=== PATIENT | male | born 1955 | race Caucasian/White ===

== ENCOUNTER 2019-10-15 16:41 | Outpatient (REF) | payer OTHER, SELFPAY ==
[2019-10-15 20:28] LABS: Bilirubin Negative (Negative); Blood Negative (Negative); Clarity Clear (Clear); Glucose Negative (Negative); Ketones Negative (Negative); Leukocyte Esterase Negative (Negative); Nitrite Negative (Negative); Specific Gravity 1.025 (1.005-1.025); Urobilinogen 0.2 EU/dL (Up TO 0.2)
== END 2019-10-15 17:01 ==
LOC: NCHCN 16:41
PROVIDERS: PCP Internal Medicine; Visit Provider Family Medicine
DX: R39.15 Urgency of urination (principal)
CPT/HCPCS: 81003; 87086

== ENCOUNTER 2021-01-22 19:09 | Outpatient (REF) | payer OTHER, SELFPAY ==
[2021-01-22 21:53] LABS: ALT 36 U/L (16-63); AST 22 U/L (15-37); Albumin 3.9 g/dL (3.4-5.0); Alkaline Phosphatase 107 U/L (46-116); Anion Gap 9.3 mmol/L (3-11); BUN 20 mg/dL (7-18); Bilirubin, Total 0.5 mg/dL (0.2-1.0); CO2 26.7 mmol/L (21.0-32.0); CREATININE 1.1 mg/dL (0.70-1.30); Calcium 9.1 mg/dL (8.5-10.1); Calculated LDL 68 mg/dL (<100); Chloride 106 mmol/L (98-107); Cholesterol 149 mg/dL (<200); Glucose 97 mg/dL (74-106); HDL Cholesterol 34 mg/dL (40-60); Potassium 4.8 mmol/L (3.5-5.1); Sodium 142 mmol/L (136-145); Total Protein 7.6 g/dL (6.4-8.2); Triglyceride 235 mg/dL (<150)
== END 2021-01-22 19:10 | disposition home or self-care (01) ==
LOC: NCHCN 19:09
PROVIDERS: PCP Internal Medicine; Visit Provider Family Medicine
DX: I10 Essential (primary) hypertension (principal); G47.30 Sleep apnea, unspecified; E66.9 Obesity, unspecified
CPT/HCPCS: 80053; 80061

== ENCOUNTER 2021-10-18 19:03 | Outpatient (REF) | payer OTHER, SELFPAY ==
[2021-10-18 21:20] LABS: CREATININE 1.1 mg/dL (0.70-1.30)
== END 2021-10-18 19:04 | disposition home or self-care (01) ==
LOC: NCHCN 19:03
PROVIDERS: PCP Internal Medicine; Visit Provider Family Medicine
DX: K11.8 Other diseases of salivary glands (principal)
CPT/HCPCS: 82565

== ENCOUNTER 2021-10-26 01:55 | Outpatient (CLI) | payer OTHER, SELFPAY ==
[2021-10-26] MEDS: Omnipaque 350 MG/ML 100 ML BTL IJ (14:25)
--- NOTE | 2021-10-26 14:25 | DI.CT_ITS ---
Exam(s) CT NECK W EXAM: CT NECK W CLINICAL HISTORY: MASS OF PAROTID GLAND, K11.8. TECHNIQUE: Imaging Protocol: Axial computed tomography images with coronal and sagittal reformatted images were created and reviewed. CONTRAST MATERIAL: Intravenous: Omnipaque 350 Contrast volume:100 COMPARISON: No exams were available for comparison FINDINGS: Orbits and orbital soft tissues: Not included on this examination. Visualized paranasal sinuses: Clear. No fluid levels are present. Nasopharynx: Within normal limits. Oropharynx: Within normal limits. Hypopharynx: Within normal limits. Larynx: Within normal limits. Retropharyngeal space: Within normal limits. Parotids/submandibular: There is a complex mass in the left parotid gland. It measures 3.1 cm trans verse by 3.0 cm AP x 4.2 cm craniocaudad. It is predominantly solid with some areas of fat seen inte rnally. Solid components are isointense to the muscle. No other parotid masses are identified. Thyroid gland: Within normal limits. Lymphadenopathy: The largest lymph node is seen in the left neck at the level of the parotid gland a nd has a short axis diameter of 1.1 cm. Trachea: Within normal limits. Lung apices: Within normal limits. Bones: The bones have a mottled appearance with small lucencies present. No sclerotic lesions are se en. Carotids/Jugular: Mild atherosclerosis. Soft tissues: Within normal limits. IMPRESSION: Normal CT scan of the neck. RADIATION DOSE DELIVERED: 513.36mGy.cm Total DLP 513.36mGy.cm Total DLP DATA REPOSITORY: All CT scans at this facility are submitted to the National Radiology Data Registry (NRDR) Dose Index Registry (DIR) with the [employer] (ACR). RADIATION OPTIMIZATION: All CT scans at this facility use at least one of these dose optimization te chniques: automated exposure control; mA and/or kV adjustment per patient size (includes targeted exa ms where dose is matched to clinical indication); or iterative reconstruction.
== END 2021-10-26 02:15 ==
LOC: DI 01:55
PROVIDERS: PCP Internal Medicine; Visit Provider Family Medicine
DX: K11.8 Other diseases of salivary glands (principal)
CPT/HCPCS: 70491; J3490

== ENCOUNTER 2021-11-19 15:46 | Outpatient (REF) | payer OTHER, SELFPAY ==
--- NOTE | 2021-11-19 14:30 | PAPNONF_PTH ---
PATIENT: Samm Macdonald IV LOC: [facility] U#:[id number] AGE/SX: 65/M ROOM: RE11/19/[address]: Kristopher Kulkarni MD : 1955 BED: DIS: 11/19/2021 SPEC #: [id number] RECD: 11/19/21 18:03 STATUS: IRINA REKraig #: [id number] ADRIAN: 11/19/21 14:[address]: Kristopher Kulkarni DEPT: [facility] Cytology RECD BY: Linda Corbin ENTERED: 11/19/21 18:04 SP TYPE: KAILEY BATES DR: Robyn Glynn Tissues: 1 - BODY FLUID CYTO-FINE NEEDLE [facility] Procedures: BODY FLUID CYTO-FINE NEEDLE [facility]IRATE[facility] Comments: [id number]
--- OUTSIDE RECORDS SUMMARY | 2021-11-19 15:52 | XMS_ITS ---
:1955 Author Care Team Providers Name Role Phone DELLA HESS Primary Care Provider [phone] [facility] MEDICAL RECORDS OTHER [phone] Allergies Code Code System Name Reaction Severity Status Onset 1399 RxNorm Benzocaine Other Severe Active ? 1406 RxNorm Benzoin Other Severe Active ? Cetylpyridinium Other Moderate to Active ? Chloride Severe [id number] RxNorm Indocin Other Moderate Active ? Kank-a (with Other Severe Active ? Benzoin) 6750 RxNorm Menthol Other Moderate Active ? 89117 RxNorm Phenol Other Moderate Active ? Medications Name Status Start Date Stop Date ? ? acetaminophen Active ? Not available 500 mg 2 tabs BID amlodipine 5 mg tablet Active ? Not avail able Take 1 tablet every day by oral route. ibuprofen 200 mg tablet Active ? Not avai lable Take 3 tablets every 6 hours by oral route. lidocaine 5 % medicated patch and dimethicone 5 % topical cream Completed ? 05/03/2021 1 a day every 12 hrs lisinopril 10 mg tablet Completed ? 05/03/20 21 Take 1 tablet every day by oral route. Problems Name Status Onset Date Source ? Adenoma Active 02/01/2021 ? Obesity Active 02/01/2021 ? 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 Retinal Detachment Active 02/01/2021 ? Iritis Active 02/01/2021 ? Impacted Cerumen Active 02/01/2021 ? Hypertensive Disorder Active 02/01/2021 ? Psoriasis Active 02/01/2021 ? Low Back Pain Active 02/01/2021 ? Urgent Desire to Urinate Active 02/01/2021 ? Obstructive Sleep Apnea Syndrome Active ? ? Procedures None recorded. Results Lab Results None recorded. 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 Social History Tobacco Smoking Status Never Smoker Vaccine List None recorded. Plan of Care Reminders Provider Appointments None ? ? recorded. Lab None ? ? recorded. Referral None ? ? recorded. Procedures None ? ? recorded. Surgeries None ? ? recorded. Imaging None ? ? recorded. Vitals Height Weight BMI Blood Pressure 177.8 cm 141.52 kg 44.8 kg/m2 140/80 mm[Hg]
== END 2021-11-19 15:47 | disposition home or self-care (01) ==
LOC: LBN 15:46
PROVIDERS: PCP Family Medicine; Visit Provider Otolaryngology
DX: K11.8 Other diseases of salivary glands (principal)
CPT/HCPCS: 88104

== ENCOUNTER 2021-11-28 08:16 | Outpatient (REF) | payer OTHER, SELFPAY ==
--- NOTE | 2021-11-28 17:00 | PAPNONF_PTH ---
PATIENT: Samm Macdonald IV LOC: [facility] U#:[id number] AGE/SX: 65/M ROOM: RE11/28/[address]: Kristopher Kulkarni MD : 1955 BED: DIS: 11/28/2021 SPEC #: [id number] RECD: 11/29/21 12:59 STATUS: IRINA REQ #: [id number] ADRIAN: 11/28/21 17:[address]: Kristopher Kulkarni DEPT: [facility] Cytology RECD BY: Linda Corbin ENTERED: 11/29/21 13:02 SP TYPE: KAILEY BATES DR: Robyn Glynn Tissues: 1 - BODY FLUID CYTO-FINE NEEDLE [facility]ATE[facility] Procedures: BODY FLUID CYTO-FINE NEEDLE ASPIRATE[facility] Comments: [id number]
== END 2021-11-28 08:17 | disposition home or self-care (01) ==
LOC: LBN 08:16
PROVIDERS: PCP Family Medicine; Visit Provider Otolaryngology
DX: K11.8 Other diseases of salivary glands (principal); D37.030 Neoplasm of uncertain behavior of the parotid salivary glands
CPT/HCPCS: 88104

== ENCOUNTER 2022-04-01 16:09 | Outpatient (REF) | payer OTHER, SELFPAY ==
[2022-04-01 19:21] LABS: HCT 48.2 % (40.0-50.0); HGB 16.9 g/dL (13.5-17.5); MCH 30.5 pg (27.0-33.0); MCHC 35.1 % (32.0-36.0); MCV 87 fL (80-95); MPV 10.2 fL (8.0-11.0); Platelet Count 288 10^3/uL (130-400); RBC 5.54 10^6/uL (4.36-5.78); RDW 13.1 % (11.8-14.1); RDW-SD 41.5 fL; WBC 9.34 10^3/uL (4.4-10.8)
[2022-04-01 19:54] LABS: ALT 61 U/L (16-63); AST 28 U/L (15-37); Albumin 3.8 g/dL (3.4-5.0); Alkaline Phosphatase 110 U/L (46-116); Anion Gap 10.9 mmol/L (3-11); BUN 16 mg/dL (7-18); Bilirubin, Total 0.7 mg/dL (0.2-1.0); CO2 29.1 mmol/L (21.0-32.0); Chloride 104 mmol/L (98-107); Estimated GFR 83.52 (mL/min/1.73m2); Glucose 86 mg/dL (74-106); Potassium 4.2 mmol/L (3.5-5.1); Sodium 144 mmol/L (136-145)
== END 2022-04-01 16:10 | disposition home or self-care (01) ==
LOC: NCHCN 16:09
PROVIDERS: PCP Family Medicine; Visit Provider Family Medicine
DX: Z01.818 Encounter for other preprocedural examination (principal)
CPT/HCPCS: 80053; 85027; 84443

== ENCOUNTER 2024-02-02 15:15 | Outpatient (REF) | payer OTHER, SELFPAY ==
[2024-02-02 15:45] LABS: ALT 53 U/L (16-63); AST 34 U/L (15-37); Albumin 3.7 g/dL (3.4-5.0); Alkaline Phosphatase 115 U/L (46-116); Anion Gap 6.8 mmol/L (3-11); BUN 23 mg/dL (7-18); Bilirubin, Total 0.47 mg/dL (0.2-1.0); CO2 28.2 mmol/L (21.0-32.0); Calcium 8.9 mg/dL (8.5-10.1); Calculated LDL 59 mg/dL (<100); Chloride 108 mmol/L (98-107); Cholesterol 125 mg/dL (<200); Estimated GFR 82.49 (mL/min/1.73m2); Glucose 96 mg/dL (74-106); HDL Cholesterol 38 mg/dL (40-60); Sodium 143 mmol/L (136-145); Total Protein 7.4 g/dL (6.4-8.2); Triglyceride 144 mg/dL (<150); Vitamin D 25 Total 14.9 ng/mL (30-100)
== END 2024-02-02 15:16 | disposition home or self-care (01) ==
LOC: NCHCN 15:15
PROVIDERS: PCP Family Medicine; Visit Provider Family Medicine
DX: Z00.00 Encounter for general adult medical examination without abnormal findings (principal); E55.9 Vitamin D deficiency, unspecified; R79.89 Other specified abnormal findings of blood chemistry
CPT/HCPCS: 80053; 80061; 82306

== ENCOUNTER 2024-07-21 16:33 | Outpatient (CLI) | payer MEDICARE, SELFPAY ==
[2024-07-21 12:53] LABS: BUN 13 mg/dL (7-18); CREATININE 0.9 mg/dL (0.70-1.30); Estimated GFR 93.61 (mL/min/1.73m2)
--- OUTSIDE RECORDS SUMMARY | 2024-07-21 16:38 | XMS_ITS | Encounter Summary ---
Author Organization [facility] Address [address] [place] [address] Care Team Providers Care Drafter Name Role Phone Robyn Glynn MD Primary Care Provider Reason for Visit * Reason Onset Date Comments Medications Refill 12/04/2023 Encounter Details Date Type Department Care Team (Late st Contact Info) Description 12/04/2023 Refill [facility] Cardiology - [address] [place] [address] Helio Lyons MD [address] [place] [address] [address] [place] [address] Medications Refill Social History Tobacco Use Types Packs/Day Years Used Date Smoking Tobacco: Never Passive Smoke Exposure: Past Smokeless Tobacco: Never Alcohol Use Standard Drinks/Week Comments Yes 0 (1 standard drink = 0.6 oz pur e alcohol) Very rare. AUDIT-C Answer Date Recorded Frequency of Alcohol Consumption Never 01/25/2019 Average Number of Drinks Not on file 019 Frequency of Binge Drinking Not on file 01/03 Interpersonal Safety Answer Date Record ed Physically Hurt Never 03/06/2020 Verbally Threaten Not on file 03/06/2020 Sex and Gender Information Value Date Recorded Sex Assigned at Not on file Legal Sex Male 14:01 EDT Gender Identity Not on file Sexual Orientation Not on file documented as of this encounter Functional Status * Are you deaf or do you have serious difficulty hearing? Answer Date of Assessment Author No 07/10/2023 19:12 Jannet Crum RN * Are you blind or do you have serious difficulty seeing, even when wearing glasses? Answer Date of Assessment Author No 07/10/2023 19:12 Jannet Crum, TAYO * Do you have serious difficulty walking or climbing stairs? (5 years old or older) Answer Date of Assessment Author No 07/10/2023 19:12 Jannet Crum RN * Do you have difficulty dressing or bathing? (5 years old or older) Answer Date of Assessment Author No 07/10/2023 19:12 Jannet Crum RN * Because of a physical, mental, or emotional condition, do you have difficulty doing errands alone such as visiting a doctor's office or shopping? (15 years old or older) Answer Date of Assessment Author No 07/10/2023 19:12 Jannet Crum RN documented as of this encounter Mental Status * Because of a physical, mental, or emotional condition, do you have serious difficulty concentrating, remembering, or making decisions? (5 years old or older) Answer Entry Date Author No 07/10/2023 19:12 Jannet Crum RN documented in this encounter Plan of Treatment Upcoming Encounters Date Type Department Care Team (Late st Contact Info) Description 07/22/2024 19:30 EST Appointment [facility] Radiology [place] - [address] [address] 07/29/2025 15:40 EST Office Visit [facility] Cardiology - [place] [address] Palak Diallo MD [address] [facility], [place], [address] [place] [phone] documented as of this encounter Visit Diagnoses Not on filedocumented in this encounter Care Teams Drafter Relationship Specialty Start Date End Date Robyn Glynn MD [address] [place] [phone] PCP - General Family Medicine - Primary Care 11/02/21 documented as of this encounter
--- OUTSIDE RECORDS SUMMARY | 2024-07-21 16:38 | XMS_ITS | Encounter Summary ---
Author Organization [facility] Address [address] [place] [address] Care Team Providers Care Creping Machine Operator Helper Name Role Phone Robyn Glynn MD Primary Care Provider [phone] Reason for Referral * Radiology Services (Routine) - Authorization Not Required Specialty Diagnoses / Procedures Referred By Contac t Referred To Contact Diagnoses PAF (paroxysmal atrial fibrillation) (HCC-CMS) Procedures CT CARDIAC PULMONARY VEIN Helio Lyons MD [address] [place] [phone] Phone: tel: fax: [facility] Referral ID Status Reason Start Date Expiration Date Visits Requested Visits Authorized [id number] Authorization Not Required 11/06/2023 1 1 * Cardiology (Routine) - Authorization Not Required Specialty Diagnoses / Procedures Referred By Contac t Referred To Contact Diagnoses PAF (paroxysmal atrial fibrillation) (HCC-CMS) Procedures TRANSESOPHAGEAL ECHO (GERALD) Helio Lyons MD [address] [facility] [address] [place] [phone] Phone: tel: fax: [facility] Referral ID Status Reason Start Date Expiration Date Visits Requested Visits Authorized [id number] Authorization Not Required 11/06/2023 1 1 * Cardiology (Routine) - New Request Specialty Diagnoses / Procedures Referred By Contac t Referred To Contact Diagnoses PAF (paroxysmal atrial fibrillation) ([facility]) Procedures INTRACARDIAC ECHOCARDIOGRAM (ICE) Helio Lyons MD 62 [facility] [address] [place] [phone] Phone: tel: fax: Referral ID Status Reason Start Date Expiration Date V isits Requested Visits Authorized [id number] New Request 11/06/2023 1 1 Reason for Visit * Reason Comments Atrial Fibrillation * Consult (Routine/Next Available) - Authorization Not Required Specialty Diagnoses / Procedures Referred By Contac t Referred To Contact Cardiology Diagnoses Paroxysmal atrial fibrillation ([facility]) Sirisha Daniel NP Phone: tel: fax: Helio Lyons MD Phone: tel: fax: Referral ID Status Reason Start Date Expiration Date Visits Requested Visits Authorized [id number] Authorization Not Required Specialty Services Required 3 1 1 Encounter Details Date Type Department Care Team (Late st Contact Info) Description 11/06/2023 16:15 EDT Telemedicine [facility] Cardiology - [address] [address] Helio Lyons MD [address] [phone] PAF (paroxysmal atrial fibrillation) ([facility]) (Primary Dx) Social History Tobacco Use Types Packs/Day Years [...] Jannet Crum RN * Do you have serious difficulty walking [...] Jannet Crum RN documented in this encounter Progress Notes * Helio Lyons MD - 11/06/2023 1615 EDT Cardiology Follow Up 11/06/23 Chief complaint: No chief complaint on file. Assessment & Plan Samm Macdonald is a 67 y.o. male with a structurally normal heart and symptomatic PAF refractory to dofetilide therapy. We discussed options for his ongoing symptomatic AF. We reviewed a trial of a different antiarrhythmic drug such as flecainide or amiodarone and catheter ablation. The risks and benefits of each approach were discussed in detail. Mr. Macdonald understands that the long-term efficacy of antiarrhythmic drug therapy is on the order of 50 to 60%. The initial success rate for first-timepulmonary vein and encirclement/isolation is 60 to 65%. the risk to catheter ablation is low. After discussing options further, Mr. Macdonald prefers to proceed with catheter ablation. An ablation will be scheduled at his convenience. Plans: Continue beta-gamal and OAC Discontinue dofetilide due to ineffectiveness Scheduled for PVE/PVI There are no diagnoses linked to this encounter. No follow-ups on file. Helio Lyons MD Subjective Samm Macdonald is a 67 y.o. male with a history of paroxysmal atrial fibrillation in the setting of a structurally normal heart. He was recently started on dofetilide. He has been on dofetilide since July 10, 2023. He continues to have weekly episodes of self-limited symptomatic AF which last hours. He feels poorly when he is in AF. He has been compliant with his medical therapy including his OAC. When not in AF Mr. Macdonald is asymptomatic and able to participate in activities of daily living without restriction including skiing and other outdoor pursuits. ROS See subjective for pertinent positives and negatives Problem List and History were reviewed in the EMR No outpatient medications have been marked as taking for the 11/06/23 encounter (Appointment) with Helio Lyons MD. Objective There were no vitals taken for this visit. Physical Exam No physical exam as this was a telemedicine video conference interaction Diagnostics: Not applicable This was a televideo visit conducted over the vufind platform Patient location: Home Provider location: [facility] outpatient cardiology clinic I spent a total of 15 minutes on the date of this encounter meeting with the patient and reviewing documentation/coordinating care as described in the above note. documented in this encounter Plan of Treatment Upcoming Encounters Date Type Department Care Team (Late st Contact Info) Description 07/22/2024 19:30 EST Appointment [facility] Radiology [place] - Main [address] [address] 07/29/2025 15:40 EST Office Visit [facility] Cardiology - [address] [place] [address] Palak Diallo MD [address] [place] [address], [address] [place] [address] Scheduled Orders Name Type Priority Associated Diagnoses Order Schedule TRANSESOPHAGEAL ECHO (GERALD) Echocardiography Routine PAF (paroxysmal atrial fibrillation) ([facility]) Expected: 11/06/2023, Expires: 11/05/2025 documented as of this encounter Results * INTRACARDIAC ECHOCARDIOGRAM (ICE) (03/22/2024 6:25 EDT) Narrative [facility] - 03/22/2024 6:25 EDT Non Reportable Exam us Helio Lyons MD CARDIAC ECHO ORDERABL ES Final Result [facility] * CT CARDIAC PULMONARY VEIN (01/27/2024 9:00 EDT) Anatomical Region Laterality Modality Chest Computed Tomogra phy 01/27/2024 9:16 EDT Narrative 01/27/2024 9:[address] CARDIAC PULMONARY VEIN ??01/27/2024 8:37 AM Clinical History/Comments: paf;I48.0:PAF (paroxysmal atrial fibrillation) ([facility]) Technique: CT of the heart was performed with ECG-gating and with the intravenous administration of contrast material. Images were reconstructed at the 30-35-40-45% phases of the cardiac cycle. 3D advanced post-processing was performed utilizing a combination of MIP and MPR techniques with physician participation and supervision. This CT used either dose modulation and/or iterative reconstruction techniques to lower radiation dose. Comparison: None. Findings: CT of the chest with contrast performed tailored for left atrium and pulmonary vein opacification. The left atrium is dilated the maximum anterior to posterior diameter measurement is 5.6 cm. The pulmonary veins are normal. There are 4 draining veins on the right, a right superior vein draining right upper lobe, a separate middle lobe draining vein, 80 vein draining the superior segment right lower lobe, and a the right inferior vein draining the basal segments of the right lower lobe. On the left, there are 2 draining veins draining left upper and lower lobes respectively. The left atrial appendage is well opacified and without thrombus. Additional findings: There is mild coronary artery atherosclerotic calcification. The main pulmonary artery is mildly dilated measuring 3.2 cm diameter. Focal sclerotic lesion anterior left second rib, likely benign in the absence of a history of malignancy. There is a 1.0 cm diameter aortopulmonary window lymph node, with an adjacent 8 mm lymph node. These are likely reactive. A dedicated chest CT may be of benefit performed electively for further evaluation. There is a calcified nodule in the lingula consistent with a granuloma. [id number] Resulting Agency Comment [id number] Procedure Note Diallo Flores MD - 01/27/2024 CT CARDIAC PULMONARY VEIN 01/27/2024 8:37 AM Clinical History/Comments: paf;I48.0:PAF (paroxysmal atrial fibrillation) ([facility]) Technique: CT of the heart was performed with ECG-gating and with the intravenousadministration of contrast material. Images were reconstructed at fdf65-95-67-08% phases of the cardiac cycle. 3D advanced post-processing wasperformed utilizing a combination of MIP and MPR techniques with physicianparticipation and supervision. This CT used either dose modulation and/or iterative reconstructiontechniques to lower radiation dose. Comparison: None. Findings: CT of the chest with contrast performed tailored for left atrium andpulmonary vein opacification. The left atrium is dilated the maximum anterior to posterior diametermeasurement is 5.6 cm. The pulmonary veins are normal. There are 4 draining veins on the right, aright superior vein draining right upper lobe, a separate middle lobedraining vein, 80 vein draining the superior segment right lower lobe, abhi the right inferior vein draining the basal segments of the right lowerlobe. On the left, there are 2 draining veins draining left upper andlower lobes respectively. The left atrial appendage is well opacified and without thrombus. Additional findings: There is mild coronary artery atherosclerotic calcification. The main pulmonary artery is mildly dilated measuring 3.2 cm diameter. Focal sclerotic lesion anterior left second rib, likely benign in theabsence of a history of malignancy. There is a 1.0 cm diameter aortopulmonary window lymph node, with anadjacent 8 mm lymph node. These are likely reactive. A dedicated chest CTmay be of benefit performed electively for further evaluation. There is a calcified nodule in the lingula consistent with a granuloma. [id number] Helio Lyons MD IMG CT ORDERABLES Fin al Result documented in this encounter Visit Diagnoses Diagnosis PAF (paroxysmal atrial fibrillation) (HCC-CMS)- Primary Atrial fibrillation PAF (paroxysmal atrial fibrillation) (HCC-CMS) Atrial fibrillation PAF (paroxysmal atrial fibrillation) (HCC-CMS) Atrial fibrillation documented in this encounter Historical Medications * This list may reflect changes made after this encounter. apixaban (ELIQUIS) 5 mg tabletIndications:pre vent thromboembolism in chronic atrial fibrillation Take 1 Tablet by mouth 2 times daily. added in this encounter Orders Case Request Count Last Ordered Date First Orde red Date CASE REQUEST EP LAB 1 11/06/2023 documented in this encounter Care Teams Creping Machine Operator Helper Relationship Specialty Start Date End Date Robyn Glynn MD [address] [place] [phone] PCP - General Family Medicine - Primary Care 11/02/21 documented as of this encounter
--- OUTSIDE RECORDS SUMMARY | 2024-07-21 16:38 | XMS_ITS | Encounter Summary ---
Author Organization [facility] Address [address] [place] [address] Care Team Providers Care Water Pump Installer Name Role Phone Robyn Glynn MD Primary Care Provider [phone] Encounter Details Date Type Department Care Team (Late st Contact Info) Description 02/12/2024 Orders Only [facility] Radiology - Main [place] [address] [place], [place] [phone] Joe Hayden MD [address] [facility] [address] [place] [address] Social History Tobacco Use Types Packs/Day Years [...] No 07/10/2023 19:12 Jannet Crum, TAYO * Are you blind or do you have serious difficulty seeing, even when wearing glasses? Answer Date of Assessment Author No 07/10/2023 19:12 Jannet Crum, TAYO * Do you have serious difficulty walking or climbing stairs? (5 years old or older) Answer Date of Assessment Author No 07/10/2023 19:12 Jannet Crum, TAYO * Do you have difficulty dressing or bathing? (5 years old or older) Answer Date of Assessment Author No 07/10/2023 19:12 Jannet Crum, TAYO * Because of a physical, mental, or [...] st Contact Info) Description 07/22/2024 19:30 EST [facility] Radiology [place] - [address] [address] 07/29/2025 15:40 EST Office Visit [facility] Cardiology - [address] [place] [address] Palak Diallo MD [address] [place] [address], [place], [address] [place] [phone] documented as of this encounter Visit Diagnoses Not on filedocumented in this encounter Care Teams Water Pump Installer Relationship Specialty Start Date End Date Robyn Glynn MD [address] [place] [phone] PCP - General Family Medicine - Primary Care 11/02/21 documented as of this encounter
--- OUTSIDE RECORDS SUMMARY | 2024-07-21 16:38 | XMS_ITS | Encounter Summary ---
Author Organization [facility] Address [address] [place] [address] Care Team Providers Care A Class Lineman Name Role Phone Robyn Glynn MD Primary Care Provider [phone] Reason for Referral * Radiology Services (Routine/Next Available) - Authorization Not Required Specialty Diagnoses / Procedures Referred By Contac t Referred To Contact Diagnoses PAF (paroxysmal atrial fibrillation) ([facility]) Procedures CT CHEST W CONTRAST IR IR CT CHEST W/WO CONTRAST Helio Lyons MD [address] [place] [address] [place] [phone] Phone: tel: fax: [facility] [place] Referral ID Status Reason Start Date Expiration Date Visits Requested Visits Authorized [id number] Authorization Not Required 02/12/2024 1 1 Encounter Details Date Type Department Care Team (Late st Contact Info) Description 02/12/2024 Orders Only [facility] Cardiology - [address] [address] Lanny Lucero, TAYO PAF (paroxysmal atrial fibrillation) ([facility]) (Primary Dx) Social History Tobacco Use Types [...] (Late st Contact Info) Description 07/22/2024 19:[address] [facility] Radiology [place] - [address] [address] 07/29/2025 15:40 EST Office Visit [facility] Cardiology - [place] [address] Palak Diallo MD [address] [facility], Level [address] [place] [phone] documented as of this encounter Results * CT CHEST W CONTRAST (03/16/2024 14:43 EDT) Anatomical Region Laterality Modality Chest Computed Tomogra phy 03/16/2024 16:0 7 EDT Impressions 03/16/2024 16:07 EDT 1. ??Stable borderline enlarged mediastinal lymph nodes, likely reactive. 2. ??Few smooth solid lung nodules measuring up to 4 mm in the right middle lobe. Per Fleischner Society guidelines, follow-up CT may be considered in 1 year to ensure stability if the patient is high risk. 3. ??No consolidation identified. No CT evidence of significant emphysema or chronic interstitial lung disease. 4. ??INDETERMINATE 3-CM LEFT ADRENAL NODULE. Adrenal protocol CT (or MR) recommended for further characterization. 5. ??Ovoid 12 cm cystic lesion in the left abdomen, possibly a large exophytic left renal cyst, however only partially included on the vqrio-lx-vxzz. Attention to this recommended upon follow-up adrenal protocol CT or MR. 6. ??Additional nonemergent findings as above. [id number] Narrative 03/16/2024 16:[address] CHEST W CONTRAST ?? Signs and Symptoms/Comments: ??Enlarged lymph nodes on prior CT Comparison: Cardiac CT on 01/27/2024. Technique: CT chest with intravenous contrast was performed. FINDINGS: Chest Wall: Unremarkable. Mediastinum: No mediastinal mass identified. Minimal calcified coronary and peripheral atherosclerotic disease. Main pulmonary trunk remains dilated, measuring 3.4 cm. Pericardium unremarkable. Lymph Nodes: Stable AP window lymph node measuring 8 mm in short-axis dimension, likely reactive. Stable precarinal lymph node measuring 10 mm in short-axis dimension, also likely reactive. No enlarged hilar, axillary, or internal mammary lymph nodes identified. Airways: Unremarkable. Lungs: * ??Smooth 4 mm solid right middle lobe nodule (axial series 4 image 197). This was not included on the ddvmi-ve-zqhc on the prior study, therefore age- indeterminate. * ??Few additional sub-4 mm solid calcified and noncalcified nodules, the majority of which were not included on the ecama-nt-ocqp on the prior study, therefore age-indeterminate. * ??No consolidation identified. * ??No CT evidence of significant emphysema or chronic interstitial lung disease. Pleura: No pneumothorax or pleural effusion identified. Bones: Moderate thoracic spondylosis. Upper Abdomen: * ??Indeterminate ovoid 3 cm left adrenal nodule, measuring 35 Hounsfield units in density (axial series 3 image 118). Follow-up adrenal protocol CT (or MR) recommended for further characterization. * ??Ovoid 12 cm cystic lesion in the left abdomen, possibly a large exophytic left renal cyst, however only partially included on the nnknj-ku-khxt (axial series 3 image 123). * ??Scattered colonic diverticulosis. Resulting Agency Comment [id number] Procedure Note Martínez Mckinley MD - 03/16/2024 CT CHEST W CONTRAST Signs and Symptoms/Comments: Enlarged lymph nodes on prior CT Comparison: Cardiac CT on 01/27/2024. Technique: CT chest with intravenous contrast was performed. FINDINGS: Chest Wall: Unremarkable. Mediastinum: No mediastinal mass identified. Minimal calcified coronaryand peripheral atherosclerotic disease. Main pulmonary trunk remainsdilated, measuring 3.4 cm. Pericardium unremarkable. Lymph Nodes: Stable AP window lymph node measuring 8 mm in short-axisdimension, likely reactive. Stable precarinal lymph node measuring 10 mmin short-axis dimension, also likely reactive. No enlarged hilar,axillary, or internal mammary lymph nodes identified. Airways: Unremarkable. Lungs: * Smooth 4 mm solid right middle lobe nodule (axial series 4 image 197).This was not included on the htjge-lp-doym on the prior study, thereforeage-indeterminate. * Few additional sub-4 mm solid calcified and noncalcified nodules, themajority of which were not included on the sqybg-pq-jwqp on the priorstudy, therefore age-indeterminate. * No consolidation identified. * No CT evidence of significant emphysema or chronic interstitial lungdisease. Pleura: No pneumothorax or pleural effusion identified. Bones: Moderate thoracic spondylosis. Upper Abdomen: * Indeterminate ovoid 3 cm left adrenal nodule, measuring 35 Hounsfieldunits in density (axial series 3 image 118). Follow-up adrenal protocol CT(or MR) recommended for further characterization. * Ovoid 12 cm cystic lesion in the left abdomen, possibly a largeexophytic left renal cyst, however only partially included on ixoxtpvk-ma-mqjq (axial series 3 image 123). * Scattered colonic diverticulosis. IMPRESSION 1. Stable borderline enlarged mediastinal lymph nodes, likely reactive. 2. Few smooth solid lung nodules measuring up to 4 mm in the right middlelobe. Per Fleischner Society guidelines, follow-up CT may be considered in1 year to ensure stability if the patient is high risk. 3. No consolidation identified. No CT evidence of significant emphysemaor chronic interstitial lung disease. 4. INDETERMINATE 3-CM LEFT ADRENAL NODULE. Adrenal protocol CT (or MR)recommended for further characterization. 5. Ovoid 12 cm cystic lesion in the left abdomen, possibly a largeexophytic left renal cyst, however only partially included on tucztmlz-eo-rywg. Attention to this recommended upon follow-up adrenalprotocol CT or MR. 6. Additional nonemergent findings as above. [id number] Helio Lyons MD IMG CT ORDERABLES Fin al Result documented in this encounter Visit Diagnoses Diagnosis PAF (paroxysmal atrial fibrillation) ([facility])- Primary Atrial fibrillation PAF (paroxysmal atrial fibrillation) (HCC-CMS) Atrial fibrillation documented in this encounter Care Teams A Class Lineman Relationship Specialty Start Date End Date Robyn Glynn MD [address] [place] [address] PCP - General Family Medicine - Primary Care 11/02/21 documented as of this encounter
--- OUTSIDE RECORDS SUMMARY | 2024-07-21 16:38 | XMS_ITS | Encounter Summary ---
Author Organization [facility] Address [address] [place] [address] Care Team Providers Care Sterile Supervisor Name Role Phone Robyn Glynn MD Primary Care Provider [phone] Reason for Visit * Reason Onset Date Comments Other 04/06/2024 Patient message Encounter Details Date Type Department Care Team (Late st Contact Info) Description 04/06/2024 Telephone [facility] Cardiology - Laura [address] [facility] [place] [address] Palak Diallo MD [address] [place] [address] 1 [place] [address] Other (Patient message) Social History Tobacco Use Types Packs/Day Years Used Date Smoking Tobacco: Never Passive Smoke Exposure: Past Smokeless Tobacco: Never Comments:2nd hand smoke expo sure Alcohol Use Standard Drinks/Week Comments Yes 0 (1 standard drink = 0.6 oz pur e alcohol) Very rare maybe 2 a month [facility] Utilities Answer Date Recorded In the past 12 months has [employer] electric, gas, oil, or water company threatened to shut off services in your home? No 03/22/2024 AUDIT-C Answer Date Recorded Frequency of Alcohol Consumption Never 01/25/2019 Average Number of Drinks Not on file 019 Frequency of Binge Drinking Not on file 01/03 Hunger Vital Sign Answer Date Recorded Within the past 12 months, y ou worried that your food would run out before you got the money to buy more. Never true 03/22/20 24 Within the past 12 months, t he food you bought just didn't last and you didn't have money to get more. Never true 03/22/2024 PRAPARE - Transportation Answer Date Re corded In the past 12 months, has l ack of transportation kept you from medical appointments or from getting medications? No 03/04 In the past 12 months, has l ack of transportation kept you from meetings, work, or from getting things needed for daily living? No 03/22/2024 Housing Stability Vital Sign Answer [place] e Recorded In the last 12 months, was t here a time when you were not able to pay the mortgage or rent on time? No 03/22/2024 In the past 12 months, how m any times have you moved where you were living? 0 03/22/2024 At any time in the past 12 m ont, were you homeless or living in a usp (including now)? No 03/22/2024 Interpersonal Safety Answer Date Record ed How often does anyone, inclraisa barahona family, hit, punch or physically hurt you? 03/22/2024 How often does anyone, jodie barahona family, insult, scream, curse or threaten to hurt you? 03/22/2024 Sex and Gender Information Value Date Recorded Sex Assigned at Not on file Legal Sex Male 14:01 EDT Gender Identity Not on file Sexual Orientation Not on file documented as of this encounter Functional Status * Are you deaf or do you have serious difficulty hearing? Answer Date of Assessment Author No 03/22/2024 21:00 Cari Bustamante RN * Are you blind or do you have serious difficulty seeing, even when wearing glasses? Answer Date of Assessment Author No 03/22/2024 21:00 Cari Bustamante RN * Do you have serious difficulty walking or climbing stairs? (5 years old or older) Answer Date of Assessment Author No 03/22/2024 21:00 Cari Bustamante RN * Do you have difficulty dressing or bathing? (5 years old or older) Answer Date of Assessment Author No 03/22/2024 21:00 EDT Crai Olmos RN * Because of a physical, mental, or emotional condition, do you have difficulty doing errands alone such as visiting a doctor's office or shopping? (15 years old or older) Answer Date of Assessment Author No 03/22/2024 21:00 EDT Cari Olmos RN documented as of this encounter Mental Status * Because of a physical, mental, or emotional condition, do you have serious difficulty concentrating, remembering, or making decisions? (5 years old or older) Answer Entry Date Author No 03/22/2024 21:00 EDT Cari Olmos RN documented in this encounter Miscellaneous Notes * Telephone Encounter - Candelaria Johnson RN - 04/07/2024 1257 EDT Pt converted. * Telephone Encounter - Candelaria Johnson RN - 04/06/2024 1620 EDT LMTCB and sent [employer] message-Should take metoprolol if he is bothered by the fast heart rate, otherwise can sleep on it, and if still in AF tomorrow morning should take metroprolol then * Telephone Encounter - Candelaria Johnson RN - 04/06/2024 0924 EDT Proposal Coordinator called and spoke with EC spouse Glenda. EC states pt has been in afib with HR 150 bp 114/86 since he woke up at 6:30 am confirmed with Lynn carrasco Pt had afib ablation 03/22. EC states pt has no symptoms just high HR. Proposal Coordinator informed EC this is normal so soon after an ablation but if pt becomes symptomatic or it lasts over 24 hours without interruptions we will want to consider interventions such as a CV. Proposal Coordinator asked if pt took metop, EC stated they were told only take metop if HR is above 110 for 24 hours. Proposal Coordinator will check in with provider to ensure that is what she wants pt to door if he can take a dose of metop to lower HR at this time. No barriers to learning identified. * Telephone Encounter - Shari Ceballos - 04/06/2024 0711 EDT PAS Message: Patient's , a hospice nurse, called stating that patient has an ablation on 03/23 and she thinks patient is in SVT. Would like call back as soon as possible to discuss. documented in this encounter Plan of Treatment Upcoming Encounters Date Type Department Care Team (Late st Contact Info) Description 07/22/2024 19:30 EST Appointment [facility] Radiology CT - [facility] [place] [address] [place], [place] [phone] 07/29/2025 15:40 EST Office Visit [facility] Cardiology - [address] [place] [address] Palak Diallo MD [address] [place] [address], [place], [address] [place] [phone] documented as of this encounter Visit Diagnoses Not on filedocumented in this encounter Care Teams Sterile Supervisor Relationship Specialty Start Date End Date Robyn Glynn MD [address] [place] [phone] PCP - General Family Medicine - Primary Care 11/02/21 documented as of this encounter
--- OUTSIDE RECORDS SUMMARY | 2024-07-21 16:38 | XMS_ITS | Encounter Summary ---
Author Organization [facility] Address [address] [place] [address] Care Team Providers Care Chief Commercial Officer Name Role Phone Robyn Glynn MD Primary Care Provider [phone] Reason for Visit * Reason Comments Medications Refill Encounter Details Date Type Department Care Team (Late st Contact Info) Description 04/02/2024 Refill [facility] Cardiology - [address] [place], [place] [phone] Palak Diallo MD [address] [facility] [address] [place] [phone] Medications Refill Social History Tobacco Use Types Packs/Day Years Used Date Smoking Tobacco: Never Passive Smoke Exposure: Past Smokeless Tobacco: Never Comments:2nd hand smoke expo sure Alcohol Use Standard Drinks/Week Comments Yes 0 (1 standard drink = 0.6 oz pur e alcohol) Very rare maybe 2 a month [facility] Utilities Answer Date Recorded In the past 12 months has [employer] electric, gas, oil, or water company threatened [...] any time in the past 12 m [facility], were you homeless or living in a long term (including now)? No 03/22/2024 Interpersonal Safety Answer Date Record ed How often does anyone, jodie barahona family, hit, punch or physically hurt [...] No 03/22/2024 21:00 EDT Cari Olmos RN * Are you blind or do you have serious difficulty seeing, even when wearing glasses? Answer Date of Assessment Author No 03/22/2024 21:00 AGGIET Cari Olmos RN * Do you have serious difficulty walking or climbing stairs? (5 years old or older) Answer Date of Assessment Author No 03/22/2024 21:00 EDCari Maki, TAYO * Do you have difficulty dressing or bathing? (5 years old or older) Answer Date of Assessment Author No 03/22/2024 21:00 Cari Bustamante RN * Because of a physical, mental, or emotional condition, do you have difficulty doing errands alone such as visiting a doctor's office or shopping? (15 years old or older) Answer Date of Assessment Author No 03/22/2024 21:00 Cari Bustamante RN documented as of this encounter Mental Status * Because of a physical, mental, or emotional condition, do you have serious difficulty concentrating, remembering, or making decisions? (5 years old or older) Answer Entry Date Author No 03/22/2024 21:00 EDT Cari Olmos RN documented in this encounter Plan of Treatment Upcoming Encounters Date Type Department Care Team (Late st Contact Info) Description 07/22/2024 19:30 EST Appointment [facility] Radiology [place] - [address] [phone] 07/29/2025 15:40 EST Office Visit [facility] Cardiology - [place] [address] [place] [address] Palak Diallo MD [address] [place] [address], [place], [address] [place] [phone] documented as of this encounter Visit Diagnoses Not on filedocumented in this encounter Care Teams Chief Commercial Officer Relationship Specialty Start Date End Date Robyn Glynn MD [address] [place] [phone] PCP - General Family Medicine - Primary Care 11/02/21 documented as of this encounter
--- OUTSIDE RECORDS SUMMARY | 2024-07-21 16:38 | XMS_ITS | Encounter Summary ---
Author Organization [facility] Address [address] [place] [address] Care Team Providers Care Package Clerk Name Role Phone Robyn Glynn MD Primary Care Provider [phone] Encounter Details Date Type Department Care Team (Late st Contact Info) Description 11/07/2023 Orders Only [facility] Radiology - Main [place] [address] [place], [place] [phone] Bette Weber MD [address] [facility] [address] [place] [address] Social History Tobacco Use Types [...] (Late st Contact Info) Description 07/22/2024 19:30 [facility] Radiology [place] - [address] [address] 07/29/2025 15:40 EST Office Visit [facility] Cardiology - [address] [place] [address] Palak Diallo MD [address] [place] [address], [place], [address] [place] [phone] documented as of this encounter Visit Diagnoses Not on filedocumented in this encounter Care Teams Package Clerk Relationship Specialty Start Date End Date Robyn Glynn MD [address] [place] [phone] PCP - General Family Medicine - Primary Care 11/02/21 documented as of this encounter
--- OUTSIDE RECORDS SUMMARY | 2024-07-21 16:38 | XMS_ITS | Clinical Summary ---
Author Organization [facility] Address [address] [place] [address] Care Team Providers Care Electrician Rectifier Maintenance Name Role Phone Robyn Glynn MD Primary Care Provider [phone] Allergies Active Allergy Reactions Criticality Noted Date Comments Chloraseptic (Benzocaine) Rash 02/01/2019 Indomethacin 01/25/2019 hallucinates Medications acetaminophen 325 mg capsule Take 1,000 mg by mouth if needed. Active melatonin 10 mg capsule Take by mouth. Activ e apixaban (ELIQUIS) 5 mg tabletIndications:p revent thromboembolism in chronic atrial fibrillation Take 1 Tablet by mouth 2 times daily. Active cholecalciferol, vitamin D3, (VITAMIN D3 ORAL) Take 1,000 Units by mouth daily. Active docusate sodium (COLACE) 100 mg capsule Take 2 Capsules by mouth daily as needed for Constipation. Active magnesium oxide (MAG-OXIDE ORAL) Take 400 mg by mouth daily. Active metoprolol TARtrate (LOPRESSOR) 50 mg tablet Take 1 Tablet by mouth as needed for Other (atrial fibrillation lasting >24 hours with heart rates greater than 110 beats per minute). 03/23/20 Active Additional Information Patient not taking.Reported on 07/16/2024 amLODIPine (NORVASC) 5 mg tablet Take 1 Tablet by mouth daily. Active clindamycin (CLEOCIN) 300 mg capsule TAKE TWO CAPSULES BY MOUTH 1 HOUR PRIOR TO APPOINTMENT Active senna (SENOKOT) 8.6 mg tablet Take 1 Tablet by mouth daily. Active Active Problems Patient Care Coordination No te Formatting of this note migh t be different from the original. Patient has given permission for [facility] to verbally discuss the following information with Karen Macdonald who has the following relationship to the patient: Spouse/Partner: Scheduling/Appt/Billing/Payment Information (does not include clinical information unless specifically indicated with separate option) Medical Information including symptoms, diagnosis, medications, test results and treatment plan (does not include Mental Health unless specifically indicated with separate option) Permission remains in effect until the patient elects to revoke it. 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 UVULOPALATOPHARYGOPLASTY RHINOPLASTY EYE SURGERY catarcts, cataract redo, rentinal surgery(Multi retina tears) TONSILLECTOMY JOINT REPLACEMENT Left Partial knee replacement VASECTOMY Medical History Medical History Date Comments Apnea Hypertension Noted 07/23/22 - 130 /70 per spouse at recent visit, well controlled on meds. Back pain Noted 07/23/22-H x of surgery History of general anesthesia No darby 07/23/22- No issues. A-fib ([facility]) Noted 07/23/22- In and out of afib, pt is on Eliquis. Sleep apnea 05/08/2022 Noted 07/23/22 C ompliant w/Cpap machine, Uvula removed (28 yrs ago) Spinal stenosis Noted 07/23/22 Joint replaced Noted 07/23/22-P artial left knee Edentulous Noted 07/23/22 U pper left missing tooth Activity, other involving cardiorespiratory exercise Noted 07/23/22- Skiing, hik ing, 1-2 FOS without SOB Arrhythmia Noted 07/23/22-P t is bradycardic when in sinus rhythm.When in AF his rate is elevated. Family History Medical History Relation Comments Dementia Father *Other(comment) Mother afib Dementia Mother High Blood Pressure Mother Relation Status Comments Father Mother Social History Tobacco Use Types Packs/Day Years Used Date Smoking Tobacco: Never Passive Smoke Exposure: Past Smokeless Tobacco: Never Tobacco Cessation:Counseling Given: Not Answered Comments:2nd hand smoke exposure Alcohol Use Standard Drinks/Week Comments Yes 0 (1 standard drink = 0.6 oz pur e alcohol) Very rare maybe 2 a month [facility] [employer] Answer Date Recorded In the past 12 months has th e [employer] gas, oil, or water [employer] threatened to shut off services in your [...] any time in the past 12 m [facility], were you homeless or living in a fci (including now)? No 03/22/2024 Interpersonal Safety Answer Date Record ed How often does anyone, inclu [place] family, hit, punch or physically hurt you? 03/22/2024 How often does anyone, inclu [place] family, insult, scream, curse or threaten to hurt you? 03/22/2024 Sex and Gender Information Value Date Recorded Sex Assigned at Not on file Legal Sex Male 14:01 EDT Gender Identity Not on file Sexual Orientation Not on file Obstetrics History Last Filed Vital Signs Vital Sign Reading Time Taken Comments Blood Pressure 140/82 07/16/2024 1436 EST Pulse 68 07/16/2024 1436 EST Temperature 36.9 ??C (98.5 ??F) 03/23/2024 0748 EDT Respiratory Rate 16 03/23/2024 0748 EDT Oxygen Saturation 96% 07/16/2024 1436 EST Inhaled Oxygen Concentration - - Weight 131 kg (288 lb 12.8 oz) 07/16/[address] Height 176.5 cm (5' 9.5) 03/22/2024 0645 EDT Body Mass Index 42.04 03/22/2024 0645 EDT Plan of Treatment Upcoming Encounters Date Type Department Care Team (Late st Contact Info) Description 07/22/2024 19:30 EST Appointment [facility] Radiology [place] - [address] [id number] 07/29/2025 15:40 EST Office Visit [facility] Cardiology - [place] [address] Palak Diallo MD [address] [place] [address], [place], [address] [place] [address] Health Maintenance Due Date Last Done Comments Hepatitis C Screen 1955 RSV Immunization ( o r 60+ Years) (1 - Risk 60-74 years 1-dose series) 2016 Fall Risk Screening 05/22/2023 05/22/2022 COVID-19 Vaccine (2023- season) 2024 Insurance MVP MEDICARE [facility] Status [employer] Address: [address] [address] [employer] MEDICARE [facility] Status [employer] Address: [address] [address] Advance Directives For more information, please contact: [phone] * Full Code (Latest Code Status on File) Date Activated Date Inactivated Comments 03/22/2024 6:36 03/23/2024 12:56 Question Answer Comments When the patient has NO PULSE: Full Code / CPR Who Made the Decision? Default/Not Discussed * Full Code Date Activated Date Inactivated Comments 07/10/2023 19:34 07/13/2023 14:24 Question Answer Comments When the patient has NO PULSE: Full Code / CPR Who Made the Decision? Default/Not Discussed * Full Code Date Activated Date Inactivated Comments 07/30/2022 12:13 07/31/2022 16:57 Question Answer Comments When the patient has NO PULSE: Full Code / CPR Who Made the Decision? Default/Not Discussed * Full Code Date Activated Date Inactivated Comments 02/02/2019 6:38 02/02/2019 13:03 Question Answer Comments Reason for decision includes: Full code consistent with overall plan of care Who participated in the discussion? Not Discusse d Care Teams Electrician Rectifier Maintenance Relationship Specialty Start Date End Date Robyn Glynn MD [address] [place] [address] PCP - General Family Medicine - Primary Care 11/02/21
--- OUTSIDE RECORDS SUMMARY | 2024-07-21 16:38 | XMS_ITS | Encounter Summary ---
Author Organization [facility] Address [address] [place] [address] Care Team Providers Care Materials Buyer Name Role Phone Robyn Glynn MD Primary Care Provider Reason for Referral * Radiology Services (Routine/Next Available) - Authorization Not Required Specialty Diagnoses / Procedures Referred By Contac t Referred To Contact Diagnoses PAF (paroxysmal atrial fibrillation) (HCC-CMS) Procedures CT CHEST W CONTRAST IR IR CT CHEST W/WO CONTRAST Helio Lyons MD [address] [place] [phone] Phone: tel: fax: [facility] Referral ID Status Reason Start Date Expiration Date Visits Requested Visits Authorized [id number] Authorization Not Required 02/12/2024 1 1 Reason for Visit * Radiology Services (Routine/Next Available) - Authorization Not Required Specialty Diagnoses / Procedures Referred By Contac t Referred To Contact Diagnoses PAF (paroxysmal atrial fibrillation) (HCC-CMS) Procedures CT CHEST W CONTRAST IR IR CT CHEST W/WO CONTRAST Helio Lyons MD [address] [facility] [address] [place] [phone] Phone: tel: fax: [facility] Referral ID Status Reason Start Date Expiration Date Visits Requested Visits Authorized [id number] Authorization Not Required 02/12/2024 1 1 Encounter Details Date Type Department Care Team (Latest Contact Info) Description 03/16/2024 14:23 EDT - 03/16/2024 23:59 EDT Hospital Encounter [facility] CT Scan [address] [place] [address] PAF (paroxysmal atrial fibrillation) ([facility]) Discharge Disposition: Home or Self Care Social History Tobacco Use Types Packs/Day Years [...] Answer Entry Date Author No 07/10/2023 19:12 EST Jannet Lino RN documented in this encounter Medications at Time of Discharge acetaminophen 325 mg capsule Take 1,000 mg by mouth if needed. apixaban (ELIQUIS) 5 mg tabletIndications:pr event thromboembolism in chronic atrial fibrillation Take 1 Tablet by mouth 2 times daily. cholecalciferol, vitamin D3, (VITAMIN D3 ORAL) Take 1,000 Units by mouth daily. docusate sodium (COLACE) 100 mg capsule Take 2 Capsules by mouth daily as needed for Constipation. magnesium oxide (MAG-OXIDE ORAL) Take 400 mg by mouth daily. melatonin 10 mg capsule Take by mouth. metoprolol TARtrate (LOPRESSOR) 50 mg tablet Take 1 Tablet by mouth as needed for Other (atrial fibrillation lasting >24 hours with heart rates greater than 110 beats per minute). 4 dofetilide (TIKOSYN) 250 mcg capsule Take 1 Capsule by mouth every 12 hours. 180 Capsule 1 3 03/22/20 24 metoprolol TARtrate (LOPRESSOR) 50 mg tablet Take 1 Tablet by mouth 2 times daily. 180 Tablet 3 4 03/23/20 24 pantoprazole (PROTONIX) 40 mg tablet Take 1 Tablet by mouth daily. Start 3 days prior to procedure and continue for 30 days after. 33 Tablet 4 04/02/20 24 documented as of this encounter Discharge Disposition Disposition Code Departure Means Destination Home or Self Care documented in this encounter Plan of Treatment Upcoming Encounters Date Type Department Care Team (Late st Contact Info) Description 07/22/2024 19:30 EST Appointment [facility] Radiology [facility] - [facility] [address] [place], [place] [address] 07/29/2025 15:40 EST Office Visit [facility] Cardiology [place] [address] Palak Diallo MD [address] [facility], [place], [address] [place] [phone] documented as of this encounter Procedures Procedure Name Priority Date/Time Associated Diagnosis Comments CT CHEST W CONTRAST Routine 03/16/2024 1 4:43 EDT PAF (paroxysmal atrial fibrillation) ([facility]) documented in this encounter Results * CT CHEST W [...] cyst, however only partially included on the eygvm-hg-egfj. Attention to this recommended upon follow-up adrenal protocol CT or MR. 6. ??Additional nonemergent findings as above. [id number] Narrative 03/16/2024 16:[address] CHEST W [...] 197). This was not included on the wtsoq-cq-lvwg on the prior study, therefore age- indeterminate. * ??Few additional sub-4 mm solid calcified and noncalcified nodules, the majority of which were not included on the gmgrn-pe-qpxo on the prior study, therefore age-indeterminate. * [...] cyst, however only partially included on the pzjlx-on-ffwd (axial series 3 image 123). * ??Scattered colonic diverticulosis. Resulting Agency Comment [id number] Procedure Note Martínez Mckinley MD - 03/16/2024 [...] image 197).This was not included on the uqoiv-qt-hsph on the prior study, thereforeage-indeterminate. * Few additional sub-4 mm solid calcified and noncalcified nodules, themajority of which were not included on the gjqty-vy-sshd on the priorstudy, therefore age-indeterminate. * No [...] renal cyst, however only partially included on lgywrpyw-cj-mdzv (axial series 3 image 123). * Scattered [...] renal cyst, however only partially included on yedsccjm-sc-sphs. Attention to this recommended upon follow-up adrenalprotocol CT or MR. 6. Additional nonemergent findings as above. [id number] Helio Lyons MD IMG CT ORDERABLES Fin al Result documented in this encounter Visit Diagnoses Diagnosis PAF (paroxysmal atrial fibrillation) ([facility]) Atrial fibrillation documented in this encounter Administered Medications Inactive Administered Medications - up to 3 most recent administrations Medication Order MAR Action Action Date Dose Rate Site iohexoL (OMNIPAQUE 350) solution 100 mL 100 mL, intravenous, Once in imaging, 1 dose, Starting on 03/16/24 at 1434, Until Tu03/16/24 at 1443, Routine, Imaging Protocol Orders Given 03/16/2024 14:43 EDT 75 mL documented in this encounter Orders Medications Ordered That Attila ht Not Have Been Administered Count Last Ordered Date First Ordered Date iohexoL (OMNIPAQUE 350) solution 100 mL 1 0 03/16/2024 documented in this encounter Care Teams Materials Buyer Relationship Specialty Start Date End Date Robyn Glynn MD [address] [place] [address] PCP - General Family Medicine - Primary Care 11/02/21 documented as of this encounter
--- OUTSIDE RECORDS SUMMARY | 2024-07-21 16:38 | XMS_ITS | Encounter Summary ---
Author Organization [facility] Address [address] [place] [address] Care Team Providers Care Hearing Aide Technician Name Role Phone Robyn Glynn MD Primary Care Provider [phone] Reason for Visit * Reason Onset Date Comments Pre-visit Planning 03/04/2024 Encounter Details Date Type Department Care Team (Late st Contact Info) Description 03/04/2024 Telephone [facility] Cardiology - [address] [place] [address] Palak Diallo MD [address] [place] [address] [address] [place] [address] Pre-visit Planning Social History Tobacco Use Types Packs/Day Years [...] Jannet Crum RN documented in this encounter Ordered Prescriptions Prescription Sig Dispense Quantity Refills Last Filled Start Date End Date pantoprazole (PROTONIX) 40 mg tablet Take 1 Tablet by mouth daily. Start 3 days prior to procedure and continue for 30 days after. 33 Tablet 03/05/2024 4 documented in this encounter Miscellaneous Notes * Telephone Encounter - Candelaria Johnson RN - 03/04/2024 1643 EDT Sent letter via [employer]. Medications reviewedyes Reviewed with patient: Please start taking Pantoprazole 40mg daily 3 days prior to the ablation and 30 days after to protect the esophagus. (Let us know where you would like that prescription sent) Please continue your current anticoagulant medication ELIQUS WITHOUT INTERRUPTION. You can TAKE your other medications and supplements through the end of the day on FridayMarch 21,prior to your ablation. On the morning of your ablation, please HOLD all medications except anticoagulants (if taken in AM) DO NOT shave your groin area before the procedure. It will be done as part of your prep in the Cardiovascular Unit. Bring your insurance card with you. Please shower the night before AND the morning of the procedure with antibacterial soap. This will reduce your chance of infection. DO NOT EAT OR DRINK AFTER MIDNIGHT BEFORE YOUR PROCEDURE. Please do NOT bring your medications with you. If you need them, they will be ordered for you whilehere. Patient provided number to the cardiology clinic to call with questions and concerns that arise prior to procedure. PreProc ordered placed yes documented in this encounter Plan of Treatment Upcoming Encounters Date Type Department Care Team (Late st Contact Info) Description 07/22/2024 19:30 EST Appointment [facility] Radiology [place] - [facility] [address] [place] [address] 07/29/2025 15:40 EST Office Visit [facility] Cardiology - [place] [address] [place] [address] Palak Diallo MD [address] [place] [address], [place], [address] [place] [address] documented as of this encounter Visit Diagnoses Not on filedocumented in this encounter Care Teams Hearing Aide Technician Relationship Specialty Start Date End Date Robyn Glynn MD [address] [place] [address] PCP - General Family Medicine - Primary Care 11/02/21 documented as of this encounter
--- OUTSIDE RECORDS SUMMARY | 2024-07-21 16:38 | XMS_ITS | Referral Summary ---
Author Organization [facility] Address [address] [place] [address] Care Team Providers Care House Officer Name Role Phone Robyn Glynn MD Primary Care Provider [phone] Encounters Date Type Department Care Team Description 07/16/2024 14:40 EST Office Visit [facility] Cardiology - [facility] [address] [facility] [place], [place] [phone] Palak Diallo MD Paroxysmal atrial fibrillation ([facility]) (Primary Dx) 05/17/2024 Orders Only [facility] Radiology - Main [place] [address] [place], [place] [phone] Jack Rollins DO from Last 3 Months Allergies Active Allergy Reactions Criticality Noted Date [...] original. 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 02/02/2019 Paroxysmal atrial fibrillation ([facility]) Social History Tobacco Use Types Packs/Day Years Used Date Smoking Tobacco: Never Passive Smoke Exposure: Past Smokeless Tobacco: Never Tobacco Cessation:Counseling Given: Not Answered Comments:2nd hand smoke exposure Alcohol Use Standard Drinks/Week Comments Yes 0 (1 standard drink = 0.6 oz pur e alcohol) Very rare maybe 2 a month [facility] [employer] Answer Date Recorded In the past 12 months has e [employer], gas, oil, or water [employer] threatened to shut off services in your [...] any time in the past 12 m [facility], were you homeless or living in a mcc (including now)? No 03/22/2024 Interpersonal Safety Answer [...] on file Sexual Orientation Not on file Last Filed Vital Signs Vital Sign Reading [...] Body Mass Index 42.04 03/22/2024 0645 EDT Functional Status * Are you deaf or [...] Author No 03/22/2024 21:00 Cari Bustamante RN Mental Status * Because of a physical, mental, or emotional condition, do you have serious difficulty concentrating, remembering, or making decisions? (5 years old or older) Answer Entry Date Author No 03/22/2024 21:00 Cari Bustamante RN Plan of Treatment Upcoming Encounters Date Type Department Care Team (Late st Contact Info) Description 07/22/2024 19:30 EST Appointment [facility] Radiology [place] - [facility] [address] [place], [place] [address] 07/29/2025 15:40 EST Office Visit [facility] Cardiology - [address] [place] [address] Palak Diallo MD [address] [facility] [place], [address] [place] [phone] Insurance MVP MEDICARE [facility] Health [employer]vantage Address: [address] [address] [employer] MEDICARE [facility] [employer] Address: [address] [address] Advance Directives For more information, please contact: [phone] * Full Code (Latest Code Status on [...] the discussion? Not Discusse d Care Teams House Officer Relationship Specialty Start Date End Date Robyn Glynn MD [address] [place] [phone] PCP - General Family Medicine - Primary Care 11/02/21
--- OUTSIDE RECORDS SUMMARY | 2024-07-21 16:38 | XMS_ITS | Encounter Summary ---
Author Organization [facility] Address [address] [place] [address] Care Team Providers Care Credit Clerk Name Role Phone Robyn Glynn MD Primary Care Provider Reason for Visit * Auth/Cert (Routine) Specialty Diagnoses / Procedures [facility] Referred To Contact Diagnoses PAF (paroxysmal atrial fibrillation) (HCC-CMS) PAF (paroxysmal atrial fibrillation) ([facility]) [I48.0] Procedures NE COMPRE EP EVAL ABLTJ ATR FIB PULM VEIN ISOLATION Albation A-Fib Referral ID Status Reason Start Date Expiration Date Visits Re quested Visits Authorized [id number] 1 1 Encounter Details Date Type Department Care Team (Late st Contact Info) Description 03/22/2024 6:24 EDT - 03/23/2024 10:45 EDT Hospital Encounter [facility] [address] [place] [address] [id number] Yazmin Diallo MD [address] [place] [phone] Kenroy Kyle MD [address] [place] [phone] PAF (paroxysmal atrial fibrillation) ([facility]) Discharge Disposition: Home or Self Care Social History Tobacco Use Types Packs/Day Years Used Date Smoking Tobacco: Never Passive Smoke Exposure: Past Smokeless Tobacco: Never Tobacco Cessation:Counseling Given: Not Answered Comments:2nd hand smoke exposure Alcohol Use Standard Drinks/Week Comments Yes 0 (1 standard drink = 0.6 oz pur e alcohol) Very rare maybe 2 a month [facility] Utilities Answer Date Recorded In the past 12 months has th e electric, gas, oil, or water company threatened [...] time in the past 12 m [facility], were you homeless or living in a longterm (including now)? No 03/22/2024 Interpersonal Safety Answer [...] on file documented as of this encounter Last Filed Vital Signs Vital Sign Reading Time Taken Comments Blood Pressure 147/78 03/23/2024 0749 EDT Pulse - - Temperature 36.9 ??C (98.5 ??F) 03/23/2024 0748 EDT Respiratory Rate 16 03/23/2024 0748 EDT Oxygen Saturation 94% 03/23/2024 0749 EDT Inhaled Oxygen Concentration - - Weight 131.4 kg (289 lb 9.6 oz) 03/22/2024 0645 EDT Height 176.5 cm (5' 9.5) 03/22/2024 0645 EDT Body Mass Index 42.15 03/22/2024 0645 EDT documented in this encounter Functional Status * Are you deaf or do you have serious difficulty hearing? Answer Date of Assessment Author No 03/22/2024 21:00 EDT Cari Fong RN * Are you blind or do you have serious difficulty seeing, even when wearing glasses? Answer Date of Assessment Author No 03/22/2024 21:00 EDT Cari Fong RN * Do you have serious difficulty walking or climbing stairs? (5 years old or older) Answer Date of Assessment Author No 03/22/2024 21:00 EDT Cari Fong RN * Do you have difficulty dressing or bathing? (5 years old or older) Answer Date of Assessment Author No 03/22/2024 21:00 EDT Cari Fong RN * Because of a physical, mental, or emotional condition, do you have difficulty doing errands alone such as visiting a doctor's office or shopping? (15 years old or older) Answer Date of Assessment Author No 03/22/2024 21:00 EDT Cari Fong RN documented as of this encounter Mental Status * Because of a physical, mental, or emotional condition, do you have serious difficulty concentrating, remembering, or making decisions? (5 years old or older) Answer Entry Date Author No 03/22/2024 21:00 EDT Cari Fong RN documented in this encounter Discharge Summaries * Emmett Harris PA-C - 03/23/2024 0845 EDT Cardiology Discharge Summary Primary Care Provider: Robyn Glynn Attending Physician: Kenroy Kyle MD Inpatient admit date: N/A Initial observation date (if different): 03/22/2024 Discharge Date: 03/23/24 Disposition: Home or self care Problems and Procedures Admitting Diagnosis: Afib Final Hospital Diagnosis: Afib Additional Problems Managed in the Hospital Active Hospital Problems Diagnosis Date Noted *PAF (paroxysmal atrial fibrillation) ([facility]) 11/06/2023 Resolved Hospital Problems No resolved problems to display. Principal Procedure: Date: 03/22/2024 Procedure: Atrial Fibrillation abaltion Indication: Atrial fibrillation cutter operator brick: Yazmin Diallo MD Fellow: None Findings: Femoral vein access: Right 8.5 Fr x2 / Left 8.5 Fr x1 and 7Fr x1 Pulmonary vein encircling and isolation (first pass isolation of the LPVs, egm guided isolation of the RPVs with additional ablation in the anterior peter and anterior aspect of the RSPV) Contrast: 0 cc No immediate complication noted Antiarrhythmic drug plan: Patient was not on AAD prior and we will not start new AAD NA CartoFinder Map (preablation) Secondary Procedures: Not applicable Hospital Course Julianne Prince is a 68 y/o male with PMH of HTN, ANNELISE on CPAP, obesity, SND, tachybrady syndrome and PAF who presented for planned ablation. He was previously on Dofetilide with weekly breakthrough symptomatic episodes of Afib. He is on OACand low dose metoprolol. Day time resting heart rate in SR in the 40's. ECHO from 03/25 EF 55-60%. On 03/22/24, he underwent pulmonary vein encirclement and isolation. Overnight telemetry with NSR, PACs. Right and left groin sites clean, dry and intact. He will stop scheduled metoprolol, but keep it available prn for afib >24 hours with HR >110 bpm. He will continue Eliquis and will take Protonix for esophageal protection for 30 days. Follow up with Dr. Glynn on 04/07/24 11:[address] Diallo on 07/16/24 2:40 Allergies and Immunizations Allergies Allergen Reactions Chloraseptic (Benzocaine) Rash Indocin [Indomethacin] hallucinates There is no immunization history on file for this patient. Transition of Care Plans Condition at Discharge Good Assessment at Discharge Vital signs: Patient Vitals for the past 12 hrs: BP Heart Rate Resp Temp SpO2 O2 Device 03/23/24 0749 (!) 147/78 50 BPM -- -- 94 % -- 03/23/24 0748 -- -- 16 36.9 ??C (98.5 ??F) -- -- 03/23/24 0332 120/71 58 BPM -- -- 96 % None 03/22/24 2319 110/66 60 BPM 15 -- 95 % None GENERAL: patient is conversant, in no acute distress, sitting up in bed, well groomed HEENT: normal conjunctivae and lids, PERRLA, EOM intact, no oral mucosal pallor. No lymphadenopathy CARDIOVASCULAR: Regular rate and rhythm, with no murmurs, rubs or gallops, and normal PMI. Neck exam reveals no JVD or carotid bruit LUNGS: CTA bilaterally, with normal respiratory effort ABDOMEN: soft and non tender with no hepatosplenomegaly, and normal aortic and femoral pulsations SKIN: no xanthomas or venous stasis dermatitis. No rashes, skin warm and dry, no erythematous areas. Bilateral groin sites: CDI, no hematoma, no bleeding, no swelling. EXTREMITIES: no peripheral edema, digital cyanosis, or clubbing. Pedal and radial pulses intact andsymmetrical. +CSMTs MUSCULOSKELETAL: 5/5 strength, normal range of motion, no swollen or erythematous joints. NEURO: alert and oriented x3, CN 2-12 grossly intact. Normal gait and station PSYCH: appropriate affect. Results Pending at Discharge Test results still pending from this admission None Last Lab Results at Discharge BUN: Lab Results Component Value Date BUN 21 03/22/2024 Creatinine: Lab Results Component Value Date CREATININE 0.95 03/22/2024 CBC: Lab Results Component Value Date WBC 8.39 03/22/2024 RBC 4.80 03/22/2024 HGB 15.0 03/22/2024 HCT 42.4 03/22/2024 MCV 88 03/22/2024 MCH 31.3 03/22/2024 MCHC 35.4 03/22/2024 PLT 239 03/22/2024 DIFFTYPE Auto 05/12/2022 Electrolytes: Lab Results Component Value Date NA 140 03/22/2024 K 4.3 03/22/2024 CL 105 03/22/2024 CO2 26 03/22/2024 No results found for: HGBA1C Emmett Harris PA-C 03/23/2024 8:45 The patient was discussed in detail with Dr. Diallo. Cosigned by Yazmin Diallo MD at 03/24/2024 7:12 EDT Associated attestation - Yazmin Diallo MD - 03/24/2024 0712 EDT I have seen and evaluated the patient and reviewed the clinical data. I agree with the assessment and plan of care as outlined by Emmett Harris PA-C. Patient seen on 03/23/2021. I spent a total of 30 minutes on the date of this encounter meeting with the patient and reviewing documentation/coordinating care as described in the above note. documented in this encounter Discharge Instructions * Medications* Emmett Harris PA-C - 03/23/2024 8:44 EDT Stop your scheduled metoprolol. Keep it available to take metoprolol 50 mg as needed for atrial fibrillation lasting more than 24 hours with heart rates >110 bpm. * Discharge Instr - Other Orders* Sirisha Daniel NP - 03/17/2024 14:25 EDT Discharge Instructions for A-fib Ablation Patients 1. Wound Care: You may remove the Band-Aids/Dressings from the sites the next morning You may shower the following day. No tub bathing for seven days. This includes hot tubs and pools. A small lump the size of a dime may occur at the site, this is normal and should absorb on its own. 2. Call your physician or nurse if: You develop drainage, redness, or swelling at any of the sites You develop a fever or chills You develop increased tenderness and/or increased bruising over sites which doesn't resolve in 2 days Please go to the closest hospital if either of the groin puncture sites bleeds (a hematoma) or if it is painful to stand You develop a persistent and/or productive cough Your symptoms reoccur Pain or difficulty swallowing associated with flu like symptoms, fever or chills within the first 4weeks following the procedure. If you go back into Afib and stay in Afib please call your Medical Transcription Supervisor before 24 hours are up. If you don't feel well, lightheaded, dizzy, short of breath, chest pain or pressure then please go to the closest ED. 3. Activity: You can resume your normal activities in two weeks unless you have been instructed otherwise If you are traveling by car or airplane in the next week, you will need to stand and move around every 2 hours to promote circulation No vigorous activity for 2 weeks. Avoid running, squatting and heavy lifting (>10 lbs) during this time period. You may resume driving after 48 hours unless instructed otherwise You may return to work after 5 days if your work demands are not physical. If your job entails strenuous activity, a two week waiting period is recommended. 4. Medications: Resume prior medications unless otherwise instructed Please take pantoprazole (Protonix) once daily for 30 days to keep the acid levels down in your stomach. You should have filled a prescription prior to the procedure. Please let your nurse know if you do not have a prescription. 5. Appointments: Post Procedure Appointments POST PROCEDURE FOLLOW-UP APPOINTMENT With: Robyn Glynn MD on 2023 at 11:15 AM at [facility]. [address] [place] [address] PHONE: SIX MONTH FOLLOW UP APPOINTMENT With: Dr. YAZMIN DIALLO MD on JULY 16, 2024 at 2:40 PM at the [address] [place] [address] [facility] [place]. PHONE: [phone] Should the above appointment(s) not be convenient, please call at the number(s) listed above to re-schedule to a time that works for you. We are here to help, so should you need assistance feel free to call with questions or concerns at [phone]. If you have any questions or concerns, please don't hesitate to call the [facility]hythmia Serviceat [facility] at x [phone] (or dial [phone]) documented in this encounter Medications at Time [...] greater than 110 beats per minute). 4 pantoprazole (PROTONIX) 40 mg tablet Take 1 Tablet by mouth daily. Start 3 days prior to procedure and continue for 30 days after. 33 Tablet 4 04/02/20 24 documented as of this encounter Ordered Prescriptions Prescription Sig Dispense Quantity Refills Last Filled Start Date End Date metoprolol TARtrate (LOPRESSOR) 50 mg tablet Take 1 Tablet by mouth as needed for Other (atrial fibrillation lasting >24 hours with heart rates greater than 110 beats per minute). 03/23/2024 documented in this encounter Discharge Disposition Disposition Code Departure Means Destination Comment s Home or Self Long-Term documented in this encounter Progress Notes * Emmett Harris PA-C - 03/22/2024 1256 EDT EP Cardiology Post Procedure Check: S: Mr. Prince denies chest pain, palpitations, or shortness of breath. No complaints of pain or bleeding at access site. O: Blood pressure 105/68, temperature 36.4 ??C (97.5 ??F), temperature source Temporal, resp. rate (!) 6, height 176.5 cm (69.5), weight (!) 131.4 kg (289 lb 9.6 oz), SpO2 98%. General: Awake and alert. No acute distress Extremities: Warm, well-perfused Access site: Dressing is clean, dry, intact. No ecchymosis or hematoma A/P: Julianne Prince is a 68 y.o. male with an appropriate post procedure course. -Continue current management -Plan to remove stop cocks three hours post procedure Emmett Harris PA-C 03/22/2024 12:57 Cosigned by Yazmin Diallo MD at 03/22/2024 14:30 EDT * Anselmo Castillo RN - 03/22/2024 0753 EDT Julianne Prince arrived to the Cardiovascular Unit via ambulation. Patient alert and oriented x3. Transfers to stretcher independently. Patient stretcher in low position with side rails up & call peterson within patient reach. Patient's is at bedside. Patient's discharge plan is home with . Have you had any recent changes to your health, colds, fevers or flu-like symptoms in the past few weeks? YES/NO: No documented in this encounter H&P Notes * Yazmin Diallo MD - 03/22/2024 0757 EDT ELECTROPHYSIOLOGY PRE-PROCEDURE H&P Admit Date: 03/22/2024 PCP: Robyn Glynn Chief Complaint: Atrial fibrillation HPI: Julianne Prince is a 68 y.o. male patient of Dr. Lyons with a PMHx significant for paroxysmal atrialfibrillation, ANNELISE on CPAP presents for AF ablation. Previously on Dofetilide for rhythm control, but developed break-through episodes. Usually has AF once a week, lasting 2-3 days. Reports palpitations, increased urinary frequency andexertional fatigue when in AF. Enjoys kayaking, hiking, skiing with his , who is an ICU nurse. Denies recent illness. No lightheadedness/nausea/vomiting/diarrhea/fevers/chills. ROS: Full 10 point system obtained; negative unless indicated in the HPI PMH PSH Past Medical History: Diagnosis Date A-fib ([facility]) Noted 07/23/22- In and out of afib, pt is on Eliquis. Activity, other involving cardiorespiratory exercise Noted 07/23/22- Skiing, hiking, 1-2 FOS without SOB Apnea Arrhythmia Noted 07/23/22-Pt is bradycardic when in sinus rhythm.When in AF his rate is elevated. Back pain Noted 07/23/22-Hx of surgery Edentulous Noted 07/23/22 Upper left missing tooth History of general anesthesia Noted 07/23/22- No issues. Hypertension Noted 07/23/22 -130 /70 per spouse at recent visit, well controlled on meds. Joint replaced Noted 07/23/22-Partial left knee Sleep apnea 05/08/2022 Noted 07/23/22 Compliant w/Cpap machine, Uvula removed (28 yrs ago) Spinal stenosis Noted 07/23/22 Past Surgical History: Procedure Laterality Date EYE SURGERY catarcts, cataract redo, rentinal surgery(Multi retina tears) JOINT REPLACEMENT Left Partial knee replacement KNEE SURGERY Left Arthroscopic knee surgery. RHINOPLASTY TONSILLECTOMY UVULOPALATOPHARYGOPLASTY VASECTOMY Social History Family History Social History Tobacco Use Smoking status: Never Passive exposure: Past Smokeless tobacco: Never Tobacco comments: 2nd hand smoke exposure Substance Use Topics Alcohol use: Yes Comment: Very rare maybe 2 a month Family History Problem Relation Age of Onset High Blood Pressure Mother *Other(comment) Mother afib Dementia Mother Dementia Father Medications No current facility-administered medications on file prior to encounter. Current Outpatient Medications on File Prior to Encounter Medication Sig Dispense Refill acetaminophen 325 mg capsule Take 1,000 mg by mouth if needed. apixaban (ELIQUIS) 5 mg tablet Take 1 Tablet by mouth 2 times daily. cholecalciferol, vitamin D3, (VITAMIN D3 ORAL) Take 1,000 Units by mouth daily. docusate sodium (COLACE) 100 mg capsule Take 2 Capsules by mouth daily as needed for Constipation. dofetilide (TIKOSYN) 250 mcg capsule Take 1 Capsule by mouth every 12 hours. (Patient not taking: Reported on 03/22/2024) 180 Capsule 1 magnesium oxide (MAG-OXIDE ORAL) Take 400 mg by mouth daily. melatonin 10 mg capsule Take by mouth. Allergies Allergies Allergen Reactions Chloraseptic (Benzocaine) Rash Indocin [Indomethacin] hallucinates Physical Exam: VS: Patient Vitals for the past 8 hrs: BP Resp Temp SpO2 O2 Device 03/22/24 0645 139/87 18 36.4 ??C (97.5 ??F) 97 % None Weight: BMI: Body mass index is 40.46 kg/m??. GEN: Middle aged M in NAD, alert and oriented, normal weight, appears stated age Resp: No accessory muscle use. Clear to auscultation b/l. No wheezes, crackles, rales or rhonchi. CV: Normal rate, regular rhythm. S1/S2. No MRG appreciated. Ext: No edema, no cyanosis. No calf tenderness. Neuro: Grossly normal, non-focal exam. Skin: Warm, good turgor Psych: Mood stable, affect appropriate Data Data reviewed. Labs: WBC/Hgb/Hct/Plts: 8.39/15.0/42.4/239 (03/22 07) BMP: Recent Labs 03/22/24 0703 NA 140 K 4.3 CL 105 CO2 26 BUN 21 CREATININE 0.95 Assessment/Plan: 68 y.o. male with a history of paroxysmal AF and ANNELISE presents for AF ablation. Plan: - general anesthesia - no GERALD due to low CHADSVASC score and uninterrupted anticoagulation - AF ablation PATIENT CONSENT TO ATRIAL FIBRILLATION ABLATION WITH TRANSESOPHAGEAL ECHOCARDIOGRAM The patient has been informed and understands the information and situation provided to them about the procedure. They have capacity and ability to weigh risks, goals and benefits as well as the alternatives of proposed treatments including the option of not undergoing the procedure. The patient has expressed their rationale and executed the choice to proceed forward with the procedure with no undue influence or coercion. If the patient is DNR, a required reconsideration has been completed? N/A As part of the consent we reviewed that, like surgical procedures, interventional procedures require aggressive short term support to determine the potential benefits of the procedures. For this reason, the patient (or responsible alliance party) has agreed to remain FULL CODE for a minimum of 48 hours after the procedure. We discussed potential risks of GERALD which include (but are not limited to): dental trauma, oropharyngeal trauma, and esophageal trauma including oropharyngeal or esophageal perforation. I discussed atrial fibrillation ablation procedure risks and benefits. The patient demonstrates good understanding and would be willing to proceed. We specifically discussed discussed that the risk include, but are not limited to cardiac perforation, stroke, phrenic nerve paralysis, atrial esophageal fistula, damage to the mitral valve, pulmonary vein stenosis and atrial tachycardia. We quoted about a 2-3% risk of significant complication with this procedure. We reviewed the success rate of a single procedure and the potential need for more than one procedure as well as use of antiarrhythmic drugs. Yazmin Diallo MD PhD Cardiac Granular Operator 03/22/24 7:57 documented in this encounter Procedure Notes * Yazmin Diallo MD - 03/22/2024 1220 EDT Images from the original note were not included. Post procedure note: Procedure: Atrial Fibrillation abaltion Indication: Atrial fibrillation cutter operator brick: Yazmin Diallo MD Fellow: None Findings: Femoral vein access: Right 8.5 Fr x2 / Left 8.5 Fr x1 and 7Fr x1 Pulmonary vein encircling and isolation (first pass isolation of the LPVs, egm guided isolation of the RPVs with additional ablation in the anterior peter and anterior aspect of the RSPV) Contrast: 0 cc No immediate complication noted Antiarrhythmic drug plan: Patient was not on AAD prior and we will not start new AAD NA CartoFinder Map (preablation) VoltageMap and Lesion set post ablation Post Procedure debrief: At the end of the procedure the following issues were addressed by operators, nurses and anesthesia: Airway: extubated Breathing: stable on supplemental NC Circulation: Hemodynamically stable. Good venous hemostasis with manual compression Good peripheral perfusion with unchanged pulse/Doppler on 4 limbs Disposition: The patient was considered stable to transfer to PACU arc air operator will give 1:1 verbal report Emmett Harris will evaluate the patient within 30 minutes of patient arrival in PACU Share: No additional concern identified Expected pain level: Chest pain is usually mild, toradol is prescribed unless contraindicated. Pain at venous access site t is usually mild. Please notify provider if more significant pain Some early post procedure complications for which the patient needs to be monitored: Unexpected Neurological deficit Presentation: new focal neurological finding Groin hematoma Presentation: Pain at the access site and expanding mass Retroperitoneal bleed Presentation: Hypotension, tachycardia or severe abdominal/back pain Pericardial effusion Presentation: Chest pain, tachycardia, hypotension Pulmonary edema Presentation: shortness of breath, hypoxia, cough, orthopnea General guidance on who/how to call if issues with this patient: Until 16:00 Author of this note (via Provider Access services) CUSTOMER ORDER CLERK/PA on EP service (via Provider Access services) Attending on the EP service (via Provider Access services or PAGER #[phone]) After 16:00 sap [employer] consultant on EP service (via Provider Access services) Attending on the EP service (via Provider Access services or PAGER #[phone]) Other contact numbers: EP lab - [phone] - EP lab OR9 - [phone] EP (nurse of the day) NOD - [phone] or page [phone] photo lab specialist - [phone] Overhead Double page cardiology If the above calls have failed to generate satisfactory bedside assistance within 15 minutes, and the patient's condition has not yet stabilized, call the Rapid Response Team. documented in this encounter Miscellaneous Notes * Plan of Care - Dale Tinajero RN - 03/23/2024 1044 EDT Nursing Discharge Note D: Patient noted with discharge orders to: home A: Reviewed discharge instructions and prescriptions with pt. Vss, aox4, ra, darion groin sites clean,intact without hematoma or bleeding. iv removed, belongings collected and sent home with patient. R: pt verbalized understanding of discharge instructions and denied further questions. DALE TINAJERO RN 03/23/2024 10:44 * Plan of Care - Cari Fong RN - 03/22/2024 2150 EDT Data: Pt admitted for Afib ablation via bilateral groin sites. +CSMTs and Neuros intact. SA/SB on tele with HR 50s-70s. VSS on RA. Denies pain, SOB, n/v. Action: Admission dataset completed. Medications administered per OCT. VS, tele, and neuros/CSMTs monitored. Educated about plan of care. Clustered care to promote rest. Response: Pt resting in bed at this time with callbell within reach. VSS. Plan for discharge home. CARI FONG RN 03/22/2024 21:50 * Plan of Care - Dale Tinajero RN - 03/22/2024 8176 EDT Data: pt admitted for AF ablation Action: vs, tele, monitor Darion fem sites for hematoma and bleeding. Response: vss DALE TINAJERO RN 03/22/2024 17:47 documented in this encounter Plan of Treatment Upcoming Encounters Date Type Department Care Team (Late st Contact Info) Description 07/22/2024 19:30 EST Appointment [facility] Rad[facility] - [facility] [address], [place] [id number] 07/29/2025 15:40 EST Office Visit [facility] [place] [phone] [place] [address] Yazmin Diallo MD [address] [facility], [place], [address] [place] [phone] documented as of this encounter Procedures Procedure Name Priority Date/Time Associated Diagnosis Comments ECG REPORT - SCANNED 03/25/2024 14:27 EDT ECG REPORT - SCANNED 03/25/2024 13:02 EDT ECG REPORT - SCANNED 03/24/2024 9:07 EDT EKG 12-LEAD Routine 03/22/2024 13:16 EDT EP DIAGNOSTIC STUDY Routine 03/22/2024 1 2:10 EDT PAF (paroxysmal atrial fibrillation) ([facility]) POCT ACTIVATED CLOTTING TIME, KAOLIN ISTAT Routine 03/22/2024 11:42 EDT POCT ACTIVATED CLOTTING TIME, KAOLIN ISTAT Routine 03/22/2024 11:03 EDT POCT ACTIVATED CLOTTING TIME, KAOLIN ISTAT Routine 03/22/2024 10:22 EDT POCT ACTIVATED CLOTTING TIME, KAOLIN ISTAT Routine 03/22/2024 9:42 EDT COMPLETE BLOOD COUNT STAT 03/22/2024 7:03 EDT TYPE AND SCREEN Routine 03/22/2024 7:03 EDT BUN STAT 03/22/2024 7:03 EDT CREATININE STAT 03/22/2024 7:03 EDT ELECTROLYTES STAT 03/22/2024 7:03 EDT documented in this encounter Results * ECG REPORT - SCANNED (03/25/2024 14:27 EDT) 03/25/2024 14:2 7 EDT us Scan 2 Shadow Graph Weight Operator PROCEDURE/MINOR SURGICAL OR DERABLES Final Result * ECG REPORT - SCANNED (03/25/2024 13:02 EDT) 03/25/2024 13:0 2 EDT us Scan 2 Shadow Graph Weight Operator PROCEDURE/MINOR SURGICAL OR DERABLES Final Result * ECG REPORT - SCANNED (03/24/2024 9:07 EDT) 03/24/2024 9:07 EDT us Scan 2 Shadow Graph Weight Operator PROCEDURE/MINOR SURGICAL OR DERABLES Final Result * EKG 12-LEAD (03/22/2024 13:16 EDT) 03/22/2024 13:1 6 EDT Narrative [facility] EKG - 03/24/2024 8:54 EDT ? [facility] ? Test Date: ?2024-03-22 Pat Name: ? JULIANNE PRINCE ?Department: ?? EP Lab ? Room: ? OR Gender: ? Male ? Relief Map Modeler: ?? [id number] : ?1955 ? Requested By: ALENA ARCE Order Number: [id number] ? Reading MD: ?? DEVIN BARLOW MD ? Measurements Intervals ?[place] ? Rate: ? 50 ? P: ?37 NE: ? 213 ?QRS: ?57 QRSD: ? 85 ? T: ?63 QT: ? 462 ? QTc: ?422 ? Interpretive Statements SINUS BRADYCARDIA WITH SINUS ARRHYTHMIA WITH FIRST DEGREE AV BLOCK Compared to ECG 07/31/2023 08:12:02 First degree AV block now present I reviewed the tracing and have either agreed or edited the findings in this report. Electronically Signed On 03-24-2024 08:54:21 EDT by DEVIN BARLOW MD. Procedure Note Devin Barlow MD - 03/24/2024 [facility] Test Date: 2024-03-22 Pat Name: JULIANNE PRINCE Department: EP Lab Room: OR Gender: Male Relief Map Modeler: [id number] : 1955 Requested By: ALENA ARCE Order Number: [id number] Brett MD: DEVIN BARLOW MD Measurements Intervals [place] Rate: 50 P: 37 NE: 213 QRS: 57 QRSD: 85 T: 63 QT: 462 QTc: 422 Interpretive Statements SINUS BRADYCARDIA WITH SINUS ARRHYTHMIA WITH FIRST DEGREE AV BLOCK Compared to ECG 07/31/2023 08:12:02 First degree AV block now present I reviewed the tracing and have either agreed or edited the findings inthis report. Electronically Signed On 03-24-2024 08:54:21 EDT by DEVIN NEWSOME. us Yazmin Diallo MD CARDIAC ECG ORDERABLES Final Res ult [facility] EKG * ABLATION A-FIB (03/22/2024 12:10 EDT) Anatomical Region Laterality Modality Cardiac Electrop hysiology Narrative 03/25/2024 11:20 EDT Images from the original result were not included. Attending: Yazmin Diallo MD Fellow: No Fellow Instructional Systems Design Consultant :Lorena Beltran RN Attestation: Attending only- I,Yazmin Diallo MD, ??performed the entire procedure and was the initial and only author of the report. Procedure: Atrial fibrillation radiofrequency catheter ablation Summary of Procedure Successful pulmonary vein isolation (first pass isolation of the LPVs, egm guided isolation of the RPVs with additional ablation in the anterior peter and anterior aspect of the RSPV) CartoFinder Map (preablation) VoltageMap and Lesion set post ablation At the conclusion of the procedure the patient was in sinus rhythm. Bidirectional block over all ablation lines was confirmed with differential pacing. There were no complications. Estimated blood loss: 30 ml. Clinical [place]: ??This patient is not enrolled in a clinical trial History Indication - Non-valvular atrial fibrillation Transesophageal echocardiography was performed. Pre-procedure GERALD was negative for left atrial thrombus. ANESTHESIA: General anesthesia. PROCEDURE: The risks, benefits, and alternatives to the procedure were explained and informed consent was obtained. The patient name, date of , surgical site, and procedure were verified prior to the procedure. The patient was brought to electrophysiology laboratory in the fasting state. The groin was prepped and draped in the usual sterile manner. The right femoral vein and left femoral vein were entered under fluoroscopic and ultra sound guidance with the modified Seldinger technique. Sheath and catheter detail(s) in table below. The attending physician was physically present for the entire Electrophysiology Study and/or Ablation procedure. VASCULAR ACCESS AND CATHETER PROPERTIES: Right femoral vein: via a 8.5fr sheath a 8fr deflectable, irrigated quadrapolar 3.5 mm tip ablation electrode was inserted for mapping and ablation Left femoral vein: via a 8.5fr sheath an 8 Fr deflectable Acuvnac ICE catheter was positioned in the RA and via a 7fr sheath a 7 Fr deflectable decapolar electrode was positioned in the coronary sinus EP STUDY: A comprehensive electrophysiology study was not performed. Pacing and recording were carried out from the right atrial, coronary sinus, and His bundle sites. Certain components of a comprehensive electrophysiology study were not performed because they were not necessary for diagnosis. ABLATION AND MAPPING PROCEDURE: Transseptal catheterization was performed. A SL1 8.5 F sheath and dilator were placed in the SVC over a 0.32 wire. A Transeptal needle needle was positioned 2mm proximal to the tip of the dilator and flushed. An Intracardiac echo catheter was placed in the right atrium and used to scan the relative positions of the LV outflow tract, the ascending aorta, the fossa ovalis and the posterior right atrium. The needle and dilator were dragged from the SVC into the fossa ovalis. The position of the needle was confirmed by scanning posterior and anterior to the point of the dilator. Once the position was confirmed using fluoroscopic, intracardiac ultrasound, and pressure guidance the needle was advanced into the LA while continuously monitoring its position via ultrasound. Permanent images were obtained and saved in the patient's medical record. A wire was advanced through the long sheath and positioned in the left atrium. The needle and dilator were removed and the sheath was flushed. Heparin bolus and infusion were begun prior to transseptal puncture to keep the ACT => 350 seconds. Mapping: A 3 dimensional shell was made. The pulmonary veins and left atrial sites were mapped, using a multipolar mapping catheter and ablation catheter. Mapping was performed during RA pacing, LA pacing, and coronary sinus pacing. ABLATION PROCEDURE: PULMONARY VEIN ISOLATION AND ENCIRCLING: The left superior pulmonary vein, left inferior pulmonary vein, right inferior pulmonary vein and right superior pulmonary vein were encircled and isolated with lasso guidance. Radiofrequency ablation was applied to the identified sites. The power was limited to 50 W anterior, 90W when ablating the posterior left atrium. Esophageal temperature was monitored throughout. Bidirectional block over all ablation lines was confirmed with differential pacing. Hemostasis. At the conclusions of the procedure all sheaths and catheters were removed from the left atrium. Heparin was discontinued and reversed with Protamine Sulfate. All sheaths and catheters were removed from the body. Manual compression was applied to the puncture sites. Groin sites were intact with no hematoma. STUDY COMPLETION: ?? Estimated blood loss: 30 ml. At the completion of the procedure, findings, results, any complications, and treatment plan were communicated to the patient and reinforced after recovery from anesthesia. With the patient's consent, the attending physician communicated findings, results, any complications, and treatment plan to family members and patient support persons who were present at the conclusion of the procedure. us Helio Lyons MD CARDIAC EP ORDERABLES Final Result * (ABNORMAL) POCT ACTIVATED CLOTTING TIME, KAOLIN ISTAT (03/22/2024 11:42 EDT) Activated Clotting Time, Arterial, i-STAT 293(H) 74 - 137 Seconds 03/22/2024 11:57 EDT [facility] Blood ARTERIAL BLOOD / Unknown 03/22/2024 11:42 EDT 03/22/2024 11:57 EDT [facility]ATORY SERVICES - 03/22/2024 11:57 EDT Therapeutic Interventional range is dependent upon patient population and procedure type Test Performed by Cardiology us Kenroy Kyle MD POINT OF CARE TEST ORDER KRISTY Final Result Performing Organization Address [facility] Co de Phone Number [facility] [address] [place] [address] * (ABNORMAL) POCT ACTIVATED CLOTTING TIME, KAOLIN ISTAT (03/22/2024 11:03 EDT) Activated Clotting Time, Arterial, i-STAT 262(H) 74 - 137 Seconds 03/22/2024 11:19 EDT [facility] Blood ARTERIAL BLOOD / Unknown 03/22/2024 11:03 EDT 03/22/2024 11:19 EDT [facility]ORY [facility] - 03/22/2024 11:19 EDT Therapeutic Interventional range is dependent upon patient population and procedure type Test Performed by Cardiology us Kenroy Kyle MD POINT OF CARE TEST ORDER KRISTY Final Result Performing Organization Address City/[facility]/ZIP Co de Phone Number [facility] [address] [place], [place] [id number] * (ABNORMAL) POCT ACTIVATED CLOTTING TIME, KAOLIN ISTAT (03/22/2024 10:22 EDT) Activated Clotting Time, Arterial, i-STAT 293(H) 74 - 137 Seconds 03/22/2024 10:37 EDT [facility] Blood ARTERIAL BLOOD / Unknown 03/22/2024 10:22 EDT 03/22/2024 10:37 EDT [facility] - 03/22/2024 10:37 EDT Therapeutic Interventional range is dependent upon patient population and procedure type Test Performed by Cardiology us Kenroy Kyle MD POINT OF CARE TEST ORDER KRISTY Final Result Performing Organization Address [facility]/ZIP Co de Phone Number [facility] [address] [place] [address] * (ABNORMAL) POCT ACTIVATED CLOTTING TIME, KAOLIN ISTAT (03/22/2024 9:42 EDT) Activated Clotting Time, Arterial, i-STAT 281(H) 74 - 137 Seconds 03/22/2024 9:57 EDT [facility] Blood ARTERIAL BLOOD / Unknown 03/22/2024 9:42 EDT 03/22/2024 9:57 EDT [facility] - 03/22/2024 9:57 EDT Therapeutic Interventional range is dependent upon patient population and procedure type Test Performed by Cardiology us Kenroy Kyle MD POINT OF CARE TEST ORDER KRISTY Final Result [facility] [address] [place] [address] * COMPLETE BLOOD COUNT (03/22/2024 7:03 EDT) WBC 8.39 4.00 - 10.40 K/cmm 03/22/2024 7:20 EDT [facility] RBC 4.80 4.36 - 5.78 M/cmm 03/22/2024 7:20 [facility] Hemoglobin 15.0 13.8 - 17.3 g/dL 03/22/2024 7:20 [facility] HCT 42.4 39.5 - 50.2 % 03/22/2024 7:20 [facility] MCV 88 81 - 95 fL 03/22/2024 7:20 [facility] MCH 31.3 27.6 - 33.0 pg 03/22/2024 7:20 [facility] MCHC 35.4 32.8 - 36.4 g/dL 03/22/2024 7:20 [facility] RDW-CV 12.8 <14.2 % 03/22/2024 7:20 [facility] RDW-SD 41.3 <46.0 fl 03/22/2024 7:20 [facility] PLT 239 141 - 377 K/cmm 03/22/2024 7:20 [facility] MPV 10.1 9.5 - 12.7 fL 03/22/2024 7:20 [facility] Blood VENOUS BLOOD / Unknown Venipuncture / Unknown 03/22/2024 7:03 EDT 03/22/2024 7:07 EDT us Yazmin Diallo MD HEMATOLOGY & PF4 ORDERABLES Michela l Result [facility] [address] [place] [id number] * CREATININE (03/22/2024 7:03 EDT) Creatinine 0.95 0.66 - 1.25 mg/dL 03/22/2024 7:25 [facility] eGFR 88 >60 mL/min/1.73 m2 03/22/2024 7:25 [facility] Blood VENOUS BLOOD / Unknown Venipuncture / Unknown 03/22/2024 7:03 EDT 03/22/2024 7:07 EDT us Yazmin Diallo MD CHEMISTRY & BLOOD GAS ORDERABLES Final Result [facility] [address], [place] [id number] * BUN (03/22/2024 7:03 EDT) BUN 21 10 - 26 mg/dL 03/22/2024 7:25 EDT [facility] Blood VENOUS BLOOD / Unknown Venipuncture / Unknown 03/22/2024 7:03 EDT 03/22/2024 7:07 EDT us Yazmin Diallo MD CHEMISTRY & BLOOD GAS ORDERABLES Final Result Performing Organization Address [facility]/ZIP Co de Phone Number [facility] [address], [place] [address] * ELECTROLYTES (03/22/2024 7:03 EDT) Sodium 140 136 - 145 mmol/L 03/22/2024 7:25 EDT [facility] Potassium 4.3 3.5 - 5.0 mmol/L 03/22/2024 7:25 EDT [facility] Chloride 105 96 - 110 mmol/L 03/22/2024 7:25 EDT [facility] CO2 Total 26 22 - 32 mmol/L 03/22/2024 7:25 EDT [facility] Anion Gap 9 5 - 14 mmol/L 03/22/2024 7:25 EDT [facility] Blood VENOUS BLOOD / Unknown Venipuncture / Unknown 03/22/2024 7:03 EDT 03/22/2024 7:07 EDT us Yazmin Diallo MD CHEMISTRY & BLOOD GAS ORDERABLES Final Result [facility] [address] [place] [address] * TYPE AND SCREEN (03/22/2024 7:03 EDT) ABO B 03/22/2024 8:16 EDT [facility] Rh Factor Positive 03/22/2024 8:16 EDT [facility] Antibody Screen Negative 03/22/2024 8:16 EDT [facility] Specimen Expires: 03/25/2024 @ 23:59 03/22/2024 8:16 EDT [facility] Blood VENOUS BLOOD / Unknown Venipuncture / Unknown 03/22/2024 7:03 EDT 03/22/2024 7:13 EDT us Yazmin Diallo MD BLOOD BANK TESTS Edited Result - Final Performing Organization Address City/State/[facility] Co de Phone Number [facility] [address] [place] [phone] documented in this encounter Visit Diagnoses Diagnosis PAF (paroxysmal atrial fibrillation) ([facility])- Primary Atrial fibrillation PAF (paroxysmal atrial fibrillation) ([facility]) Atrial fibrillation documented in this encounter Admitting Diagnoses Diagnosis PAF (paroxysmal atrial fibrillation) ([facility]) Atrial fibrillation documented in this encounter Administered Medications Inactive Administered Medications - up to 3 most recent administrations Medication Order MAR Action Action Date Dose Rate Site acetaminophen (TYLENOL) tablet 1,000 mg 1,000 mg, oral, EVERY 8 HOURS PRN, Starting on Fri03/22/24 at 1553, Until Fri03/23/24 at 1251, Pain, Routine Given 03/23/2024 7:53 EDT 1,000 mg apixaban (ELIQUIS) tablet 5 mg 5 mg, oral, 2 TIMES DAILY, First dose on Fri03/22/24 at 2100, Until Discontinued, RoutineIndications:prevent thromboembolism in chronic atrial fibrillation Given 03/23/2024 8:00 EDT 5 mg Given 03/22/2024 20:11 EDT 5 mg blood thinner patient education booklet 1 Each 1 Each, other, Once (Without Time Specified), 1 dose, Starting on Fri03/23/24 at 1006, Until Fri03/23/24 at 1251, Routine diphenhydrAMINE (BENADRYL) injection 12.5 mg 12.5 mg, intravenous, PRN, 1 dose, Starting on Fri03/22/24 at 1209, Until Fri03/22/24 at 1327, nausea, Routine, Recovery (only) Given 03/22/2024 13:27 EDT 12.5 mg docusate sodium (COLACE) capsule 200 mg 200 mg, oral, DAILY PRN, Starting on Fri03/22/24 at 1544, Until Fri03/23/24 at 1251, Constipation, Routine Given 03/23/2024 7:53 EDT 200 mg ketOROLAC (TORADOL) injection 7.5 mg 7.5 mg, intravenous, EVERY 6 HOURS, 3 doses, First dose on Fri03/22/24 at 1430, Last dose on Fri03/23/24 at 0230, Routine Given 03/23/2024 3:25 EDT 7.5 mg Given 03/22/2024 20:08 EDT 7.5 mg Given 03/22/2024 15:30 EDT 7.5 mg melatonin tablet 10 mg 10 mg, oral, AT BEDTIME, First dose on Fri03/22/24 at 2100, Until Discontinued, Routine Given 03/22/2024 20:11 EDT 10 mg metoclopramide (REGLAN) injection 10 mg 10 mg, intravenous, PRN, 1 dose, Starting on Fri03/22/24 at 1209, Until Fri03/22/24 at 1327, Nausea, Routine, Recovery (only) Given 03/22/2024 13:27 EDT 10 mg ondansetron (PF) (ZOFRAN) injection 4 mg 4 mg, intravenous, PRN, 1 dose, Starting on Fri03/22/24 at 1209, Until Fri03/22/24 at 1327, Nausea, Vomiting, Routine, Recovery (only) Given 03/22/2024 13:27 EDT 4 mg pantoprazole (PROTONIX) tablet 40 mg 40 mg, oral, DAILY, First dose on Fri03/23/24 at 0900, Until Discontinued, Routine Given 03/23/2024 8:00 EDT 40 mg sodium chloride 0.9 % (flush) flush 3 mL 3 mL, intravenous, PRN, Starting on Fri03/23/24 at 0800, Until Fri03/23/24 at 1251, Line Care, Routine sodium chloride 0.9 % (NS) infusion 30 mL/hr, intravenous, CONTINUOUS, Starting on Fri03/22/24 at 0700, Until Fri03/23/24 at 1251, Routine, Preprocedure New Bag 03/22/2024 7:03 EDT 30 mL/hr 30 mL/hr documented in this encounter Discontinued Medications Medication Sig Discontinue Reason Start Date End Da te dofetilide (TIKOSYN) 250 mcg capsule Take 1 Capsule by mouth every 12 hours. Therapy completed (will not send dc message to pharm) 07/31/2023 03/22/2024 metoprolol TARtrate (LOPRESSOR) 50 mg tablet Take 1 Tablet by mouth 2 times daily. 11/26/2023 03/23/2024 documented as of this encounter Historical Medications * This list may reflect changes made after this encounter. magnesium oxide (MAG-OXIDE ORAL) Take 400 mg by mouth daily. docusate sodium (COLACE) 100 mg capsule Take 2 Capsules by mouth daily as needed for Constipation. cholecalciferol, vitamin D3, (VITAMIN D3 ORAL) Take 1,000 Units by mouth daily. added in this encounter Active and Recently Administered Medications Times are shown in EDT. Scheduled Medication Order 03/21/2024 03/22/2024 03/23/2024 apixaban (ELIQUIS) tablet 5 mg 5 mg, oral, 2 TIMES DAILY, First dose on Fri03/22/24 at 2100, Until Discontinued, Routine 2010 (Given - Provider: Cari Fong, RN) 0800 (Given - Provider: Dale Tinajero RN) blood thinner patient education booklet 1 Each 1 Each, other, Once (Without Time Specified), 1 dose, Starting on Fri03/23/24 at 1006, Until Fri03/23/24 at 1251, Routine ketOROLAC (TORADOL) injection 7.5 mg (COMPLETED) 7.5 mg, intravenous, EVERY 6 HOURS, 3 doses, First dose on Fri03/22/24 at 1430, Last dose on Fri03/23/24 at 0230, Routine 1530 (Given - Provider: Dale Tinajero RN)2007 (Given - Provider: Cari Fong RN) 324 (Given - Provider: Cari Fong RN) melatonin tablet 10 mg 10 mg, oral, AT BEDTIME, First dose on Fri03/22/24 at 2100, Until Discontinued, Routine 2010 (Given - Provider: Cari Fong RN) pantoprazole (PROTONIX) tablet 40 mg 40 mg, oral, DAILY, First dose on Fri03/23/24 at 0900, Until Discontinued, Routine 0800 (Given - Provid er: Dale Tinajero RN) Continuous Medication Order 03/21/2024 03/22/2024 03/23/2024 sodium chloride 0.9 % (NS) infusion 30 mL/hr, intravenous, CONTINUOUS, Starting on Fri03/22/24 at 0700, Until Fri03/23/24 at 1251, Routine, Preprocedure 0703 (New Bag - Provider: Anselmo Castillo RN) PRN Medication Order 03/21/2024 03/22/2024 03/23/2024 acetaminophen (TYLENOL) tablet 1,000 mg 1,000 mg, oral, EVERY 8 HOURS PRN, Starting on Fri03/22/24 at 1553, Until Fri03/23/24 at 1251, Pain, Routine 0753 (Given - Provid er: Dale Tinajero RN) diphenhydrAMINE (BENADRYL) injection 12.5 mg (COMPLETED) 12.5 mg, intravenous, PRN, 1 dose, Starting on Fri03/22/24 at 1209, Until Fri03/22/24 at 1327, nausea, Routine, Recovery (only) 1327 (Given - Provider: Mayela Stanton RN) docusate sodium (COLACE) capsule 200 mg 200 mg, oral, DAILY PRN, Starting on Fri03/22/24 at 1544, Until Fri03/23/24 at 1251, Constipation, Routine 0753 (Given - Provid er: Dale Tinajero RN) metoclopramide (REGLAN) injection 10 mg (COMPLETED) 10 mg, intravenous, PRN, 1 dose, Starting on Fri03/22/24 at 1209, Until Fri03/22/24 at 1327, Nausea, Routine, Recovery (only) 1327 (Given - Provider: Mayela Stanton RN) ondansetron (PF) (ZOFRAN) injection 4 mg (COMPLETED) 4 mg, intravenous, PRN, 1 dose, Starting on Fri03/22/24 at 1209, Until Fri03/22/24 at 1327, Nausea, Vomiting, Routine, Recovery (only) 1327 (Given - Provider: Mayela Stanton RN) sodium chloride 0.9 % (flush) flush 3 mL(Linked Group 1) 3 mL, intravenous, PRN, Starting on Fri03/23/24 at 0800, Until Fri03/23/24 at 1251, Line Care, Routine Linked Groups Order Group 1: Change IV to Saline Lock (CANCELED) Routine, ONE TIME, On Fri03/23/24 at 0800, For 1 occurrence, Change after 500 ml PO intake And sodium chloride 0.9 % (flush) flush 3 mLJump to med 3 mL, intravenous, PRN, Starting on Fri03/23/24 at 0800, Until Fri03/23/24 at 1251, Line Care, Routine documented in this encounter Orders Medications Ordered That Attila ht Not Have Been Administered Count Last Ordered Date First Ordered Date blood thinner patient educat ion booklet 1 Each 03/23/2024 acetaminophen (TYLENOL) tablet 650 mg atropine 0.1 mg/mL syringe 0.5 mg 1 024 heparin 1,000 unit/mL injection 4 heparin in 08/05 NS 25,000 uni t/250 mL infusion 03/22/2024 HYDROmorphone (PF) (DILAUDID ) 0.5 mg/0.5 mL syringe 0.3-0.5 mg 03/22/2024 lactated ringers (LR) infusion 03/22/2024 lidocaine (PF) 10 mg/mL (1 % ) injection 2 mg 03/22/2024 neomycin-bacitracn zinc-poly myxin (NEOSPORIN) 3.5mg-400 unit- 5,000 unit/gram ointment 03/22/2024 protamine 10 mg/mL injection 03/22/2024 sodium chloride 0.9 % (flush) flush 3 mL 1 03/22/2024 Nursing Count Last Ordered Date First Orde red Date VTE PHARMACOLOGIC PROPHYLAXI S CURRENTLY ORDERED OR ON ALTERNATIVE THER 1 03/22/2024 Discharge Count Last Ordered Date First Orde red Date DISCHARGE PATIENT 1 03/23/2024 documented in this encounter Care Teams Credit Clerk Relationship Specialty Start Date End Date Robyn Glynn MD [address] [place] [phone] PCP - General Family Medicine - Primary Care 11/02/21 documented as of this encounter
--- OUTSIDE RECORDS SUMMARY | 2024-07-21 16:38 | XMS_ITS | Encounter Summary ---
Author Organization [facility] Address [address] [place] [address] Care Team Providers Care Bulldozer Mechanic Name Role Phone Robyn Glynn MD Primary Care Provider [phone] Encounter Details Date Type Department Care Team (Late st Contact Info) Description 05/17/2024 Orders Only [facility] Radiology - Main [place] [address] [place], [place] [address] Jack Rollins DO [address] [place], [place] [address] Social History Tobacco Use Types Packs/Day Years Used Date Smoking Tobacco: Never Passive Smoke Exposure: Past Smokeless Tobacco: Never Comments:2nd hand smoke expo sure Alcohol Use Standard Drinks/Week Comments Yes 0 (1 standard drink = 0.6 oz pur e alcohol) Very rare maybe 2 a month [facility] Utilities Answer Date Recorded In the past 12 months has [employer] electric, gas, oil, or water company threatened [...] the money to buy more. Never true 08/19/20 24 Within the past 12 months, t [...] 03/22/2024 21:00 AGGIET Cari Olmos RN * Are you blind or do you have serious difficulty seeing, even when wearing glasses? Answer Date of Assessment Author No 03/22/2024 21:00 AGGIET Cari Olmos, RN * Do you have serious difficulty walking or climbing stairs? (5 years old or older) Answer Date of Assessment Author No 03/22/2024 21:00 Cari Bustamante, RN * Do you have difficulty dressing or bathing? (5 years old or older) Answer Date of Assessment Author No 03/22/2024 21:00 Cari Bustamante, RN * Because of a physical, mental, [...] Contact Info) Description 07/22/2024 19:30 EST Appointment [facility] Radiology [place] - [facility] [address] [place], [place] [address] 07/29/2025 15:40 EST Office Visit [facility] Cardiology - [address] [place] [address] Palak Diallo MD [address] [facility] [place] [facility], [place], [address] [place] [phone] documented as of this encounter Visit Diagnoses Not on filedocumented in this encounter Care Teams Bulldozer Mechanic Relationship Specialty Start Date End Date Robyn Glynn MD [address] [place] [address] PCP - General Family Medicine - Primary Care 11/02/21 documented as of this encounter
--- OUTSIDE RECORDS SUMMARY | 2024-07-21 16:38 | XMS_ITS | Encounter Summary ---
Author Organization [facility] Address [address] [place] [address] Care Team Providers Care Step Finisher Name Role Phone Robyn Glynn MD Primary Care Provider [phone] Reason for Visit * Reason Onset Date Comments Atrial Fibrillation 11/06/2023 Appointment Related 11/06/2023 Encounter Details Date Type Department Care Team (Late st Contact Info) Description 11/06/2023 Telephone [facility] Cardiology - [address] [place] [address] Heilo Lyons MD [address] [facility] [address] [place] [address] Atrial Fibrillation ; Appointment Related Social History Tobacco Use Types Packs/Day Years [...] Assessment Author No 07/10/2023 19:12 Jannet Crum, TAOY * Do you have serious difficulty walking [...] Jannet Crum RN documented in this encounter Miscellaneous Notes * Telephone Encounter - Lanny Lucero RN - 11/06/2023 1440 EDT FU with pt. They are scheduled with Dr Lyons for later today, but are unable to make it to the office due to the weather today. Pt has been going into AF with RVR. Dofetilide hasn't been having any effect and inquiring if it actually needs to be refilled. They would like to pursue an ablation. They will have televideo visit today with Dr Lyons to discuss further. No additional questions for writ er at this time. No barriers to learning identified. 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 did not see appts populate to accommodate documented in this encounter Plan of Treatment Upcoming Encounters Date Type Department Care Team (Late st Contact Info) Description 07/22/2024 19:30 EST Appointment [facility] Radiology [facility] - [facility] [address] [place] [address] 07/29/2025 15:40 EST Office Visit [facility] Cardiology - [place] [address] [place] [address] Palak Diallo MD 111 [facility], Level 1 [place] [phone] documented as of this encounter Visit Diagnoses Not on filedocumented in this encounter Care Teams Step Finisher Relationship Specialty Start Date End Date Robyn Glynn MD [address] [place] [address] PCP - General Family Medicine - Primary Care 11/02/21 documented as of this encounter
--- OUTSIDE RECORDS SUMMARY | 2024-07-21 16:38 | XMS_ITS | Encounter Summary ---
Author Organization [facility] Address [address] [place] [address] Care Team Providers Care Stripping And Booking Machine Operator Name Role Phone Robyn Glynn MD Primary Care Provider [phone] Encounter Details Date Type Department Care Team (Late st Contact Info) Description 03/11/2024 Orders Only [facility] CT Scan [address] [place] [address] Joe Hayden MD 111 [facility] 1 [place] [address] Paroxysmal atrial fibrillation (HCC-CMS) (Primary Dx) Social History Tobacco Use Types [...] Contact Info) Description 07/22/2024 19:30 EST Appointment [facility] Radiology [place] [facility] [address] [place] [address] 07/29/2025 15:40 EST Office Visit [facility] Cardiology - [place] [address] Palak Diallo MD 111 [facility] [place], [address] [place] [phone] Scheduled Orders Name Type Priority Associated Diagnoses Orde r Schedule CREATININE Lab STAT Paroxysmal atrial fibrillation ([facility]) Expected: 03/11/2024 (Approximate), Expires: 03/11/2025 documented as of this encounter Visit Diagnoses Diagnosis Paroxysmal atrial fibrillation ([facility])- Primary Atrial fibrillation documented in this encounter Care Teams Stripping And Booking Machine Operator Relationship Specialty Start Date End Date Robyn Glynn MD [address] [place] [phone] PCP - General Family Medicine - Primary Care 11/02/21 documented as of this encounter
--- OUTSIDE RECORDS SUMMARY | 2024-07-21 16:38 | XMS_ITS | Encounter Summary ---
Author Organization [facility] Address [address] [place] [address] Care Team Providers Care Vacuum Technician Name Role Phone Robyn Glynn MD Primary Care Provider [phone] Reason for Referral * Radiology Services (Routine) - Authorization Not Required Specialty Diagnoses / Procedures Referred By Contac t Referred To Contact Diagnoses PAF (paroxysmal atrial fibrillation) (HCC-CMS) Procedures CT CARDIAC PULMONARY VEIN Helio Lyons MD [address] [address] Phone: tel: fax: [facility] Referral ID Status Reason Start Date Expiration Date Visits Requested Visits Authorized [id number] Authorization Not Required 11/06/2023 1 1 Reason for Visit * Radiology Services (Routine) - Authorization Not Required Specialty Diagnoses / Procedures Referred By Contac t Referred To Contact Diagnoses PAF (paroxysmal atrial fibrillation) ([facility]) Procedures CT CARDIAC PULMONARY VEIN Helio Lyons MD [address] [employer] [address] [place] [phone] Phone: tel: fax: [facility] Referral ID Status Reason Start Date Expiration Date Visits Requested Visits Authorized [id number] Authorization Not Required 11/06/2023 1 1 Encounter Details Date Type Department Care Team (Latest Contact Info) Description 01/27/2024 8:09 EDT - 01/27/2024 23:59 EDT Hospital Encounter [facility] Radiology CT Outpatient - [address] [address] PAF (paroxysmal atrial fibrillation) ([facility]) Discharge Disposition: Home or Self Care Social [...] daily. 180 Tablet 3 4 03/23/20 24 documented as of this encounter Discharge Disposition Disposition Code Departure Means Destination Home or Self Care documented in this encounter Plan of Treatment Upcoming Encounters Date Type Department Care Team (Late st Contact Info) Description 07/22/2024 19:30 EST Appointment [facility] Radiology CT - [facility] [place] [facility] [address] [place], [place] [address] 07/29/2025 15:40 EST Office Visit [facility] Cardiology - [place] [address] [place] [address] Palak Diallo MD 111 [facility] [place], Level [address] [place] [phone] documented as of this encounter Procedures Procedure Name Priority Date/Time Associated Diagnosis Comments CT CARDIAC ANGIO PULMONARY VEIN Routine 01/27/2024 9:00 EDT PAF (paroxysmal atrial fibrillation) ([facility]) POCT CREATININE, ISTAT Routine 01/27/2024 8:47 EDT documented in this encounter Results * CT CARDIAC PULMONARY VEIN (01/27/2024 9:00 EDT) Anatomical Region Laterality Modality Chest Computed Tomogra phy 01/27/2024 9:16 EDT Narrative 01/27/2024 9:[address] CARDIAC PULMONARY VEIN ??01/27/2024 8:37 AM Clinical History/Comments: paf;I48.0:PAF (paroxysmal atrial fibrillation) ([facility]) Technique: CT of the heart was performed [...] in the lingula consistent with a granuloma. [id number] Resulting Agency Comment [id number] Procedure Note Diallo Flores MD - 01/27/2024 CT CARDIAC PULMONARY VEIN 01/27/2024 8:37 AM Clinical History/Comments: paf;I48.0:PAF (paroxysmal atrial fibrillation) ([facility]) Technique: CT of the heart was performed with ECG-gating and with the intravenousadministration of contrast material. Images were reconstructed at otp56-34-22-22% phases of the cardiac cycle. 3D advanced [...] in the lingula consistent with a granuloma. [id number] Helio Lyons MD IM CT ORDERABLES Fin al Result * POCT CREATININE, ISTAT (01/27/2024 8:47 EDT) Creatinine, Venous, i-STAT 0.9 0.7 - 1.3 mg/dL 01/27/2024 8:52 EDT [facility] eGFR, Calculated, i-STAT 94 >60 mL/min/1.7 3m2 01/27/2024 8:52 EDT [facility] Blood VENOUS BLOOD / Unknown 01/27/2024 8:47 EDT 01/27/2024 8:52 EDT Narrative [facility] - 01/27/2024 8:52 EDT Test Performed by Radiology Imaging us Provider Unknown POINT OF CARE TEST ORDERABLE S Final Result [facility] [address] [place] [address] documented in this encounter Visit Diagnoses Diagnosis PAF (paroxysmal atrial fibrillation) ([facility]) Atrial fibrillation documented in this encounter Administered Medications Inactive Administered Medications - up to 3 most recent administrations Medication Order MAR Action Action Date Dose Rate Site iohexoL (OMNIPAQUE 350) solution 100 mL 100 mL, intravenous, Once in imaging, 1 dose, Starting on 01/27/24 at 0837, Until Tu01/27/24 at 0900, Routine, Imaging Protocol Orders Given 01/27/2024 9:00 EDT 100 mL documented in this encounter Orders Medications Ordered That Attila ht Not Have Been Administered Count Last Ordered Date First Ordered Date iohexoL (OMNIPAQUE 350) solution 100 mL 1 0 01/27/2024 documented in this encounter Care Teams Vacuum Technician Relationship Specialty Start Date End Date Robyn Glynn MD [address] [place] [phone] PCP - General Family Medicine - Primary Care 11/02/21 documented as of this encounter
--- OUTSIDE RECORDS SUMMARY | 2024-07-21 16:38 | XMS_ITS | Encounter Summary ---
Author Organization [facility] Address [address] [place] [address] Care Team Providers Care Straight Edger Name Role Phone Robyn Glynn MD Primary Care Provider [phone] Reason for Referral * Cardiology (Routine) - New Request Specialty Diagnoses / Procedures Referred By Contac t Referred To Contact Diagnoses PAF (paroxysmal atrial fibrillation) (HCC-CMS) Procedures INTRACARDIAC ECHOCARDIOGRAM (ICE) Helio Lyons MD [address] [place] [address] [place] [phone] Phone: tel: fax: Referral ID Status Reason Start Date Expiration Date V isits Requested Visits Authorized [id number] New Request 11/06/2023 1 1 Reason for Visit * Auth/Cert (Routine) Specialty Diagnoses / Procedures Referred By Contac t Referred To Contact Diagnoses PAF (paroxysmal atrial fibrillation) (HCC-CMS) PAF (paroxysmal atrial fibrillation) (HCC-CMS) [I48.0] Procedures MS COMPRE EP EVAL ABLTJ ATR FIB PULM VEIN ISOLATION Albation A-Fib Referral ID Status Reason Start Date Expiration Date Visits Re quested Visits Authorized [id number] 1 1 Encounter Details Date Type Department Care Team (Late st Contact Info) Description 03/22/2024 6:25 EDT - 03/22/2024 23:59 EDT Hospital Encounter [facility]In[facility] Cardiology - [facility] [address] [place], [place] [address] Palak Diallo MD 111 [facility] [place], [address] [place] [phone] PAF (paroxysmal atrial fibrillation) ([facility]) Discharge Disposition: Home or Self Care Social History Tobacco Use Types Packs/Day Years Used Date Smoking Tobacco: Never Passive Smoke Exposure: Past Smokeless Tobacco: Never Comments:2nd hand smoke expo sure Alcohol Use Standard Drinks/Week Comments Yes 0 (1 standard drink = 0.6 oz pur e alcohol) Very rare maybe 2 a month [facility] Utilities Answer Date Recorded In the [...] any time in the past 12 m [facility], were you homeless or living in a intermediate (including now)? No 03/22/2024 Interpersonal Safety Answer [...] Jannet Crum RN documented in this encounter Medications at [...] greater than 110 beats per minute). 4 metoprolol TARtrate (LOPRESSOR) 50 mg tablet Take [...] Contact Info) Description 07/22/2024 19:30 EST Appointment [facility] Radiology [place] - [facility] [address] [place], [place] [address] 07/29/2025 15:40 EST Office Visit [facility] Cardiology - [place] [address] Palak Diallo MD [address] [place] [address], [place], [address] [place] [phone] documented as of this encounter Procedures Procedure Name Priority Date/Time Associated Diagnosis Comments INTRACARDIAC ECHOCARDIOGRAM (ICE) Routine 03/22/2024 6:25 EDT PAF (paroxysmal atrial fibrillation) ([facility]) documented in this encounter Results * INTRACARDIAC ECHOCARDIOGRAM (ICE) (03/22/2024 6:25 EDT) Narrative [facility] - 03/22/2024 6:25 EDT Non Reportable Exam us Helio Lyons MD CARDIAC ECHO ORDERABL ES Final Result [facility] documented in this encounter Visit Diagnoses Diagnosis PAF (paroxysmal atrial fibrillation) ([facility]) Atrial fibrillation documented in this encounter Care Teams Straight Edger Relationship Specialty Start Date End Date Robyn Glynn MD [address] [place] [address] PCP - General Family Medicine - Primary Care 11/02/21 documented as of this encounter
--- OUTSIDE RECORDS SUMMARY | 2024-07-21 16:38 | XMS_ITS | Encounter Summary ---
Author Organization [facility] Address [address] [place] [address] Care Team Providers Care Passenger Service Representative Name Role Phone Robyn Glynn MD Primary Care Provider [phone] Encounter Details Date Type Department Care Team (Late st Contact Info) Description 04/02/2024 Orders Only [facility] Cardiology - [address] [place], [place] [phone] Mary Figueredo, RN [address] [place] [address] Social History Tobacco Use Types Packs/Day Years Used Date Smoking Tobacco: Never Passive Smoke Exposure: Past Smokeless Tobacco: Never Comments:2nd hand smoke expo sure Alcohol Use Standard Drinks/Week Comments Yes 0 (1 standard drink = 0.6 oz pur e alcohol) Very rare maybe 2 a month [facility] Utilities Answer Date Recorded In the past 12 months has [employer], gas, oil, or water [employer] threatened to shut off services in your [...] any time in the past 12 m [facility], were you homeless or living in [...] Assessment Author No 03/22/2024 21:00 Cari Bustamante, TAYO * Are you blind or do you have serious difficulty seeing, even when wearing glasses? Answer Date of Assessment Author No 03/22/2024 21:00 EDT Cari Olmos, RN * Do you have serious difficulty walking or climbing stairs? (5 years old or older) Answer Date of Assessment Author No 03/22/2024 21:00 AGGIET Cari Olmos, RN * Do you have difficulty dressing [...] Contact Info) Description 07/22/2024 19:30 EST Appointment [facility] Radiology CT - [facility] [address] [place] [address] 07/29/2025 15:40 EST Office Visit [facility] Cardiology - [address] [place] [address] Palak Diallo MD 111 [facility] [place], [address] [place] [phone] documented as of this encounter Visit Diagnoses Not on filedocumented in this encounter Discontinued Medications Medication Sig Discontinue Reason Start Date End Da te pantoprazole (PROTONIX) 40 mg tablet Take 1 Tablet by mouth daily. Start 3 days prior to procedure and continue for 30 days after. Therapy completed 03/05/2024 04/02/2024 documented as of this encounter Care Teams Passenger Service Representative Relationship Specialty Start Date End Date Robyn Glynn MD [address] [place] [phone] PCP - General Family Medicine - Primary Care 11/02/21 documented as of this encounter
--- OUTSIDE RECORDS SUMMARY | 2024-07-21 16:38 | XMS_ITS | Encounter Summary ---
Author Organization [facility] Address [address] [place] [address] Care Team Providers Care Blasting Gang Miner Name Role Phone Robyn Glynn MD Primary Care Provider [phone] Reason for Visit * Reason Comments Heart Problem Encounter Details Date Type Department Care Team (Late st Contact Info) Description 07/16/2024 14:40 EST Office Visit [facility] Cardiology - [address] [place], [place] [phone] Palak Diallo MD [address] [facility], [facility] [address] [place] [phone] Paroxysmal atrial fibrillation (HCC-CMS) (Primary Dx) Social History Tobacco Use Types Packs/Day Years Used Date Smoking Tobacco: Never Passive Smoke Exposure: Past Smokeless Tobacco: Never Comments:2nd hand smoke expo sure Alcohol Use Standard Drinks/Week Comments Yes 0 (1 standard drink = 0.6 oz pur e alcohol) Very rare maybe 2 a month [facility] Utilities Answer Date Recorded In the past 12 months has [employer], gas, oil, or water company threatened [...] any time in the past 12 m [facility], were you homeless or living in a retirement (including now)? No 03/22/2024 Interpersonal Safety Answer Date Record ed How often does anyone, incl[place]isa [place] family, hit, punch or physically hurt you? 03/22/2024 How often does anyone, inclraisa [place] family, insult, scream, curse or threaten [...] EST Pulse 68 07/16/2024 1436 EST Temperature - - Respiratory Rate - - Oxygen Saturation 96% 07/16/2024 1436 EST Inhaled Oxygen Concentration - - Weight 131 kg (288 lb 12.8 oz) 07/16/[address] Height - - Body Mass Index 42.04 03/22/2024 0645 EDT documented in this encounter Functional Status * Are you deaf or do you have serious difficulty hearing? Answer Date of Assessment Author No 03/22/2024 21:00 EDT Cari Olmos, TAYO * Are you blind or do [...] No 03/22/2024 21:00 Cari Bustamante RN documented in this encounter Progress Notes * Palak Diallo MD - 07/16/2024 1440 EST CARDIOLOGY - Follow up visit PCP: Robyn Glynn Follow up for paroxysmal atrial fibrillation Assessment/Plan: 68-year-old male with hypertension and paroxysmal atrial fibrillation presents for follow-up after ablation consisting of PVI in March 2024 # Paroxysmal atrial fibrillation [id number] 2 for age and hypertension - continue anticoagulation with Eliquis - Monitors his heart rhythm with a mydecoa kaushik twice daily RTC in 12 months, PRN thereafter I spent a total of 20 minutes on the date of this encounter meeting with the patient and reviewing documentation/coordinating care as described in the above note. No procedures were performed at the time of the visit. Palak Diallo MD PhD Cardiac Cnc Set Up Operator Subjective: Samm Macdonald is a 68 y.o. male patient of Dr. Lyons with a PMHx significant for paroxysmal atrialfibrillation, ANNELISE on CPAP who underwent AF ablation on 03/22/2024, consistent of PVI. He experienceda 12-hour self-limited episode of atrial fibrillation approximately 1 week after the ablation and no further episodes since. He has monitored his heart rhythm with the [employer] kaushik since then and has not noticed any further episodes. He is pleased with the improvement in his energy levels and has been out skiing with his once already this season. 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 amLODIPine (NORVASC) 5 mg tablet Take 1 Tablet by mouth daily. apixaban (ELIQUIS) 5 mg tablet Take 1 Tablet by mouth 2 times daily. cholecalciferol, vitamin D3, (VITAMIN D3 ORAL) Take 1,000 Units by mouth daily. clindamycin (CLEOCIN) 300 mg capsule TAKE TWO CAPSULES BY MOUTH 1 HOUR PRIOR TO APPOINTMENT docusate sodium (COLACE) 100 mg capsule Take 2 Capsules by mouth daily as needed for Constipation. magnesium oxide (MAG-OXIDE ORAL) Take 400 mg by mouth daily. melatonin 10 mg capsule Take by mouth. metoprolol TARtrate (LOPRESSOR) 50 mg tablet Take 1 Tablet by mouth as needed for Other (atrial fibrillation lasting >24 hours with heart rates greater than 110 beats per minute). (Patient not taking: Reported on 07/16/2024) senna (SENOKOT) 8.6 mg tablet Take 1 Tablet by mouth daily. No current facility-administered medications on file prior to visit. Allergies Allergies Allergen Reactions Chloraseptic (Benzocaine) Rash Indocin [Indomethacin] hallucinates Review of Systems: See subjective for pertinent positives and negatives Physical Exam: VS: BP 140/82 (BP Cuff Location: Right arm, BP Patient Position: Sitting, BP Cuff Sizes: Adult, large) Pulse 68 Wt (!) 131 kg (288 lb 12.8 oz) SpO2 96% BMI 42.04 kg/m?? Weight: Weight : (!) 131 kg (288 lb 12.8 oz) BMI: Body mass index is 42.04 kg/m??. GEN: Middle-aged M in NAD, alert and oriented, cooperative, overweight, appears stated age Resp: No accessory muscle use. Clear to auscultation b/l. No wheezes, crackles, rales or rhonchi. CV: Normal rate, regular rhythm. S1/S2. No MRG appreciated. Ext: No edema, no cyanosis Neuro: Grossly normal, non-focal exam. Skin: Warm, good turgor Psych: Mood stable, affect appropriate Data: Data reviewed. documented in this encounter Plan of Treatment Upcoming Encounters Date Type Department Care Team (Late st Contact Info) Description 07/22/2024 19:30 EST Appointment [facility] Radiology CT - [facility] [address] [place], [place] [phone] 07/29/2025 15:40 EST Office Visit [facility] Cardiology - [address] [place] [address] Palak Diallo MD [address] [place] [address], Level [address] [place] [phone] documented as of this encounter Visit Diagnoses Diagnosis Paroxysmal atrial fibrillation (HCC-CMS)- Primary Atrial fibrillation documented in this encounter Historical Medications * This list may reflect changes made after this encounter. senna (SENOKOT) 8.6 mg tablet Take 1 Tablet by mouth daily. clindamycin (CLEOCIN) 300 mg capsule TAKE TWO CAPSULES BY MOUTH 1 HOUR PRIOR TO APPOINTMENT amLODIPine (NORVASC) 5 mg tablet Take 1 Tablet by mouth daily. added in this encounter Care Teams Blasting Gang Miner Relationship Specialty Start Date End Date Robyn Glynn MD [address] [place] [phone] PCP - General Family Medicine - Primary Care 11/02/21 documented as of this encounter
--- OUTSIDE RECORDS SUMMARY | 2024-07-21 16:38 | XMS_ITS | Encounter Summary ---
Author Organization [facility] Address [address] [place] [address] Care Team Providers Care Director [employer] Name Role Phone Robyn Glynn MD Primary Care Provider [phone] Reason for Visit * Auth/Cert (Routine) Specialty Diagnoses / Procedures [facility] Referred To Contact Diagnoses PAF (paroxysmal atrial fibrillation) (HCC-CMS) PAF (paroxysmal atrial fibrillation) ([facility]) [I48.0] Procedures OK COMPRE EP EVAL ABLTJ ATR FIB PULM VEIN ISOLATION Albation A-Fib Referral ID Status Reason Start Date Expiration Date Visits Re quested Visits Authorized [id number] 1 Encounter Details Date Type Department Care Team (Late st Contact Info) Description 03/22/2024 8:00 EDT - 03/22/2024 12:30 EDT Surgery [place] [address] EP Lab [address] [place], [place] [address] Yazmin Diallo MD [address] [facility] [place], Level [address] [place] [phone] Albation A-Fib [26228 (CPT??)] Surgery Details Date/Time Status Location OR Service Patient Class Case Class Case Type Trauma Case? 03/22/2024 0800 Posted [facility] EP Lab EP Lab 1 Cardiovascular Extended Stay H - Elective Panel 1 Procedure LRB Anes Op Region Wound Class Comments Albation A-Fib N/A General Chest patient is retired and is willing to be on bump / cancellation list if another patient cancels their ablation Surgeon Surgeon Role Service Panel Yazmin Diallo MD Primary Cardiovascular 1 documented in this encounter Social History Tobacco Use Types Packs/Day Years Used Date Smoking Tobacco: Never Passive Smoke Exposure: Past Smokeless Tobacco: Never Tobacco Cessation:Counseling Given: Not Answered Comments:2nd hand smoke exposure Alcohol Use Standard Drinks/Week Comments Yes 0 (1 standard drink = 0.6 oz pur e alcohol) Very rare maybe 2 a month [facility] Utilities Answer Date Recorded In the [...] any time in the past 12 m [facility], were you homeless or living in [...] Sign Reading Time Taken Comments Blood Pressure 92/61 03/22/2024 1230 EDT Pulse - - Temperature 35.9 ??C (96.6 ??F) 03/22/2024 1224 EDT Respiratory Rate 17 03/22/2024 1230 EDT Oxygen Saturation 97% 03/22/2024 1230 EDT Inhaled Oxygen Concentration - - Weight [...] Cari Bustamante RN documented in this encounter Discharge Summaries [...] Diagnosis Date Noted *PAF (paroxysmal atrial fibrillation) ([facility]) 11/06/2023 Resolved Hospital Problems No resolved problems to display. Principal Procedure: Date: 03/22/2024 Procedure: Atrial Fibrillation abaltion Indication: Atrial fibrillation oil refinery operator: Yazmin Diallo MD Fellow: None Findings: Femoral [...] and stay in Afib please call your Guest Relations Receptionist before 24 hours are up. If you [...] on 2023 at 11:15 AM at [facility] [place]. [address] [place] [address] PHONE: SIX MONTH FOLLOW UP APPOINTMENT With: Dr. YAZMIN DIALLO MD on JULY 16, 2024 at 2:40 PM at the [address] [place] [address] [facility] PHONE: [phone] Should the above appointment(s) not be convenient, please call at the number(s) listed above to re-schedule to a time that works for you. We are here to help, so should you need assistance feel free to call with questions or concerns at [phone]. If you have any questions or concerns, please don't hesitate to call the Cardiac Ar[facility]hythmia Serviceat [facility] [phone] (or dial [phone]) documented in this encounter Medications at Time [...] Means Destination Comment s Home or Self Senior Living documented in this encounter Progress Notes * Emmett Harris PA-C - 03/22/2024 3851 EDT EP Cardiology Post Procedure Check: S: [...] EDT * Anselmo Castillo RN - 03/22/2024 0734 EDT Julianne Prince arrived to the Cardiovascular [...] Notes * Yazmin Diallo MD - 03/22/2024 0755 EDT ELECTROPHYSIOLOGY PRE-PROCEDURE H&P Admit Date: 03/22/2024 [...] PSH Past Medical History: Diagnosis Date A-fib ([facility]) Noted 07/23/22- In and out of afib, [...] Data Data reviewed. Labs: WBC/Hgb/Hct/Plts: 8.39/15.0/42.4/239 (03/22 0703) BMP: Recent Labs 03/22/24 0703 NA 140 K 4.3 CL 105 CO2 26 BUN 21 CREATININE 0.95 Assessment/Plan: 68 y.o. male with a history of paroxysmal AF and ANNELISE presents for AF ablation. Plan: - general anesthesia - no EGRALD due to low CHADSVASC score and uninterrupted [...] For this reason, the patient (or responsible republican) has agreed to remain FULL CODE for [...] antiarrhythmic drugs. Yazmin Diallo MD PhD Cardiac Finance Executive 03/22/24 7:57 documented in this encounter Procedure Notes * Yazmin Diallo MD - 03/22/2024 1220 EDT Images from the original note were not included. Post procedure note: Procedure: Atrial Fibrillation abaltion Indication: Atrial fibrillation oil refinery operator: Yazmin Diallo MD Fellow: None Findings: Femoral [...] was considered stable to transfer to PACU plastic mixer will give 1:1 verbal report Emmett Harris [...] of this note (via Provider Access services) ASSOCIATE/PA on EP service (via Provider Access services) Attending on the EP service (via Provider Access services or PAGER #[phone]) After 16:00 aircraft sales representative on EP service (via Provider Access services) Attending on the EP service (via Provider Access services or PAGER #[phone]) Other contact numbers: EP lab - [phone] - EP lab OR2 - [phone] EP (nurse of the day) NOD - [phone] or page [phone] metallurgical laboratory assistant - [phone] Overhead Double page cardiology If the above [...] Action: Admission dataset completed. Medications administered per MAR. VS, tele, and neuros/CSMTs monitored. Educated about plan of care. Clustered care to promote rest. Response: Pt resting in bed at this time with callbell within reach. VSS. Plan for discharge home. CARI FONG RN 03/22/2024 21:50 * Plan of Care - Dale Tinajero RN - 03/22/2024 6778 EDT Data: pt admitted for AF ablation Action: vs, tele, monitor Darion fem sites for hematoma and bleeding. Response: vss DALE TINAJERO RN 03/22/2024 17:47 documented in this encounter Plan of Treatment Upcoming Encounters Date Type Department Care Team (Late st Contact Info) Description 07/22/2024 19:30 EST Appointment [facility] Radiology MD - [facility] [address] [place], [place] [address] 07/29/2025 15:40 EST Office Visit [facility] Cardiology - [place] [address] [place] [address] Yazmin Diallo MD [address] [facility] [place], [address] [place] [address] documented as of this encounter Procedures Procedure Name Priority Date/Time Associated Diagnosis Comments ECG REPORT - SCANNED 03/25/2024 14:27 EDT ECG REPORT - SCANNED 03/25/2024 13:02 EDT ECG REPORT - SCANNED 03/24/2024 9:07 EDT EKG 12-LEAD Routine 03/22/2024 13:16 EDT EP DIAGNOSTIC STUDY Routine 03/22/2024 1 2:10 EDT PAF (paroxysmal atrial fibrillation) ([facility]) POCT ACTIVATED CLOTTING TIME, KAOLIN ISTAT Routine [...] 03/25/2024 14:2 7 EDT us Scan 2 Corn Press Operator PROCEDURE/MINOR SURGICAL OR DERABLES Final Result * ECG REPORT - SCANNED (03/25/2024 13:02 EDT) 03/25/2024 13:0 2 EDT us Scan 2 Corn Press Operator PROCEDURE/MINOR SURGICAL OR DERABLES Final Result * ECG REPORT - SCANNED (03/24/2024 9:07 EDT) 03/24/2024 9:07 EDT us Scan 2 Corn Press Operator PROCEDURE/MINOR SURGICAL OR DERABLES Final Result * EKG 12-LEAD (03/22/2024 13:16 EDT) 03/22/2024 13:1 6 EDT Narrative [facility] EKG - 03/24/2024 8:54 EDT ? [facility] ? Test Date: ?2024-03-22 Pat Name: ? JULIANNE PRINCE ?Department: ?? EP Lab ? Room: ? OR Gender: ? Male ? Slusher Operator: ?? [id number] : ?1955 ? Requested By: ALENA ARCE Order Number: [id number] ? Brett SUN: ?? DEVIN BARLOW MD ? Measurements Intervals ?[place] ? Rate: ? 50 ? P: ?37 OK: ? 213 ?QRS: ?57 QRSD: ? 85 [...] Note Devin Barlow MD - 03/24/2024 [facility] Test Date: 2024-03-22 Pat Name: JULIANNE PRINCE Department: EP Lab Room: OR Gender: Male Slusher Operator: [id number] : 1955 Requested By: ALENA ARCE Order Number: [id number] Brett MD: DEVIN BARLOW MD Measurements Intervals [place] Rate: 50 P: 37 OK: 213 QRS: 57 QRSD: 85 T: 63 [...] MD CARDIAC ECG ORDERABLES Final Res ult [facility] EKG * ABLATION A-FIB (03/22/2024 12:10 EDT) Anatomical Region Laterality Modality Cardiac Electrop hysiology Narrative 03/25/2024 11:20 EDT Images from the original result were not included. Attending: Yazmin Diallo MD Fellow: No Fellow Dry Cleaner Hand :Lorena Beltran RN Attestation: Attending only- I,Yazmin [...] complications. Estimated blood loss: 30 ml. Clinical [place]: ??This patient is not enrolled in a [...] 74 - 137 Seconds 03/22/2024 11:57 EDT [facility] Blood ARTERIAL BLOOD / Unknown 03/22/2024 11:42 EDT 03/22/2024 11:57 EDT [facility] LABORATORY [facility] - 03/22/2024 11:57 EDT Therapeutic Interventional range is dependent upon patient population and procedure type Test Performed by Cardiology Kenroy Kyle MD POINT OF CARE TEST ORDER KRISTY Final Result [facility] [address] [place] [address] * (ABNORMAL) POCT ACTIVATED CLOTTING TIME, KAOLIN ISTAT (03/22/2024 11:03 EDT) Activated Clotting Time, Arterial, i-STAT 262(H) 74 - 137 Seconds 03/22/2024 11:19 EDT [facility] Blood ARTERIAL BLOOD / Unknown 03/22/2024 11:03 EDT 03/22/2024 11:19 EDT [facility] - 03/22/2024 11:19 EDT Therapeutic Interventional range is dependent upon patient population and procedure type Test Performed by Cardiology us Kenroy Kyle MD POINT OF CARE TEST ORDER KRISTY Final Result Performing Organization Address City/[facility]/ZIP Co de Phone Number [facility] [address] [place] [address] * (ABNORMAL) POCT ACTIVATED CLOTTING TIME, KAOLIN ISTAT (03/22/2024 10:22 EDT) Activated Clotting Time, Arterial, i-STAT 293(H) 74 - 137 Seconds 03/22/2024 10:37 EDT [facility] Blood ARTERIAL BLOOD / Unknown 03/22/2024 10:22 EDT 03/22/2024 10:37 EDT Narrative [facility] - 03/22/2024 10:37 EDT Therapeutic Interventional range is dependent upon patient population and procedure type Test Performed by Cardiology us Kenroy Kyle MD POINT OF CARE TEST ORDER KRISTY Final Result Performing Organization Address [facility] Co de Phone Number [facility] [address] [place] [address] * (ABNORMAL) POCT ACTIVATED CLOTTING TIME, KAOLIN ISTAT (03/22/2024 9:42 EDT) Activated Clotting Time, Arterial, i-STAT 281(H) 74 - 137 Seconds 03/22/2024 9:57 EDT [facility] Blood ARTERIAL BLOOD / Unknown 03/22/2024 9:42 EDT 03/22/2024 9:57 EDT Narrative [facility] - 03/22/2024 9:57 EDT Therapeutic Interventional range is dependent upon patient population and procedure type Test Performed by Cardiology us Kenroy Kyle MD POINT OF CARE TEST ORDER KRISTY Final Result Performing Organization Address City/[facility]/ZIP Co de Phone Number [facility] [address] [place] [address] * COMPLETE BLOOD COUNT (03/22/2024 7:03 EDT) WBC 8.39 4.00 - 10.40 K/cmm 03/22/2024 7:20 [facility] RBC 4.80 4.36 - 5.78 M/cmm 03/22/2024 7:20 [facility] Hemoglobin 15.0 13.8 - 17.3 g/dL 03/22/2024 7:20 [facility] HCT 42.4 39.5 - 50.2 % 03/22/2024 7:20 [facility] MCV 88 81 - 95 fL 03/22/2024 7:20 [facility] MCH 31.3 27.6 - 33.0 pg 03/22/2024 7:20 [facility] MCHC 35.4 32.8 - 36.4 g/dL 03/22/2024 7:20 [facility] RDW-CV 12.8 <14.2 % 03/22/2024 7:20 [facility] RDW-SD 41.3 <46.0 fl 03/22/2024 7:20 [facility] PLT 239 141 - 377 K/cmm 03/22/2024 7:20 [facility] MPV 10.1 9.5 - 12.7 fL 03/22/2024 7:20 [facility] Blood VENOUS BLOOD / Unknown Venipuncture / Unknown 03/22/2024 7:03 EDT 03/22/2024 7:07 EDT us Yazmin Diallo MD HEMATOLOGY & PF4 ORDERABLES Michela l Result [facility] [address] [place] [address] * CREATININE (03/22/2024 7:03 EDT) Creatinine 0.95 0.66 - 1.25 mg/dL 03/22/2024 7:25 EDT [facility] eGFR 88 >60 mL/min/1.73 m2 03/22/2024 7:25 EDT [facility] Blood VENOUS BLOOD / Unknown Venipuncture / Unknown 03/22/2024 7:03 EDT 03/22/2024 7:07 EDT Yazmin Diallo MD CHEMISTRY & BLOOD GAS ORDERABLES Final Result [facility] [address] [place] [address] * BUN (03/22/2024 7:03 EDT) BUN 21 10 - 26 mg/dL 03/22/2024 7:25 EDT [facility] Blood VENOUS BLOOD / Unknown Venipuncture / Unknown 03/22/2024 7:03 EDT 03/22/2024 7:07 EDT Yazmin Diallo MD CHEMISTRY & BLOOD GAS ORDERABLES Final Result [facility] [address] [place] [address] * ELECTROLYTES (03/22/2024 7:03 EDT) Sodium 140 136 - 145 mmol/L 03/22/2024 7:25 EDT [facility] Potassium 4.3 3.5 - 5.0 mmol/L 03/22/2024 7:25 EDT [facility] Chloride 105 96 - 110 mmol/L 03/22/2024 7:25 EDT [facility] CO2 Total 26 22 - 32 mmol/L 03/22/2024 7:25 EDT [facility] Anion Gap 9 5 - 14 mmol/L 03/22/2024 7:25 EDT [facility] Blood VENOUS BLOOD / Unknown Venipuncture / Unknown 03/22/2024 7:03 EDT 03/22/2024 7:07 EDT Yazmin Diallo MD CHEMISTRY & BLOOD GAS ORDERABLES Final Result [facility] [address] [place] [address] * TYPE AND SCREEN (03/22/2024 7:03 EDT) ABO B 03/22/2024 8:16 EDT [facility] Rh Factor Positive 03/22/2024 8:16 EDT [facility] Antibody Screen Negative 03/22/2024 8:16 EDT [facility] Specimen Expires: 03/25/2024 @ 23:59 03/22/2024 8:16 EDT [facility] Blood VENOUS BLOOD / Unknown Venipuncture / Unknown 03/22/2024 7:03 EDT 03/22/2024 7:13 EDT Yazmin Diallo MD BLOOD BANK TESTS Edited Result - Final Performing Organization Address City/[facility]/ZIP Co de Phone Number [facility] [address] [place] [address] documented in this encounter Visit Diagnoses Diagnosis PAF (paroxysmal atrial fibrillation) ([facility])- Primary Atrial fibrillation PAF (paroxysmal atrial fibrillation) ([facility]) Atrial fibrillation documented in this encounter Admitting Diagnoses Diagnosis PAF (paroxysmal atrial fibrillation) ([facility]) Atrial fibrillation documented in this encounter Administered [...] 2010 (Given - Provider: Cari Fong RN) 0800 (Given - Provider: Dale Tinajero [...] Discontinued, Routine 0800 (Given - Provid er: MichelleOvi Tinajero RN) Continuous Medication Order 03/21/2024 03/22/2024 [...] Recovery (only) 1327 (Given - Provider: Mayela Stanton, TAYO) ondansetron (PF) (ZOFRAN) injection 4 mg (COMPLETED) [...] mg atropine 0.1 mg/mL syringe 0.5 mg 024 heparin 1,000 unit/mL injection 4 heparin in 08/05 NS 25,000 uni t/250 mL infusion 03/22/2024 HYDROmorphone (PF) (DILAUDID ) 0.5 mg/0.5 mL syringe 0.3-0.5 mg 03/22/2024 lactated ringers (LR) infusion 03/22/2024 lidocaine (PF) 10 mg/mL (1 % ) injection 2 mg 03/22/2024 neomycin-bacitracn zinc-poly myxin (NEOSPORIN) 3.5mg-400 unit- 5,000 unit/gram ointment 1 03/22/2024 protamine 10 mg/mL injection 1 03/22/2024 sodium chloride 0.9 % (flush) flush 3 mL 1 03/22/2024 Nursing Count Last Ordered Date First Orde red Date VTE PHARMACOLOGIC PROPHYLAXI S CURRENTLY ORDERED OR ON ALTERNATIVE THER 1 03/22/2024 Discharge Count Last Ordered Date First Orde red Date DISCHARGE PATIENT 1 03/23/2024 documented in this encounter Care Teams Director [employer] Relationship Specialty Start Date End Date Robyn Glynn MD [address] [place] [phone] PCP - General Family Medicine - Primary Care 11/02/21 documented as of this encounter
--- OUTSIDE RECORDS SUMMARY | 2024-07-21 16:38 | XMS_ITS | Encounter Summary ---
Author Organization [facility] Address [address] [place] [address] Care Team Providers Care Center Consultant Name Role Phone Robyn Glynn MD Primary Care Provider [phone] Reason for Visit * Auth/Cert (Routine) Specialty Diagnoses / Procedures [facility] Referred To Contact Diagnoses PAF (paroxysmal atrial fibrillation) (HCC-CMS) PAF (paroxysmal atrial fibrillation) ([facility]) [I48.0] Procedures NM COMPRE EP EVAL ABLTJ ATR FIB PULM VEIN ISOLATION Albation A-Fib Referral ID Status Reason Start Date Expiration Date Visits Re quested Visits Authorized [id number] 1 1 Encounter Details Date Type Department Care Team (Late st Contact Info) Description 03/22/2024 8:01 EDT Anesthesia Event [facility] 1 EP Lab [address] [place], [place] [address] Venkatesh Leigh MD [address] [facility], Level 2 [place] [id number] Anesthesia Record Procedure Summary Procedure Name Responsible Anesthesiologist Anesthesia Start Time Anesthesia Stop Time Albation A-Fib (Chest) Venkatesh Leigh MD 03/22/24 0801 03/22/24 1228 Events Date Time Event Comment 03/22/2024 0801 An Start The patient was re-evaluated immediately before moderate or deep sedation use, before anesthesia induction, or before the anesthesia procedure. 0801 An Start Data 0817 An Induction The patient was reevaluated immediately before moderate or deep sedation use and before anesthesia induction. 0820 An Intubation 0825 Anesthesia Ready 0938 An Data Art 1114 Guzman Bhugger off 1205 An Extubation 1205 Guzman Suctioned extub ated reversed HOB elavted to pacu 1215 an stop data 1228 Handoff to RN I completed my handoff to the receiving nurse during which we: 1. Identified the patient 2. Identified the responsible provider 3. Reviewed the pertinent medical history 4. Discussed the surgical course 5. Reviewed intra-op anesthesia management and issues during anesthesia 6. Set expectations for post-procedure period 7. Allowed opportunity for questions and acknowledgement of understanding. 1228 An Stop Meds Name Total HYDROmorphone vial 2 mg/mL 0.4 mg ketAMINE 5 mL prefilled syringe 21 mg midazolam (versed) 1 mg/mL 2 mL vial 2 m g ondansetron (PF) (ZOFRAN) injection 4 mg phenylephrine 1 mg/10 mL pre -filled SYRINGE (Bolus or short duration infusion) 4,130 mcg propOFol (DIPRIVAN) injection 300 mg rocuronium 10 mg/mL vial 200 mg succinylcholine 20 mg/mL vial 140 mg sugammadex 100 mg/mL 2 mL vial 200 mg heparin vial 1,000 units/mL 23,000 Units heparin infusion in 0.45% NaCl 5,498.33 Units hydrALAzine injection 8 mg protamine injection 50 mg NaCl 0.9% (NS) infusion 1,000 mL lactated ringers (LR) infusion 100 mL * Agents Name Exp Isoflurane (Aux) Insp Isoflurane (Aux) O2 N2O Air * Blood No blood administrations on file. Lines, Drains, and Airways Type Details Placement Removal Peripheral IV 03/22/24; 0702; 18; 1.25; B Fernandez Introcan; Right; Antecubital; Inserted by RN; 1; None; 3.15% Chlorhexidine with IPA; 03/23/24; 1044; Discharged 03/22/24 0702 by Anselmo Castillo RN 03/23/24 1044 by Dale Aguirre RN Arterial Catheter 03/22/24; 0825 (ibrahima pastor via procedure documentation); 03/22/24; 1433; Per order; No complications, Dressing applied, Pressure held minimum of 5 min. 03/22/24 0825 by Venkatesh Leigh MD 03/22/24 1433 by Alecia Donato RN Non-Surgical Airway 03/22/24; 0844 (ibrahima pastor via procedure documentation); 03/22/24; 1205 03/22/24 0844 by Venkatesh Leigh MD 03/22/24 1205 by Venkatesh Leigh MD documented in this encounter Social History Tobacco Use Types Packs/Day Years Used Date Smoking Tobacco: Never Passive Smoke Exposure: Past Smokeless Tobacco: Never Comments:2nd hand smoke expo sure Alcohol Use Standard Drinks/Week Comments Yes 0 (1 standard drink = 0.6 oz pur e alcohol) Very rare maybe 2 a month [facility] Utilities Answer Date Recorded In the [...] time in the past 12 m [facility], were you homeless or living in a [...] Jannet Crum RN documented in this encounter OR Notes * Anesthesia Postprocedure Evaluation - Venkatesh Leigh MD - 03/22/2024 1538 EDT Patient: Samm Macdonald Vital signs were reviewed with the recovery nurse. [facility] Vit[facility] Value Taken Time BP 130/73 03/22/24 1345 Temp 36.1 ??C (97 ??F) 03/22/24 1330 Resp 16 03/22/24 1345 Pulse From Oximetry 53 BPM 03/22/24 1345 SpO2 100 % 03/22/24 1345 Heart Rate 52 BPM 03/22/24 1345 Last Pain Score - Numeric Pain Level (Scale 1-10): 3 Type of Anesthesia - general Anesthesia Post Evaluation Post-procedure vitals reviewed and are stable. Level of consciousness: responsive/arousable to verbal stimuli Temperature status: normothermia Respiratory status: airway patent Cardiovascular status: acceptable Hydration status: adequate Nausea/Vomiting: controlled Pain management: adequate Post-Op Assessment: patient tolerated procedure well with no complications and patient satisfied with anesthesia care Patient participation: able to participate Disposition: inpatient Anesthesia Complications: No apparent anesthesia complications * Anesthesia Procedure Notes - Venkatesh Leigh MD - 03/22/2024 0844 EDTAssociated Order(s): Arterial Line Placement Arterial Line Placement Date/Time: 03/22/2024 8:25 Staffing Performed: anesthesiologist Performed by: Venkatesh Leigh MD Authorized by: Venkatesh Leigh MD Consent: Written consent obtained. Consent given by: patient Preparation: Patient was prepped and draped in the usual sterile fashion. Indications: multiple ABGs and hemodynamic monitoring Location: left radial Needle gauge: 20 Seldinger technique: Seldinger technique used Number of attempts: 1 Ultrasound Guided? noPost-procedure: line sutured and dressing applied * Anesthesia Procedure Notes - Venkatesh Leigh MD - 03/22/2024 0843 EDTAssociated Order(s): Airway Airway Date/Time: 03/22/2024 8:20 Urgency: elective Airway not difficult General Information and Staff Patient location during procedure: OR Performed: anesthesiologist Performed by: Venkatesh Leigh MD Authorized by: Venkatesh Leigh MD Indications and Patient Condition Indications for airway management: anesthesia Sedation level: GA Preoxygenated: yes Patient position: sniffing Ventilation assessment: 1 - Easy and 2 - Oral airway inserted Final Airway Details Final airway type: endotracheal airway Successful airway: ETT Cuffed: yes Successful intubation technique: video laryngoscopy Sebastian Facilitating devices/methods: intubating stylet Endotracheal tube insertion site: oral Blade: Izabel Blade size: #4 ETT size (mm): 7.5 Cormack-Lehane Classification: view obtained with video laryngoscopy Placement verified by: capnometry and palpation of cuff Measured from: teeth ETT to teeth (cm): 23 Number of attempts at approach: 1 * Anesthesia Preprocedure Evaluation - Venkatesh Leigh MD - 03/22/2024 1256 EDT Anesthesia Preprocedure Evaluation Patient Medical History, including Anesthesia History reviewed. Chart and Nursing Notes reviewed, including NPO status and Medication History. Additional ROS/History Findings: Allergies Allergen Reactions Chloraseptic (Benzocaine) Rash Indocin [Indomethacin] hallucinates Review of Systems Past Medical History: Diagnosis Date A-fib ([facility]) Noted 07/23/22- In and out of afib, [...] (28 yrs ago) Spinal stenosis Noted 07/23/22 Relevant Problems No relevant active problems Physical Exam Airway Mallampati: II TM distance: >3 FB Neck ROM: limited Cardiovascular Dental Pulmonary Abdominal Other findings: Full garcia Anesthesia Plan ASA 3 Anesthesia Type - general Anesthesia Plan Details to include - arterial line. Anesthesia plan and risks discussed. Informed consent obtained from patient. Specific risks discussed were vomiting, nausea, infection, bleeding and other. Code status discussed? No The preoperative history and physical which was performed within 30 days of this procedure, has been reviewed and the clinically appropriate elements of the physical examination have been repeated. There are no changes to the documented history and physical or, if so, such changes are documented inthis note PAT Note Notes from 02/21/24 through 03/22/24 No notes of this type exist for this encounter. documented in this encounter Plan of Treatment Upcoming Encounters Date Type Department Care Team (Late st Contact Info) Description 07/22/2024 19:30 EST Appointment [facility] Radiology DC - [address] [id number] 07/29/2025 15:40 EST Office Visit [facility] Cardiology - [place] [address] Palak Diallo MD [address] [place] [address], [place], [address] [place] [address] documented as of this encounter Procedures Procedure Name Priority Date/Time Associated Diagnosis Comments ANESTHESIA ARTERIAL LINE PLACEMENT Routine 03/22/2024 8:25 EDT ANESTHESIA INTUBATION Routine 03/22/2024 8:20 EDT documented in this encounter Results * NM ARTL CATHJ/CANNULJ MNTR/TRANSFUSION SPX PRQ (03/22/2024 8:25 EDT) Narrative [facility] - 03/22/2024 8:25 EDT Venkatesh Leigh MD ? 03/22/2024 ??8:45 Arterial Line Placement Date/Time: 03/22/2024 8:25 Staffing Performed: anesthesiologist Performed by: Venkatesh Leigh MD Authorized by: Venkatesh Leigh MD ??Consent: Written consent obtained. Consent given by: patient Preparation: Patient was prepped and draped in the usual sterile fashion. Indications: multiple ABGs and hemodynamic monitoring Location: left radial Needle gauge: 20 Seldinger technique: Seldinger technique used Number of attempts: 1 Ultrasound Guided? noPost-procedure: line sutured and dressing applied Venkatesh Leigh MD ANESTHESIA ORDERABLE S Final Result Performing Organization Address [facility] de Phone Number [facility] POINT OF CARE * NM AN ELECTIVE ENDOTRACHEAL AIRWAY (03/22/2024 8:20 EDT) Narrative [facility] POINT OF CARE - 03/22/2024 8:20 EDT Venkatesh Leigh MD ? 03/22/2024 ??8:44 Airway Date/Time: 03/22/2024 8:20 Urgency: elective Airway not difficult General Information and Staff Patient location during procedure: OR Performed: anesthesiologist Performed by: Venkatesh Leigh MD Authorized by: Venkatesh Leigh MD ?? Indications and Patient Condition Indications for airway management: anesthesia Sedation level: GA Preoxygenated: yes Patient position: sniffing Ventilation assessment: 1 - Easy and 2 - Oral airway inserted Final Airway Details Final airway type: endotracheal airway Successful airway: ETT Cuffed: yes Successful intubation technique: video laryngoscopy Sebastian Facilitating devices/methods: intubating stylet Endotracheal tube insertion site: oral Blade: Izabel Blade size: #4 ETT size (mm): 7.5 Cormack-Lehane Classification: view obtained with video laryngoscopy Placement verified by: capnometry and palpation of cuff Measured from: teeth ETT to teeth (cm): 23 Number of attempts at approach: 1 Venkatesh Leigh MD ANESTHESIA ORDERABLE S Final Result Performing Organization Address [facility] de Phone Number [facility] POINT OF CARE documented in this encounter Visit Diagnoses Not on filedocumented in this encounter Administered Medications Inactive Administered Medications - up to 3 most recent administrations Medication Order MAR Action Action Date Dose Rate Site heparin 1,000 unit/mL injection intravenous, PRN, Starting on Fri03/22/24 at 0858, Until Fri03/22/24 at 1228, Routine, Anesthesia Intraprocedure Given 03/22/2024 11:08 EDT 3,000 Units Given 03/22/2024 10:29 EDT 2,000 Units Given 03/22/2024 9:47 EDT 3,000 Units heparin in 1/2 NS 25,000 unit/250 mL infusion intravenous, FA IP EQF CONTINUOUS PRN FOR ONE STEP MEDS, Starting on Fri03/22/24 at 0859, Until Fri03/22/24 at 1228, Routine, Anesthesia Intraprocedure Rate Change 03/22/2024 11:08 EDT 2,200 Units/hr 22 mL/hr Rate Change 03/22/2024 10:29 EDT 1,900 Units/hr 19 mL/hr Rate Change 03/22/2024 9:46 EDT 1,700 Units/hr 17 mL/hr hydrALAZINE (APRESOLINE) injection intravenous, PRN, Starting on Fri03/22/24 at 0859, Until Fri03/22/24 at 1228, Routine, Anesthesia Intraprocedure Given 03/22/2024 9:01 EDT 4 mg Given 03/22/2024 8:55 EDT 4 mg HYDROmorphone (DILAUDUD) 2 mg/mL injection intravenous, PRN, Starting on Fri03/22/24 at 0904, Until Fri03/22/24 at 1228, Routine, Anesthesia Intraprocedure Given 03/22/2024 9:04 EDT 0.4 mg ketAMINE in NaCl, iso-osmotic (KETALAR) 50 mg/5 mL (10 mg/mL) IV injection intravenous, PRN, Starting on Fri03/22/24 at 0827, Until Fri03/22/24 at 1228, Routine, Anesthesia Intraprocedure Given 03/22/2024 8:27 EDT 1 mg Given 03/22/2024 8:18 EDT 20 mg lactated ringers (LR) infusion intravenous, FA IP EQF CONTINUOUS PRN FOR ONE STEP MEDS, Starting on Fri03/22/24 at 1129, Until Fri03/22/24 at 1228, Routine, Anesthesia Intraprocedure New Bag 03/22/2024 11:29 EDT midazolam (PF) (VERSED) injection intravenous, PRN, Starting on Fri03/22/24 at 0808, Until Fri03/22/24 at 1228, Routine, Anesthesia Intraprocedure Given 03/22/2024 8:08 EDT 2 mg ondansetron (PF) (ZOFRAN) injection intravenous, PRN, Starting on Fri03/22/24 at 1159, Until Fri03/22/24 at 1228, Routine, Anesthesia Intraprocedure Given 03/22/2024 11:59 EDT 4 mg phenylephrine HCl in 0.9% NaCl injection intravenous, PRN, Starting on Fri03/22/24 at 0817, Until Fri03/22/24 at 1228, Routine, Anesthesia Intraprocedure Rate Change 03/22/2024 11:30 EDT 15 mcg/min 9 mL/hr New Bag 03/22/2024 9:42 EDT 30 mcg/min 18 mL/hr Given 03/22/2024 9:40 EDT 100 mcg propOFol (DIPRIVAN) injection intravenous, PRN, Starting on Fri03/22/24 at 0817, Until Fri03/22/24 at 1228, Routine, Anesthesia Intraprocedure Given 03/22/2024 8:27 EDT 50 mg Given 03/22/2024 8:21 EDT 50 mg Given 03/22/2024 8:19 EDT 50 mg protamine injection intravenous, PRN, Starting on Fri03/22/24 at 1208, Until Fri03/22/24 at 1228, Routine, Anesthesia Intraprocedure Given 03/22/2024 12:00 EDT 50 mg rocuronium (ZEMURON) injection intravenous, PRN, Starting on Fri03/22/24 at 0817, Until Fri03/22/24 at 1228, Routine, Anesthesia Intraprocedure Given 03/22/2024 11:29 EDT 25 mg Given 03/22/2024 11:00 EDT 25 mg Given 03/22/2024 10:20 EDT 20 mg sodium chloride 0.9 % (NS) infusion intravenous, FA IP EQF CONTINUOUS PRN FOR ONE STEP MEDS, Starting on Fri03/22/24 at 0750, Until Fri03/22/24 at 1228, Routine, Anesthesia Intraprocedure New Bag 03/22/2024 7:50 EDT succinylcholine (ANECTINE) injection intravenous, PRN, Starting on Fri03/22/24 at 0818, Until Fri03/22/24 at 1228, Routine, Anesthesia Intraprocedure Given 03/22/2024 8:18 EDT 140 mg sugammadex (BRIDION) injection intravenous, PRN, Starting on Fri03/22/24 at 1200, Until Fri03/22/24 at 1228, Routine, Anesthesia Intraprocedure Given 03/22/2024 12:00 EDT 200 mg documented in this encounter Care Teams Center Consultant Relationship Specialty Start Date End Date Robyn Glynn MD [address] [place] [phone] PCP - General Family Medicine - Primary Care 11/02/21 documented as of this encounter
--- OUTSIDE RECORDS SUMMARY | 2024-07-21 16:38 | XMS_ITS | Encounter Summary ---
Author Organization [facility] Address [address] [place] [address] Care Team Providers Care Health Care Facilities Inspector Name Role Phone Robyn Glynn MD Primary Care Provider [phone] Reason for Referral * Cardiology (Routine) - Authorization Not Required Specialty Diagnoses / Procedures Referred By Contac t Referred To Contact Diagnoses PAF (paroxysmal atrial fibrillation) (HCC-CMS) Procedures TRANSESOPHAGEAL ECHO (GERALD) Helio Lyons MD [address] [place] [phone] Phone: tel: fax: [facility] Referral ID Status Reason Start Date Expiration Date Visits Requested Visits Authorized [id number] Authorization Not Required 11/06/2023 1 1 Reason for Visit * Auth/Cert (Routine) Specialty Diagnoses / Procedures Referred By Contac t Referred To Contact Diagnoses PAF (paroxysmal atrial fibrillation) (HCC-CMS) PAF (paroxysmal atrial fibrillation) (HCC-CMS) [I48.0] Procedures AR COMPRE EP EVAL ABLTJ ATR FIB PULM VEIN ISOLATION Albation A-Fib Referral ID Status Reason Start Date Expiration Date Visits Re quested Visits Authorized [id number] 1 1 Encounter Details Date Type Department Care Team (Late st Contact Info) Description 03/22/2024 6:25 EDT - 03/22/2024 23:59 EDT Hospital Encounter [facility] Non-Invasive Cardiology - Main [place] [address] [place], [place] [address] Palak Diallo MD [address] [facility], [place], [address] [place] [address] PAF (paroxysmal atrial fibrillation) ([facility]) Discharge Disposition: Home or Self Care Social History Tobacco Use Types Packs/Day Years Used Date Smoking Tobacco: Never Passive Smoke Exposure: Past Smokeless Tobacco: Never Comments:2nd hand smoke expo sure Alcohol Use Standard Drinks/Week Comments Yes 0 (1 standard drink = 0.6 oz pur e alcohol) Very rare maybe 2 a month [facility] Utilities Answer Date Recorded In the [...] any time in the past 12 m [facility], were you homeless or living in a long-term (including now)? No 03/22/2024 Interpersonal Safety Answer [...] Jannet Crum RN documented in this encounter Discharge Instructions * Discharge Instructions* Bee Sheldon RN - 03/22/2024 11:43 EDT Post Transesophageal Echocardiography Information / Instructions Cardiac Ultrasound Laboratory 1. You have had a Transesophageal Echocardiogram (GERALD) performed by 2. A complete report of the finding will be faxed to your physician(s). 3. After the exam you may have a sore throat for a day or so. Drink cool fluids. You may wish to take throat lozenges. 4. There may be slight inflammation at the site where your intravenous line was started. If this occurs, you may apply a warm compress for a brief period of time. The inflammation usually disappears within a day or so. 5. You may drink clear liquids as soon as your throat is no longer numb and your gag reflex returns. If you tolerate the clear liquids, you can advance your diet as tolerated. 6. In accordance to hospital policy after receiving sedation, you should not drive or operate heavymachinery for 24 hours. 7. If you have any questions or concerns, contact above physician or the hand ii tube bender network operations specialist at [phone]. If you are a patient of [facility] ([place]) please contact their office at [phone]. 9. If you have any serious complications, go immediately to your local immediate health care facility. 10. Additional information / instruction documented in this encounter Medications at Time [...] Description 07/22/2024 19:30 EST Appointment [facility] Radiology CT - [facility] [address] [place] [address] 07/29/2025 15:40 EST Office Visit [facility] Cardiology - [address] [place] [address] Palak Diallo MD [address] [facility], [place], [address] [place] [phone] Scheduled Orders Name Type Priority Associated Diagnoses Order Schedule TRANSESOPHAGEAL ECHO (GERALD) Echocardiography Routine PAF (paroxysmal atrial fibrillation) ([facility]) 1 Occurrences starting 03/22/2024 until 03/22/2024 documented as of this encounter Visit Diagnoses Diagnosis PAF (paroxysmal atrial fibrillation) ([facility]) Atrial fibrillation documented in this encounter Care Teams Health Care Facilities Inspector Relationship Specialty Start Date End Date Robyn Glynn MD [address] [place] [address] PCP - General Family Medicine - Primary Care 11/02/21 documented as of this encounter
--- OUTSIDE RECORDS SUMMARY | 2024-07-21 16:39 | XMS_ITS | Encounter Summary ---
Author Organization [facility] Address [address] [place] [address] Care Team Providers Care Bonderizer Name Role Phone Robyn Glynn MD Primary Care Provider [phone] Reason for Referral * Cardiology (Routine/Next Available) - New Request Specialty Diagnoses / Procedures [facility] Referred To Contact Diagnoses Paroxysmal atrial fibrillation (HCC-CMS) Procedures EKG 12-LEAD Helio Lyons MD Phone: tel: fax: Referral ID Status Reason Start Date Expiration Date V isits Requested Visits Authorized [id number] New Request 06/05/2023 1 1 Reason for Visit * Reason Comments Atrial Fibrillation 6 month follow up Encounter Details Date Type Department Care Team (Late st Contact Info) Description 06/05/2023 15:15 EDT Office Visit [facility] Cardiology - [address] [place] [address] Helio Lyons MD [address] [place] [address] [address] [place] [address] Paroxysmal atrial fibrillation (HCC-CMS) (Primary Dx) Social [...] Sign Reading Time Taken Comments Blood Pressure 120/74 06/05/2023 1533 EDT Pulse 44 06/05/2023 1533 EDT Temperature - - Respiratory Rate - - Oxygen Saturation 97% 06/05/2023 1533 EDT Inhaled Oxygen Concentration - - Weight 119.7 kg (264 lb) 06/05/2023 1533 EDT pat ient reported Height - - Body Mass Index 37.88 07/30/2022 0638 EST documented in this encounter Functional Status * Are you deaf or do you have serious difficulty hearing? Answer Date of Assessment Author No 07/30/2022 14:00 Racquel Marx RN * Are you blind or do you have serious difficulty seeing, even when wearing glasses? Answer Date of Assessment Author No 07/30/2022 14:00 Racquel Marx RN * Do you have serious difficulty walking or climbing stairs? (5 years old or older) Answer Date of Assessment Author No 07/30/2022 14:00 Racquel Marx RN * Do you have difficulty dressing or bathing? (5 years old or older) Answer Date of Assessment Author No 07/30/2022 14:00 Racquel Marx RN * Because of a physical, mental, or emotional condition, do you have difficulty doing errands alone such as visiting a doctor's office or shopping? (15 years old or older) Answer Date of Assessment Author No 07/30/2022 14:00 Racquel Marx RN documented as of this encounter Mental Status * Because of a physical, mental, or emotional condition, do you have serious difficulty concentrating, remembering, or making decisions? (5 years old or older) Answer Entry Date Author No 07/30/2022 14:00 Racquel Marx RN documented in this encounter Progress Notes * Helio Lyons MD - 06/05/2023 1515 EDT Cardiology Follow Up 06/05/23 Chief complaint: Atrial Fibrillation (6 month follow up) Assessment & Plan Samm Prince is a 67 y.o. male with symptomatic sinus node dysfunction characterized by sinus bradycardia and frequent symptomatic bursts of atrial fibrillation with a more rapid ventricular response. He has a structurally normal heart. We discussed options for treating his A-fib including rate versus rhythm control, stroke prevention and antiarrhythmic drug therapy and catheter ablation. The risks and benefits of each approach were discussed in detail. Mr. Prince feels poorly in AF and therefore a strategy of rhythm control is most appropriate. We agreed to admit him for dofetilide loading. He understands that he is quite bradycardic and a pacemakercould be necessary at some time. In addition we will schedule him for an ablation in the late winter. If dofetilide is maintaining sinus rhythm and well-tolerated then we will cancel the ablation procedure. Plans: Continue current medical therapy Current medications are not contraindicated with dofetilide Tentative hospitalization on June 13 for dofetilide loading Contingency: AF ablation Diagnoses and all orders for this visit: Paroxysmal atrial fibrillation (HCC-CMS) - EKG 12-LEAD - EKG 12-LEAD Other orders - omega-3/dha/epa/fish oil (OMEGA-3 ORAL) No follow-ups on file. Helio Lyons MD Subjective Samm Prince is a 67 y.o. male with symptomatic atrial fibrillation in the setting of sinus node dysfunction. His baseline rhythm is sinus bradycardia in the low 40s on low-dose metoprolol. Even when not on beta-gamal therapy is heart rates in the 40s. Mr. Prince continues to have frequent bursts of symptomatic AF. The episodes are self-limited but last several hours. Episodes do cause him to need to urinate. He has not had syncope. He has had no chest pain. He denies orthopnea or PND. He has known ANNELISE and is treated. ROS See subjective for pertinent positives and negatives Problem List and History were reviewed in the EMR Outpatient Medications Marked as Taking for the 06/05/23 encounter (Office Visit) with Helio Lyons MD: acetaminophen 325 mg capsule, Take 1,000 mg by mouth if needed. amLODIPine (NORVASC) 5 mg tablet, Take 1 Tablet by mouth at bedtime. bacitracin zinc 500 unit/gram ointment, Apply topically 2 times daily. To your incision ELIQUIS 5 mg tablet, Take 1 Tablet by mouth 2 times daily. magnesium oxide (MAG-OX) 400 mg (241.3 mg magnesium) tablet, Take 1 Tablet by mouth daily. melatonin 10 mg capsule, Take by mouth. metoprolol TARtrate (LOPRESSOR) 50 mg tablet, Take 1 Tablet by mouth 2 times daily. omega-3/dha/epa/fish oil (OMEGA-3 ORAL), Take 1,280 mg by mouth daily. Objective BP 120/74 (BP Cuff Location: Right arm, BP Patient Position: Sitting, BP Cuff Sizes: Adult, large) Pulse (!) 44 Wt (!) 119.7 kg (264 lb) Comment: patient reported SpO2 97% BMI 37.88 kg/m?? Physical Exam Vitals and nursing note reviewed. Constitutional: Appearance: Normal appearance. Cardiovascular: Rate and Rhythm: Regular rhythm. Bradycardia present. Pulses: Normal pulses. Heart sounds: Normal heart sounds. Musculoskeletal: General: No swelling. Skin: General: Skin is warm. Neurological: Mental Status: He is alert. Twelve-lead ECG: Sinus bradycardia at 42 bpm, first-degree AV block QTc is acceptable TTE: Reviewed Diagnostics: Not applicable I spent a total of 30 minutes on the date of this encounter meeting with the patient and reviewing documentation/coordinating care as described in the above note. documented in this encounter Plan of Treatment Upcoming Encounters Date Type Department Care Team (Late st Contact Info) Description 07/22/2024 19:30 EST Appointment [facility] Radiology [place] - [address] [phone] 07/29/2025 15:40 EST Office Visit [facility] Cardiology - [place] [address] [place] [address] Palak Diallo MD [address] [facility], [facility] [address] [place] [address] documented as of this encounter Procedures Procedure Name Priority Date/Time Associated Diagnosis Comments ECG REPORT - SCANNED 06/13/2023 8:45 EST EKG 12-LEAD Routine 06/05/2023 15:41 EDT Paroxysmal atrial fibrillation (HCC-CMS) documented in this encounter Results * ECG REPORT - SCANNED (06/13/2023 8:45 EST) 06/13/2023 8:45 EST us Scan 2 Recruiting Intern PROCEDURE/MINOR SURGICAL OR DERABLES Final Result * EKG 12-LEAD (06/05/2023 15:41 EDT) 06/05/2023 15:4 1 EDT Narrative [facility] EKG - 06/13/2023 8:26 EST ? [facility] ? Test Date: ?2023-06-05 Pat Name: ? SAMM PRINCE ?Department: ?? Laura Card ? Room: ? Gender: ? Male ? Legal Investigator: ?? [id number] : ?1955 ? Requested By: FRANSISCO SANDERS Order Number: [id number] ? Reading : ?? STANLEY HUNTER SA, MD ? Measurements Intervals ?[place] ? Rate: ? 42 ? P: ?-20 NH: ? 214 ?QRS: ?55 QRSD: ? 93 ? T: ?57 QT: ? 457 ? QTc: ?385 ? Interpretive Statements SINUS BRADYCARDIA WITH FIRST DEGREE AV BLOCK Automated Interpretation. ??Provider Interpretation to follow. Compared to ECG 05/22/2022 14:06:11 Sinus arrhythmia no longer present I reviewed the tracing and have either agreed or edited the findings in this report. Electronically Signed On 06-13-2023 08:26:20 EST by STANLEY HUNTER SA, MD. Procedure Note Stanley Almaraz Sa, MD - 06/13/2023 [facility] Test Date: 2023-06-05 Pat Name: SAMM PRINCE Department: Laura Bui Room: Gender: Male Legal Investigator: [id number] : 1955 Requested By: FRANSISCO FONTAINE Order Number: [id number] Reading MD: STANLEY MARTIN Measurements Intervals [place] Rate: 42 P: -20 NH: 214 QRS: 55 QRSD: 93 T: 57 QT: 457 QTc: 385 Interpretive Statements SINUS BRADYCARDIA WITH FIRST DEGREE AV BLOCK Automated Interpretation. Provider Interpretation to follow. Compared to ECG 05/22/2022 14:06:11 Sinus arrhythmia no longer present I reviewed the tracing and have either agreed or edited the findings inthis report. Electronically Signed On 06-13-2023 08:26:20 EST by STANLEY WALLACE SA, MD. Helio Lyons MD CARDIAC ECG ORDERABLE S Final Result [facility] EKG documented in this encounter Visit Diagnoses Diagnosis Paroxysmal atrial fibrillation ([facility]-CMS)- Primary Atrial fibrillation documented in this encounter Historical Medications * This list may reflect changes made after this encounter. omega-3/dha/epa/f jah oil (OMEGA-3 ORAL) Take 1,280 mg by mouth daily. 07/13/2023 added in this encounter Care Teams Bonderizer Relationship Specialty Start Date End Date Robyn Glynn MD [address] [place] [id number] PCP - General Family Medicine - Primary Care 11/02/21 documented as of this encounter
--- OUTSIDE RECORDS SUMMARY | 2024-07-21 16:39 | XMS_ITS | Encounter Summary ---
Author Organization [facility] Address [address] [place] [address] Care Team Providers Care Mortgage Banker Name Role Phone Robyn Glynn MD Primary Care Provider [phone] Reason for Referral * Cardiology (Routine/Next Available) - Authorization Not Required Specialty Diagnoses / Procedures Referred By Contac t Referred To Contact Diagnoses Paroxysmal atrial fibrillation ([facility]) Procedures CARDIAC EVENT MONITOR James Agrawal MD Phone: tel: fax: [facility] Referral ID Status Reason Start Date Expiration Date Visits Requested Visits Authorized [id number] Authorization Not Required 2 1 1 * Cardiology (Routine/Next Available) - New Request Specialty Diagnoses / Procedures Referred By Contac t Referred To Contact Diagnoses Paroxysmal atrial fibrillation ([facility]) Procedures EKG 12-LEAD James Agrawal MD Phone: tel: fax: Referral ID Status Reason Start Date Expiration Date V isits Requested Visits Authorized [id number] New Request 05/07/2022 1 1 Reason for Visit * Reason Comments New Patient Visit * Cardiology (Routine) - Authorization Not Required Specialty Diagnoses / Procedures Referred By Contac t Referred To Contact Cardiology Diagnoses Paroxysmal atrial fibrillation (HCC-CMS) Lefty Abel MD [address] [facility] [address] [place] [address] Phone: tel: fax: [facility] [address] [place] [address] Phone: tel: fax: Referral ID Status Reason Start Date Expiration Date Visits Requested Visits Authorized [id number] Authorization Not Required 1 1 Encounter Details Date Type Department Care Team (Late st Contact Info) Description 05/22/2022 13:45 EDT Office Visit [facility] [address] [place] [address] James Agrawal MD [address] [facility] [address] [place] [address] Paroxysmal atrial fibrillation (HCC-CMS) (Primary Dx); Current use of yard rigger anticoagulation; Essential hypertension; ANNELISE on CPAP Social History Tobacco Use Types Packs/Day Years Used Date Smoking Tobacco: Never Smokeless Tobacco: Never Alcohol Use Standard Drinks/Week Comments No 0 (1 standard drink = 0.6 oz pur e alcohol) AUDIT-C Answer Date Recorded Frequency of Alcohol [...] on file Sexual Orientation Not on file COVID-19 Exposure Response Date Recorded In the last 10 days, have yo u been in contact with someone who was confirmed or suspected to have Coronavirus/COVID-19? No / Unsure 05/12/2022 11:40 EDT documented as of this encounter Last Filed Vital Signs Vital Sign Reading Time Taken Comments Blood Pressure 136/72 05/22/2022 1353 EDT Pulse 50 05/22/2022 1353 EDT Temperature - - Respiratory Rate - - Oxygen Saturation 98% 05/22/2022 1353 EDT Inhaled Oxygen Concentration - - Weight 130.6 kg (288 lb) 05/22/2022 1353 EDT Height 177.8 cm (5' 10) 05/22/2022 1353 EDT Body Mass Index 41.32 05/22/2022 1353 EDT documented in this encounter Progress Notes * James Agrawal MD - 05/22/2022 1345 EDT [facility] CARDIOLOGY NEW PATIENT VISIT Date of Service: 05/22/2022 Reason for Visit: Paroxysmal atrial fibrillation (HCC-CMS) (HCC) [I48.0] Referring Provider: Lefty Abel Primary Care Provider: Robyn Glynn ASSESSMENT 1. PAF Pathophysiology of atrial fibrillation, stroke risk and prevention, rate versus rhythm control and risk factors discussed. 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 He is at risk of symptomatic bradycardia. This will limit further up-titration of his metoprolol. However, as long as his parotid mass has not been taken careof properly, will forgo an anti-arrhythmic approach. He is adequately anticoagulated; no bleeding. 2. HTN Controlled 3. ANNELISE Compliant w/ CPAP PLAN ? ? Continue metoprolol 50 mg BID; may take 25 - 50 mg of additional metoprolol if HR > 120/' for > 10' ?? Continue Eliquis 5 mg BID ?? 30-da event monitor to assess tachy- and bradyarrhythmia burden ?? Continue amlodipine Follow-up 6 - 8 weeks SUBJECTIVE Samm Prince, 1955 66 y.o. male patient with personal history of ANNELISE on CPAP, HTN and PAF. Also parotid mass of unclear etiology. Ongoing eval and treatment. Afib w/ RVR first detected during pre-op eval 2 months ago. Spontaneous conversion to sinus. Since then been flipping back and forth between sinus and Afib detected by daily home HR and BP monitoring. Unable to clearly distinguish between sinus and Afib. Has always had a low resting HR (40's - 50's) even before going on metoprolol. Denies near-fainting/fainting. Enjoys hiking, paddling and skiing. Denies exertional CP or MCNULTY. Uses CPAP regularly. No h/o CAD, CHF, valvular heart disease, CVA, thyroid disorder or alcohol or substance abuse. Patient denies PND, edema, palpitations, bleeding, stroke or GI symptoms. Past Surgical History: Procedure Laterality Date ??? EYE SURGERY catarcts, cataract redo, rentinal surgery ??? JOINT REPLACEMENT ??? KNEE SURGERY ??? RHINOPLASTY ??? TONSILLECTOMY ??? UVULOPALATOPHARYGOPLASTY Outpatient Medications Marked as Taking for the 05/22/22 encounter (Office Visit) with James Agrawal MD Medication Sig ??? acetaminophen (TYLENOL) 325 mg capsule Take 1,000 mg by mouth if needed. ??? amLODIPine (NORVASC) 5 mg tablet Take 5 mg by mouth at bedtime. ??? cefpodoxime (VANTIN) 200 mg tablet Take 2 Tablets by mouth 2 times daily at 9am and 9pm for 7 days. ??? ELIQUIS 5 mg tablet Take 5 mg by mouth 2 times daily. ??? ibuprofen (MOTRIN) 800 mg tablet Take 800 mg by mouth daily. ??? melatonin 10 mg capsule Take by mouth. ??? metoprolol TARtrate (LOPRESSOR) 50 mg tablet Take 50 mg by mouth 2 times daily. Allergies: Chloraseptic (benzocaine) and Indocin [indomethacin] Family History: No premature CAD Social History: Nosmoker. No alcohol. Review of Systems: Performed; pertinent positives and negatives as mentioned above. OBJECTIVE Wt Readings from Last 3 Encounters: 05/22/22 (!) 130.6 kg (288 lb) 05/08/22 (!) 136.1 kg (300 lb) 04/03/22 (!) 126.6 kg (279 lb) BP Readings from Last 3 Encounters: 05/22/22 136/72 05/12/22 (!) 185/84 04/03/22 (!) 174/83 Pulse Readings from Last 3 Encounters: 05/22/22 50 Diagnostic Data Available records including laboratory and cardiac studies reviewed and discussed with patient; pertinent findings as follows: Lab Results Component Value Date CREATININE 0.74 05/12/2022 CALCGFR 101 05/12/2022 BUN 14 05/12/2022 NA 140 05/12/2022 CL 99 05/12/2022 K 4.2 05/12/2022 LABALBU 4.5 05/12/2022 ALT 48 05/12/2022 AST 33 05/12/2022 ALKPHOS 99 05/12/2022 TBIL 1.6 (H) 05/12/2022 Lab Results Component Value Date HGB 15.5 05/12/2022 PLT 296 05/12/2022 No results found for: NTBNP, TROPONINI, CPK, URICACID, CRP No results found for: CHOL, HDL, LDL, DLDL, LDLDIRECT, LDLBASE, TRIG, LIPOA No results found for: HGBA1C, TSH Echocardiogram 03/2022: EF 55 - 60%. Normal RV. Mild LAE. No or MR. PAPS N/A EKG from today reviewed and interpreted to show SB, 1st dgree AVB, no ischemic changes; rate 45/', NC 214 ms, QTc 430 ms (Fridericia) PHYSICAL EXAMINATION GENERAL: Pleasant, no acute distress. HEENT: Left parotid mass NECK: Supple, normal jugular venous pressure. LUNGS: Clear to auscultation bilaterally, no rhonchi rales or wheezes. HEART: Bradycardic regular rhythm, normal S1-S2, no murmurs. EXTREM: No cyanosis or edema, equal pulses. NEURO: Alert and oriented x3, grossly intact ORDERS & MEDICATION CHANGES Other Orders Placed This Visit Procedures ??? CARDIAC EVENT MONITOR ??? EKG 12 lead There are no discontinued medications. No orders of the defined types were placed in this encounter. James Agrawal MD, PhD documented in this encounter Plan of Treatment Upcoming Encounters Date Type Department Care Team (Late st Contact Info) Description 07/22/2024 19:30 EST Appointment [facility] Radiology CT - [facility] [address] [place] [address] 07/29/2025 15:40 EST Office Visit [facility] Cardiology - [place] [address] [place] [address] Palak Diallo MD [address] [facility] [place], [address] [place] [address] documented as of this encounter Procedures Procedure Name Priority Date/Time Associated Diagnosis Comments ECG REPORT - SCANNED 05/22/2022 14:12 EDT EKG 12-LEAD Routine 05/22/2022 14:06 EDT Paroxysmal atrial fibrillation (HCC-CMS) documented in this encounter Results * CARDIAC EVENT MONITOR (05/24/2022 17:05 EDT) Anatomical Region Laterality Modality Holter Narrative 06/28/2022 0:16 EST ?? Sinus bradycardia with weekly clusters of PAF/RVR (20% of time), two longer (8&10s) WCT runs, more likely nsVT, frequent brief (4-6-beat) WCT runs, more likely aberrancy. No symptoms recorded. [employer] Cardiac Telemetry Report The patient's monitoring period was 05/22/2022 - 06/20/2022. 95% diagnostic, 5% artifact. 1. Baseline: Sinus rhythm (with mostly sinus bradycardia (86%)) and frequent (20% of total time) paroxysmal AF (often with rapid ventricular response (67%)), overall average 64/min, average in AF 119/min. HR spectrum 37/min-179/min. PAF mostly occurred in 4 1-to-3-day clusters, all starting on a Friday or Friday. 2. Occasional PVC, 2%. 3. Rare PAC 1%. 4. No significant pauses >3s. 5. Events: There were 2 critical, 14 serious, and 61 stable events that occurred. In these 77 events, 3 stable events were manually detected, but without symptoms reported, the other 74 events were auto detected. The report analysis of the critical, serious, stable and manually triggered events are listed below. 5a. Two events classified critical: both monomorphic WCT, 8s at 164/min and 10.5s at 154/min, in both cases rS morphology, more c/w nsVT. 5b. Seventy-five events classified serious (14) or stable (61): 5b1. 3 events with sinus bradycardia, 50-55/min. 5b2. 4 events with sinus bradycardia, and 4-6-beat WCT bursts, RsR' morphology, some c/w atrial bursts with aberrancy. ?? 5b3. 4 events with AF & RVR. 5b4. 10 events with AF/RVR and single or couplet WC beats, several morphologies, PVC vs. aberrant beats. 5b5. 54 events with AF/RVR and 4-to-6-beat WCT runs, almost all in RsR' morphology, initiated with Ana Paula sequence, suggestive of aberrancy. James Agrawal MD CARDIAC SERVICES ORDERABLES Fi nal Result * ECG REPORT - SCANNED (05/22/2022 14:12 EDT) 05/22/2022 14:1 2 EDT us Scan 2 Parachute Supervisor PROCEDURE/MINOR SURGICAL OR DERABLES Final Result * EKG 12-LEAD (05/22/2022 14:06 EDT) 05/22/2022 14:0 6 EDT Narrative [facility] - 05/22/2022 14:06 EDT ? CVC ? Test Date: ?2022-05-22 Pat Name: ? SAMM PRINCE ?Department: ? Room: ? Gender: ? Male ? Stream Control Officer: ?? [place] : ?1955 ? Requested By: NGHIA RAMIREZ Order Number: [id number] ? Reading : ?? JAMES AGRAWAL MD ? Measurements Intervals ?[place] ? Rate: ? 45 ? P: ?92 NC: ? 214 ?QRS: ?46 QRSD: ? 92 ? T: ?52 QT: ? 474 ? QTc: ?431 ? Interpretive Statements Sinus bradycardia with sinus arrhythmia with 1st degree AV block No previous ECG available for comparison I reviewed the tracing and have either agreed or edited the findings in this report. Electronically Signed On 05-22-2022 14:06:39 EDT by JAMES AGRAWAL MD. Procedure Note James Agrawal MD - 05/22/2022 [facility] Test Date: 2022-05-22 Pat Name: SAMM PRINCE Department: Room: Gender: Male Stream Control Officer: [place] : 1955 Requested By: NGHIA RAMIREZ Order Number: [id number] Reading MD: JAMES AGRAWAL MD Measurements Intervals [place] Rate: 45 P: 92 NC: 214 QRS: 46 QRSD: 92 T: 52 QT: 474 QTc: 431 Interpretive Statements Sinus bradycardia with sinus arrhythmia with 1st degree AV block No previous ECG available for comparison I reviewed the tracing and have either agreed or edited the findings inthis report. Electronically Signed On 05-22-2022 14:06:39 EDT by JAMES RIOS. us James Agrawal MD CARDIAC ECG ORDERABLES Final R esult [facility] documented in this encounter Visit Diagnoses Diagnosis Paroxysmal atrial fibrillation (HCC-CMS)- Primary Atrial fibrillation Current use of yard rigger anticoagulation Long-term (current) use of anticoagulants Essential hypertension Unspecified essential hypertension ANNELISE on CPAP Obstructive sleep apnea (adult) (pediatric) Paroxysmal atrial fibrillation (HCC-CMS) Atrial fibrillation documented in this encounter Care Teams Mortgage Banker Relationship Specialty Start Date End Date Robyn Glynn MD [address] [place] [address] PCP - General Family Medicine - Primary Care 11/02/21 documented as of this encounter
--- OUTSIDE RECORDS SUMMARY | 2024-07-21 16:39 | XMS_ITS | Encounter Summary ---
Author Organization [facility] Address [address] [place] [address] Care Team Providers Care Psychiatric Specialist Name Role Phone Robyn Glynn MD Primary Care Provider [phone] Reason for Visit * Reason Onset Date Comments Surgery Scheduling 07/25/2022 Encounter Details Date Type Department Care Team (Late st Contact Info) Description 07/25/2022 Telephone [facility] ENT- [address] [id number] Shane Richardson MD [address] [place] [address], [address] [place] [address] Surgery Scheduling Social History Tobacco Use Types Packs/Day Years [...] as of this encounter Functional Status * Because of a physical, mental, or emotional condition, does this person have difficulty doing errands alone such as visiting a doctor's office or shopping? Answer Date of Assessment Author No 07/01/2022 13:58 EST documented as of this encounter Mental Status * Because of a physical, mental, or emotional condition, does this person have serious difficulty concentrating, remembering, or making decisions? Answer Entry Date Author No 07/01/2022 13:58 EST documented in this encounter Miscellaneous Notes * Telephone Encounter - Dana Mendez - 07/25/2022 1652 EST Funeral Planning Counselor contacted patient and confirmed the following: - Surgery Date: 07/30/2022 - Registration Check In: 0545 - Surgery Start Time: 734 - Dietary Restrictions: - - Night Before Surgery: Have no solid food or liquids containing fats, including milk, after midnight before your procedure. - - Day of Surgery: Only have water, apple juice or sports drinks until 2 hours before the scheduled arrival time to the hospital. - Must have pre-arranged transportation home - Post Op Appt (if applicable) on: 08/09/2022 documented in this encounter Plan of Treatment Upcoming Encounters Date Type Department Care Team (Late st Contact Info) Description 07/22/2024 19:30 EST Appointment [facility] Radiology [place] - [facility] [address] [place], [place] [id number] 07/29/2025 15:40 EST Office Visit [facility] Cardiology - [place] [address] Palak Diallo MD [address] [facility], [place], [address] [place] [phone] documented as of this encounter Visit Diagnoses Not on filedocumented in this encounter Care Teams Psychiatric Specialist Relationship Specialty Start Date End Date Robyn Glynn MD [address] [place] [phone] PCP - General Family Medicine - Primary Care 11/02/21 documented as of this encounter
--- OUTSIDE RECORDS SUMMARY | 2024-07-21 16:39 | XMS_ITS | Encounter Summary ---
Author Organization [facility] Address [address] [place] [address] Care Team Providers Care Licensed Investment Sales Assistant Name Role Phone Robyn Glynn MD Primary Care Provider [phone] Reason for Visit * Reason Onset Date Comments Surgery Scheduling 07/02/2022 Encounter Details Date Type Department Care Team (Late st Contact Info) Description 07/02/[address] [facility] ENT- [address] [id number] Shane Richardson MD [address] [place] [address], [address] [place] [address] Surgery Scheduling Social History Tobacco [...] encounter Miscellaneous Notes * Telephone Encounter - Nito Francois - 07/02/2022 1104 EST Telegraph Installer returned call - confirmed surgery 07/30 - advised surgery time and other details would be confirmed 1 business day prior to surgery * Telephone Encounter - Suri Garland - 07/02/2022 0952 EST Patients spouse is calling, would like to confirm new surgery date to ensure they get a pre-op physical completed. Please call. documented in this encounter Plan of Treatment Upcoming Encounters Date Type Department Care Team (Late st Contact Info) Description 07/22/2024 19:30 EST Appointment [facility] Radiology [place] - [address] [address] 07/29/2025 15:[address] [facility] Cardiology - [place] [address] Palak Diallo MD [address] [facility], [place], [address] [place] [phone] documented as of this encounter Visit Diagnoses Not on filedocumented in this encounter Care Teams Licensed Investment Sales Assistant Relationship Specialty Start Date End Date Robyn Glynn MD [address] [place] [address] PCP - General Family Medicine - Primary Care 11/02/21 documented as of this encounter
--- OUTSIDE RECORDS SUMMARY | 2024-07-21 16:39 | XMS_ITS | Encounter Summary ---
Author Organization [facility] Address [address] [place] [address] Care Team Providers Care Junior Engineer Name Role Phone Robyn Glynn MD Primary Care Provider [phone] Reason for Referral * Prior Authorization (Routine/Next Available) - Specialty Report Received Specialty Diagnoses / Procedures Referred By Contac t Referred To Contact Diagnoses Paroxysmal atrial fibrillation ([facility]) Procedures DIRECT ADMISSION Helio Lyons MD Phone: tel: fax: Referral ID Status Reason Start Date Expiration Date V isits Requested Visits Authorized [id number] Specialty Report Received 07/07/2023 07/08/2023 1 1 * Prior Authorization (Routine/Next Available) - Closed Specialty Diagnoses / Procedures Referred By Contac t Referred To Contact Cardiology Diagnoses Paroxysmal atrial fibrillation ([facility]) Helio Lyons MD Phone: tel: fax: [facility] Cardiology [place] [address] [place] [address] Phone: tel: fax: Referral ID Status Reason Start Date Expiration Date V isits Requested Visits Authorized [id number] Closed Specialty Services Required 07/07/2023 07/08/2023 1 1 Question Answer Reason for Request: dofetilide admission [id number] Comments The purpose of this request is to inform precertification staff that the requested service needs to be reviewed for prior-authorization. Reason for Visit * Reason Onset Date Comments Coordination Of Care 06/25/2023 Encounter Details Date Type Department Care Team (Late st Contact Info) Description 06/25/2023 Telephone [facility] Cardiology - [facility] [address] [facility] [place] [address] Helio Lyons MD [address] [facility] [address] [place] [address] Coordination Of Care Social History Tobacco Use Types Packs/Day [...] Racquel Marx RN documented in this encounter Miscellaneous Notes * Telephone Encounter - Margarita Wanrer RN - 06/25/2023 0953 EST Requestor Name: Helio Lyons MD Patient Name: Samm Macdonald Patient Patient :[id number] Expected Length of Stay: 72 hours [facility] Attending MD: Nito Rodrigues MD Preferred Elective Admit Date: 07/07/2023 Admit Reason: Dofetilide Diagnosis: Afib ICD-10 code: I48.91 Holding any anti-arrhythmic meds? No Other Notes / Allergies: chloraseptic, indocin documented in this encounter Plan of Treatment Upcoming Encounters Date Type Department Care Team (Late st Contact Info) Description 07/22/2024 19:30 EST Appointment [facility] Radiology [place] - [facility] [address] [place], [place] [phone] 07/29/2025 15:40 EST Office Visit [facility] Cardiology [place] [address] Palak Diallo MD [address] [place] [address] [address] [place] [phone] Scheduled Referrals Name Type Priority Associated Diagnoses Order Schedule AMB CONS/FOLLOW UP IN CLINIC PROCEDURES PRIOR AUTHORIZATION REQUEST Outpatient Referral Routine/Next Available Paroxysmal atrial fibrillation (HCC-CMS) Expected: 07/07/2023 (Approximate), Expires: 06/25/2024 documented as of this encounter Visit Diagnoses Diagnosis Paroxysmal atrial fibrillation (HCC-CMS)- Primary Atrial fibrillation documented in this encounter Orders Transfer Count Last Ordered Date First Orde red Date DIRECT ADMISSION 1 06/25/2023 documented in this encounter Care Teams Junior Engineer Relationship Specialty Start Date End Date Robyn Glynn MD [address] [place] [address] PCP - General Family Medicine - Primary Care 11/02/21 documented as of this encounter
--- OUTSIDE RECORDS SUMMARY | 2024-07-21 16:39 | XMS_ITS | Encounter Summary ---
Author Organization [facility] Address [address] [place] [address] Care Team Providers Care Production Cloth Cutter Name Role Phone Robyn Glynn MD Primary Care Provider [phone] Reason for Visit * Reason Onset Date Comments Appointment Related 06/26/2022 Encounter Details Date Type Department Care Team (Late st Contact Info) Description 06/26/2022 Telephone [facility] - [facility] Cardiology Clinic [address] [place] [address] Jamey Trevizo MD [address] [facility]- [address] [place] [address] Appointment Related Social History Tobacco Use Types [...] on file documented as of this encounter Miscellaneous Notes * Telephone Encounter - Nara Mccollum - 06/26/2022 1513 EST Patient has canceled his 7 week f/u appointment and didn't want to reschedule. Patient stated that he would be switching providers and going to another practice. documented in this encounter Plan of Treatment Upcoming Encounters Date Type Department Care Team (Late st Contact Info) Description 07/22/2024 19:30 EST Appointment [facility] Radiology [place] - [facility] [address] [place] [address] 07/29/2025 15:40 EST Office Visit [facility] Cardiology - [place] [address] [place] [address] Palak Diallo MD [address] [facility], [address] [place] [phone] documented as of this encounter Visit Diagnoses Not on filedocumented in this encounter Care Teams Production Cloth Cutter Relationship Specialty Start Date End Date Robyn Glynn MD [address] [place] [phone] PCP - General Family Medicine - Primary Care 11/02/21 documented as of this encounter
--- OUTSIDE RECORDS SUMMARY | 2024-07-21 16:39 | XMS_ITS | Encounter Summary ---
Author Organization [facility] Address [address] [place] [address] Care Team Providers Care Laundry Room Attendant Name Role Phone Robyn Glynn MD Primary Care Provider [phone] Reason for Visit * Auth/Cert Specialty Diagnoses / Procedures Referred By Acacia neumann Referred To Contact Diagnoses Parotid mass Procedures CO EXC PAROTD,LAT LOBE,DISSECT 5TH NERV EXCISION - NEOPLASM of PAROTID GLAND, LATERAL LOBE, WITH FACIAL NERVE DISSECTION AND PRESERVATION Referral ID Status Reason Start Date Expiration Date Visits Re quested Visits Authorized [id number] 1 1 Encounter Details Date Type Department Care Team (Late st Contact Info) Description 07/30/2022 5:49 EST - 07/31/2022 14:57 EST Hospital Encounter [facility] [address] [place] [id number] Shane Richardson MD [address] [facility], [address] [place] [id number] Discharge Disposition: Home or Self Care Social [...] Sign Reading Time Taken Comments Blood Pressure 126/92 07/31/2022 1141 EST Pulse 121 07/31/2022 0835 EST Temperature 37.2 ??C (99 ??F) 07/31/2022 1141 EST Respiratory Rate 16 07/31/2022 1141 EST Oxygen Saturation 97% 07/31/2022 1141 EST Inhaled Oxygen Concentration - - Weight 133.8 kg (294 lb 15.6 oz) 07/30/2022 0638 EST Height 177.8 cm (5' 10) 07/30/2022 0638 EST Body Mass Index 42.32 07/30/2022 0638 EST documented in this encounter [...] Answer Entry Date Author No 07/30/2022 14:00 EST Racquel Alston RN documented in this encounter Discharge Summaries * Marni Hannon MD - 07/31/2022 1251 EST Surgery Discharge Summary Primary Care Provider: Robyn Glynn Attending Physician: Shane Richardson,* Admit Date: 07/30/2022 Discharge Date: 07/31/2022 Disposition: Home or self care Problems and Procedures Admitting Diagnosis: Left parotid mass Principal/Final Diagnosis: same Additional Problems Managed in the Hospital There are no hospital problems to display for this patient. Principal Procedure: Left superficial parotidectomy with facial nerve monitoring Date: 07/31/22 Secondary Procedures: none Hospital Course The patient was admitted the day of surgery, following an uncomplicated procedure. Postoperatively,the patient was transferred to the floor. The patient developed afib with RVR. His electrolytes were within normal limits. He was given two doses of IV metoprolol with no response. Cardiology was called for recommendations. Dr. Zuniga, application support administrator, recommended starting the patient on a diltiazem drip. He was transferred to the cardiac floor for monitoring during the infusion. The patient's RVR broke floor and wall applier liquid on POD1. He remained in Afib. He was able to be titrated off the diltiazem drip without issue and restarted on his home metoprolol per cardiology recommendations. They did not feel that inpatient cardiology evaluation was necessary. I encouraged the patient to follow up with his ac/dc rewinder and PCP. His who is a nurse is going to monitor his Afib closely at home, as well. On post-operative day one the patient was found to have a flat neck without hematoma. Prior to discharge, he was tolerating an oral diet, had adequate pain control with oral medications and was ambulating without assistance. The patient was discharged in stable condition and will plan to follow-up with Shane Richardson,* in the outpatient clinic. If available at the time of discharge, lab results are included below. If these results are not available, the patient will be called with the results and informed of any medication changes. Allergies and Immunizations Allergies Allergen Reactions ??? Chloraseptic (Benzocaine) Rash ??? Indocin [Indomethacin] hallucinates There is no immunization history on file for this patient. Transition of Care Plans Condition at Discharge Good Assessment at Discharge Vital signs: Patient Vitals for the past 12 hrs: BP Pulse Heart Rate Resp Temp SpO2 O2 Device FIO2 % 07/31/22 1141 (!) 126/92 -- 96 BPM 16 37.2 ??C (99 ??F) 97 % None -- 07/31/22 1048 -- -- 90 BPM -- -- 93 % -- -- 07/31/22 1000 -- -- 90 BPM -- -- 94 % -- -- 07/31/22 0956 -- -- 80 BPM -- -- 93 % -- -- 07/31/22 0953 -- -- 69 BPM -- -- 93 % -- -- 07/31/22 0835 (!) 163/94 (!) 121 (!) 121 BPM 16 37 ??C (98.6 ??F) 97 % None 21 % 07/31/22 0800 (!) 143/71 -- (!) 117 BPM -- -- 97 % -- -- 07/31/22 0559 130/80 69 92 BPM 20 36.7 ??C (98.1 ??F) 93 % None -- Results Pending at Discharge Test results still pending from this admission Procedure Component Value Units Date/Time SURGICAL PATHOLOGY [[id number]] Collected: 07/30/22941 Lab Status: In process Specimen: Tissue from Lymph Node, Other; Tissue from Salivary Gland Updated:07/31/22 0841 Relevant Studies at Discharge n/a Last Lab Results at Discharge Creatinine: Lab Results Component Value Date CREATININE 0.75 07/30/2022 Electrolytes: Lab Results Component Value Date NA 139 07/30/2022 K 4.2 07/30/2022 CL 103 07/30/2022 CO2 23 07/30/2022 Discharge Follow Up Appointments Scheduled with [facility] in the next 3 months Upcoming Appointments Aug 09, 2022 11:30 Post Op with Shane Richardson MD [facility] (--) [address] [facility] [id number] MARNI HANNON MD 07/31/2022 12:51 Cosigned by Shane Richardson MD at 08/02/2022 7:56 EST documented in this encounter Medications at Time of Discharge acetaminophen 325 mg capsule Take 1,000 mg by mouth if needed. melatonin 10 mg capsule Take by mouth. amLODIPine (NORVASC) 5 mg tablet Take 1 Tablet by mouth at bedtime. 3 bacitracin zinc 500 unit/gram ointment Apply topically 2 times daily. To your incision 28 g 07/31/2022 3 cholecalciferol, Vitamin D3, 25 mcg (1,000 unit) tablet Take 1,000 Units by mouth daily. 3 ibuprofen (MOTRIN) 800 mg tablet Take 800 mg by mouth daily. 3 lisinopril (PRINIVIL, ZESTRIL) 10 mg tablet Take 10 mg by mouth daily. 3 magnesium oxide (MAG-OX) 400 mg (241.3 mg magnesium) tablet Take 1 Tablet by mouth daily. 3 meloxicam (MOBIC) 15 mg tablet Take 15 mg by mouth daily. 3 metoprolol TARtrate (LOPRESSOR) 50 mg tablet Take 1 Tablet by mouth 2 times daily. 3 documented as of this encounter Ordered Prescriptions Prescription Sig Dispense Quantity Refills Last Filled Start Date End Date bacitracin zinc 500 unit/gram ointment Apply topically 2 times daily. To your incision 28 g 07/31/2022 3 documented in this encounter Discharge Disposition Disposition Code Departure Means Destination Home or Self Half-Way documented in this encounter Progress Notes * Marni Hannon MD - 07/31/2022 1027 EST Otolaryngology, Head & Neck Surgery DAILY PROGRESS NOTE Hospital LOS: 1 day 24 hour events: - to OR for left superficial parotidectomy with facial nerve monitoring - Went into Afib with RVR post-operatively; unresponsive to 10 mg of IV metoprolol; cardiology contacted who recommend diltiazem ggt; RVR broke during the night - Weaned off of diltiazem this morning at the recommendation of cardiology; restarted on STEM FRAZER home metoprolol S: Pain controlled. Feeling well. O: Vitals: Blood pressure (!) 163/94, pulse (!) 121, temperature 37 ??C (98.6 ??F), temperature sourceOral, resp. rate 16, height 177.8 cm (70), weight (!) 133.8 kg (294 lb 15.6 oz), SpO2 94 %. I+O last shift:07/31 0700 - 07/31 1459 In: 420 [P.O.:400; I.V.:20] Out: 150 [Urine:150] I+O last 3 shifts: 07/30 0700 - 07/31 0659 In: 2370 [P.O.:480; I.V.:1560] Out: 1920 [Urine:1850; Drains:70] Current Diet: DIET REGULAR Current Scheduled Meds:acetaminophen, 1,000 mg, Q6H amLODIPine, 5 mg, QHS ampicillin-sulbactam, 3 g, Q6H bacitracin zinc, , BID magnesium oxide, 400 mg, DAILY metoprolol TARtrate, 50 mg, BID sodium chloride 0.9 % (flush), 5 mL, Q8H Labs: Lab Results Component Value Date WBC 18.71 (H) 05/12/2022 HGB 15.5 05/12/2022 HCT 46.4 05/12/2022 PLT 296 05/12/2022 NA 139 07/30/2022 K 4.2 07/30/2022 CL 103 07/30/2022 CO2 23 07/30/2022 BUN 15 07/30/2022 CREATININE 0.75 07/30/2022 Physical Exam: General appearance: alert, cooperative, no distress, appears stated age Lungs: non labored breathing Heart: Afib on monitor; HR 90s-low 100s HEENT: left face incision c/d/i, drain in place, slight left lip weakness A: Samm Macdonald is a 66 y.o. male POD#1 status post left superficial parotidectomy for parotid mass. Post-operative course complicated by Afib with RVR requiring transfer to cardiac floor for diltiazemggt. Patient is still in Afib, but no longer in RVR this morning. Diltiazem ggt weaned at recommendationof cardiology which was well tolerated. Home metoprolol started. Cardiology is comfortable for patient to discharge home and he is appropriate from a surgical perspective. We will watch his cardiac status this morning with plans to discharge early this afternoon. Patient Active Problem List Diagnosis ??? 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 Parotid mass P: - Floor - Pain control: scheduled tylenol, prn oxy - Nausea control - AAT - Regular diet - Restart Eliquis 48h after surgery - Home metoprolol - Dispo: pending clinical course MARNI HANNON MD 07/31/2022 10:26 * Sofi Alston RN - 07/30/2022 1815 EST Pt arrived on floor in AF with HR up to 140s, MAP up to 116 s/p scheduled L parotidectomy. Providernotified, orders received. Pt AF was refractory to treatment. PT asymptomatic except increased urine output. 5 beat run of [place] on tele, MD notified. Pt ordered for transfer to [facility] for administration of Diltiazm.. Meds given per OCT, assessments as documented. Surgical site well approximated, travel cota with bacitracinapplied, hemoac draining serosanguinous. Pt denies pain at transfer. SOFI ALSTON RN documented in this encounter H&P Notes * Jerri Means MD - 07/30/2022 0704 EST The preoperative history and physical which was performed within 30 days of this procedure has been reviewed and the clinically appropriate elements of the physical examination have been repeated. There are no changes to the documented history and physical or if so such changes are documented below See H&P in scans Jerri Means MD 07/30/2022 7:05 Cosigned by Shane Richardson MD at 07/30/2022 10:56 EST documented in this encounter OR Notes * OR Surgeon - Jerri Means MD - 07/30/2022 0705 EST OPERATIVE REPORT SERVICE DATE: 07/30/2022 SURGEON: Shane Richardson MD SLITTING MACHINE OPERATOR: Jerri Means MD PREOPERATIVE DIAGNOSIS: Left parotid mass. POSTOPERATIVE DIAGNOSIS: Same. PROCEDURE: 1. Left superficial parotidectomy with facial nerve monitoring ANESTHESIA: General endotracheal. FINDINGS: 1. Left superficial parotid gland excised-- skin overlying the tail of the gland was indurated, inflamed, scarred, possibly infected and was excised with the gland. Evidence of chronic parotitis. Left perifacial lymph node sent for frozen, negative for carcinoma 2. Facial nerve was identified and preserved. 3. Greater auricular nerve identified and preserved. NARRATIVE: The patient was identified in the preoperative hold area where the surgical site was marked. He was transferred to the operating room table where a WHO rios moment was held with the patient awake. General anesthesia was induced using an endotracheal tube. Three grams of IV Ancef was administered perioperatively. A modified Efrem incision was marked out, using the preauricular skin crease and extending into theneck. An ellipse was marked around the indurated skin overlying the tail of the parotid and incorporated into the planned incision. Ten mL of 2% lidocaine with 1:100,000 epinephrine was infiltrated into the subcutaneous tissues. The patient was then prepped and draped in the normal sterile fashion for parotid surgery. The planned incision was made through the level of dermis, and the skin flap was elevated over the upper face, deep to the SMAS. The greater auricular nerve was identified and theposterior branches were carefully preserved. At this point, the parotid was dissected from the carti laginous canal and off of the sternocleidomastoid muscle. The dissection continued inferiorly to the level of the posterior belly of the digastric, from which the inferior border of the parotid was slowly dissected. Using this muscle as a landmark, dissection continued supero-anteriorly, where the facial nerve trunk was identified. This nerve was then followed anteriorly - along both the temporofacial and cervicofacial divisions - carefully dissecting the superficial lobe of the parotid gland from the surface of this nerve. Once the superficial lobe was pedicled anteriorly, the superficial lobe and mass were removed, en bloc. At this point, the proximal facial trunk stimulated all branches.The surgical bed was then irrigated several times with sterile water. At this point, a Hemovac drain was placed and secured to the skin with a 3-0 Nylon. The deep dermal layers were reapproximated with 3-0 and 4-0 Monocryl suture and the skin was closed with 4-0 and 5-0 prolene. Bacitracin was applied. The patient was then returned to anesthesia and was awakened from general anesthesia and transfe rred to PACU in good stable condition. Dr Richardson was present and actively participated in the entire case. ESTIMATED BLOOD LOSS: 40 mL FLUIDS: 1000 mL Lactated Ringer's. URINE OUTPUT: Not recorded. SPECIMENS: left superficial parotid for routine pathologic evaluation. Left perifacial lymph node sent for frozen CULTURES: None. DRAINS, PACKS AND FOREIGN MATERIALS RETAINED: Hemovac drain in operative bed. COMPLICATIONS: None. CONDITION: Good to PACU. Unless otherwise noted, there were no complications, no blood loss, no cultures obtained, no specimens removed, and no drains retained. Jerri Means MD Otolaryngology Resident, PGY-5 Pager [phone] Cosigned by Shane Richardson MD at 07/30/2022 10:57 EST documented in this encounter Miscellaneous Notes * Plan of Care - Dimple Tong RN - 07/31/2022 1322 EST Problem: Daily Care Plan Goals Goal: Care Plan Documentation Flowsheets (Taken 07/31/2022 5130) Area of Focus: Discharge Plan Goal This Shift: Discharge pt Discharge Note D - Patient ordered for discharge today. A - Patient given prescriptions, medication information sheets and After Visit Summary. Medication list, follow up appointments and care instructions reviewed with patient. IVs and ID band removed. R - Patient questions reviewed and addressed prior to discharge. Patient denied pain. Patient left the unit in a wheelchair in stable condition. No distress noted. Pt left unit @1420. 07/31/2022 13:22 DIMPLE TONG RN * Plan of Care - Joo Voss RN - 07/31/2022 0240 EST Problem: High Fall Risk: Goal: Patient Will Remain Free from Fall-Related Injury Outcome: Ongoing Data: Assumed care at 2300, pt A&Ox3 POD #0 L superficial parotidectomy with facial nerve monitoring. Pt is Afib on tele monitor on diltiazem drip at 20 mg/hr. Pt is currently on 2 L NC. Independent to the bathroom. Action: Hourly rounding, medications given per protocol;see EMAR. Monitored and reviewed order,notes, vs. Safety messures in place. Cluster care to promote rest. Response: No acute changes. VSS. Pt resting in bed comfortably. Belongings and call peterson within reach. JOO VOSS RN 07/31/2022 2:40 * Plan of Care - Dimple Tong RN - 07/30/2022 1907 EST Problem: Daily Care Plan Goals Goal: Care Plan Documentation Flowsheets (Taken 07/30/2022 0801) Area of Focus: Circulatory Status Goal This Shift: VSS Admission Note D - This is a(n) 66 y.o. male who is being transferred from [place] [address] This is post-op day #0 for the patient. Patient is status-post L parotidectomy. Pt is in A.fibb on tele. VSS on 2L NC. Transferred to this floor for initiation and monitoring of dilt gtt. A - Vital signs taken. Patient oriented to unit and room. Call light and bed use reviewed. Call light within reach, bed placed in low position and table at bedside. Room is free of clutter. R - Continue to assess and monitor patient. 07/30/2022 19:08 DIMPLE TONG RN FOUR EYES SKIN ASSESSMENT Four Eyes skin assessment was performed on admission to the unit by Dimple Tong RN and Viktoriya CR. All skin intact verified by: Dimple Tong RN. Patient has the following devices at the time of this assessment: BP cuff and SCD sleeves. Device related pressure injury present? No Instructions: ??? Add LDA for any identified wounds ??? Add [place] image for any suspected PI ??? Order wound consult if suspected PI identified 07/30/2022 19:18 documented in this encounter Plan of Treatment Upcoming Encounters Date Type Department Care Team (Late st Contact Info) Description 07/22/2024 19:[address] [facility] Radiology [facility] - [facility] [address] [place], [place] [id number] 07/29/2025 15:40 EST Office Visit [facility] [place] [address] [address] [place], [place] [id number] Palak Diallo MD [address] [place] [address], [place], [address] [place] [address] documented as of this encounter Procedures Procedure Name Priority Date/Time Associated Diagnosis Comments ECG REPORT - SCANNED 08/06/2022 10:45 EST MAGNESIUM Routine 07/30/2022 15:18 EST BASIC METABOLIC PANEL (BMP) Routine 07/30/2022 15:18 EST SURGICAL PATHOLOGY Routine 07/30/2022 9: 42 EST EXCISION, NEOPLASM, PAROTID GLAND, LATERAL LOBE, WITH FACIAL NERVE DISSECTION AND PRESERVATION 07/30/2022 7:25 EST Parotid mass ZZCOVID-19 TEST [facility] PCR STAT 07/30/2022 6:54 EST COVID-19 TESTING STAT 07/30/2022 6:54 EST documented in this encounter Results * ECG REPORT - SCANNED (08/06/2022 10:45 EST) 08/06/2022 10:4 5 EST us Scan 2 Carpet Installer Helper PROCEDURE/MINOR SURGICAL OR DERABLES Final Result * MAGNESIUM (07/30/2022 15:18 EST) Magnesium 1.9 1.7 - 2.8 mg/dL 07/30/2022 15:54 [facility] Blood VENOUS BLOOD / Unknown Venipuncture / Unknown 07/30/2022 15:18 EST 07/30/2022 15:23 EST us Marni Hannon MD CHEMISTRY & BLOOD GAS ORDERABLE S Final Result Performing Organization Address City/State/[facility] Co de Phone Number [facility] [address] [place] [address] * (ABNORMAL) BASIC METABOLIC PANEL (BMP) (07/30/2022 15:18 EST) Sodium 139 136 - 145 mmol/L 07/30/2022 15:54 [facility] Potassium 4.2 3.5 - 5.0 mmol/L 07/30/2022 15:54 [facility] Chloride 103 96 - 110 mmol/L 07/30/2022 15:54 [facility] CO2 Total 23 22 - 32 mmol/L 07/30/2022 15:54 [facility] Anion Gap 13 5 - 14 07/30/2022 15:54 [facility] Glucose 206(H) 70 - 100 mg/dL 07/30/2022 15:54 [facility] Calcium 9.1 8.5 - 10.5 mg/dL 07/30/2022 15:54 [facility] BUN 15 10 - 26 mg/dL 07/30/2022 15:54 [facility] Creatinine 0.75 0.66 - 1.25 mg/dL 07/30/2022 15:54 [facility] eGFR 100 >60 mL/min/1.73 m2 07/30/2022 15:54 [facility] Blood VENOUS BLOOD / Unknown Venipuncture / Unknown 07/30/2022 15:18 EST 07/30/2022 15:23 EST us Marni Hannon MD CHEMISTRY & BLOOD GAS ORDERABLE S Final Result [facility] [address] [place] [address] * SURGICAL PATHOLOGY (07/30/2022 9:42 EST) Note to Patient The following pathology results have been interpreted by your pathologist and may be available to you before your health provider has had the opportunity to review them. Please allow time for your provider to receive these results and explore management options, if applicable. 3 16:21 [facility] Final Diagnosis A. LYMPH NODE, LEFT PERIFACIAL, EXCISION: - One lymph node negative for carcinoma (0/1). B. PAROTID GLAND, SUPERFICIAL PAROTIDECTOMY: - Cyst lined by mature squamous epithelium and marked regressive changes, suggestive of infarcted Warthin tumor. - Negative for malignancy. - Margins are free of cyst epithelium - Twelve lymph nodes negative for carcinoma (0/12). - Chronic inflammatory changes and fibrosis extend into subcutaneous tissue and dermis. - See comment. 3 16:21 [facility] Diagnosis Comment No oncocytic epithelium is seen, although the cystic lesion lined by metaplastic squamous epithelium along with necrotic material and regressive changes are suggestive of an infarcted Warthin tumor. The differential diagnosis would include a ruptured benign lymphoepithelial cyst. Video Production Specialist slides of this case were reviewed at the intradepartmental consultation conference. 3 16:21 [facility] Attestation By the signature below, the attending physician certifies that they have 1) personally conducted a gross and/or microscopic examination of the described specimen(s), and/or personally interpreted the results of laboratory testing of the described specimen(s), and 2) personally rendered or confirmed the above diagnosis. 3 16:21 [facility] at 1621 Intraoperative Consultation A. LEFT PERIFACIAL LYMPH NODE, EXCISION (FSA1): - Lymph node, negative for carcinoma. - Communicated to Dr. Pj Richardson by Dr. Brian Sarabia at 10:04 on 07/30/22. Dr. Brian Sarabia 3 16:21 [facility] Clinical History Parotid mass; rule out malignancy 3 16:21 [facility] Gross Description A. Received fresh labelled with proper patient identification (initials G, H) and left perifacial lymph node is an intact 1.2 x 0.8 x 0.5 cm clemons-gleason lymph node. The lymph node is bisected and entirely submitted for frozen section as FS A1 with interpretation as rendered above. The frozen section residue is entirely submitted in A1. B. Received in normal saline labelled with proper patient identification (initials G, H) and ? superficial parotidectomy stitch code: Anterior? is an oriented resection specimen consisting of a 6.2 x 4.0 x 2.8 cm parotid gland and loosely attached 5.8 x 1.5 cm portion of overlying elliptical skin and subjacent tissues measuring up to 1.5 cm in thickness. A stitch denotes anterior. The margins are inked with blue representing superficial and black representing deep. The anterior edge is over inked red. The skin surface is mottled clemons-gleason to yellow and centrally retracted. The parotid gland is serially sectioned from inferior (level 1) to superior (level 16). Sections reveal a circumscribed gleason-pink nodule within level 1 and 2 which measures approximately 0.6 x 0.5 x 0.5 cm. A possible similar peripheral nodule is present within levels 5 and 6 measuring 0.6 x 0.5 x 0.5 cm. A third possible peripheral similar nodule is present at the anterior edge of level 4, 0.6 cm in greatest dimension. All 3 nodules are located towards the anterior aspect of the parotid gland. Levels 3 and 4 show a central dilated tract possibly representing salivary gland duct. The more superior aspect of the gland shows a solid process containing a dilated tract involving levels 9-15. This process measures approximately 3.3 x 1.8 x 1.6 cm. The solid areas are mildly dense gleason to opaque white yellow. The tract is ill-defined, and lined by a hemorrhagic granular surface. This process has ill-defined margins with the surrounding parotid gland tissue and subcutaneous tissue. The opaque yellow areas extend to abut the overlying dermis. Video Production Specialist sections are submitted as follows: BLOCK BYERS B1- perpendicular sections level 1, portion inferior nodule B2- anterior portion level 2, remaining inferior nodule B3-B4- possible duct, levels 3 and 4 B5- peripheral nodule, level 4 B6-B7- peripheral nodule, levels 5 and 6 B8-B12- consecutive sections posterior aspects level 8-level 12 B13- perpendicular section level 16 with overlying skin B14- section central skin KATHY ROJAS(ASCP) 07/31/2022 10:37 3 16:21 EST [facility] LABORATORY SERVICES Performing Lab [facility] 3 16:21 EST [facility]OR[facility]ORY [facility] Scanned Images 3 16:21 EST [facility] LABORATORY SERVICES Tissue STRUCTURE OF LYMPH NODE / Unknown 07/30/2022 9:42 EST 07/30/2022 9:52 EST Comment:RULE OUT MALIGNANCY Tissue specimen (specimen) SALIVARY GLAND STRUCTURE / Unknown 07/30/2022 10:11 EST 07/30/2022 13:19 EST Comment:RULE OUT MALIGNANCY Shane Richardson MD PATHOLOGY ORDERABLES F inal Result Performing Organization Address [facility] Co de Phone Number [facility] LABORATORY SERVICES [address] [place] [phone] * COVID-19 TEST [facility] PCR (07/30/2022 6:54 EST) Swab BOTH ANTERIOR NARES / Unknown Swab / Unknown 07/30/2022 6:54 EST 07/30/2022 6:57 EST Shane Richardson MD MICROBIOLOGY - GENERAL ORDERABLES Final Result Performing Organization Address City/[facility]/ZIP Co de Phone Number [facility] LABORATORY SERVICES [address] [place] [address] * COVID-19 TESTING (07/30/2022 6:54 EST) COVID-19 rt-PCR Result Negative Negative 07/30/2022 11:13 EST [facility]OR[facility] Comment: This test has not been FDA cleared or approved. This test has been authorized by FDA under an EUA for use by authorized laboratories. This test has been authorized only for detection of nucleic acid from 2019-nCoV, not for any other viruses or pathogens. This test is only authorized for the duration of the declaration that circumstances exist justifying the authorization of emergency use of in vitro diagnostic tests for detection and/or diagnosis of 2019-nCoV under section 564(b)(1) of Act, 21 U.S.C ?? 360bbb-3(b) (1), unless the authorization is terminated or revoked sooner. Negative results do not preclude 2019-nCoV infection and should not be used as the sole basis for treatment or other patient management decisions. Negative results must be combined with clinical observations, patient history, and epidemiological information. Performed on the Vapore Fusion instrument Performing Lab [place] [facility] 07/30/2022 11:13 EST [facility] LABORATORY SERVICES Swab BOTH ANTERIOR NARES / Unknown Swab / Unknown 07/30/2022 6:54 EST 07/30/2022 6:57 EST us Shane Richardson MD MICROBIOLOGY - GENERAL ORDERABLES Final Result [facility]ORATORY [facility] [address] [place] [address] documented in this encounter Visit Diagnoses Diagnosis Parotid mass Swelling, mass, or lump in head and neck documented in this encounter Admitting Diagnoses Diagnosis Parotid mass Swelling, mass, or lump in head and neck documented in this encounter Administered Medications Inactive Administered Medications - up to 3 most recent administrations Medication Order MAR Action Action Date Dose Rate Site acetaminophen (TYLENOL) tablet 1,000 mg 1,000 mg, oral, EVERY 6 HOURS, First dose on Fri07/30/22 at 1230, Until Discontinued, Routine Given 07/31/2022 11:44 EST 1,000 mg Given 07/31/2022 1:20 EST 1,000 mg Given 07/30/2022 17:56 EST 1,000 mg amLODIPine (NORVASC) tablet 5 mg 5 mg, oral, AT BEDTIME, First dose on Fri07/30/22 at 2100, Until Discontinued, Routine Given 07/30/2022 20:45 EST 5 mg ampicillin-sulbactam (UNASYN) 3,000 mg in sodium chloride (NS MBP) 100 mL IVPB 3,000 mg (3 g), intravenous, Administer over 30 Minutes, EVERY 6 HOURS, 28 doses, First dose on Fri07/30/22 at 1115, Last dose on Fri08/06/22 at 0515, Type of Therapy: Definitive, Based on Cultures, Suspected Indication (Select all that apply): Other, Other Indication: parotitis, Routine Given 07/31/2022 10:21 EST 3,000 mg Given 07/31/2022 5:54 EST 3,000 mg Given 07/30/2022 22:18 EST 3,000 mg bacitracin zinc 500 unit/gram ointment topical, 2 TIMES DAILY, 14 doses, First dose on Fri07/30/22 at 2100, Last dose on Fri08/06/22 at 0900 Given 07/31/2022 8:[address] Given 07/30/2022 21:48 EST dilTIAZem (CARDIZEM) 125 mg in dextrose 5% (D5W) 125 mL infusion 5-20 mg/hr (5-20 mL/hr), intravenous, CONTINUOUS, Starting on Fri07/30/22 at 1830, Until Fri07/31/22 at 1657 Rate Change 07/31/2022 8:01 EST 10 mg/hr 10 mL/hr Rate Change 07/31/2022 7:35 EST 15 mg/hr 15 mL/hr New Bag 07/31/2022 2:54 EST 20 mg/hr 20 mL/hr lactated ringers (LR) infusion at 25 mL/hr, intravenous, CONTINUOUS, Starting on Fri07/30/22 at 0715, Until Fri07/30/22 at 1213, Routine, Preprocedure Restarted 07/30/2022 7:36 EST New Bag 07/30/2022 7:13 EST 25 mL/hr lactated ringers (LR) infusion at 75 mL/hr, intravenous, CONTINUOUS, Starting on Fri07/30/22 at 1045, Until Fri07/31/22 at 1657, Routine, Recovery (only) Rate Documented 07/30/2022 19:00 EST 75 mL/hr New Bag 07/30/2022 13:09 EST 75 mL/hr magnesium oxide (MAG-OX) tablet 400 mg 400 mg, oral, DAILY, First dose on Fri07/31/22 at 0900, Until Discontinued, Routine Given 07/31/2022 8:29 EST 400 mg melatonin tablet 9 mg 9 mg, oral, AT BEDTIME PRN, Starting on Fri07/30/22 at 1213, Until Fri07/31/22 at 1657, Sleep Given 07/31/2022 1:20 EST 9 mg metoprolol TARtrate (LOPRESSOR) 10 mg in sodium chloride (NS) 0.9 % 50 mL IVPB 10 mg, intravenous, Administer over 20 Minutes, Once (Without Time Specified), 1 dose, Starting on Fri07/30/22 at 1449, Until Fri07/30/22 at 1534, Routine Given 07/30/2022 15:14 EST 10 mg metoprolol TARtrate (LOPRESSOR) 5 mg in sodium chloride (NS) 0.9 % 50 mL IVPB 5 mg, intravenous, Administer over 20 Minutes, NOW X1, 1 dose, On Fri07/30/22 at 1400, Routine Given 07/30/2022 14:20 EST 5 mg metoprolol TARtrate (LOPRESSOR) tablet 50 mg 50 mg, oral, 2 TIMES DAILY, First dose on Fri07/31/22 at 0900, Until Discontinued, Routine Given 07/31/2022 8:29 EST 5 0 mg ondansetron (PF) (ZOFRAN) injection 4 mg 4 mg, intravenous, EVERY 6 HOURS PRN, Starting on Fri07/30/22 at 1213, Until Fri07/31/22 at 1657, Nausea, Routine ondansetron (ZOFRAN-ODT) disintegrating tablet 4 mg 4 mg, oral, EVERY 6 HOURS PRN, Starting on Fri07/30/22 at 1213, Until Fri07/31/22 at 1657, Nausea, Routine sodium chloride 0.9 % (flush) flush 5 mL 5 mL, intravenous, EVERY 8 HOURS, First dose on Fri07/30/22 at 1600, Until Discontinued, Routine Given 07/31/2022 8:29 EST 5 mL Given 07/31/2022 0:00 EST 5 mL Given 07/30/2022 15:15 EST 5 mL documented in this encounter Discontinued Medications Medication Sig Discontinue Reason Start Date End Da te ELIQUIS 5 mg tablet Take 5 mg by mouth 2 times daily. 04/01/2022 07/31/2022 documented as of this encounter Active and Recently Administered Medications Times are shown in EST. Scheduled Medication Order 07/29/2022 07/30/2022 07/31/2022 acetaminophen (TYLENOL) tablet 1,000 mg 1,000 mg, oral, EVERY 6 HOURS, First dose on Fri07/30/22 at 1230, Until Discontinued, Routine 1330 (Given - Provider: Sofi Alston, RN)1756 (Given - Provider: Sofi Alston, RN) 0120 (Given - Provider: Joo Voss, RN)0553 (Not Given - Provider: Joo Voss, RN - Reason: Patient/family refused)1144 (Given - Provider: Dimple Tong, RN) amLODIPine (NORVASC) tablet 5 mg 5 mg, oral, AT BEDTIME, First dose on Fri07/30/22 at 2100, Until Discontinued, Routine 2044 (Given - Provider: Dimple Tong, RN) ampicillin-sulbactam (UNASYN) 3,000 mg in sodium chloride (NS MBP) 100 mL IVPB 3,000 mg (3 g), intravenous, Administer over 30 Minutes, EVERY 6 HOURS, 28 doses, First dose on Fri07/30/22 at 1115, Last dose on Fri08/06/22 at 0515, Type of Therapy: Definitive, Based on Cultures, Suspected Indication (Select all that apply): Other, Other Indication: parotitis, Routine 1128 (Given - Provider: Gunnar Sanchez RN)1756 (Given - Provider: Sofi Alston, RN)2218 (Given - Provider: Dimple Tong, RN) 0554 (Given - Provider: Joo Voss, RN)1021 (Given - Provider: Dayo De Anda, TAYO) bacitracin zinc 500 unit/gram ointment topical, 2 TIMES DAILY, 14 doses, First dose on Fri07/30/22 at 2100, Last dose on Fri08/06/22 at 0900 2148 (Given - Provider: Dimple Tong RN) 0834 (Given - Provider: Dayo De Anda RN) ceFAZolin (ANCEF) syringe 2 g (COMPLETED) 2 g, intravenous, Administer over 5 Minutes, PRE-OP ONCE, 1 dose, On Fri07/30/22 at 0730, Routine, Preprocedure 0756 (Given - Provider: ULISES Nieto) magnesium oxide (MAG-OX) tablet 400 mg 400 mg, oral, DAILY, First dose on Fri07/31/22 at 0900, Until Discontinued, Routine 0829 (Given - Provid er: Dayo De Anda RN) metoprolol TARtrate (LOPRESSOR) 10 mg in sodium chloride (NS) 0.9 % 50 mL IVPB (COMPLETED) 10 mg, intravenous, Administer over 20 Minutes, Once (Without Time Specified), 1 dose, Starting on Fri07/30/22 at 1449, Until Fri07/30/22 at 1534, Routine 1514 (Given - Provider: Sofi Alston RN) metoprolol TARtrate (LOPRESSOR) 5 mg in sodium chloride (NS) 0.9 % 50 mL IVPB (COMPLETED) 5 mg, intravenous, Administer over 20 Minutes, NOW X1, 1 dose, On Fri07/30/22 at 1400, Routine 1420 (Given - Provider: Sofi Alston RN) metoprolol TARtrate (LOPRESSOR) tablet 50 mg 50 mg, oral, 2 TIMES DAILY, First dose on Fri07/31/22 at 0900, Until Discontinued, Routine 0829 (Given - Provid er: Dayo De Anda RN) sodium chloride 0.9 % (flush) flush 5 mL 5 mL, intravenous, EVERY 8 HOURS, First dose on Fri07/30/22 at 1600, Until Discontinued, Routine 1515 (Given - Provider: Sofi Alston RN) 0000 (Given - Provider: Joo Voss RN)0829 (Given - Provider: Dayo De Anda RN)1600 (Canceled Entry - Provider: Batch Job User Admin - Comment: Automatically canceled at discontinue of medication order) Continuous Medication Order 07/29/2022 07/30/2022 07/31/2022 dilTIAZem (CARDIZEM) 125 mg in dextrose 5% (D5W) 125 mL infusion 5-20 mg/hr (5-20 mL/hr), intravenous, CONTINUOUS, Starting on Fri07/30/22 at 1830, Until Fri07/31/22 at 1657 1922 (New Bag - Provider: Dimple Tong RN)2039 (Rate Change - Provider: Dimple Tong RN)2148 (Rate Change - Provider: Dimple Tong RN)2259 (Rate Change - Provider: Dimple Tong RN) 0254 (New Bag - Provider: Joo Voss RN)0735 (Rate Change - Provider: Dayo De Anda RN)0801 (Rate Change - Provider: Dayo De Anda RN)0933 (Paused - Provider: Dayo De Anda RN) lactated ringers (LR) infusion (CANCELED) at 25 mL/hr, intravenous, CONTINUOUS, Starting on Fri07/30/22 at 0715, Until Fri07/30/22 at 1213, Routine, Preprocedure 0713 (New Bag - Provider: Franny Xiao RN)0735 (Paused - Provider: ULISES Nieto - Comment: Switch to gravity)0736 (Restarted - Provider: ULISES Nieto)1059 (Completed - Provider: ULISES Nieto) lactated ringers (LR) infusion at 75 mL/hr, intravenous, CONTINUOUS, Starting on Fri07/30/22 at 1045, Until Fri07/31/22 at 1657, Routine, Recovery (only) 1309 (New Bag - Provider: Sofi Alston RN)1900 (Rate Documented - Provider: Dimple Tong RN) 0700 (Paused - Provider: Dayo De Anda RN - Comment: paused prior to start of shift, pt taking PO) PRN Medication Order 07/29/2022 07/30/2022 07/31/2022 lidocaine-EPINEPHrine 2 %-1:100,000 injection (CANCELED) PRN, Starting on Fri07/30/22 at 0835, Until Fri07/30/22 at 1056, Routine, Intraprocedure 0835 (Given - Provider: Shane Richardson MD - Comment: surgical site injection, left jaw/cheek) melatonin tablet 9 mg 9 mg, oral, AT BEDTIME PRN, Starting on Fri07/30/22 at 1213, Until Fri07/31/22 at 1657, Sleep 0120 (Given - Provid er: Joo Voss RN) microfibrillar collagen (HEMOSTAT) pad (CANCELED) PRN, Starting on Fri07/30/22 at 1026, Until Fri07/30/22 at 1056, Intraprocedure 1026 (Given - Provider: Shane Richardson MD - Comment: SURGICAL INCISION SITE) ondansetron (PF) (ZOFRAN) injection 4 mg(Linked Group 1) 4 mg, intravenous, EVERY 6 HOURS PRN, Starting on Fri07/30/22 at 1213, Until Fri07/31/22 at 1657, Nausea, Routine ondansetron (ZOFRAN-ODT) disintegrating tablet 4 mg(Linked Group 1) 4 mg, oral, EVERY 6 HOURS PRN, Starting on Fri07/30/22 at 1213, Until Fri07/31/22 at 1657, Nausea, Routine oxyCODONE (ROXICODONE) immediate release tablet 5 mg 5 mg, oral, EVERY 4 HOURS PRN, Starting on Fri07/30/22 at 1213, Until Fri07/31/22 at 1657, Pain, Routine Linked Groups Order Group 1: ondansetron (PF) (ZOFRAN) injection 4 mgJump to med 4 mg, intravenous, EVERY 6 HOURS PRN, Starting on Fri07/30/22 at 1213, Until Fri07/31/22 at 1657, Nausea, Routine Or ondansetron (ZOFRAN-ODT) disintegrating tablet 4 mgJump to med 4 mg, oral, EVERY 6 HOURS PRN, Starting on Fri07/30/22 at 1213, Until Fri07/31/22 at 1657, Nausea, Routine documented in this encounter Orders Medications Ordered That Attila ht Not Have Been Administered Count Last Ordered Date First Ordered Date atropine 0.1 mg/mL syringe 0.5 mg 1 022 ceFAZolin (ANCEF) syringe 2 g 1 07/30/2022 dilTIAZem (CARDIZEM) in NS 1 25 mg/125 mL infusion 1 07/30/2022 diphenhydrAMINE (BENADRYL) i njection 12.5 mg 1 07/30/2022 fentaNYL citrate (PF) injection 25-50 mcg 1 07/30/2022 lactated ringers (LR) infusion 1 07/30/2022 lidocaine (PF) 10 mg/mL (1 % ) injection 2 mg 1 07/30/2022 lidocaine-EPINEPHrine 2 %-1: 100,000 injection 1 07/30/2022 metoclopramide (REGLAN) injection 10 mg 1 1 09/30/2021 metoprolol TARtrate (LOPRESS OR) 5 mg in sodium chloride (NS) 0.9 % 50 mL IVPB 1 07/30/2022 metoprolol TARtrate (LOPRESS OR) tablet 50 mg 1 07/30/2022 microfibrillar collagen (HEMOSTAT) pad 1 naloxone (NARCAN) injection 0.2 mg 1 2021 ondansetron (PF) (ZOFRAN) injection 4 mg 1 07/30/2022 ondansetron (ZOFRAN-ODT) dis integrating tablet 4 mg 1 07/30/2022 oxyCODONE (ROXICODONE) immed iate release tablet 5 mg 1 07/30/2022 oxyCODONE (ROXICODONE) immed iate release tablet 5-10 mg 1 07/30/2022 Diet Count Last Ordered Date First Orde red Date DISCHARGE DIET 1 07/31/2022 Nursing Count Last Ordered Date First Orde red Date ACTIVITY INSTRUCTIONS 1 07/31/2022 CONTRAINDICATION TO ANTICOAG ULATION THERAPY 1 07/30/2022 IV Count Last Ordered Date First Orde red Date IV REQUEST 1 07/31/2022 Transfer Count Last Ordered Date First Orde red Date TRANSFER PATIENT 1 07/30/2022 Discharge Count Last Ordered Date First Orde red Date DISCHARGE PATIENT 1 07/31/2022 Legal Count Last Ordered Date First Orde red Date MISCELLANEOUS DISCHARGE INSTRUCTIONS 3 07/05 documented in this encounter Care Teams Laundry Room Attendant Relationship Specialty Start Date End Date Robyn Glynn MD [address] [place] [address] PCP - General Family Medicine - Primary Care 11/02/21 documented as of this encounter
--- OUTSIDE RECORDS SUMMARY | 2024-07-21 16:39 | XMS_ITS | Encounter Summary ---
Author Organization [facility] Address [address] [place] [address] Care Team Providers Care Railroad Dispatcher Name Role Phone Roybn Glynn MD Primary Care Provider [phone] Reason for Visit * Cardiology (Routine/Next Available) - Authorization Not Required Specialty Diagnoses / Procedures [facility] Referred To Contact Diagnoses Paroxysmal atrial fibrillation ([facility]) Procedures CARDIAC EVENT MONITOR Jamey Trevizo MD Phone: tel: fax: [facility] Referral ID Status Reason Start Date Expiration Date Visits Requested Visits Authorized [id number] Authorization Not Required 2 1 1 Encounter Details Date Type Department Care Team (Latest Contact Info) Description 05/22/2022 14:30 EDT Ancillary Procedure [facility] [address] [place], [place] [id number] Paroxysmal atrial fibrillation ([facility]) Social History Tobacco Use Types [...] 11:40 EDT documented as of this encounter Plan of Treatment Upcoming Encounters Date Type Department Care Team (Late st Contact Info) Description 07/22/2024 19:30 EST Appointment [facility] Radiology [facility] - [facility] [address] [place], [place] [id number] 07/29/2025 15:40 EST Office Visit [facility] Cardiology - [address] [place] [address] Palak Diallo MD [address] [facility], [place], [address] [place] [address] documented as of this encounter Procedures Procedure Name Priority Date/Time Associated Diagnosis Comments 30 DAY GRANT WRITER Routine 05/24/2022 17:05 EDT Paroxysmal atrial fibrillation (HCC-CMS) documented in this encounter Results * CARDIAC EVENT MONITOR (05/24/2022 17:05 EDT) Anatomical Region Laterality Modality Holter Narrative 06/28/2022 0:16 EST ?? Sinus bradycardia with weekly clusters of PAF/RVR (20% of time), two longer (8&10s) WCT runs, more likely nsVT, frequent brief (4-6-beat) WCT runs, more likely aberrancy. No symptoms recorded. [employer] Cardiac Telemetry Report The patient's monitoring [...] with Ana Paula sequence, suggestive of aberrancy. Jamey Trevizo MD CARDIAC SERVICES ORDERABLES Fi nal Result documented in this encounter Visit Diagnoses Diagnosis Paroxysmal atrial fibrillation (HCC-CMS) Atrial fibrillation documented in this encounter Care Teams Railroad Dispatcher Relationship Specialty Start Date End Date Robyn Glynn MD [address] [place] [address] PCP - General Family Medicine - Primary Care 11/02/21 documented as of this encounter
--- OUTSIDE RECORDS SUMMARY | 2024-07-21 16:39 | XMS_ITS | Encounter Summary ---
Author Organization [facility] Address [address] [place] [address] Care Team Providers Care Scientist Engineer Name Role Phone Robyn Glynn MD Primary Care Provider [phone] Encounter Details Date Type Department Care Team (Latest Contact Info) Description 05/12/2022 Travel Social History Tobacco Use Types Packs/Day Years [...] (Late st Contact Info) Description 07/22/2024 19:30 [facility] Radiology CT - Main [address] [address] 07/29/2025 15:40 EST Office Visit [facility] Cardiology - [address] [place] [address] Palak Diallo MD [address] [place] [address], [place], [address] [place] [id number] documented as of this encounter Visit Diagnoses Not on filedocumented in this encounter Care Teams Scientist Engineer Relationship Specialty Start Date End Date Robyn Glynn MD [address] [place] [phone] PCP - General Family Medicine - Primary Care 11/02/21 documented as of this encounter
--- OUTSIDE RECORDS SUMMARY | 2024-07-21 16:39 | XMS_ITS | Encounter Summary ---
Author Organization [facility] Address [address] [place] [address] Care Team Providers Care Mobility Specialist Name Role Phone Robyn Glynn MD Primary Care Provider [phone] Reason for Visit * Reason Comments Cardiac Post Hospitalization Follow Up Atrial Fibrillation * Follow Up (Routine/Next Available) - Authorization Not Required Specialty Diagnoses / Procedures Referred By Acacia t Referred To Contact Cardiology Diagnoses Paroxysmal atrial fibrillation (HCC-CMS) Sirisha Daniel NP Phone: tel: fax: Mary Miller NP Phone: tel: fax: Referral ID Status Reason Start Date Expiration Date Visits Requested Visits Authorized [id number] Authorization Not Required Specialty Services Required 3 1 1 Encounter Details Date Type Department Care Team (Late st Contact Info) Description 07/31/2023 8:00 EST Office Visit [facility]iology [place] [address] [place] [address] Minerva Lima PA-C [address] [facility], [facility] [address] [place] [phone] Paroxysmal atrial fibrillation (HCC-CMS) (Primary Dx); Encounter for monitoring dofetilide therapy Social History Tobacco Use Types Packs/Day Years [...] Sign Reading Time Taken Comments Blood Pressure 162/72 07/31/2023 0803 EST Pulse 52 07/31/2023 0803 EST Temperature - - Respiratory Rate - - Oxygen Saturation 97% 07/31/2023 0803 EST Inhaled Oxygen Concentration - - Weight 126.1 kg (278 lb) 07/31/2023 0803 EST Height - - Body Mass Index 39.89 07/10/2023 2213 EST documented in this encounter Functional Status [...] Jannet Lino RN documented in this encounter Ordered Prescriptions Prescription Sig Dispense Quantity Refills Last Filled Start Date End Date dofetilide (TIKOSYN) 250 mcg capsule Take 1 Capsule by mouth every 12 hours. 180 Capsule 1 07/31/2023 4 metoprolol TARtrate (LOPRESSOR) 25 mg tablet Take 1 Tablet by mouth 2 times daily. 180 Tablet 1 07/31/2023 4 documented in this encounter Progress Notes * Minerva Lima PA-C - 07/31/2023 0800 EST DATE OF VISIT: 07/31/2023 CHIEF COMPLAINT: I had the pleasure of seeing Samm Prince in the [facility] cardiology clinic today for post hospital follow up. He is a patient of Dr. Lyons. From the discharge summary: a 67 y/o male with PMH of HTN, ANNELISE on CPAP, obesity, s/p parotidectomy 07/2022,SND, tachy roya syndrome and paroxysmal Afib. He was first seen by Dr. Trevizo at [facility] one year ago. He was started onlow dose Metoprolol and Eliquis. He had been referred to Dr. Lyons who has been following him in clinic and notes he has underlying sinus bradycardia in the 40's even without low dose BB and that hemay need PPM at some point. For now his Afib has returned, and he is having symptomatic episodes of Afib with RVR that last several hours at a time. He continues with a baseline hr in the 40's when in SR. [id number] score is 2for age and HTN. He is on Eliquis and remains on low dose metoprolol. ECHO from 03/2022 shows EF 55-60% LA is mildly dilated with no valvular disease. 07/10/23 He presented for Dofetilide loading, he is not on any contraindicated medications. He was admitted in NSR rhythm and started on dofetilide 500 mcg's. Baseline QTC is 420 ms. Metoprolol was discontinued for resting heart rates during the day in the 40-50s. Given increasing QTc, dofetilide was dose reduced to 250 mcg with subsequent QTc in the 420 range. Follow up with Mary Miller NP in 2-4 weeks Follow up with Dr. Lyons in 3 months Follow up with Dr. Trevizo routinely Since he was discharged he has needed his 25 mg of metoprolol 9 times for episodes of atrial fibrillation with a heart rate over 100 bpm. This is confirmed with his Apple Watch. The longest episode was 24 hours. He gets associated urinary frequency and diaphoresis. Average hours in pAF are 2-10 hour s. He has no known triggers for AF. He is not drinking caffeine. He has not had alcohol in years. He always wears his CPAP. He feels that the dofetilide has helped decrease the amount of time in AF but not the frequency. He does not want to continue this frequency of AF. His BP has been 110-130/70 mmHg in/out of atrial fibrillation. He feels that he has had insomnia since starting the dofetilide. He is very active. He enjoys skiing, paddling and hiking. PAST MEDICAL HISTORY 1. Paroxysmal atrial fibrillation -- on OAC, dofetilide loaded Jul 2023, mildly dilated LA by echo Mar 2022 2. Sinus node disease/tachy-roya syndrome -- HR in the 40s when in sinus rhythm (low dose BB d/c),may need PPM in the future 3. Hypertension Pertinent comorbidities include parotidectomy Jul 2022, ANNELISE on CPAP and obesity SOCIAL HISTORY He is . 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 Non smoker. No EtOH FAMILY HISTORY Mother - atrial fibrillation, dementia, suddenly in her 80s. maternal GF - OR in his 60-70s, smoker, paternal GF- OR CURRENT MEDICATIONS Current Outpatient Medications on File Prior to Visit Medication Sig Dispense Refill acetaminophen 325 mg capsule Take 1,000 mg by mouth if needed. amLODIPine (NORVASC) 5 mg tablet Take 1 Tablet by mouth at bedtime for 90 days. 30 Tablet 2 dofetilide (TIKOSYN) 250 mcg capsule Take 1 Capsule by mouth every 12 hours for 30 days. 60 Capsule0 ELIQUIS 5 mg tablet Take 1 Tablet by mouth 2 times daily for 90 days. 60 Tablet 2 melatonin 10 mg capsule Take by mouth. metoprolol TARtrate (LOPRESSOR) 50 mg tablet Take 0.5 Tablets by mouth as needed. No current facility-administered medications on file prior to visit. ALLERGIES Allergies Allergen Reactions Chloraseptic (Benzocaine) Rash Indocin [Indomethacin] hallucinates REVIEW OF SYSTEMS Review of Systems Constitutional: Negative for malaise/fatigue. Very tired when in AF Respiratory: Positive for cough and shortness of breath. Dyspnea when in AF, cough with AF Cardiovascular: Negative for chest pain, palpitations and leg swelling. Gastrointestinal: Negative for blood in stool and melena. Neurological: Negative for dizziness and loss of consciousness. PHYSICAL EXAMINATION BP (!) 162/72 (BP Cuff Location: Right arm, BP Patient Position: Sitting, BP Cuff Sizes: Adult, large) Pulse 52 Wt (!) 126.1 kg (278 lb) SpO2 97% BMI 39.89 kg/m?? Physical Exam Constitutional: General: He is not in acute distress. Appearance: Normal appearance. HENT: Head: Normocephalic and atraumatic. Eyes: Extraocular Movements: Extraocular movements intact. Neck: Vascular: No carotid bruit. Cardiovascular: Rate and Rhythm: Normal rate and regular rhythm. Heart sounds: Normal heart sounds. Pulmonary: Effort: Pulmonary effort is normal. Breath sounds: Normal breath sounds. Musculoskeletal: General: No swelling. Skin: General: Skin is warm and dry. Neurological: Mental Status: He is alert. Psychiatric: Mood and Affect: Mood normal. Behavior: Behavior normal. DATA I personally reviewed a 12-lead EKG performed in the office today, 07/31/2023, which showed sinus bradycardia at 52 bpm and a Qtc measured by me at 407 ms. I reviewed the reports of the following tests: Echocardiogram 04/03/22 Left Ventricle: The left ventricular cavity was normal in size. Left ventricular systolic function was normal with an ejection fraction of 55-60%. Left ventricular diastolic parameters were not diagnostic. There was mild hypertrophy of the left ventricle. Left ventricular wall motion was normal; there were no regional wall motion abnormalities. Although no diagnostic regional wall motion abnormality was identified, this possibility cannot be completely excluded on the basis of this study. Right Ventricle: The right ventricular cavity was normal in size. Right ventricular systolic function was normal. The most recent laboratory evaluation included the following: Lab Results Component Value Date BUN 38 (H) 07/10/2023 CREATININE 0.75 07/13/2023 NA 137 07/13/2023 K 4.2 07/13/2023 CL 109 07/13/2023 MG 1.9 07/10/2023 Lab Results Component Value Date WBC 9.59 07/10/2023 RBC 5.02 07/10/2023 HGB 15.2 07/10/2023 HCT 44.2 07/10/2023 MCV 88 07/10/2023 MCH 30.3 07/10/2023 MCHC 34.4 07/10/2023 PLT 259 07/10/2023 MPV 10.1 07/10/2023 No results found for: TSH, TT4, FT4 Lab Results Component Value Date ALKPHOS 99 05/12/2022 AST 33 05/12/2022 ALT 48 05/12/2022 No results found for: CHOL, LDLBASE, HDL, TRIG ASSESSMENT AND RECOMMENDATIONS In summary, Samm Prince is a 67 y.o. male I focused our evaluation and discussion today on the following problems: 1. Paroxysmal atrial fibrillation -- on OAC, dofetilide loaded Jul 2023, mildly dilated LA by echo Mar 2022 He feels the frequency of his atrial fibrillation is unchanged but the length of time is lessened. When he is in atrial fibrillation he does not feel well. He would like to go back on 12.5 mg metoprolol BID to see if this helps. If it does not he is interested in pursuing ablation. I have asked himto send me a message concerning AF burden vs a visit as he lives in [place]. 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 2. Sinus node disease/tachy-roya syndrome -- HR in the 40s when in sinus rhythm (low dose BB d/c but restarted outpatient Jul 2023), may need PPM in the future Will monitor for lightheadedness/syncope while restarting low dose metoprolol. 3. Hypertension His BP was elevated today in the office but has been well controlled at home. Will continue to monitor. I spent a total of 51 minutes on the date of this encounter meeting with the patient and reviewing documentation/coordinating care as described in the above note.This was separate from any proceduresperformed at the time of the visit. documented in this encounter Plan of Treatment Upcoming Encounters Date Type Department Care Team (Late st Contact Info) Description 07/22/2024 19:30 EST Appointment [facility] Radiology [place] - [facility] [address] [place], [place] [id number] 07/29/2025 15:40 EST Office Visit [facility] Cardiology - [address] [place] [address] Palak Diallo MD 111 [facility], [facility], [address] [place] [address] documented as of this encounter Procedures Procedure Name Priority Date/Time Associated Diagnosis Comments ECG REPORT - SCANNED 07/31/2023 14:04 EST EKG 12-LEAD Routine 07/31/2023 8:12 EST Paroxysmal atrial fibrillation ([facility]) Encounter for monitoring dofetilide therapy documented in this encounter Results * ECG REPORT - SCANNED (07/31/2023 14:04 EST) 07/31/2023 14:0 4 EST us Scan 2 Licensing Officer PROCEDURE/MINOR SURGICAL OR DERABLES Final Result * EKG 12-LEAD (07/31/2023 8:12 EST) 07/31/2023 8:12 EST Narrative [place] [facility] - 07/31/2023 13:51 EST ? [facility] ? Test Date: ?2023-07-31 Pat Name: ? SAMM PRINCE ?Department: ?? Laura Card ? Room: ? Gender: ? Male ? Manager Of Supply Chain: ?? [id number] : ?1955 ? Requested By: NICOLLE PATEL VANDANA Order Number: [id number] ? Reading MD: ?? PASTOR ELIZABETH MD ? Measurements Intervals ?[place] ? Rate: ? 52 ? P: ?-22 OR: ? 209 ?QRS: ?48 QRSD: ? 96 ? T: ?50 QT: ? 436 ? QTc: ?407 ? Interpretive Statements SINUS BRADYCARDIA Compared to ECG 07/13/2023 10:46:40 No significant changes I reviewed the tracing and have either agreed or edited the findings in this report. Electronically Signed On 07-31-2023 13:51:35 EST by PASTOR ELIZABETH MD. Procedure Note Pastor Elizabeth MD - 07/31/2023 [facility] Test Date: 2023-07-31 Pat Name: SAMM PRINCE Department: Eligible Room: Gender: Male Manager Of Supply Chain: [id number] : 1955 Requested By: NICOLLE ROSS Order Number: [id number] Reading MD: PASTOR ELIZABETH MD Measurements Intervals [place] Rate: 52 P: -22 OR: 209 QRS: 48 QRSD: 96 T: 50 QT: 436 QTc: 407 Interpretive Statements SINUS BRADYCARDIA Compared to ECG 07/13/2023 10:46:40 No significant changes I reviewed the tracing and have either agreed or edited the findings inthis report. Electronically Signed On 07-31-2023 13:51:35 EST by PASTOR DOWNS. Minerva Lima PA-C CARDIAC ECG ORDERABLES Michela silva Result [place] [facility] documented in this encounter Visit Diagnoses Diagnosis Paroxysmal atrial fibrillation ([facility])- Primary Atrial fibrillation Encounter for monitoring dofetilide therapy Encounter for therapeutic drug monitoring documented in this encounter Discontinued Medications Medication Sig Discontinue Reason Start Date End Da te metoprolol TARtrate (LOPRESSOR) 50 mg tablet Take 0.5 Tablets by mouth as needed. Alternate therapy 07/31/2023 dofetilide (TIKOSYN) 250 mcg capsule Take 1 Capsule by mouth every 12 hours for 30 days. Reorder 07/28/2023 07/31/2023 documented as of this encounter Historical Medications * This list may reflect changes made after this encounter. metoprolol TARtrate (LOPRESSOR) 50 mg tablet Take 0.5 Tablets by mouth as needed. 07/31/2023 added in this encounter Care Teams Mobility Specialist Relationship Specialty Start Date End Date Robyn Glynn MD [address] [place] [phone] PCP - General Family Medicine - Primary Care 11/02/21 documented as of this encounter
--- OUTSIDE RECORDS SUMMARY | 2024-07-21 16:39 | XMS_ITS | Encounter Summary ---
Author Organization [facility] Address [address] [place] [address] Care Team Providers Care Laborer Wrecking And Salvaging Name Role Phone Robyn Glynn MD Primary Care Provider [phone] Reason for Visit * Reason Onset Date Comments Follow-up 05/17/2022 Encounter Details Date Type Department Care Team (Late st Contact Info) Description 05/17/[address] [phone] Shane Richardson MD [address] [place] [address], [address] [place] [address] Follow-up Social History Tobacco Use Types Packs/Day Years [...] 11:40 EDT documented as of this encounter Miscellaneous Notes * Telephone Encounter - Yaritza Pennington RN - 05/17/[address] Richardson recommended continue current antibiotics, allow more time to heal and follow up on Friday as planned. Patient and his made aware. They agreed. They will follow up with the PCP regarding the Afib. * Telephone Encounter - Yaritza Pennington RN - 05/17/2022 0947 EDT Spoke with the patients she reports the patients neck is hard as a rock, swelling from behind the neck around to the jaw, difficult to see the jaw line. Patient is unable to wear his CPAP, sleeping in a recliner, unable to lie down flat. He is back in Afib, heart rate is 100 to 120, they have a call to the PCP for recommendations. Patient is taking tylenol and ibuprofen routinely. He has tried the heat, massage, sialagogues, and hydration. He is able to open his mouth a little more than before. They are both concerned. Asking when to come to the ED? Asking what is the next step? The patient will complete the clindamycin on Friday and cefpodoxime on 05/28/22. Will forward to Dr. Richardson * Telephone Encounter - Alessandra Jones - 05/17/2022 0937 EDT Patient's is calling because his neck is hard as a rock and he is back in afib, she wants toknow under what parameters should they go back to the ED. documented in this encounter Plan of Treatment Upcoming Encounters Date Type Department Care Team (Late st Contact Info) Description 07/22/2024 19:30 EST Appointment [facility] Radiology CT - [facility] [address] [place], [place] [phone] 07/29/2025 15:40 EST Office Visit [facility] Cardiology - [address] [place] [address] Palak Diallo MD 111 [facility], [place], [address] [place] [phone] documented as of this encounter Visit Diagnoses Not on filedocumented in this encounter Care Teams Laborer Wrecking And Salvaging Relationship Specialty Start Date End Date Robyn Glynn MD [address] [place] [address] PCP - General Family Medicine - Primary Care 11/02/21 documented as of this encounter
--- OUTSIDE RECORDS SUMMARY | 2024-07-21 16:39 | XMS_ITS | Encounter Summary ---
Author Organization [facility] Address [address] [place] [address] Care Team Providers Care Domestic Maid Name Role Phone Robyn Glynn MD Primary Care Provider [phone] Encounter Details Date Type Department Care Team (Late st Contact Info) Description 06/24/2023 Lab Requisition [facility] Pathology & Laboratory Medicine - [address] [address] Taryn Goyal MD [address] [place] [address], [address] [place] [phone] Neoplasm of uncertain behavior of skin Social History Tobacco Use Types Packs/Day Years [...] Racquel Marx RN documented in this encounter Plan of Treatment Upcoming Encounters Date Type Department Care Team (Late st Contact Info) Description 07/22/2024 19:30 EST Appointment [facility] Radiology [place] - [facility] [address] [place], [place] [phone] 07/29/2025 15:40 EST Office Visit [facility] Cardiology - [address] [place] [address] Palak Diallo MD 111 [facility] [place], [place], [address] [place] [address] documented as of this encounter Procedures Procedure Name Priority Date/Time Associated Diagnosis Comments SURGICAL PATHOLOGY Today 06/24/2023 15 :11 EST Neoplasm of uncertain behavior of skin documented in this encounter Results * SURGICAL PATHOLOGY (06/24/2023 15:11 EST) Amendment Comment The purpose of the amendment is to document the use of immunohistochemical stain for SOX-10 ALK PHOS (SP267, Sarsys). The stain highlight the melanocytes and shows features noted in the microscopic description. There is no change in the diagnosis. 06/27/2023 13:34 [facility] Note to Patient The following pathology results have been interpreted by your pathologist and may be available to you before your health provider has had the opportunity to review them. Please allow time for your provider to receive these results and explore management options, if applicable. 06/27/2023 13:34 [facility] Final Diagnosis A. 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 - Nevus does not extend to edges of shave removal specimen in the plane of the sections examined. 06/27/2023 13:34 [facility] Attestation By the signature below, the attending physician certifies that they have 1) personally conducted a gross and/or microscopic examination of the described specimen(s), and/or personally interpreted the results of laboratory testing of the described specimen(s), and 2) personally rendered or confirmed the above diagnosis. 06/27/2023 13:34 [facility] Amendment electronically signed by Shari Juarez MD on 06/27/2023 at 1334 at 1016 Microscopic Description The epidermis is hyperplastic with elongate and anastomosing rete ridges. There is a proliferation of melanocytes within the epidermis that consists of nests and individual cells. The nests predominate but vary to a moderate degree in size, shape, and spacing. The nests are located between and on the sides of the rete ridges, in addition to at the tips of the ridges. Nests bridge rete ridges. Focally, individual melanocytes are prominent and show uneven spacing but no confluent growth or well-developed upward migration. The melanocytes are enlarged and have ill-defined cytoplasm containing melanin pigment. The nuclei show a moderate degree of size and shape variation with occasional large, irregular forms. There is papillary dermal fibroplasia. 06/27/2023 13:34 [facility] Clinical History Neoplasm of uncertain behavior vs atypical nevus vs MM; clinical diagnosis code: D48.5 06/27/2023 13:34 [facility] Gross Description A. Received in formalin labelled with proper patient identification (initials G, H) and left posterior shoulder is a 1.2 x 1 x 0.1 cm clemons irregular skin shave. The epidermis displays a 0.8 x 0.8 cm central brown irregular macule. The specimen is inked, quadrisected and entirely submitted in A1. KATHY MCMANUS(ASCP) 06/25/2023 8:58 06/27/2023 13:34 [facility] Performing Lab [facility] 06/27/2023 13:34 [facility] Scanned Images 06/27/2023 13:34 [facility] Tissue SPECIMEN FROM SKIN / Unknown 06/24/2023 15:11 EST 06/24/2023 22:44 EST us Taryn Goyal MD PATHOLOGY ORDERABLES Edited Re sult - Final [facility] [address] [place] [address] documented in this encounter Visit Diagnoses Diagnosis Neoplasm of uncertain behavior of skin documented in this encounter Care Teams Domestic Maid Relationship Specialty Start Date End Date Robyn Glynn MD [address] [place] [phone] PCP - General Family Medicine - Primary Care 11/02/21 documented as of this encounter
--- OUTSIDE RECORDS SUMMARY | 2024-07-21 16:39 | XMS_ITS | Encounter Summary ---
Author Organization [facility] Address [address] [place] [address] Care Team Providers Care Gate Agent Name Role Phone Robyn Glynn MD Primary Care Provider [phone] Reason for Visit * Reason Comments Atrial Fibrillation 3 month f/u Encounter Details Date Type Department Care Team (Late st Contact Info) Description 12/12/2022 13:00 EDT Office Visit [facility] Cardiology - [address] [place] [address] Helio Lyons MD [address] [place] [address] [address] [place] [address] Paroxysmal atrial fibrillation (HCC-CMS) (Primary Dx) Social History Tobacco Use Types Packs/Day Years Used Date Smoking Tobacco: Never Passive Smoke Exposure: Past Smokeless Tobacco: Never Tobacco Cessation:Counseling Given: Not Answered Alcohol Use Standard Drinks/Week Comments Yes 0 [...] Sign Reading Time Taken Comments Blood Pressure 158/72 12/12/2022 1251 EDT Pulse 47 12/12/2022 1251 EDT Temperature - - Respiratory Rate - - Oxygen Saturation 97% 12/12/2022 1251 EDT Inhaled Oxygen Concentration - - Weight 132.5 kg (292 lb) 12/12/2022 1251 EDT Height - - Body Mass Index 41.9 07/30/2022 0638 EST documented in this encounter [...] Progress Notes * Helio Lyons MD - 12/12/2022 1300 EDT Cardiology Follow Up 12/12/22 Chief complaint: Atrial Fibrillation (3 month f/u) Problems list: Persistent AF Hypertension ANNELISE Parotid mass Obesity Assessment & Plan Samm Macdonald is a 67 y.o. male with symptomatic AF. His symptomatic AF burden remains quite low. His primary symptoms from AF are dyspnea on exertion. He is euvolemic on physical exam. He is not experiencing symptoms suggestive of myocardial ischemia or heart failure. His [id number] score is elevated and long-term OAC is appropriate. We discussed risk factor modification particularly weight loss and ANNELISE treatment in the hopes of reducing AF burden. Plans: Continue current medical therapy Monitor for AF symptoms RTC in 6 months Contingencies: For increasingly frequent symptomatic AF antiarrhythmic drug therapy versus catheter ablation There are no diagnoses linked to this encounter. No follow-ups on file. Helio Lyons MD Subjective Samm Macdonald is a 67 y.o. male with PAF as outlined in the prior clinic note. Since I last saw thepatient he has had his parotid gland removed and fortunately there was no evidence of malignancy. The patient has rare episodes of AF. His AF symptoms are self-limited. He has not had syncope. He denies chest pain, orthopnea, or change in his exercise capacity. He has been compliant with his medical therapy. ROS See subjective for pertinent positives and negatives Problem List and History were reviewed in the EMR Outpatient Medications Marked as Taking for the 12/12/22 encounter (Office Visit) with Helio Lyons MD: ??? acetaminophen 325 mg capsule, Take 1,000 mg by mouth if needed. ??? amLODIPine (NORVASC) 5 mg tablet, Take 5 mg by mouth at bedtime. ??? bacitracin zinc 500 unit/gram ointment, Apply topically 2 times daily. To your incision ??? ELIQUIS 5 mg tablet, Take 5 mg by mouth 2 times daily. ??? ibuprofen (MOTRIN) 800 mg tablet, Take 800 mg by mouth daily. ??? magnesium oxide (MAG-OX) 400 mg (241.3 mg magnesium) tablet, Take 400 mg by mouth daily. ??? melatonin 10 mg capsule, Take by mouth. ??? metoprolol TARtrate (LOPRESSOR) 50 mg tablet, Take 50 mg by mouth 2 times daily. Objective BP (!) 158/72 (BP Cuff Location: Right arm, BP Patient Position: Sitting, BP Cuff Sizes: Adult, large) Pulse (!) 47 Wt (!) 132.5 kg (292 lb) SpO2 97% BMI 41.90 kg/m?? Physical Exam Vitals and nursing note reviewed. Constitutional: Appearance: Normal appearance. Cardiovascular: Rate and Rhythm: Regular rhythm. Bradycardia present. Pulses: Normal pulses. Heart sounds: Normal heart sounds. Musculoskeletal: General: No swelling. Skin: General: Skin is warm. Neurological: Mental Status: He is alert. Diagnostics: Not applicable I spent a total of 15 minutes on the date of this encounter meeting with the patient and reviewing documentation/coordinating care as described in the above note. documented in this encounter Plan of Treatment Upcoming Encounters Date Type Department Care Team (Late st Contact Info) Description 07/22/2024 19:30 EST Appointment [facility] Radiology CT - [facility] [address] [place], [place] [address] 07/29/2025 15:40 EST Office Visit [facility] Cardiology - [address] [address] Palak Diallo MD [address] [facility], Level [address] [place] [phone] documented as of this encounter Visit Diagnoses Diagnosis Paroxysmal atrial fibrillation ([facility])- Primary Atrial fibrillation documented in this encounter Historical Medications * This list may reflect changes made after this encounter. ELIQUIS 5 mg tablet Take 1 Tablet by mouth 2 times daily. 09/29/2022 07/13/2023 added in this encounter Care Teams Gate Agent Relationship Specialty Start Date End Date Robyn Glynn MD [address] [place] [address] PCP - General Family Medicine - Primary Care 11/02/21 documented as of this encounter
--- OUTSIDE RECORDS SUMMARY | 2024-07-21 16:39 | XMS_ITS | Encounter Summary ---
Author Organization [facility] Address [address] [place] [address] Care Team Providers Care Warping Machine Operator Name Role Phone Robyn Glynn MD Primary Care Provider [phone] Reason for Visit * Auth/Cert Specialty Diagnoses / Procedures Referred By Acacia neumann Referred To Contact Diagnoses Parotid mass Procedures SC EXC PAROTD,LAT LOBE,DISSECT 5TH NERV EXCISION - NEOPLASM of PAROTID GLAND, LATERAL LOBE, WITH FACIAL NERVE DISSECTION AND PRESERVATION Referral ID Status Reason Start Date Expiration Date Visits Re quested Visits Authorized [id number] 1 1 Encounter Details Date Type Department Care Team (Late st Contact Info) Description 07/30/2022 7:25 EST - 07/30/2022 11:20 EST Surgery [facility] OR [address] [place] [id number] Shane Richardson MD [address] [place] [address], [address] [place] [phone] EXCISION - NEOPLASM of PAROTID GLAND, LATERAL LOBE, WITH FACIAL NERVE DISSECTION AND PRESERVATION [79032 (CPT??)] Surgery Details Date/Time Status Location OR Service Patient Class Case Class Case Type Trauma Case? 07/30/2022 0725 Posted [facility] OR [facility] ENT Extended Stay H - Elective Panel 1 Procedure LRB Anes Op Region Wound Class Comments EXCISION - NEOPLASM of PAROTID GLAND, LATERAL LOBE, WITH FACIAL NERVE DISSECTION AND PRESERVATION Left General Neck Class I/ Clean facial nerve monitor 3 hours overnight stay Surgeon Surgeon Role Service Panel Shane Richardson MD Primary ENT 1 Jerri Means MD Resident - Assisting ENT 1 documented in this encounter Social History [...] Sign Reading Time Taken Comments Blood Pressure 181/88 07/30/2022 1115 EST Pulse 46 07/30/2022 0638 EST Temperature 36.4 ??C (97.5 ??F) 07/30/2022 1100 EST Respiratory Rate 16 07/30/2022 1115 EST Oxygen Saturation 100% 07/30/2022 1115 EST Inhaled Oxygen Concentration - - Weight [...] Date of Assessment Author No 07/30/2022 14:00 EST Racquel Alston RN * Do you have serious difficulty [...] Racquel Marx RN documented in this encounter Discharge Summaries [...] Cardiology was called for recommendations. Dr. Zuniga, act tutor, recommended starting the patient on a diltiazem drip. He was transferred to the cardiac floor for monitoring during the infusion. 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 He remained in Afib. He was able to be titrated off the diltiazem drip without issue and restarted on his home metoprolol per cardiology recommendations. They did not feel that inpatient cardiology evaluation was necessary. I encouraged the patient to follow up with his cs associate and PCP. His who is a nurse [...] Procedure Component Value Units Date/Time SURGICAL PATHOLOGY [[id number]] Collected: 07/30/22941 Lab Status: In process Specimen: Tissue from Lymph Node, Other; Tissue from Salivary Gland Updated:07/31/22840 Relevant Studies at Discharge n/a Last Lab Results at Discharge Creatinine: Lab Results Component Value Date CREATININE 0.75 07/30/2022 Electrolytes: Lab Results Component Value Date NA 139 07/30/2022 K 4.2 07/30/2022 CL 103 07/30/2022 CO2 23 07/30/2022 Discharge Follow Up Appointments Scheduled with [facility] in the next 3 months Upcoming Appointments Aug 09, 2022 11:30 Post Op with Shane Richardson MD [facility] (--) [address] [facility] [id number] MARNI HANNON MD 07/31/2022 12:51 Cosigned by [...] Code Departure Means Destination Home or Self Mcfp documented in this encounter Progress Notes * [...] at the recommendation of cardiology; 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 Feeling well. [...] 5 beat run of [place] on tele, notified. Pt ordered for transfer to [facility] for administration of Diltiazm.. Meds given per OCT, assessments as documented. Surgical site well approximated, jacqueline with bacitracinapplied, hemoac draining serosanguinous. Pt denies [...] SERVICE DATE: 07/30/2022 SURGEON: Shane Richardson MD PRIVATE TUTOR: Jerri Means MD PREOPERATIVE DIAGNOSIS: Left parotid [...] Jerri Means MD Otolaryngology Resident, PGY-5 Pager [phone] Cosigned by Shane Richardson MD at 07/30/2022 10:57 EST documented in this encounter Miscellaneous Notes * Plan of Care - Dimple Tong RN - 07/31/2022 1322 EST Problem: Daily Care Plan Goals Goal: Care Plan Documentation Flowsheets (Taken 07/31/2022 1139) Area of Focus: Discharge Plan Goal This [...] Goal: Care Plan Documentation Flowsheets (Taken 07/30/2022 1854) Area of Focus: Circulatory Status Goal This Shift: VSS Admission Note D - This is a(n) 66 y.o. male who is being transferred from [place] [address] This is post-op day #0 for the [...] LDA for any identified wounds ??? Add Golf image for any suspected PI ??? Order wound consult if suspected PI identified 07/30/2022 19:18 documented in this encounter Plan of Treatment Upcoming Encounters Date Type Department Care Team (Late st Contact Info) Description 07/22/2024 19:30 EST Appointment [facility] Radiology CT - [facility] [address] [place], [place] [phone] 07/29/2025 15:[address] [facility] Cardiology - [address] [place], [place] [phone] Palak Diallo MD [address] [facility], [address] [place] [address] documented as of this encounter Procedures Procedure Name Priority Date/Time Associated Diagnosis Comments ECG REPORT - SCANNED 08/06/2022 10:45 EST MAGNESIUM Routine 07/30/2022 15:18 EST BASIC METABOLIC PANEL (BMP) Routine 07/30/2022 15:18 EST SURGICAL PATHOLOGY Routine 07/30/2022 9: 42 EST EXCISION, NEOPLASM, PAROTID GLAND, LATERAL LOBE, WITH FACIAL NERVE DISSECTION AND PRESERVATION 07/30/2022 7:25 EST Parotid mass ZZCOVID-19 TEST [facility] PCR STAT 07/30/2022 6:54 EST COVID-19 TESTING STAT 07/30/2022 6:54 EST documented in this encounter Results * ECG REPORT - SCANNED (08/06/2022 10:45 EST) 08/06/2022 10:4 5 EST us Scan 2 Housing Quality Standard Inspector PROCEDURE/MINOR SURGICAL OR DERABLES Final Result * MAGNESIUM (07/30/2022 15:18 EST) Magnesium 1.9 1.7 - 2.8 mg/dL 07/30/2022 15:54 EST [facility] Blood VENOUS BLOOD / Unknown Venipuncture / Unknown 07/30/2022 15:18 EST 07/30/2022 15:23 EST us Marni Hannon MD CHEMISTRY & BLOOD GAS ORDERABLE S Final Result Performing Organization Address City/State/[facility] Co de Phone Number [facility] [address] [place] [phone] * (ABNORMAL) BASIC METABOLIC PANEL (BMP) (07/30/2022 15:18 EST) Sodium 139 136 - 145 mmol/L 07/30/2022 15:54 EST [facility] Potassium 4.2 3.5 - 5.0 mmol/L 07/30/2022 15:54 EST [facility] Chloride 103 96 - 110 mmol/L 07/30/2022 15:54 EST [facility] CO2 Total 23 22 - 32 mmol/L 07/30/2022 15:54 EST [facility] Anion Gap 13 5 - 14 07/30/2022 15:54 [facility] Glucose 206(H) 70 - 100 mg/dL 07/30/2022 15:54 [facility] Calcium 9.1 8.5 - 10.5 mg/dL 07/30/2022 15:54 [facility] BUN 15 10 - 26 mg/dL 07/30/2022 15:54 [facility] Creatinine 0.75 0.66 - 1.25 mg/dL 07/30/2022 15:54 [facility] eGFR 100 >60 mL/min/1.73 m2 07/30/2022 15:54 [facility] Blood VENOUS BLOOD / Unknown Venipuncture / Unknown 07/30/2022 15:18 EST 07/30/2022 15:23 EST us Marni Hannon MD CHEMISTRY & BLOOD GAS ORDERABLE S Final Result Performing Organization Address City/State/[facility] Co de Phone Number [facility] [address] [place] [phone] * SURGICAL PATHOLOGY (07/30/2022 9:42 EST) Note to Patient The following pathology results have been interpreted by your pathologist and may be available to you before your health provider has had the opportunity to review them. Please allow time for your provider to receive these results and explore management options, if applicable. 3 16:21 [facility] Final Diagnosis A. LYMPH NODE, [...] and dermis. - See comment. 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 The differential diagnosis would include a ruptured benign lymphoepithelial cyst. Hot Dipper slides of this case were reviewed at the intradepartmental consultation conference. 3 16:21 [facility] Attestation By the signature below, the attending physician certifies that they have 1) personally conducted a gross and/or microscopic examination of the described specimen(s), and/or personally interpreted the results of laboratory testing of the described specimen(s), and 2) personally rendered or confirmed the above diagnosis. 3 16:21 [facility] at 1621 Intraoperative Consultation A. LEFT PERIFACIAL LYMPH NODE, EXCISION (FSA1): - Lymph node, negative for carcinoma. - Communicated to Dr. Pj Richarsdon by Dr. Brian Sarabia at 10:04 on 07/30/22. Dr. Brian Sarabia 3 16:21 [facility] Clinical History Parotid mass; rule out malignancy 3 16:21 [facility] Gross Description A. Received fresh [...] areas extend to abut the overlying dermis. Hot Dipper sections are submitted as follows: BLOCK BYERS [...] KATHY ROJAS(ASCP) 07/31/2022 10:37 3 16:21 EST [facility] Performing Lab [facility] 3 16:21 EST [facility] Scanned Images 3 16:21 EST [facility] Tissue STRUCTURE OF LYMPH NODE / Unknown 07/30/2022 9:42 EST 07/30/2022 9:52 EST Comment:RULE OUT MALIGNANCY Tissue specimen (specimen) SALIVARY GLAND STRUCTURE / Unknown 07/30/2022 10:11 EST 07/30/2022 13:19 EST Comment:RULE OUT MALIGNANCY us Shane Richardson MD PATHOLOGY ORDERABLES F inal Result [facility] [address] [place] [address] * COVID-19 TEST [facility] PCR (07/30/2022 6:54 EST) Swab BOTH ANTERIOR NARES / Unknown Swab / Unknown 07/30/2022 6:54 EST 07/30/2022 6:57 EST Shane Richardson MD MICROBIOLOGY - GENERAL ORDERABLES Final Result Performing Organization Address [facility] Co de Phone Number [facility] [address] [place] [address] * COVID-19 TESTING (07/30/2022 6:54 EST) COVID-19 rt-PCR Result Negative Negative 07/30/2022 11:13 EST [facility] Comment: This test has [...] history, and epidemiological information. Performed on the [employer] instrument Performing Lab [place] [facility] 07/30/2022 11:13 EST [facility] Swab BOTH ANTERIOR NARES / Unknown Swab / Unknown 07/30/2022 6:54 EST 07/30/2022 6:57 EST Shane Richardson MD MICROBIOLOGY - GENERAL ORDERABLES Final Result Performing Organization Address City/[facility]/ZIP Co de Phone Number [facility] [address] [place] [address] documented in this encounter Visit Diagnoses Diagnosis [...] New Bag 07/30/2022 13:09 EST 75 mL/hr lidocaine-EPINEPHrine 2 %-1:100,000 injection PRN, Starting on Fri07/30/22 at 0835, Until Fri07/30/22 at 1056, Routine, Intraprocedure Given 07/30/2022 8:35 EST 10 mL Other magnesium oxide (MAG-OX) tablet 400 mg 400 [...] Until Discontinued, Routine Given 07/31/2022 8:29 EST 50 mg microfibrillar collagen (HEMOSTAT) pad PRN, Starting on Fri07/30/22 at 1026, Until Fri07/30/22 at 1056, Intraprocedure Given 07/30/2022 10:26 EST 1 E ach Other ondansetron (PF) (ZOFRAN) injection 4 mg 4 [...] Routine 1330 (Given - Provider: Sofi Alston, TAYO)1756 (Given - Provider: Sofi Alston RN) 0120 (Given - Provider: Joo Voss, TAYO)0553 (Not Given - Provider: Joo Voss RN - Reason: Patient/family refused)1144 (Given - Provider: Dimple Tong, RN) amLODIPine (NORVASC) tablet 5 mg 5 mg, oral, AT BEDTIME, First dose on Fri07/30/22 at 2100, Until Discontinued, Routine 2044 (Given - Provider: Dimple Tong RN) ampicillin-sulbactam (UNASYN) 3,000 mg in sodium [...] Sofi Alston, RN)2218 (Given - Provider: Dimple Tong RN) 0554 (Given - Provider: Joo Voss, TAYO)1021 (Given - Provider: Dayo De Anda RN) bacitracin zinc 500 unit/gram ointment topical, 2 [...] 1400, Routine 1420 (Given - Provider: Sofi Alston, TAYO) metoprolol TARtrate (LOPRESSOR) tablet 50 mg 50 [...] Alston RN) 0000 (Given - Provider: Joo Voss, TAYO)0829 (Given - Provider: Dayo De Anda RN)1600 [...] RN)0801 (Rate Change - Provider: Dayo De Anda, TAYO)0933 (Paused - Provider: Dayo De Anda RN) lactated ringers (LR) infusion (CANCELED) at 25 mL/hr, intravenous, CONTINUOUS, Starting on Fri07/30/22 at 0715, Until Fri07/30/22 at 1213, Routine, Preprocedure 0713 (New Bag - Provider: Franny Xiao RN)0735 (Paused - Provider: ULISES Nieto - Comment: Switch to gravity)0736 (Restarted - Provider: ULISES Neito)1059 (Completed - Provider: ULISES Nieto) lactated ringers [...] % ) injection 2 mg 1 07/30/2022 metoclopramide (REGLAN) injection 10 mg 1 1 09/30/2021 metoprolol TARtrate (LOPRESS OR) 5 mg in sodium chloride (NS) 0.9 % 50 mL IVPB 1 07/30/2022 metoprolol TARtrate (LOPRESS OR) tablet 50 mg 1 07/30/2022 naloxone (NARCAN) injection 0.2 mg 1 2021 [...] 07/05 documented in this encounter Care Teams Warping Machine Operator Relationship Specialty Start Date End Date Robyn Glynn MD [address] [place] [phone] PCP - General Family Medicine - Primary Care 11/02/21 documented as of this encounter
--- OUTSIDE RECORDS SUMMARY | 2024-07-21 16:39 | XMS_ITS | Encounter Summary ---
Author Organization [facility] Address [address] [place] [address] Care Team Providers Care Imaging Account Manager Name Role Phone Robyn Glynn MD Primary Care Provider [phone] Reason for Visit * Reason Comments Heart Problem * Referral (Routine) - Receiving Office to Obtain Authorization Specialty Diagnoses / Procedures Ref[facility] Referred To Contact Cardiology Diagnoses Paroxysmal atrial fibrillation (HCC-CMS) Robyn Glynn MD [address] [place] [address] Phone: tel: fax: Helio Lyons MD Phone: tel: fax: Referral ID Status Reason Start Date Expiration Date Visits Requested Visits Authorized [id number] Receiving Office to Obtain Authorization 1 1 Encounter Details Date Type Department Care Team (Late st Contact Info) Description 07/01/2022 14:00 EST Office Visit [facility] - [address] [place] [address] Helio Lyons MD [address] [facility] [address] [place] [phone] Paroxysmal atrial fibrillation (HCC-CMS) (Primary Dx) [...] Sign Reading Time Taken Comments Blood Pressure 144/72 07/01/2022 1357 EST Pulse 49 07/01/2022 1357 EST Temperature - - Respiratory Rate - - Oxygen Saturation 100% 07/01/2022 1357 EST Inhaled Oxygen Concentration - - Weight 130.6 kg (288 lb) 07/01/2022 1357 EST Height - - Body Mass Index 41.32 05/22/2022 1353 EDT documented in this encounter Functional Status * Because of [...] 07/01/2022 13:58 EST documented in this encounter Progress Notes * Helio Lyons MD - 07/01/2022 1400 EST Cardiology New Patient Visit 07/01/22 This consultation was requested by Robyn Glynn MD for atrial fibrillation Chief complaint: Heart Problem Problems list: Persistent AF Hypertension ANNELISE Parotid mass Obesity Assessment & Plan Samm Macdonald is a 66 y.o. male with a history of PAF. He has an elevated [id number] score and long-term OAC is appropriate. I discussed stroke prevention in detail with Mr. Macdonald and his . We also discussed rate versus rhythm control. Mr. Macdonald is due for parotid gland surgery in the near future. I would recommend that he have his parotid duct/gland surgery without further delay. His risk of a perioperative cardiac event is low. Further cardiac diagnostic testing is not necessary for preoperative risk assessment. After addressing the parotid mass, Mr. Macdonald should be restarted on OAC. He essentially has tachybradycardia syndrome. He is quite bradycardic when in sinus rhythm. When in AF his rate is elevated. This may necessitate the implantation of a pacemaker. Once a pacemaker is not been implanted then further medical therapy is reasonable. I also discussed catheter ablation in detail with Mr. Macdonald and his . Plans: Proceed with ongoing medical care for parotid mass Continue OAC and low-dose metoprolol Once parotid surgery completed then can turn attention to antiarrhythmic drug therapy versus catheter ablation. RTC in 3 months Diagnoses and all orders for this visit: Paroxysmal atrial fibrillation (HCC-CMS) (HCC) Return in about 3 months (around 10/01/2022). Helio Lyons MD Subjective Samm Macdonald is a 66 y.o. male with a history of ANNELISE and hypertension who was noted to be in atrial fibrillation this past summer. Atrial fibrillation was identified somewhat serendipitously during an evaluation for right parotid mass. Mr. Macdonald had TTE which demonstrated preserved LV systolic function, mild LVH and no valvular heartdisease. The left atrium was identified as being mildly dilated. The PA pressure was estimated rolly normal. Mr. Macdonald was started on OAC. He was seen by the cardiology group at [facility]. He is now referred to [facility] for further evaluation and management. Mr. Macdonald has minimal symptoms symptoms related to his AF. He did wear a 1 month ambulatory monitor, 05/2022, which demonstrated PAF 20% of the time. The ventricular rate was > 100 bpm for 2/3 of the time that the patient was in AF. Mr. Macdonald has mild to minimal symptoms related to his AF. He denies tachycardia symptoms. He has not had syncope or near syncope. In retrospect he might have some vague exercise intolerance when in AF. He does not sense that his heart is beating rapidly or erratically. [id number] score is 2 for age greater than 65 and hypertension. ROS See subjective for pertinent positives and negatives Past Medical History: Diagnosis Date ??? A-fib (HCC-CMS) (HCC) ??? Apnea ??? Back pain ??? History of general anesthesia ??? Hypertension ??? Joint replaced ??? Sleep apnea 05/08/2022 cpap ??? Spinal stenosis Past Surgical History: Procedure Laterality Date ??? EYE SURGERY catarcts, cataract redo, rentinal surgery ??? JOINT REPLACEMENT ??? KNEE SURGERY ??? RHINOPLASTY ??? TONSILLECTOMY ??? UVULOPALATOPHARYGOPLASTY Social History Tobacco Use ??? Smoking status: Never ??? Smokeless tobacco: Never Substance Use Topics ??? Alcohol use: No Family History Problem Relation Age of Onset ??? High Blood Pressure Mother ??? *Other(comment) Mother afib ??? Dementia Mother ??? Dementia Father Allergies Allergen Reactions ??? Chloraseptic (Benzocaine) Rash ??? Indocin [Indomethacin] hallucinates Outpatient Medications Marked as Taking for the 07/01/22 encounter (Office Visit) with Helio Lyons MD: ??? acetaminophen 325 mg capsule, Take 1,000 mg by mouth if needed. ??? amLODIPine (NORVASC) 5 mg tablet, Take 5 mg by mouth at bedtime. ??? ELIQUIS 5 mg tablet, Take 5 mg by mouth 2 times daily. ??? melatonin 10 mg capsule, Take by mouth. ??? metoprolol TARtrate (LOPRESSOR) 50 mg tablet, Take 50 mg by mouth 2 times daily. Objective BP (!) 144/72 (BP Cuff Location: Right arm, BP Patient Position: Sitting, BP Cuff Sizes: Adult, regular) Pulse (!) 49 Wt (!) 130.6 kg (288 lb) SpO2 100% BMI 41.32 kg/m?? Physical Exam Vitals and nursing note reviewed. Constitutional: Appearance: Normal appearance. Cardiovascular: Rate and Rhythm: Normal rate and regular rhythm. Pulses: Normal pulses. Heart sounds: Normal heart sounds. Pulmonary: Effort: Pulmonary effort is normal. Abdominal: General: Abdomen is flat. Musculoskeletal: General: No swelling. Skin: General: Skin is warm and dry. Neurological: Mental Status: He is alert. Twelve-lead ECG from May 2022: Sinus bradycardia at 45 bpm with first-degree AV block TTE: Reviewed with the patient and his Event recorder: Reviewed with the patient and his Diagnostics: Laboratory studies from May 2022: Reviewed I spent a total of 45 minutes on the date of this encounter meeting with the patient and reviewing documentation/coordinating care as described in the above note. documented in this encounter Plan of Treatment Upcoming Encounters Date Type Department Care Team (Late st Contact Info) Description 07/22/2024 19:30 EST Appointment [facility] Radiology CT - [facility] [address] [place], [place] [address] 07/29/2025 15:40 EST Office Visit [facility] - [address] [place] [address] Palak Diallo MD [address] [facility] [address] [facility] [place], [address] [place] [phone] documented as of this encounter Visit Diagnoses Diagnosis Paroxysmal atrial fibrillation (HCC-CMS)- Primary Atrial fibrillation documented in this encounter Care Teams Imaging Account Manager Relationship Specialty Start Date End Date Robyn Glynn MD [address] [place] [address] PCP - General Family Medicine - Primary Care 11/02/21 documented as of this encounter
--- OUTSIDE RECORDS SUMMARY | 2024-07-21 16:39 | XMS_ITS | Encounter Summary ---
Author Organization [facility] Address [address] [place] [address] Care Team Providers Care American Indian Policy Specialist Name Role Phone Robyn Glynn MD Primary Care Provider [phone] Reason for Visit * Reason Comments Post-OP Follow Up Encounter Details Date Type Department Care Team (Late st Contact Info) Description 08/09/2022 11:30 EST Post-op Visit [facility]- [address] [id number] Shane Richardson MD [address] [place] [address], [address] [place] [phone] Parotid mass (Primary Dx) Social History Tobacco Use Types Packs/Day Years Used Date Smoking Tobacco: Never Smokeless Tobacco: Never Tobacco Cessation:Counseling Given: Not [...] documented in this encounter Progress Notes * Shane Richardson MD - 08/09/2022 1130 EST Images from the original note were not included. .Samm Macdonald is seen 1 week status post left superficial parotidectomy. He tolerated the surgery well and went home the next day as planned. He has noted numbness of the lower two thirds of the left ear and left cheek and neck but no facial weakness. He initially had some trismus but this is improved. 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 There is no evidence of malignancy: Final Diagnosis A. LYMPH NODE, LEFT PERIFACIAL, EXCISION: - One lymph node negative for carcinoma (0/1). ?? B. PAROTID GLAND, SUPERFICIAL PAROTIDECTOMY: - Cyst lined by mature squamous epithelium and marked regressive changes, suggestive of infarcted Warthin tumor. - Negative for malignancy. - Margins are free of cyst epithelium - Twelve lymph nodes negative for carcinoma (0/12). - Chronic inflammatory changes and fibrosis extend into subcutaneous tissue and dermis. - See comment. Diagnosis Comment No oncocytic epithelium is seen, although the cystic lesion lined by metaplastic squamous epithelium along with necrotic material and regressive changes are suggestive of an infarcted Warthin tumor. The differential diagnosis would include a ruptured benign lymphoepithelial cyst. ?? Tunnel Elastic Operator Zigzag slides of this case were reviewed at the intradepartmental consultation conference. Attestation By the signature below, the attending physician certifies that they have 1) personally conducted a gross and/or microscopic examination of the described specimen(s), and/or personally interpreted theresults of laboratory testing of the described specimen(s), and 2) personally rendered or confirmedthe above diagnosis. at 1621 EXAM: No acute distress. The left parotidectomy incision is healing nicely, sutures removed. There is mild edema but no fluctuance and no signs of hematoma, seroma or infection. There is numbness of the left ear and upper neck/cheek but no facial weakness. A/P: Doing well 1 week postop. He is healing appropriately. Sutures were removed. Wound care was reviewed. He is cleared to gradually resume normal activity as tolerated. Final pathology was benign. I will see him on an as-needed basis in the future documented in this encounter Plan of Treatment Upcoming Encounters Date Type Department Care Team (Late st Contact Info) Description 07/22/2024 19:30 EST Appointment [facility] Radiology CT - [facility] [address] [place], [place] [address] 07/29/2025 15:40 EST Office Visit [facility] Cardiology - [address] [place] [address] Palak Diallo MD [address] [facility] [place], [address] [place] [phone] documented as of this encounter Visit Diagnoses Diagnosis Parotid mass- Primary Swelling, mass, or lump in head and neck documented in this encounter Care Teams American Indian Policy Specialist Relationship Specialty Start Date End Date Robyn Glynn MD [address] [place] [address] PCP - General Family Medicine - Primary Care 11/02/21 documented as of this encounter
--- OUTSIDE RECORDS SUMMARY | 2024-07-21 16:39 | XMS_ITS | Encounter Summary ---
Author Organization [facility] Address [address] [place] [address] Care Team Providers Care Volunteer Fire Fighter Name Role Phone Robyn Glynn MD Primary Care Provider [phone] Encounter Details Date Type Department Care Team (Latest Contact Info) Description 07/23/2022 11:10 EST - 07/23/2022 23:59 EST Hospital Encounter [facility] Pre-Surgical Testing [address] [place] [address] Discharge Disposition: Home or Self Care Social [...] Sign Reading Time Taken Comments Blood Pressure - - Pulse - - Temperature - - Respiratory Rate - - Oxygen Saturation - - Inhaled Oxygen Concentration - - Weight 131.5 kg (290 lb) 07/23/2022 1316 EST Height 177.8 cm (5' 10) 07/23/2022 1316 EST Body Mass Index 41.61 07/23/2022 1316 EST documented in this encounter Functional Status [...] 07/01/2022 13:58 EST documented in this encounter Medications at [...] Take 1,000 Units by mouth daily. 3 ELIQUIS 5 mg tablet Take 5 mg by mouth 2 times daily. 04/01/2022 2 ibuprofen (MOTRIN) 800 mg tablet Take 800 [...] daily. 3 documented as of this encounter Discharge Disposition Disposition Code Departure Means Destination Home or Self Care documented in this encounter Miscellaneous Notes * PAT Paul - Yassine Samano RN - 07/23/2022 1110 EST Patient is scheduled for 07/30/22 for EXCISION - NEOPLASM of PAROTID GLAND, LATERAL LOBE, WITH FACIAL NERVE DISSECTION AND PRESERVATION-LT He has a PMHX of Afib, ANNELISE and is compliant with his CPAP machine. He will bring DOS. He is on Eliquis and there is a plan(Under telephone notes dated 05/06/22)in chart, pt is aware to hold day before surgery and resume day after. Pt had an event monitor placed on 05/22/22 and results are in the chart under cardiology.This was from Dr. Mclain(Mr. Macdonald has minimal symptoms symptoms related to his AF. He did wear a 1 month ambulatory monitor, 05/2022, which demonstrated PAF 20% of the time. The ventricular rate was > 100 bpm for 2/3 of the time that the patient was in AF. He also has had an Echo on 04/03/2022: Left??Ventricle: The left ventricular cavity was normal in [...] excluded on the basis of this study. ??? Right??Ventricle: The right ventricular cavity was normal in size. Right ventricular systolic function was normal. ?? Any additional testing or follow up needed? JORGE LUIS BELLO LPN Per Serena 07/01/22: Mr. Macdonald is due for parotid gland surgery in the near future. I would recommend that he have his parotid duct/gland surgery without further delay. His risk of a perioperativecardiac event is low. Further cardiac diagnostic testing is not necessary for preoperative risk assessment. YASSINE SAMANO RN 07/24/2022 14:35 documented in this encounter Plan of Treatment Upcoming Encounters Date Type Department Care Team (Late st Contact Info) Description 07/22/2024 19:30 EST Appointment [facility] Radiology CT - [facility] [address] [place], [place] [address] 07/29/2025 15:40 EST Office Visit [facility] Cardiology - [address] [place] [address] Palak Diallo MD [address] [facility], [place], [address] [place] [phone] documented as of this encounter Visit Diagnoses Not on filedocumented in this encounter Historical Medications * This list may reflect changes made after this encounter. magnesium oxide (MAG-OX) 400 mg (241.3 mg magnesium) tablet Take 1 Tablet by mouth daily. 07/13/2023 cholecalciferol, Vitamin D3, 25 mcg (1,000 unit) tablet Take 1,000 Units by mouth daily. 07/13/2023 added in this encounter Care Teams Volunteer Fire Fighter Relationship Specialty Start Date End Date Robyn Glynn MD [address] [place] [phone] PCP - General Family Medicine - Primary Care 11/02/21 documented as of this encounter
--- OUTSIDE RECORDS SUMMARY | 2024-07-21 16:39 | XMS_ITS | Encounter Summary ---
Author Organization [facility] Address [address] [place] [address] Care Team Providers Care Fleet Driver Name Role Phone Robyn Glynn MD Primary Care Provider [phone] Reason for Visit * Auth/Cert Specialty Diagnoses / Procedures Referred By Acacia neumann Referred To Contact Diagnoses Parotid mass Procedures MO EXC PAROTD,LAT LOBE,DISSECT 5TH NERV EXCISION - NEOPLASM of PAROTID GLAND, LATERAL LOBE, WITH FACIAL NERVE DISSECTION AND PRESERVATION Referral ID Status Reason Start Date Expiration Date Visits Re quested Visits Authorized [id number] 1 1 Encounter Details Date Type Department Care Team (Late st Contact Info) Description 07/30/2022 7:[address] [facility] [place] [address] [place] [address] [id number] Ketan Stoner MD [address] [place] [address] [address] [place] [phone] Anesthesia Record Procedure Summary Procedure Name Responsible Anesthesiologist Anesthesia Start Time Anesthesia Stop Time EXCISION - NEOPLASM of PAROTID GLAND, LATERAL LOBE, WITH FACIAL NERVE DISSECTION AND PRESERVATION (Left: Neck) Ketan Stoner MD 07/30/22 0736 07/30/22 1059 Events Date Time Event Comment 07/30/2022 0736 An Start The patient was re-evaluated immediately before moderate or deep sedation use, before anesthesia induction, or before the anesthesia procedure. 0736 An Start Data 0743 An Induction The patient was reevaluated immediately before moderate or deep sedation use and before anesthesia induction. 0747 An Intubation 0747 Anesthesia Ready 1051 An Extubation Neuromuscular blockade reversed with full TOF and sustained tetanus. Patient spontaneously breathing. Oropharynx suctioned and patient extubated awake. Airway patent post-extubation. To PACU with 8 L supplemental oxygen via mask. VSS 1055 [facility] Transport to [facility]. VSS. 8L O2 face mask. 1055 an stop data 1059 Handoff to RN I completed my handoff to the receiving nurse during which we: 1. Identified the patient 2. Identified the responsible provider 3. Reviewed the pertinent medical history 4. Discussed the surgical course 5. Reviewed intra-op anesthesia management and issues during anesthesia 6. Set expectations for post-procedure period 7. Allowed opportunity for questions and acknowledgement of understanding. 1059 An Stop Meds Name Total dexaMETHasone (DECADRON) injection 4 mg/ mL (for IV doses up to 10mg) 10 mg ePHEDrine pre-filled syringe 35 mg fentanyl citrate (PF) injection 200 mcg HYDROmorphone vial 2 mg/mL 0.8 mg midazolam (versed) 1 mg/mL 2 mL vial 2 m g ondansetron (PF) (ZOFRAN) injection 4 mg lidocaine 2% (PF) injection glass vial 6 0 mg propOFol (DIPRIVAN) injection 300 mg propOFol injection 2,581,002 mcg succinylcholine 20 mg/mL vial 140 mg remifentanil (ULTIVA) 2,000 mcg in sodiu m chloride (NS) 100 mL 2,653.25 mcg ceFAZolin (ANCEF) syringe 2 g 3 g acetaminophen 10 mg/ml 100 mL infusion 1 ,000 mg lactated ringers (LR) infusion 1,000 mL * Agents Name O2 N2O Air * Blood No blood administrations on file. Lines, Drains, and Airways Type Details Placement Removal Peripheral IV 07/30/22; 0713; 20; 1.25; B Fernandez Introcan; Posterior, Right; Forearm; Inserted by RN; 1; None; 2% Chlorhexidine with IPA; 07/31/22; 0217; Infiltrated 07/30/22 07 by Franny Xiao RN 07/31/22 021 by Jacqueline Voss RN Peripheral IV 07/30/22; 0750; 20; 1.25; B Fernandez Introcan; Left; Forearm; In OR by MD; 1; None; 70% IPA; 07/31/22; 1432; Discharged; No complications 07/30/22 0750 by Tiffani Gonzalez AA 07/31/22 1432 by Dimple Teran RN Non-Surgical Airway 07/30/22; 0811 (crearnie pastor via procedure documentation); 07/30/22; 1051 07/30/22 0811 by Tiffani Gonzalez AA 07/30/22 1051 by Tiffani Gonzalez AA Wound 07/30/22; 0826; Inci cierra; Left; Jaw; surgical excision site; N; 07/13/23; 0805 07/30/22 0826 by Georgina Garland RN 07/13/23 0805 by Luz Navas RN Closed/Suction Drain 07/30/22; 1032; At bedside by Provider; 1; Left, Anterior; Neck; 10 Yoruba; 07/13/23; 0805 07/30/22 1032 by Georgina Garland RN 07/13/23 0805 by Luz Navas RN documented in this encounter Social History Tobacco [...] of Assessment Author No 07/30/2022 14:00 Racquel Marx, RN * Are you blind or do [...] Racquel Marx RN documented in this encounter OR Notes * Anesthesia Postprocedure Evaluation - Tiffani Gonzalez AA - 07/30/2022 1059 EST Patient: Samm Macdonald Vital signs were reviewed with the recovery nurse. Complete vitals history is available in the Epicflowsheets. Vitals Value Taken Time BP 178/88 07/30/22 1059 Temp 07/30/22 1059 Resp 07/30/22 1059 Pulse From Oximetry 65 BPM 07/30/22 1058 SpO2 100 % 07/30/22 1058 Heart Rate 65 BPM 07/30/22 1058 Vitals shown include unvalidated device data. Patient report to NON DESTRUCTIVE EVALUATION SPECIALIST; VSS; Please see PACU vital signs Last Pain Score - Numeric Pain Level (Scale 1-10): 0 Type of Anesthesia - general Anesthesia Post Evaluation Post-procedure vitals reviewed and are stable. Level of consciousness: awake Temperature status: normothermia Respiratory status: airway patent, stable and face mask Cardiovascular status: appropriate for condition, acceptable and stable Hydration status: adequate Nausea/Vomiting: none Pain management: adequate Post-Op Assessment: patient tolerated procedure well with no complications and patient satisfied with anesthesia care Patient participation: able to participate Disposition: inpatient Anesthesia Complications: No apparent anesthesia complications * Anesthesia Procedure Notes - Tiffani Gonzalez AA - 07/30/2022 0811 EST Associated Order(s): Airway Airway Date/Time: 07/30/2022 7:47 Urgency: elective Airway not difficult General Information and Staff Patient location during procedure: OR Anesthesiologist: Ketan Stoner MD Resident/WINEMAKER: Tiffani Gonzalez AA Performed: resident/WINEMAKER/AA Indications and Patient Condition Indications for airway management: anesthesia Sedation level: GA Preoxygenated: yes Patient position: sniffing Ventilation assessment: 2 - Oral airway inserted Final Airway Details Final airway type: endotracheal airway Successful airway: ETT and ILA tube Cuffed: yes Successful intubation technique: video laryngoscopy Sebastian Facilitating devices/methods: intubating stylet Endotracheal tube insertion site: oral Blade size: #4 ETT size (mm): 8.0 Cormack-Lehane Classification: grade I - full view of glottis Placement verified by: chest auscultation and capnometry Measured from: lips ETT to lips (cm): 22 Number of attempts at approach: 1 Additional Comments Atraumatic ETT Intubation; Dentition intact per preop * Anesthesia Preprocedure Evaluation - Ketan Stoner MD - 07/30/2022 0705 EST Anesthesia Preprocedure Evaluation Patient Medical History, including Anesthesia History reviewed. Chart and Nursing Notes reviewed, including NPO status and Medication History. Additional ROS/History Findings: NPO excluding metolprolol. No URI. No prior anesthetic issues. Gerd controlled. Able to meet >4 METs. Bradycardic when not in afib, at baseline. HR in 30s-40s and asymptomatic. Cpap nightly. Allergies Allergen Reactions ??? Chloraseptic (Benzocaine) Rash ??? Indocin [Indomethacin] hallucinates Review of Systems Constitutional: Negative for fever. HENT: Negative for sore throat. Respiratory: Negative for shortness of breath. Cardiovascular: Negative for chest pain and leg swelling. Gastrointestinal: Negative for heartburn, nausea and vomiting. Neurological: Negative for seizures. Past Medical History: Diagnosis Date ??? A-fib ([facility]) (HCC) Noted 07/23/22- In and out of afib, pt is on Eliquis. ??? Activity, other involving cardiorespiratory exercise Noted 07/23/22- Skiing, hiking, 1-2 FOS without SOB ??? Apnea ??? Arrhythmia Noted 07/23/22-Pt is bradycardic when in sinus rhythm.When in AF his rate is elevated. ??? Back pain Noted 07/23/22-Hx of surgery ??? Edentulous Noted 07/23/22 Upper left missing tooth ??? History of general anesthesia Noted 07/23/22- No issues. ??? Hypertension Noted 07/23/22 -130 /70 per spouse at recent visit, well controlled on meds. ??? 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 Sleep apnea 05/08/2022 Noted 07/23/22 Compliant w/Cpap machine, Uvula removed (28 yrs ago) ??? Spinal stenosis Noted 07/23/22 Relevant Problems No relevant active problems Physical Exam Airway Mallampati: II TM distance: >3 FB Neck ROM: full Cardiovascular - normal exam Rhythm: regular Rate: abnormal Dental Pulmonary Breath sounds clear to auscultation Abdominal Anesthesia Plan ASA 2 Anesthesia Type - general, to include intravenous induction. Anesthesia Plan Details to include - arterial line. Anesthesia plan and risks discussed. Informed consent obtained from patient. Specific risks discussed were bleeding, blindness, dental injury, headache, nausea, vomiting, myocardial infarction, infection, stroke, post-op intubation, nerve damage, ICU placement and . PAT Note PAT Note by Christopher Earl RN at 07/23/2022 11:10 Version 2 of 2 Patient is scheduled for 07/30/22 for EXCISION [...] Any additional testing or follow up needed? DIONY BELLO LPN Per Serena 07/01/22: Mr. Macdonald is due for parotid gland surgery in the near future. I would recommend that he have his parotid duct/gland surgery without further delay. His risk of a perioperativecardiac event is low. Further cardiac diagnostic testing is not necessary for preoperative risk assessment. CHRISTOPHER EARL RN 07/24/2022 14:35 PAT Note by Diony Bello LPN at 07/23/2022 11:10 Version 1 of 2 Patient is scheduled for 07/30/22 for EXCISION [...] Any additional testing or follow up needed? DIONY BELLO LPN documented in this encounter Plan of Treatment Upcoming Encounters Date Type Department Care Team (Late st Contact Info) Description 07/22/2024 19:30 EST Appointment [facility] Radiology CT - [address] [phone] 07/29/2025 15:40 EST Office Visit [facility] Cardiology - [address] [place] [address] Palak Diallo MD [address] [place] [address], [address] [place] [phone] documented as of this encounter Procedures Procedure Name Priority Date/Time Associated Diagnosis Comments ANESTHESIA INTUBATION Routine 07/30/2022 7:47 EST documented in this encounter Results * MO AN ELECTIVE ENDOTRACHEAL AIRWAY (07/30/2022 7:47 EST) Narrative Tiffani Gonzalez AA - 07/30/2022 7:47 EST Tiffani Gonzalez AA ? 07/30/2022 ??8:11 Airway Date/Time: 07/30/2022 7:47 Urgency: elective Airway not difficult General Information and Staff Patient location during procedure: OR Anesthesiologist: Ketan Stoner MD Resident/WINEMAKER: Tiffani Gonzalez AA Performed: resident/WINEMAKER/AA Indications and Patient Condition Indications for airway management: anesthesia Sedation level: GA Preoxygenated: yes Patient position: sniffing Ventilation assessment: 2 - Oral airway inserted Final Airway Details Final airway type: endotracheal airway Successful airway: ETT and ILA tube Cuffed: yes Successful intubation technique: video laryngoscopy Sebastian Facilitating devices/methods: intubating stylet Endotracheal tube insertion site: oral Blade size: #4 ETT size (mm): 8.0 Cormack-Lehane Classification: grade I - full view of glottis Placement verified by: chest auscultation and capnometry Measured from: lips ETT to lips (cm): 22 Number of attempts at approach: 1 Additional Comments Atraumatic ETT Intubation; Dentition intact per preop Ketan Stoner MD ANESTHESIA ORDERABLES Final R esult documented in this encounter Visit Diagnoses Not on filedocumented in this encounter Administered Medications Inactive Administered Medications - up to 3 most recent administrations Medication Order MAR Action Action Date Dose Rate Site acetaminophen (OFIRMEV) IV solution intravenous, PRN, Starting on Fri07/30/22 at 1017, Until Fri07/30/22 at 1059, Routine, Anesthesia Intraprocedure Given 07/30/2022 10:17 EST 1,000 mg ceFAZolin (ANCEF) syringe 2 g 2 g, intravenous, Administer over 5 Minutes, PRE-OP ONCE, 1 dose, On Fri07/30/22 at 0730, Routine, Preprocedure Given 07/30/2022 7:56 EST 3 g dexAMETHasone (DECADRON) injection intravenous, PRN, Starting on Fri07/30/22 at 0811, Until Fri07/30/22 at 1059, Routine, Anesthesia Intraprocedure Given 07/30/2022 8:11 EST 10 mg ePHEDrine injection 25 mg/5 mL syringe intravenous, PRN, Starting on Fri07/30/22 at 0757, Until Fri07/30/22 at 1059, Routine, Anesthesia Intraprocedure Given 07/30/2022 8:52 EST 5 mg Given 07/30/2022 8:41 EST 5 mg Given 07/30/2022 8:32 EST 5 mg fentaNYL citrate (PF) injection intravenous, PRN, Starting on Fri07/30/22 at 0744, Until Fri07/30/22 at 1059, Routine, Anesthesia Intraprocedure Given 07/30/2022 10:15 EST 50 mcg Given 07/30/2022 9:50 EST 50 mcg Given 07/30/2022 7:44 EST 100 mcg HYDROmorphone (DILAUDUD) 2 mg/mL injection intravenous, PRN, Starting on Fri07/30/22 at 0943, Until Fri07/30/22 at 1059, Routine, Anesthesia Intraprocedure Given 07/30/2022 10:00 EST 0.4 mg Given 07/30/2022 9:43 EST 0.4 mg lactated ringers (LR) infusion at 25 mL/hr, intravenous, CONTINUOUS, Starting on Fri07/30/22 at 0715, Until Fri07/30/22 at 1213, Routine, Preprocedure Restarted 07/30/2022 7:36 EST New Bag 07/30/2022 7:13 EST 25 mL/hr lidocaine (PF) 20 mg/mL (2 %) injection intravenous, PRN, Starting on Fri07/30/22 at 0744, Until Fri07/30/22 at 1059, Routine, Anesthesia Intraprocedure Given 07/30/2022 7:44 EST 60 mg midazolam (PF) (VERSED) injection intravenous, PRN, Starting on Fri07/30/22 at 0740, Until Fri07/30/22 at 1059, Routine, Anesthesia Intraprocedure Given 07/30/2022 7:40 EST 1 mg Given 07/30/2022 7:29 EST 1 mg ondansetron (PF) (ZOFRAN) injection intravenous, PRN, Starting on Fri07/30/22 at 1017, Until Fri07/30/22 at 1059, Routine, Anesthesia Intraprocedure Given 07/30/2022 10:17 EST 4 mg propOFol (DIPRIVAN) injection intravenous, PRN, Starting on Fri07/30/22 at 0745, Until Fri07/30/22 at 1059, Routine, Anesthesia Intraprocedure Given 07/30/2022 8:52 EST 100 mg Given 07/30/2022 7:45 EST 200 mg propOFol (DIPRIVAN) injection intravenous, FA IP EQF CONTINUOUS PRN FOR ONE STEP MEDS, Starting on 07/30/22 at 0745, Until Fri07/30/22 at 1059, Routine, Anesthesia Intraprocedure Rate Change 07/30/2022 10:32 EST 90 mcg/kg/min 72.252 mL/hr Rate Change 07/30/2022 8:59 EST 110 mcg/kg/min 88.308 mL/h r Rate Change 07/30/2022 8:32 EST 100 mcg/kg/min 80.28 mL/hr remifentanil (ULTIVA) 2,000 mcg in sodium chloride (NS) 100 mL intravenous, FA IP EQF CONTINUOUS PRN FOR ONE STEP MEDS, Starting on e 07/30/22 at 0750, Until Fri07/30/22 at 1059, Anesthesia Intraprocedure Rate Change 07/30/2022 9:07 EST 0.15 mcg/kg/min 60.21 mL/hr New Bag 07/30/2022 7:58 EST 0.12 mcg/kg/min 48.168 mL/h r succinylcholine (ANECTINE) injection intravenous, PRN, Starting on 07/30/22 at 0746, Until Fri07/30/22 at 1059, Routine, Anesthesia Intraprocedure Given 07/30/2022 7:46 EST 140 mg documented in this encounter Care Teams Fleet Driver Relationship Specialty Start Date End Date Robyn Glynn MD [address] [place] [address] PCP - General Family Medicine - Primary Care 11/02/21 documented as of this encounter
--- OUTSIDE RECORDS SUMMARY | 2024-07-21 16:39 | XMS_ITS | Encounter Summary ---
Author Organization [facility] Address [address] [place] [address] Care Team Providers Care Electronic Test Technician Name Role Phone Robyn Glynn MD Primary Care Provider [phone] Reason for Visit * Reason Comments Follow-up Parotid mass Encounter Details Date Type Department Care Team (Late st Contact Info) Description 06/17/2022 14:15 EST Office Visit [facility] [place] ENT- [address] [phone] Ruddy Lopez MD [address] [place] [address], [address] [place] [address] Parotid mass (Primary Dx); Parotitis Social History Tobacco Use Types Packs/Day Years [...] on file documented as of this encounter Ordered Prescriptions Prescription Sig Dispense Quantity Refills Last Filled Start Date End Date cefpodoxime (VANTIN) 200 mg tablet Take 2 Tablets by mouth 2 times daily for 10 days. 40 Tablet 06/18/2022 2 cefpodoxime (VANTIN) 200 mg tablet Take 1 Tablet by mouth 2 times daily for 10 days. 20 Tablet 06/17/2022 2 documented in this encounter Progress Notes * Ruddy Lopez MD - 06/17/2022 1415 EST Subjective: Patient ID: Samm Macdonald is an 66 y.o. male. Chief Complaint Patient presents with ??? Follow-up Parotid mass HPI Samm Macdonald is a 66-year-old gentleman seen in follow-up from 05/20/2022 with a left tail of parotid cystic mass. He noticed this left sided parotid mass initially in spring 2021. His PCP referred him to Dr. Kulkarni for further evaluation and ordered imaging. Patient has undergone two FNAs of this lesion performed by Dr. Kulkarni which came back as non-diagnostic. He states that the mass was non-painful. He denied any numbness or tingling. No changes with his facial symmetry. He has never smoked cigarettes. 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 I performed an ultrasound-guided FNA with cytopathology present on 01/24/2022. Biopsy from the left tail of parotid mass showed atypical cells as noted below. While this may represent a infarcted Warthin's tumor (benign), possibility of a metastatic lymph node with metastatic squamous cell carcinomacannot be excluded based on the results of the needle biopsy. Flexible laryngoscopy showed no concerning masses or asymmetry in the oropharynx. He was scheduled for left superficial parotidectomy on 04/11/2022 but developed new onset atrial fibrillation for which surgery had to be postponed. He then developed an acute parotitis earlier in May 2022 and surgery again had to be canceled. Purulent fluid was drained from the cystic mass in the ER by the ENT resident on 05/12/2022 and he was placed on oral antibiotics after receiving 1 dose of IV clindamycin in the emergency department. Cefpodoxime was then added after the cultures grew Klebsiella pneumoniae. He has been working to improve his hydration, maintain good oral hydration, massage the gland and use sialagogues. There has been improvement in the swelling of the left parotid region with some persistent serous drainage fromthe skin but no facial weakness and the pain is improving (slowly). No recurrent fevers. Final Diagnosis A. PAROTID, LEFT, TAIL, 3 CM PREDOMINANTLY CYSTIC MASS, ULTRASOUND-GUIDED FINE- NEEDLE ASPIRATION: - Atypical cells present. See comment. ?? Diagnosis Comment Cytologic evaluation reveals a specimen composed predominantly of abundant cystic debris with scattered intact cells some of which appear to be nucleated mature squamous cells while other rare groupsappear oncocytic. Additionally, there is a background of numerous lymphocytes. A cell block is prepared and examined in an effort to increase diagnostic yield and contains material similar to that ofthe prepared slides. These findings could represent a lymph node with a metastatic squamous cell carcinoma or an infarcted Warthin's tumor. Clinical and radiographic correlation is advised. Facilities Maintenance Technician slides of this case were reviewed at the intradepartmental consultation conference. ?? Attestation By the signature below, the attending physician certifies that they have personally conducted a gross and/or microscopic examination of the described specimens and rendered or confirmed the above diagnosis. at 1509 Portions of this note copied from his prior encounter with me on 05/20/2022 have been updated and reviewed. Objective: There were no vitals taken for this visit. Physical Exam Department of Otolaryngology PHYSICAL EXAMINATION CONSTITUTIONAL: APPEARANCE: The patient appears alert, cooperative, and comfortable. ABILITY TO COMMUNICATE / VOICE: Normal HEAD AND FACE: SALIVARY GLANDS: Left parotid/neck less swollen. Minimal erythema. Small amount of persistent drainage near the angle of the mandible. FACIAL STRENGTH: Intact and symmetrical bilaterally EARS, NOSE, MOUTH AND THROAT: OTOSCOPY: Right external auditory canal: patent and non-inflamed Left external auditory canal: patent and non-inflamed Right tympanic membrane: intact without retraction, perforation or effusion Left tympanic membrane: intact without retraction, perforation or effusion NOSE: not examined LIPS, TEETH & GUMS: normal for age ORAL CAVITY & OROPHARYNX: normal. Post remote tonsillectomy, prior uvulectomy. Floor of mouth and base of tongue soft. Normal tongue mobility. No trismus. NECK: GENERAL: Supple, no asymmetry or crepitus, trachea midline THYROID: Normal LYMPHATIC: CERVICAL LYMPH NODES: No pathologic cervical lymphadenopathy noted Assessment: Encounter Diagnoses Name Primary? Parotid mass Yes Plan: 3 cm cystic mass of the left tail of parotid. Ultrasound-guided FNA showed atypical cells. While this may represent a infarcted Warthin's tumor (benign), possibility of a metastatic lymph node with metastatic squamous cell carcinoma cannot be excluded based on the results of the needle biopsy. As aresult, surgical excision in the form of a left superficial parotidectomy is indicated/recommended.Flexible laryngoscopy showed no concerning masses or asymmetry in the oropharynx. Consent for left superficial parotidectomy with facial nerve dissection and preservation was obtained. On physical exam and ultrasound, this is most consistent with a parotid mass but if intraoperatively, this is moreconsistent with a pathologic left level 2 cervical lymph node, the lymph node will be excised and sent to pathology for definitive diagnosis with subsequent work-up and definitive treatment to follow. He was initially scheduled for surgery in April 2022 but developed atrial fibrillation for which he is now on metoprolol and Eliquis. Surgery was then scheduled for earlier in May but he developed an acute parotitis and this again had to be delayed. He is slowly responding to treatment with less left facial and neck swelling but a small amount of persistent drainage. I extended his cefpodoxime another 10 days. We will also move forward with scheduling his surgery. Timing will depend mostly on operating room availability and my schedule, but wewill hope to get this done within the next 6-8 weeks. ADDENDUM 06/18/2022 CORRECTED PRESCRIPTION PLACED FOR CEFPODOXIME AT 200 MG TABS TWO TABS TWICE DAILY (TOTAL DOSE 400 MG TWICE DAILY). WE WILL ALSO LOOK AT MOVING UP HIS SURGICAL TIMELINE TO 4- 6 WEEKS. THIS WAS DISCUSSED WITH THE PATIENT AND HIS BY TELEPHONE TODAY. Ruddy Lopez MD documented in this encounter Miscellaneous Notes * Addendum Note - Ruddy Lopez MD - 06/17/2022 1415 ESTAddended by: RUDDY LOPEZ on: 06/18/2022 12:48 Modules accepted: Orders documented in this encounter Plan of Treatment Upcoming Encounters Date Type Department Care Team (Late st Contact Info) Description 07/22/2024 19:30 EST Appointment [facility] Radiology CT - [facility] [address] [place] [address] 07/29/2025 15:40 EST Office Visit [facility] [place] Cardiology - [address] [place] [address] Palak Diallo MD [address] [facility] [place], [address] [place] [phone] documented as of this encounter Visit Diagnoses Diagnosis Parotid mass- Primary Swelling, mass, or lump in head and neck Parotitis Sialoadenitis documented in this encounter Discontinued Medications Medication Sig Discontinue Reason Start Date End Da te cefpodoxime (VANTIN) 200 mg tablet Take 1 Tablet by mouth 2 times daily for 10 days. 06/17/2022 06/18/2022 documented as of this encounter Care Teams Electronic Test Technician Relationship Specialty Start Date End Date Robyn Glynn MD [address] [place] [phone] PCP - General Family Medicine - Primary Care 11/02/21 documented as of this encounter
--- OUTSIDE RECORDS SUMMARY | 2024-07-21 16:39 | XMS_ITS | Encounter Summary ---
Author Organization [facility] Address [address] [place] [address] Care Team Providers Care Licensed Funeral Director And Embalmer Name Role Phone Robyn Glynn MD Primary Care Provider [phone] Encounter Details Date Type Department Care Team (Late st Contact Info) Description 06/25/2023 Orders Only [facility] Cardiology - [address] [place], [place] [id number] Margarita Warner, TAYO Social History Tobacco Use Types Packs/Day Years [...] 07/22/2024 19:30 EST Appointment [facility] Radiology CT - [facility] [address] [place] [address] 07/29/2025 15:40 EST Office Visit [facility] Cardiology - [place] [address] [place] [address] Palak Diallo MD [address] [facility] [place], [address] [place] [id number] documented as of this encounter Visit Diagnoses Not on filedocumented in this encounter Care Teams Licensed Funeral Director And Embalmer Relationship Specialty Start Date End Date Robyn Glynn MD [address] [place] [phone] PCP - General Family Medicine - Primary Care 11/02/21 documented as of this encounter
--- OUTSIDE RECORDS SUMMARY | 2024-07-21 16:39 | XMS_ITS | Encounter Summary ---
Author Organization [facility] Address [address] [place] [address] Care Team Providers Care Sap Senior Developer Name Role Phone Robyn Glynn MD Primary Care Provider [phone] Reason for Visit * Reason Onset Date Comments New/Evolving Symptoms 07/14/2023 Encounter Details Date Type Department Care Team (Late st Contact Info) Description 07/14/2023 Telephone [facility] Cardiology - [address] [place] [address] Helio Lyons MD [address] [place] [address] [address] [place] [address] New/Evolving Symptoms (/) Social History Tobacco Use Types Packs/Day Years [...] encounter Miscellaneous Notes * Telephone Encounter - Yuki Aparicio - 07/14/2023 0906 EST Patient has been in afib for about 20 minutes. His current heartrate is 132 and BP is 140/70. Glenda wanted to know if she can give patient metroprolol. Stated she understands patient no longer takes metropolol but she used to give it to him when he was in afib. Thank you documented in this encounter Plan of Treatment Upcoming Encounters Date Type Department Care Team (Zoe st Contact Info) Description 07/22/2024 19:30 EST Appointment [facility] Radiology [place] - [address] [phone] 07/29/2025 15:40 EST Office Visit [facility] Cardiology [place] [address] Palak Diallo MD [address] [facility] [place], [address] [place] [phone] documented as of this encounter Visit Diagnoses Not on filedocumented in this encounter Care Teams Sap Senior Developer Relationship Specialty Start Date End Date Robyn Glynn MD [address] [place] [phone] PCP - General Family Medicine - Primary Care 11/02/21 documented as of this encounter
--- OUTSIDE RECORDS SUMMARY | 2024-07-21 16:39 | XMS_ITS | Encounter Summary ---
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 Name Role Phone Robyn Glynn MD Primary Care Provider [phone] Reason for Referral * Consult (Routine/Next Available) - Authorization Not Required Specialty Diagnoses / Procedures Referred By Acacia t Referred To Contact Cardiology Diagnoses Paroxysmal atrial fibrillation (HCC-CMS) Sirisha Daniel NP Phone: tel: fax: Helio Lyons MD Phone: tel: fax: Referral ID Status Reason Start Date Expiration Date Visits Requested Visits Authorized [id number] Authorization Not Required Specialty Services Required 3 1 1 Question Answer Reason for Request: post hospital follow up * Follow Up (Routine/Next Available) - Authorization Not Required Specialty Diagnoses / Procedures Referred By Contmarissa t Referred To Contact Cardiology Diagnoses Paroxysmal atrial fibrillation (HCC-CMS) Sirisha Daniel NP Phone: tel: fax: Mary Miller NP Phone: tel: fax: Referral ID Status Reason Start Date Expiration Date Visits Requested Visits Authorized [id number] Authorization Not Required Specialty Services Required 3 1 1 Question Answer Reason for Request: 2-4 week post hospital follow up Reason for Visit * Auth/Cert (Routine) Specialty Diagnoses / Procedures Referred By Contac t Referred To Contact Diagnoses PAF Referral ID Status Reason Start Date Expiration Date Visits Re quested Visits Authorized [id number] 1 1 Encounter Details Date Type Department Care Team (Late st Contact Info) Description 07/10/2023 18:51 EST - 07/13/2023 12:24 EST Hospital Encounter [facility] [address] [place], [place] [id number] Helio Lyons MD [address] [facility] [address] [place] [phone] Kenroy Kyle MD [address] [facility], Level [address] [place] [id number] Paroxysmal atrial fibrillation ([facility]) Discharge Disposition: Home or Self Care [...] Sign Reading Time Taken Comments Blood Pressure 162/77 07/13/2023 0845 EST Pulse 53 07/12/2023 1215 EST Temperature 36.5 ??C (97.7 ??F) 07/13/2023 0845 EST Respiratory Rate 16 07/13/2023 0845 EST Oxygen Saturation 98% 07/13/2023 0845 EST Inhaled Oxygen Concentration - - Weight 122.8 kg (270 lb 11.2 oz) 07/13/2023 0506 EST Height 177.8 cm (5' 10) 07/10/2023 221 EST Body Mass Index 38.84 07/10/2023 2213 EST documented in this encounter [...] Crum RN documented in this encounter Discharge Summaries * Jacobo Herrera - 07/13/2023 0337 EST Cardiology Discharge Summary Primary Care Provider: Robyn Glynn Attending Physician: Kenroy Kyle MD Inpatient admit date: 09/10/22 Initial observation date (if different): 07/10/2023 Discharge Date: 07/13/23 Disposition: Home or self care Problems and Procedures Admitting Diagnosis: Atrial fibrillation Final Hospital Diagnosis: PAF/ SND/ tachy roya syndrome Additional Problems Managed in the Hospital Active Hospital Problems Diagnosis Date Noted ??? *Atrial fibrillation, persistent ([facility]) 07/10/2023 ??? Paroxysmal atrial fibrillation ([facility]) Resolved Hospital Problems No resolved problems to display. Principal Procedure: n/a Date: n/a Secondary Procedures: Not applicable Hospital Course Mr. Julianne Prince is a 67 y/o male with PMH of HTN, ANNELISE on CPAP, obesity, s/p parotidectomy 07/2022,SND, tachy roya syndrome and paroxysmal Afib. He was first seen by Dr. Trevizo at [facility] one year ago. He was started on low dose Metoprolol and Eliquis. He had been referred to Dr. Lyonswho has been following him in clinic and notes he has underlying sinus bradycardia in the 40's evenwithout low dose BB and that he may need PPM at some point. For now his Afib has returned and he is having symptomatic episodes of Afib with RVR that last several hours at a time. He continues with a baseline hr in the 40's when in SR. [id number] score is 2 for age and HTN he is on Eliquis and remains on low [...] heart rates during the day in the 40'-50's. Given increasing QTc, dofetilide was dose reduced to 250 mcg with subsequent QTc in the 420 range. Follow up with Mary Miller NP in 2-4 weeks Follow up with Dr. Lyosn in 3 months Follow up with Dr. Trevizo routinely This patient has been started on the antiarrhythmic medication Dofetilide, to help maintain NSR. The patient has been monitored for a total of 6 doses with no significant QT prolongation. There are some medications that are absolutely contraindicated with Dofetilide including; HCTZ, Cimetidine, Ketoconazole, Haldol, Magestrol, Verapamil and Bactrim. Some antibiotics should be avoided, particularly, Macrolides and Quinolones. Anti-emetics such as Compazine, Zofran and Reglan should also be avoided. Some SSRI???s can have a potential interaction. If the patient needs to be started on an anti- depressant the carton maker should be contacted. The patient will have a yearly cardiology visit and will need at a minimum a yearly EKG and check of kidney function. You can access a list of QT prolonging medications on [employer]. Allergies and Immunizations Allergies Allergen Reactions ??? Chloraseptic (Benzocaine) Rash ??? Indocin [Indomethacin] hallucinates There is no immunization history on file for this patient. Transition of Care Plans Condition at Discharge Fair Assessment at Discharge Vital signs: Patient Vitals for the past 12 hrs: BP Heart Rate Resp Temp SpO2 O2 Device 07/13/235 136/71 -- -- -- -- -- 07/13/23 0032 136/71 (!) 44 BPM 16 -- 98 % None 07/12/23 2300 (!) 152/94 56 BPM -- -- -- -- 07/12/232139 -- (!) 118 BPM -- -- -- None 07/12/232110 (!) 138/119 (!) 140 BPM -- -- -- -- 07/12/232108 (!) 157/111 (!) 124 BPM -- -- -- -- 07/12/232021 (!) 172/93 (!) 121 BPM -- -- -- -- 07/12/232002 (!) 147/80 -- -- -- -- -- 07/12/231949 (!) 147/80 75 BPM 18 36.7 ??C (98 ??F) 98 % None Is the patient being discharged with a diagnosis of Systolic Heart Failure? No Coumadin Management N/A Non-Cardiac Studies at Time of Discharge none Results Pending at Discharge Test results still pending from this admission None Last Lab Results at Discharge No results found for: HGBA1C Discharge Follow Up Upcoming Appointments Jul 31, 2023 8:00 Post Hospital Visit with Minerva Lima PA-C [facility] - [place] (--) [address] [place] [address] JACOBO HERRERA 07/13/2023 3:36 Cosigned by Kristy Harrison MD at 07/13/2023 14:31 EST Associated attestation - Kristy Harrison MD - 07/13/2023 1431 EST Attending Attestation: I have personally evaluated Julianne Prince's on the day of discharge, reviewed and edited the discharge summary as needed, and agree with the findings and plan. Kristy Harrison MD documented in this encounter Discharge Instructions * Medications* Sirisha Daniel NP - 06/25/2023 14:19 EST You will meet with the pharmacist before you leave the hospital, they will go over the do's and don't's of the medication. Dofetilide Information You have been started on the antiarrhythmic medication Dofetilide (Tikosyn), to help maintain normal sinus rhythm (NSR). You have been monitored for a total of 6 doses with no significant QT prolongation. There are some medications that are absolutely contraindicated with Dofetilide including; hydrochlorothiazide (HCTZ), Cimetidine, Ketoconazole, Haldol, Magestrol, Verapamil and Bactrim. Some antibiotics should be avoided, particularly, Macrolides (Erythromycin, Azithromycin) and Quinolones (Levaquin). Anti-nausea medications such as Compazine, Zofran and Reglan should also be avoided. Some anti-depressants (SSRI???s) can have a potential interaction. If you need to be started on an anti-depressant your carton maker should be contacted. You will have a yearly cardiology visit and will need at a minimum a yearly EKG and check of kidneyfunction. You can access a list of QT prolonging medications on [email or web address]. Please tell all your providers you are taking Dofetilide prior to starting any new medication. * Appointments* Sirisha Daniel NP - 06/25/2023 14:21 EST Follow up with Cardiology PHOTOGRAPHIC LABORATORY TECHNICIAN in 2-4 weeks ( needs requesting) You will be notified with a date for your ablation (??? Not sure this has been requested yet) documented in this encounter Medications at Time of Discharge acetaminophen 325 mg capsule Take 1,000 mg by mouth if needed. melatonin 10 mg capsule Take by mouth. amLODIPine (NORVASC) 5 mg tablet Take 1 Tablet by mouth at bedtime for 90 days. 30 Tablet 2 07/13/2023 10/11/2023 dofetilide (TIKOSYN) 250 mcg capsule Take 1 Capsule by mouth 2 times daily for 14 days. 28 Capsule 07/13/2023 07/27/2023 dofetilide (TIKOSYN) 250 mcg capsule Take 1 Capsule by mouth every 12 hours for 30 days. 60 Capsule 07/28/2023 07/31/2023 ELIQUIS 5 mg tablet Take 1 Tablet by mouth 2 times daily for 90 days. 60 Tablet 2 07/13/2023 10/11/2023 documented as of this encounter Ordered Prescriptions Prescription Sig Dispense Quantity Refills Last Filled Start Date End Date dofetilide (TIKOSYN) 250 mcg capsule Take 1 Capsule by mouth 2 times daily for 14 days. 28 Capsule 07/13/2023 3 dofetilide (TIKOSYN) 250 mcg capsule Take 1 Capsule by mouth every 12 hours for 30 days. 60 Capsule 07/28/2023 3 dofetilide (TIKOSYN) 250 mcg capsule Take 1 Capsule by mouth every 12 hours for 30 days. 60 Capsule 07/13/2023 3 ELIQUIS 5 mg tablet Take 1 Tablet by mouth 2 times daily for 90 days. 60 Tablet 2 07/13/2023 4 amLODIPine (NORVASC) 5 mg tablet Take 1 Tablet by mouth at bedtime for 90 days. 30 Tablet 2 07/13/2023 4 dofetilide (TIKOSYN) 250 mcg capsule Take 1 Capsule by mouth every 12 hours for 14 days. 28 Capsule 07/13/2023 3 ELIQUIS 5 mg tablet Take 1 Tablet by mouth 2 times daily for 14 days. 28 Tablet 07/13/2023 3 amLODIPine (NORVASC) 5 mg tablet Take 1 Tablet by mouth at bedtime for 14 days. 14 Tablet 07/13/2023 3 documented in this encounter Discharge Disposition Disposition Code Departure Means Destination Comment s Home or Self Nursing Home documented in this encounter Progress Notes * Kenroy Kyle MD - 07/13/2023 0757 EST AF/AT with aberrancy at rapid rates overnight. No VT seen. QT acceptable on current regimen. * Minerva Beavers RT - 07/13/2023 0406 EST Respiratory Nocturnal BIPAP/CPAP Heart Rate: (!) 49 BPM, Resp: 16, SpO2: 98 %, Breath Sounds Bilateral: Clear Patient was placed on Device Type: Patient Home Unit, Settings were Home settings. Pt tolerating well Comments: 07/13/23 0404 Vitals Heart Rate (!) 49 BPM Oxygen Therapy / Pulse Ox O2 Device CPAP NIV Ventilation Device Type Device Type Patient Home Unit Mode (home settings) NIV Settings Home Unit (patient owned - no charge) Yes Check w/ Assessment Yes RT SHAMEKA 07/13/23 * Kenroy Kyle MD - 07/12/2023 0833 EST EP PN S: In SR O: VS NAD Regular CTA Soft Warm A/P: AF on tikosyn. In SR. With SB and uncorrected QT ~ 490 will drop to 250. * Blake He RT - 07/11/2023 2337 EST Respiratory Nocturnal BIPAP/CPAP Heart Rate: 52 BPM, Resp: 14, SpO2: 98 %, Breath Sounds Bilateral: Clear Patient was placed on Device Type: Patient Home Unit, Settings were home settings. Pt tolerating well RT ZULEIMA 07/11/23 * Mirna Leigh, TAYO - 07/11/2023 1420 EST Chart review completed and discussed the plan of care with the direct care RN and/or primary care team. Primary Insurance: [facility] Medicare Patient with no apparent Case Management needs at this time. No housing, transportation, insurance,resources concerns identified at this time. Supports in place to achieve a safe post-hospital transition. No identified barriers to accessing necessary care and/or follow-up after discharge. employee wellness/fitness coordinator/Environmental Department Manager will continue to follow patient's progress and remain available if situation changes for coordination of care, psychosocial support and/or discharge planning. Patient admitted electively for initiation of dofetilide. He was instructed to check his copay [employer] SALESP[employer].No CM needs identified. Mirna Leigh RN AC #[id number] * Sirisha Daniel NP - 07/11/2023 1156 EST Cardiology Progress note Service Date: 07/11/2023 Admit Date: 07/10/2023 18:51 Reason for Admission: 67 y.o. male admitted with a chief complaint of fatigue and now with a principal diagnosis of symptomatic PAF Events/ Procedures in the last 24 Hours: presented in NSR, started on Dofetilide 500 mcg's last night, no QT prolongation after the second dose. Subjective/Objective Subjective Mr. Prince denies chest pain, dyspnea, fatigue, orthopnea, palpitations, tachypnea/rapid breathing Review of Systems Pertinent items are noted in Subjective/HPI Objective Vital Signs Patient Vitals for the past 8 hrs: BP Heart Rate Temp SpO2 07/11/23 0847 (!) 143/70 (!) 48 BPM 36.6 ??C (97.8 ??F) 98 % 07/11/23 0605 119/70 52 BPM -- 97 % Weight: Patient Vitals for the past 8 hrs: Weight 07/11/23 0646 (!) 122.5 kg (270 lb) No intake or output data in the 24 hours ending 07/11/23 1205 Physical Exam General appearance: alert, cooperative, no distress Lungs: clear to auscultation bilaterally Heart: regular rate and rhythm, S1, S2 normal, no murmur, click, rub or gallop Abdomen: soft, non-tender; bowel sounds normal; no masses, no organomegaly Mental Status: awake and alert; oriented to person, place, and time Extremities: extremities warm, atraumatic, no cyanosis or edema positive pulses bilat Pulses: 2+ and symmetric Is PICC or central line present? No, PICC/Central line not present. Medications Reviewed: No changes Labs Reviewed: No significant findings. CBC: Recent Labs 07/10/231912 WBC 9.59 HGB 15.2 HCT 44.2 MCV 88 PLT 259 BMP: Recent Labs 07/10/23191207/11/2327 CREATININE 1.11 0.83 BUN 38* -- NA 142 139 K 4.1 4.2 CL 107 106 CO2 26 23 MG 1.9 -- Coags: No results for input(s): PROTIME, INR, PTT in the last 72 hours. LFTs: No results for input(s): ALT, AST, GGT, ALKPHOS, TBIL in the last 72 hours. Cardiac Biomarkers: No results for input(s): TROPONINI in the last 72 hours. Lipids: No results for input(s): CHOL, TRIG, HDL, LDLBASE, CHOLHDL in the last 72 hours. Non-Invasive Findings last 24 hours: N/A Telemetry: yes, Normal sinus rhythm ECG: QTc 432 ms Does the patient have active heart failure? no Assessment/Plan Assessment/Plan Mr. Julianne Prince is a 67 y/o male with PMH of HTN, ANNELISE on CPAP, obesity, s/p parotidectomy 07/2022,SND, tachy roya syndrome and paroxysmal symptomatic Afib. CV score of 2 on Eliquis. EF preserved. Presents for Dofetilide loading. In SR on admit, QTc is stable and 430 ms after the second dose. He remains in SR. Metoprolol discontinued for baseline HR in the 40-50's. PLAN Continue Dofetilide at 500 mcg's Q 12 hours with EKG Q 2 hours after each dose 6 th dose Friday morning/ home Friday after last EKG D/C metoprolol for SND HR in the 40-50's on admit Continue Eliquis twice daily Out pt follow up with Mary Miller in 2-4 weeks/ Dr. Lyons 3 months/ routine f/u with Dr. Trevizo ?? VTE Prophylaxis Pharmacologic Prophylaxis: eliquis Discharge Plan Home or self care Sirisha Daniel NP 07/11/2023 12:05 Cosigned by Kenroy Kyle MD at 07/15/2023 16:07 EST Associated attestation - Kenroy Kyle MD - 07/15/2023 1607 EST I saw and examined the patient with the resident/fellow/nurse practioner. I agree with the findingsand plan of care documented in the resident's/fellow's note. * Blake He RT - 07/10/2023 2317 EST Respiratory Nocturnal BIPAP/CPAP Heart Rate: 73 BPM, Resp: 18, SpO2: 98 %, Breath Sounds Bilateral: Clear Patient was placed on Device Type: Patient Home Unit, Settings were home settings. Pt tolerating well Comments: RT ZULEIMA 07/10/23 documented in this encounter H&P Notes * Lefty Mina MD - 07/10/20232 EST Cardiology Admitting H&P Inpatient Admit Date: N/A Initial Observation Date (if different): 07/10/2023 Date of Service: 07/11/2023 PCP: Robyn Glynn Code Status: Full Code Chief Complaint: Palpitations, fatigue HPI: Mr. Julianne Prince is a 67 y/o male with PMH of HTN, ANNELISE on CPAP, obesity, s/p parotidectomy 07/2022,SND, tachy roya syndrome and paroxysmal Afib. He was first seen by Dr. Trevizo at [facility] one year ago. He was started on low dose Metoprolol and Eliquis. He had been referred to Dr. Narayan has been following him in clinic and notes he has underlying sinus bradycardia in the 40's evenwithout low dose BB and that he may need PPM at some point. For now his Afib has returned and he is having symptomatic episodes of Afib with RVR that last several hours at a time. He continues with a baseline hr in the 40's when in SR. [id number] score is 2 for age and HTN he is on Eliquis and remains on low dose metoprolol. ECHO from 03/2022 shows EF 55-60% LA is mildly dilated with no valvular disease. He presents now for Dofetilide loading, he is not on any contraindicated medications. Baseline QTc is acceptable at 385 ms. Creatinine from last year is .75. On interview today, Mr. Prince says he feels well without specific complaints. He noted that he converted to sinus rhythm this morning on his home monitor. PMH PSH Past Medical History: Diagnosis Date ??? A-fib ([facility]) Noted 07/23/22- In and out of [...] yrs ago) ??? Spinal stenosis Noted 07/23/22 Past Surgical History: Procedure Laterality Date ??? EYE SURGERY catarcts, cataract redo, rentinal surgery(Multi retina tears) ??? JOINT REPLACEMENT Left Partial knee replacement ??? KNEE SURGERY Left Arthroscopic knee surgery. ??? RHINOPLASTY ??? TONSILLECTOMY ??? UVULOPALATOPHARYGOPLASTY ??? VASECTOMY Social History Family History Social History Tobacco Use ??? Smoking status: Never Passive exposure: Past ??? Smokeless tobacco: Never Substance Use Topics ??? Alcohol use: Yes Comment: Very rare. Family History Problem Relation Age of Onset ??? High Blood Pressure Mother ??? *Other(comment) Mother afib ??? Dementia Mother ??? Dementia Father Medications Medications Prior to Admission Medication Sig Dispense Refill Last Dose ??? acetaminophen 325 mg capsule Take 1,000 mg by mouth if needed. Past Month ??? amLODIPine (NORVASC) 5 mg tablet Take 1 Tablet by mouth at bedtime. 07/09/2023 ??? bacitracin zinc 500 unit/gram ointment Apply topically 2 times daily. To your incision (Patientnot taking: Reported on 07/10/2023) 28 g 0 More than a month ??? cholecalciferol, Vitamin D3, 25 mcg (1,000 unit) tablet Take 1,000 Units by mouth daily. (Patient not taking: Reported on 12/12/2022) Not Taking ??? ELIQUIS 5 mg tablet Take 1 Tablet by mouth 2 times daily. 07/10/2023 ??? ibuprofen (MOTRIN) 800 mg tablet Take 800 mg by mouth daily. (Patient not taking: Reported on 06/05/2023) Not Taking ??? lisinopril (PRINIVIL, ZESTRIL) 10 mg tablet Take 10 mg by mouth daily. (Patient not taking: Reported on 07/10/2023) Not Taking ??? magnesium oxide (MAG-OX) 400 mg (241.3 mg magnesium) tablet Take 1 Tablet by mouth daily. (Patient not taking: Reported on 07/10/2023) Not Taking ??? melatonin 10 mg capsule Take by mouth. 07/09/2023 ??? meloxicam (MOBIC) 15 mg tablet Take 15 mg by mouth daily. (Patient not taking: Reported on 05/22/2022) Not Taking ??? metoprolol TARtrate (LOPRESSOR) 50 mg tablet Take 1 Tablet by mouth 2 times daily. 07/10/2023 ??? omega-3/dha/epa/fish oil (OMEGA-3 ORAL) Take 1,280 mg by mouth daily. (Patient not taking: Reported on 07/10/2023) Not Taking Allergies Allergies Allergen Reactions ??? Chloraseptic (Benzocaine) Rash ??? Indocin [Indomethacin] hallucinates Review of Systems: See HPI above Objective/Physical Exam: VS: Patient Vitals for the past 8 hrs: BP Heart Rate Resp Temp SpO2 O2 Device 07/10/234 126/65 59 BPM 16 -- 96 % None 07/10/23 2200 -- 73 BPM 18 -- 98 % CPAP 07/10/232145 (!) 150/78 (!) 49 BPM 16 -- 97 % None 07/10/23 190 (!) 147/83 56 BPM 16 36.5 ??C (97.7 ??F) 98 % None Pain: Patient Vitals for the past 8 hrs: Numeric Pain Level (Scale 1-10) 07/10/234 0 07/10/232008 0 07/10/23 1909 0 Weight: Weight : (!) 117.9 kg (260 lb) Body mass index is 37.31 kg/m??. Glucose Readings (last 8 hours): No results for input(s): GLUCOSEFINGE in the last 72 hours. Exam: General: Sitting comfortably in bed in no acute distress Pulm: Breathing ambient air comfortably, lungs CTAB Cardiac: Bradycardic, normal rhythm. No M/R/G Extremities: No significant peripheral edema Neuro: Steady gait, moving all extremities against gravity. Alert and oriented. No obvious deficits. Pressure Ulcer Present on admission? No Data Review: eGFR calculation: eGFR Date Value Ref Range Status 07/10/2023 73 >60 mL/min/1.73m2 Final Assessment: PAF: 67 y/o male with PMH of tachybrady syndrome, SND, Afib with RVR, HTN, obesity and ANNELISE now withsymptomatic episodes of PAF, preserved EF, [id number] 2 here for Dofetilide loading currently in sinus rhythm, with likely Afib ablation in late winter if afib recurs. Of note, creatinine today is 1.11, increased from 0.75 one year ago. Not meeting criteria for JENNIFER given increase <0.3 and unclear timeline, though should be monitored closely during hospitalization. Plan : Dofetilide Initiation For Atrial Dysrhythmia : - Start dofetilide 500mcg BID - Hold metoprolol for tonight given sinus bradycardia 40-50 bpm - Continue Eliquis 5 mg twice daily - initial ECG shows appropriate QTc (QTc <440 or 500 if patient has ventricular conduction abnormality) - Please obtain EKG 2 hours after each dose (for total of first 6 doses of dofetilide) - Each dose to be approved by EP fellow or minor league baseball player chief of safety and protection - Dose adjustments will be made following each EKG: - if QTc increased >15% compared to baseline or if QTc>500 (or 550 in ventricular conduction abnormalities) after 1st dose, will need to halve dose (or dc if at 125 mcg/BID) - if any time after 2nd dose of dofetilide is given, QTc >500 msec then dofetilide should be DC'd - Ensure no concurrent Verapamil, HCTZ, cimetidine, trimethoprim, ketoconazole, prochlorperazine, megesterol, Class I or Class III antiarrythmics - avoid QT prolonging medications if possible (eg. Quinolones, antiemetics) - daily Creatinine, Magnesium, Potassium to assess renal function and ensure adequate electrolyte levels (K>4, Mg>2) Initiation Dose: CrCl -- Dose >60 mL/min 500 mcg BID 40-60 mL/min 250 mcg BID 20-40 mL/min 125 mcg BID <20 mL/min Contraindicated VTE Prophylaxis: oat Discharge Plan: Home or self care Admission status Inpatient admission due to anticipated duration of hospitalization is two midnights or greater due to dofet load. LEFTY MINA MD 07/11/2023 1:51 Cosigned by Kenroy Kyle MD at 07/15/2023 16:06 EST Associated attestation - Kenroy Kyle MD - 07/15/2023 1606 EST I saw and examined the patient with the resident/fellow/nurse practioner. I agree with the findingsand plan of care documented in the resident's/fellow's note. documented in this encounter Procedure Notes * Rosmery Prieto RN - 07/10/20232034 EST Ultrasound dynamic guidance was used for peripheral line insertion. Name of stitchdown toe former: Rosmery Prieto RN LDAINFO BLOCK Peripheral IV 07/10/232033 Left;Anterior;Lateral Forearm (Active) 07/10/232033 Forearm Dressing Change Due: 07/17/23 Size (Gauge): 22 Catheter Length (Inches): 1.75 Catheter Brand: B Fernandez Introcan Orientation: Left;Anterior;Lateral Site: cephalic, 0.25cm wide, 0.5cm deep Inserted by: Inserted by RN;Ultrasound Guided Insertion attempts: 2 Local Anesthetic: None Skin Antisepsis: 2% Chlorhexidine with IPA Removal Reason : Post Removal Assessment/Care: Size (Gauge): Catheter Length: IV Change Due: Orientation: Criteria to continue met? (chart all reasons) Telemetry class I 07/10/232034 Date Dressing Changed 07/10/23 07/10/232034 Dressing date clearly marked on PIV site? Yes 07/10/232034 Site Assessment Clean/Dry/Intact 07/10/232034 Line Status Blood returned;Flushed;Capped 07/10/232034 Dressing Status/Care Site Cleaned;Changed/New;Clean/Dry/Intact 07/10/232034 Dressing Type Transparent 07/10/232034 Patient response: tolerated well Patient education: provided at bedside ROSMERY PRIETO RN 07/10/2023 documented in this encounter Miscellaneous Notes * Plan of Care - Mer Saldaña RN - 07/13/2023 1224 EST Nursing Discharge Note D: Patient noted with discharge orders to: home. A: Prescriptions e-scripted. Reviewed discharge instructions and prescriptions with Patient and Family IV d/c'd. Belongings collected and sent home with patient. R: Patient and Family verbalized understanding of discharge instructions and denied further questions. MER SALDAÑA RN 07/13/2023 12:32 * Plan of Care - Cynthia Kelly RN - 07/13/2023 0650 EST Problem: High Fall Risk: Goal: Patient will Remain Free of Falls due to Med. Side Effects 07/13/2023 041 by Cynthia Kelly RN Outcome: Ongoing 07/13/2023414 by Cynthia Kelly RN Outcome: Ongoing Problem: High Fall Risk: Goal: Patient Will Remain Free from Fall-Related Injury Outcome: Ongoing D: Pt admitted for dofetilide loading. Pt received dose 5. Pts BP was elevated. Pt had freq multi runs of supraventricular beats then AFIB/RVR w/ HR in 140's. Pt was asymptotic. A: Vitals and tele monitored. Medications administered per OCT. Pt educated on plan of care. R: Pt converted back to SR. Pt resting comfortably in bed, safety measures in place. Pt verbalized understanding of education. * Plan of Care - Cynthia Kelly RN - 07/12/2023 0630 EST Problem: High Fall Risk: Goal: Patient will Remain Free of Falls due to Med. Side Effects Outcome: Ongoing D: Pt admitted for dofetilide loading 07/10. Pt A/Ox3 in SA/SB. A: Pt educated on plan of care. Vitals, tele monitored. Medications administered per MAR. R: Pt verbalized understanding of education. Pt resting comfortably in bed, safety measures in place. * Plan of Care - Keo Hurd RN - 07/11/2023 1548 EST Problem: High Fall Risk: Goal: Patient will Remain Free of Falls due to Med. Side Effects Outcome: Ongoing Problem: High Fall Risk: Goal: Patient Will Remain Free from Fall-Related Injury Outcome: Ongoing Problem: Sensory: Goal: Ability to compensate for vision loss will be supported Outcome: Ongoing Data: Patient assessed, vitals obtained, breathing unlabored on room air. No complaints of acute chest pain or shortness of breath. Action: Patient safety maintained, hourly rounding and pain management ongoing. Patient educated onplan of care/safe mobility/medication administration. Response: Patient demonstrated understanding via verbal teach back. KEO HURD RN 07/11/2023 15:48 * Plan of Care - Brock Grande RN - 07/11/2023 0016 EST Data: pt admitted from home for dofetilide loading. Sinus bradycardia on tele, HR 40's-50's. VSS. Pt is A&Ox3. Independent in the room. Action: Assessment as documented in flow sheet. Medications per MAR, including dofetilide dose #1. Educated pt on dofetilide. Post-dofetilide EKG obtained. Clustered care to promote rest overnight. Response: pt resting comfortably. Remains in sinus bradycardia. Bradycardic but otherwise VSS. Planfor continued dofetilide loading. BP 126/65 Temp 36.5 ??C (97.7 ??F) (Oral) Resp 18 Ht 177.8 cm (70) Wt (!) 117.9 kg (260 lb) SpO2 96% BMI 37.31 kg/m?? BROCK GRANDE RN 07/11/2023 0:16 documented in this encounter Plan of Treatment Upcoming Encounters Date Type Department Care Team (Late st Contact Info) Description 07/22/2024 19:30 EST Appointment [facility] [place] [address] 07/29/2025 15:40 EST Office Visit [facility] Cardiology - [address] [place] [address] Palak Diallo MD [address] [place] [address], [place], [address] [place] [id number] Scheduled Referrals Name Type Priority Associated Diagnoses Order Schedule AMB CONS/FOLLOW UP CARDIOLOGY Outpatient Referral Routine/Next Available Paroxysmal atrial fibrillation ([facility]) Expected: 08/11/2023 (Approximate) , Expires: 07/11/2024 AMB CONS/FOLLOW UP CARDIAC ELECTROPHYSIOLOGY Outpatient Referral Routine/Next Available Paroxysmal atrial fibrillation ([facility]) Expected: 10/10/2023 (Approximate) , Expires: 07/11/2024 documented as of this encounter Procedures Procedure Name Priority Date/Time Associated Diagnosis Comments ECG REPORT - SCANNED 07/21/2023 15:56 EST ECG REPORT - SCANNED 07/21/2023 13:02 EST ECG REPORT - SCANNED 07/18/2023 15:56 EST ECG REPORT - SCANNED 07/17/2023 15:16 EST ECG REPORT - SCANNED 07/16/2023 17:39 EST ECG REPORT - SCANNED 07/16/2023 11:19 EST ECG REPORT - SCANNED 07/14/2023 15:36 EST ECG REPORT - SCANNED 07/14/2023 10:14 EST POST DOFETILIDE EKG Routine 07/13/2023 1 0:46 EST CREATININE Routine 07/13/2023 5:41 EST ELECTROLYTES Routine 07/13/2023 5:41 EST POST DOFETILIDE EKG Routine 07/12/2023 2 2:13 EST POST DOFETILIDE EKG STAT 07/12/2023 1 1:11 EST CREATININE Routine 07/12/2023 6:03 EST ELECTROLYTES Routine 07/12/2023 6:03 EST POST DOFETILIDE EKG Routine 07/11/2023 2 3:05 EST ECG REPORT - SCANNED 07/11/2023 14:42 EST POST DOFETILIDE EKG STAT 07/11/2023 1 1:17 EST CREATININE Routine 07/11/2023 6:27 EST ELECTROLYTES Routine 07/11/2023 6:27 EST POST DOFETILIDE EKG Routine 07/10/2023 2 3:51 EST EKG 12-LEAD Routine 07/10/2023 19:22 EST COMPLETE BLOOD COUNT Routine 07/10/2023 19:13 EST BUN STAT 07/10/2023 19:13 EST MAGNESIUM STAT 07/10/2023 19:13 EST CREATININE STAT 07/10/2023 19:13 EST ELECTROLYTES STAT 07/10/2023 19:13 EST documented in this encounter Results * ECG REPORT - SCANNED (07/21/2023 15:56 EST) 07/21/2023 15:5 6 EST us Scan 2 Automobile Leasing Supervisor PROCEDURE/MINOR SURGICAL OR DERABLES Final Result * ECG REPORT - SCANNED (07/21/2023 13:02 EST) 07/21/2023 13:0 2 EST us Scan 2 Automobile Leasing Supervisor PROCEDURE/MINOR SURGICAL OR DERABLES Final Result * ECG REPORT - SCANNED (07/18/2023 15:56 EST) 07/18/2023 15:5 6 EST us Scan 2 Automobile Leasing Supervisor PROCEDURE/MINOR SURGICAL OR DERABLES Final Result * ECG REPORT - SCANNED (07/17/2023 15:16 EST) 07/17/2023 15:1 6 EST us Scan 2 Automobile Leasing Supervisor PROCEDURE/MINOR SURGICAL OR DERABLES Final Result * ECG REPORT - SCANNED (07/16/2023 17:39 EST) 07/16/2023 17:3 9 EST us Scan 2 Automobile Leasing Supervisor PROCEDURE/MINOR SURGICAL OR DERABLES Final Result * ECG REPORT - SCANNED (07/16/2023 11:19 EST) 07/16/2023 11:1 9 EST us Scan 2 Automobile Leasing Supervisor PROCEDURE/MINOR SURGICAL OR DERABLES Final Result * ECG REPORT - SCANNED (07/14/2023 15:36 EST) 07/14/2023 15:3 6 EST us Scan 2 Automobile Leasing Supervisor PROCEDURE/MINOR SURGICAL OR DERABLES Final Result * ECG REPORT - SCANNED (07/14/2023 10:14 EST) 07/14/2023 10:1 4 EST us Scan 2 Automobile Leasing Supervisor PROCEDURE/MINOR SURGICAL OR DERABLES Final Result * POST DOFETILIDE EKG (07/13/2023 10:46 EST) 07/13/2023 10:[address] [facility] EKG - 07/14/2023 15:20 EST ? [facility] ? Test Date: ?2023-07-13 Pat Name: ? JULIANNE PRINCE ?Department: ?? Means 4 ? Room: ? [id number] Gender: ? Male ? Automatic Folder Seamer: ?? [id number] : ?1955 ? Requested By: SHARMAINE Tapia Order Number: [id number] ? Reading MD: ?? PASTOR ELIZABETH MD ? Measurements Intervals ?Erin ? Rate: ? 47 ? P: ?-43 MT: ? 209 ?QRS: ?59 QRSD: ? 95 ? T: ?72 QT: ? 485 ? QTc: ?431 ? Interpretive Statements SINUS BRADYCARDIA Compared to ECG 07/12/2023 22:13:46 Atrial fibrillation no longer present Aberrant conduction of supraventricular beat(s) no longer present I reviewed the tracing and have either agreed or edited the findings in this report. Electronically Signed On 07-14-2023 15:20:22 EST by PASTOR ELIZABETH MD. Procedure Note Pastor Elizabeth MD - 07/14/2023 [facility] Test Date: 2023-07-13 Pat Name: JULIANNE PRINCE Department: [place] [address] Room: [facility] Gender: Male Automatic Folder Seamer: [id number] : 1955 Requested By: SHARMAINE HORN Order Number: [id number] Reading MD: PASTOR ELIZABETH MD Measurements Intervals Erin Rate: 47 P: -43 MT: 209 QRS: 59 QRSD: 95 T: 72 QT: 485 QTc: 431 Interpretive Statements SINUS BRADYCARDIA Compared to ECG 07/12/2023 22:13:46 Atrial fibrillation no longer present Aberrant conduction of supraventricular beat(s) no longer present I reviewed the tracing and have either agreed or edited the findings inthis report. Electronically Signed On 07-14-2023 15:20:22 EST by PASTOR DOWNS. us Kenroy Kyle MD CARDIAC ECG ORDERABLES F inal Result [facility] EKG * CREATININE (07/13/2023 5:41 EST) Creatinine 0.75 0.66 - 1.25 mg/dL 07/13/2023 6:[address] [facility] eGFR 100 >60 mL/min/1.73 m2 07/13/2023 6:39 [facility] Blood VENOUS BLOOD / Unknown Venipuncture / Unknown 07/13/2023 5:41 EST 07/13/2023 6:03 EST Lefty Mina MD CHEMISTRY & BLOOD GAS ORDERABLES Final Result Performing Organization Address [facility] Co de Phone Number [facility] [address] [place] [address] * ELECTROLYTES (07/13/2023 5:41 EST) Sodium 137 136 - 145 mmol/L 07/13/2023 6:[address] [facility] Potassium 4.2 3.5 - 5.0 mmol/L 07/13/2023 6:39 [facility] Chloride 109 96 - 110 mmol/L 07/13/2023 6:[address] [facility] CO2 Total 22 22 - 32 mmol/L 07/13/2023 6:39 [facility] Anion Gap 6 5 - 14 mmol/L 07/13/2023 6:[address] [facility] Blood VENOUS BLOOD / Unknown Venipuncture / Unknown 07/13/2023 5:41 EST 07/13/2023 6:03 EST Lefty Mina MD CHEMISTRY & BLOOD GAS ORDERABLES Final Result Performing Organization Address [facility] Co de Phone Number [facility] [address] [place] [address] * POST DOFETILIDE EKG (07/12/2023 22:13 EST) 07/12/2023 22:[address] [facility] EKG - 07/17/2023 14:59 EST ? [facility] ? Test Date: ?2023-07-12 Pat Name: ? JULIANNE PRINCE ?Department: ?? Means 4 ? Room: ? [id number] Gender: ? Male ? Automatic Folder Seamer: ?? [id number] : ?1955 ? Requested By: SHARMAINE Tapia Order Number: [id number] ? Reading MD: ?? CARMEN MCGREGOR MD ? Measurements Intervals ?Erin ? Rate: ? 103 ?P: ?0 MT: ? 0 ?QRS: ?33 QRSD: ? 94 ? T: ?45 QT: ? 346 ? QTc: ?453 ? Interpretive Statements ATRIAL FIBRILLATION WITH RAPID VENTRICULAR RESPONSE WITH ABERRANT CONDUCTION OR VENTRICULAR PREMATURE COMPLEXES ABNORMAL RHYTHM ECG I reviewed the tracing and have either agreed or edited the findings in this report. Electronically Signed On 07-17-2023 14:59:55 EST by CARMEN MCGREGOR MD. Procedure Note Carmen Mcgregor MD - 07/17/2023 [facility] Test Date: 2023-07-12 Pat Name: JULIANNE PRINCE Department: [place] [address] Room: [facility] Gender: Male Automatic Folder Seamer: [id number] : 1955 Requested By: SHARMAINE HORN Order Number: [id number] Brett MD: CARMEN MCGREGOR MD Measurements Intervals Erin Rate: 103 P: 0 MT: 0 QRS: 33 QRSD: 94 T: 45 QT: 346 QTc: 453 Interpretive Statements ATRIAL FIBRILLATION WITH RAPID VENTRICULAR RESPONSE WITH ABERRANTCONDUCTION OR VENTRICULAR PREMATURE COMPLEXES ABNORMAL RHYTHM ECG I reviewed the tracing and have either agreed or edited the findings inthis report. Electronically Signed On 07-17-2023 14:59:55 EST by CARMEN AL MD. Kenroy Kyle MD CARDIAC ECG ORDERABLES F inal Result [facility] EKG * POST DOFETILIDE EKG (07/12/2023 11:11 EST) 07/12/2023 11:[address] [facility] EKG - 07/18/2023 15:42 EST ? [facility] ? Test Date: ?2023-07-12 Pat Name: ? JULIANNE PRINCE ?Department: ?? Means 4 ? Room: ? [id number] Gender: ? Male ? Automatic Folder Seamer: ?? [id number] : ?1955 ? Requested By: SHARMAINE Tapia Order Number: [id number] ? Reading MD: ?? FABRICIO LOBEL MD ? Measurements Intervals ?Erin ? Rate: ? 49 ? P: ?82 MT: ? 197 ?QRS: ?67 QRSD: ? 87 ? T: ?75 QT: ? 472 ? QTc: ?428 ? Interpretive Statements SINUS BRADYCARDIA WITH SINUS ARRHYTHMIA Automated Interpretation. ??Provider Interpretation to follow. Compared to ECG 07/11/2023 23:05:29 ST (T wave) deviation no longer present Early repolarization no longer present I reviewed the tracing and have either agreed or edited the findings in this report. Electronically Signed On 07-18-2023 15:42:10 EST by FABRICIO ALICEA MD. Procedure Note Fabricio Alicea MD - 07/18/2023 [facility] Test Date: 2023-07-12 Pat Name: JULIANNE PRINCE Department: [place] [address] Room: [facility] Gender: Male Automatic Folder Seamer: [id number] : 1955 Requested By: SHARMAINE HORN Order Number: [id number] Reading MD: FABRICIO ALICEA MD Measurements Intervals Erin Rate: 49 P: 82 MT: 197 QRS: 67 QRSD: 87 T: 75 QT: 472 QTc: 428 Interpretive Statements SINUS BRADYCARDIA WITH SINUS ARRHYTHMIA Automated Interpretation. Provider Interpretation to follow. Compared to ECG 07/11/2023 23:05:29 ST (T wave) deviation no longer present Early repolarization no longer present I reviewed the tracing and have either agreed or edited the findings inthis report. Electronically Signed On 07-18-2023 15:42:10 EST by FABRICIO ELENA. us Kenroy Kyle MD CARDIAC ECG ORDERABLES F inal Result [facility] EKG * CREATININE (07/12/2023 6:03 EST) Creatinine 0.71 0.66 - 1.25 mg/dL 07/12/2023 6:[address] [facility] eGFR 101 >60 mL/min/1.73 m2 07/12/2023 6:[address] [facility] Blood VENOUS BLOOD / Unknown Venipuncture / Unknown 07/12/2023 6:03 EST 07/12/2023 6:06 EST Lefty Mina MD CHEMISTRY & BLOOD GAS ORDERABLES Final Result Performing Organization Address [facility] de Phone Number [facility] [address] [place] [address] * ELECTROLYTES (07/12/2023 6:03 EST) Sodium 140 136 - 145 mmol/L 07/12/2023 6:[address] [facility] Potassium 4.0 3.5 - 5.0 mmol/L 07/12/2023 6:[address] [facility] Chloride 107 96 - 110 mmol/L 07/12/2023 6:[address] [facility] CO2 Total 24 22 - 32 mmol/L 07/12/2023 6:[address] [facility] Anion Gap 9 5 - 14 mmol/L 07/12/2023 6:[address] [facility] Blood VENOUS BLOOD / Unknown Venipuncture / Unknown 07/12/2023 6:03 EST 07/12/2023 6:06 EST Lefty Mina MD CHEMISTRY & BLOOD GAS ORDERABLES Final Result Performing Organization Address [facility] de Phone Number [facility] [address] [place] [address] * POST DOFETILIDE EKG (07/11/2023 23:05 EST) 07/11/2023 23:[address] [facility] EKG - 07/21/2023 12:52 EST ? [facility] ? Test Date: ?2023-07-11 Pat Name: ? JULIANNE PRINCE ?Department: ?? Means 4 ? Room: ? [id number] Gender: ? Male ? Automatic Folder Seamer: ?? [id number] : ?1955 ? Requested By: SHARMAINE Tapia Order Number: [id number] ? Reading MD: ?? CORRINA GREGG MD ? Measurements Intervals ?Erin ? Rate: ? 46 ? P: ?78 MT: ? 195 ?QRS: ?42 QRSD: ? 114 ?T: ?53 QT: ? 494 ? QTc: ?433 ? Interpretive Statements SINUS BRADYCARDIA NON SPECIFIC IVCD ABNORMAL EKG I reviewed the tracing and have either agreed or edited the findings in this report. Electronically Signed On 07-21-2023 12:52:03 EST by CORRINA ESCOBEDO MD. Procedure Note Corrina Escobedo MD - 07/21/2023 [facility] Test Date: 2023-07-11 Pat Name: JULIANNE PRINCE Department: [place] [address] Room: [facility] Gender: Male Automatic Folder Seamer: [id number] : 1955 Requested By: SHARMAINE HORN Order Number: [id number] Reading MD: CORRINA ESCOBEDO MD Measurements Intervals Erin Rate: 46 P: 78 MT: 195 QRS: 42 QRSD: 114 T: 53 QT: 494 QTc: 433 Interpretive Statements SINUS BRADYCARDIA NON SPECIFIC IVCD ABNORMAL EKG I reviewed the tracing and have either agreed or edited the findings inthis report. Electronically Signed On 07-21-2023 12:52:03 EST by CUBA SUN. Kenroy Kyle MD CARDIAC ECG ORDERABLES F inal Result [facility] EKG * ECG REPORT - SCANNED (07/11/2023 14:42 EST) 07/11/2023 14:4 2 EST us Scan 2 Automobile Leasing Supervisor PROCEDURE/MINOR SURGICAL OR DERABLES Final Result * POST DOFETILIDE EKG (07/11/2023 11:17 EST) 07/11/2023 11:[address] [facility] EKG - 07/11/2023 14:37 EST ? [facility] ? Test Date: ?2023-07-11 Pat Name: ? JULIANNE PRINCE ?Department: ?? Means 4 ? Room: ? [id number] Gender: ? Male ? Automatic Folder Seamer: ?? [id number] : ?1955 ? Requested By: SHARMAINE Tapia Order Number: [id number] ? Reading MD: ?? STANLEY SINGH DE SA MD ? Measurements Intervals ?Erin ? Rate: ? 45 ? P: ?86 MT: ? 190 ?QRS: ?46 QRSD: ? 89 ? T: ?51 QT: ? 491 ? QTc: ?428 ? Interpretive Statements SINUS BRADYCARDIA I reviewed the tracing and have either agreed or edited the findings in this report. Electronically Signed On 07-11-2023 14:37:56 EST by STANLEY HUNTER SA, MD. Procedure Note Stanley Almaraz Sa, MD - 07/11/2023 [facility] Test Date: 2023-07-11 Pat Name: JULIANNE PRINCE Department: [place] [address] Room: [facility] Gender: Male Automatic Folder Seamer: [id number] : 1955 Requested By: SHARMAINE HORN Order Number: [id number] Reading MD: STANLEY MARTIN Measurements Intervals Erin Rate: 45 P: 86 MT: 190 QRS: 46 QRSD: 89 T: 51 QT: 491 QTc: 428 Interpretive Statements SINUS BRADYCARDIA I reviewed the tracing and have either agreed or edited the findings inthis report. Electronically Signed On 07-11-2023 14:37:56 EST by STANLEY WALLACE SA, MD. Kenroy Kyle MD CARDIAC ECG ORDERABLES F inal Result [facility] EKG * CREATININE (07/11/2023 6:27 EST) Creatinine 0.83 0.66 - 1.25 mg/dL 07/11/2023 7:[address] [facility] eGFR 97 >60 mL/min/1.73 m2 07/11/2023 7:[address] [facility] Blood VENOUS BLOOD / Unknown Venipuncture / Unknown 07/11/2023 6:27 EST 07/11/2023 6:53 EST us Lefty Mina MD CHEMISTRY & BLOOD GAS ORDERABLES Final Result Performing Organization Address [facility] de Phone Number [facility] [address] [place] [address] * ELECTROLYTES (07/11/2023 6:27 EST) Sodium 139 136 - 145 mmol/L 07/11/2023 7:[address] [facility] Potassium 4.2 3.5 - 5.0 mmol/L 07/11/2023 7:[address] [facility] Chloride 106 96 - 110 mmol/L 07/11/2023 7:[address] [facility] CO2 Total 23 22 - 32 mmol/L 07/11/2023 7:[address] [facility] Anion Gap 10 5 - 14 mmol/L 07/11/2023 7:[address] [facility] Blood VENOUS BLOOD / Unknown Venipuncture / Unknown 07/11/2023 6:27 EST 07/11/2023 6:53 EST Lefty Mina MD CHEMISTRY & BLOOD GAS ORDERABLES Final Result Performing Organization Address [facility] de Phone Number [facility] [address] [place] [address] * POST DOFETILIDE EKG (07/10/2023 23:51 EST) 07/10/2023 23:[address] [facility] EKG - 07/14/2023 10:02 EST ? [facility] ? Test Date: ?2023-07-10 Pat Name: ? JULIANNE PRINCE ?Department: ?? Means 4 ? Room: ? [id number] Gender: ? Male ? Automatic Folder Seamer: ?? [id number] : ?1955 ? Requested By: SHARMAINE Tapia Order Number: [id number] ? Reading MD: ?? CARMEN MCGREGOR MD ? Measurements Intervals ?Erin ? Rate: ? 51 ? P: ?40 MT: ? 200 ?QRS: ?47 QRSD: ? 138 ?T: ?54 QT: ? 564 ? QTc: ?520 ? Interpretive Statements SINUS BRADYCARDIA WITH SINUS ARRHYTHMIA INTRAVENTRICULAR CONDUCTION DELAY PROLONGED QT INTERVAL I reviewed the tracing and have either agreed or edited the findings in this report. Electronically Signed On 07-14-2023 10:02:38 EST by CARMEN MCGREGOR MD. Procedure Note Carmen Mcgregor MD - 07/14/2023 [facility] Test Date: 2023-07-10 Pat Name: JULIANNE PRINCE Department: [place] [address] Room: [id number] Gender: Male Automatic Folder Seamer: [id number] : 1955 Requested By: SHARMAINE HORN Order Number: [id number] Reading MD: CARMEN MCGREGOR MD Measurements Intervals Erin Rate: 51 P: 40 MT: 200 QRS: 47 QRSD: 138 T: 54 QT: 564 QTc: 520 Interpretive Statements SINUS BRADYCARDIA WITH SINUS ARRHYTHMIA INTRAVENTRICULAR CONDUCTION DELAY PROLONGED QT INTERVAL I reviewed the tracing and have either agreed or edited the findings inthis report. Electronically Signed On 07-14-2023 10:02:38 EST by CARMEN AL MD. Kenroy Kyle MD CARDIAC ECG ORDERABLES F inal Result [facility] EKG * EKG 12-LEAD (07/10/2023 19:22 EST) 07/10/2023 19:[address] [facility] EKG - 07/21/2023 15:42 EST ? [facility] ? Test Date: ?2023-07-10 Pat Name: ? JULIANNE PRINCE ?Department: ?? Means 4 ? Room: ? [id number] Gender: ? Male ? Automatic Folder Seamer: ?? [id number] : ?1955 ? Requested By: SIMEON ACEVES Order Number: [id number] ? Reading MD: ?? MIROSLAVA STUART MD ? Measurements Intervals ?Erin ? Rate: ? 48 ? P: ?72 MT: ? 190 ?QRS: ?51 QRSD: ? 95 ? T: ?55 QT: ? 454 ? QTc: ?410 ? Interpretive Statements SINUS BRADYCARDIA WITH SINUS ARRHYTHMIA Compared to ECG 06/05/2023 15:41:19 First degree AV block no longer present I reviewed the tracing and have either agreed or edited the findings in this report. Electronically Signed On 07-21-2023 15:42:42 EST by MIROSLAVA STUART MD. Procedure Note Miroslava Sutart MD - 07/21/2023 [facility] Test Date: 2023-07-10 Pat Name: JULIANNE PRINCE Department: [place] [address] Room: [facility] Gender: Male Automatic Folder Seamer: [id number] : 1955 Requested By: SIMEON RUIZ Order Number: [id number] Reading MD: MIROSLAVA STUART MD Measurements Intervals Erin Rate: 48 P: 72 MT: 190 QRS: 51 QRSD: 95 T: 55 QT: 454 QTc: 410 Interpretive Statements SINUS BRADYCARDIA WITH SINUS ARRHYTHMIA Compared to ECG 06/05/2023 15:41:19 First degree AV block no longer present I reviewed the tracing and have either agreed or edited the findings inthis report. Electronically Signed On 07-21-2023 15:42:42 EST by SHAMAR SUN. Sirisha Daniel NP CARDIAC ECG ORDERABLE S Final Result Performing Organization Address City/[facility]/ZIP Co de Phone Number [facility] EKG * MAGNESIUM (07/10/2023 19:13 EST) Magnesium 1.9 1.7 - 2.8 mg/dL 07/10/2023 19:[address] [facility] Blood VENOUS BLOOD / Unknown Venipuncture / Unknown 07/10/2023 19:13 EST 07/10/2023 19:21 EST Sirisha Daniel PHOTOGRAPHIC LABORATORY TECHNICIAN CHEMISTRY & BLOOD GAS ORDERABLES Final Result Performing Organization Address City/[facility]/ZIP Co de Phone Number [facility] [address] [place] [address] * COMPLETE BLOOD COUNT (07/10/2023 19:13 EST) WBC 9.59 4.00 - 10.40 K/cmm 07/10/2023 19:55 [facility] RBC 5.02 4.36 - 5.78 M/cmm 07/10/2023 19:55 [facility] Hemoglobin 15.2 13.8 - 17.3 g/dL 07/10/2023 19:55 [facility] HCT 44.2 39.5 - 50.2 % 07/10/2023 19:55 [facility] MCV 88 81 - 95 fL 07/10/2023 19:55 [facility] MCH 30.3 27.6 - 33.0 pg 07/10/2023 19:55 [facility] MCHC 34.4 32.8 - 36.4 g/dL 07/10/2023 19:55 [facility] RDW-CV 13.8 <14.2 % 07/10/2023 19:55 [facility] RDW-SD 44.1 <46.0 fl 07/10/2023 19:55 [facility] PLT 259 141 - 377 K/cmm 07/10/2023 19:55 [facility] MPV 10.1 9.5 - 12.7 fL 07/10/2023 19:55 [facility] Blood VENOUS BLOOD / Unknown Venipuncture / Unknown 07/10/2023 19:13 EST 07/10/2023 19:21 EST us Sirisha Daniel PHOTOGRAPHIC LABORATORY TECHNICIAN HEMATOLOGY & PF4 SARAI WALSH Final Result [facility] [address] [place] [address] * CREATININE (07/10/2023 19:13 EST) Creatinine 1.11 0.66 - 1.25 mg/dL 07/10/2023 19:40 [facility] eGFR 73 >60 mL/min/1.73 m2 07/10/2023 19:40 [facility] Blood VENOUS BLOOD / Unknown Venipuncture / Unknown 07/10/2023 19:13 EST 07/10/2023 19:21 EST Sirisha Daniel PHOTOGRAPHIC LABORATORY TECHNICIAN CHEMISTRY & BLOOD GAS ORDERABLES Final Result Performing Organization Address [facility] de Phone Number [facility] [address] [place] [address] * (ABNORMAL) BUN (07/10/2023 19:13 EST) BUN 38(H) 10 - 26 mg/dL 07/10/2023 19:40 [facility] Blood VENOUS BLOOD / Unknown Venipuncture / Unknown 07/10/2023 19:13 EST 07/10/2023 19:21 EST Result [facility] Sirisha Daniel PHOTOGRAPHIC LABORATORY TECHNICIAN CHEMISTRY & BLOOD GAS ORDERABLES Final Result Performing Organization Address [facility] de Phone Number [facility] [address] [place] [address] * ELECTROLYTES (07/10/2023 19:13 EST) Sodium 142 136 - 145 mmol/L 07/10/2023 19:40 [facility] Potassium 4.1 3.5 - 5.0 mmol/L 07/10/2023 19:40 [facility] Chloride 107 96 - 110 mmol/L 07/10/2023 19:40 [facility] CO2 Total 26 22 - 32 mmol/L 07/10/2023 19:40 [facility] Anion Gap 9 5 - 14 mmol/L 07/10/2023 19:40 [facility] Blood VENOUS BLOOD / Unknown Venipuncture / Unknown 07/10/2023 19:13 EST 07/10/2023 19:21 EST us Sirisha Daniel NP CHEMISTRY & BLOOD GAS ORDERABLES Final Result [facility] [address] [place] [address] documented in this encounter Visit Diagnoses Diagnosis Atrial fibrillation, persistent (HCC-CMS)- Primary Atrial fibrillation Paroxysmal atrial fibrillation (HCC-CMS) Atrial fibrillation Paroxysmal atrial fibrillation (HCC-CMS) Atrial fibrillation documented in this encounter Admitting Diagnoses Diagnosis Atrial fibrillation, persistent (HCC-CMS) Atrial fibrillation documented in this encounter Administered Medications Inactive Administered Medications - up to 3 most recent administrations Medication Order MAR Action Action Date Dose Rate Site acetaminophen (TYLENOL) tablet 650 mg 650 mg, oral, EVERY 4 HOURS PRN, Starting on Yudi 07/10/23 at 1931, Until 07/13/23 at 1424, Pain, Routine, Release amLODIPine (NORVASC) tablet 5 mg 5 mg, oral, AT BEDTIME, First dose on Yudi 07/10/23 at 2100, Until Discontinued, Routine Given 07/12/2023 20:03 EST 5 mg Given 07/11/2023 20:54 EST 5 mg Given 07/10/2023 21:47 EST 5 mg apixaban (ELIQUIS) tablet 5 mg 5 mg, oral, 2 TIMES DAILY, First dose on Yudi 07/10/23 at 2100, Until Discontinued, Routine Given 07/13/2023 8:42 EST 5 mg Given 07/12/2023 20:03 EST 5 mg Given 07/12/2023 9:03 EST 5 mg blood thinner patient education booklet 1 Each 1 Each, other, Once (Without Time Specified), 1 dose, Starting on 07/13/23 at 0027, Until 07/13/23 at 1424, Routine dofetilide (TIKOSYN) capsule 250 mcg 250 mcg, oral, EVERY 12 HOURS, First dose (after last modification) on 07/12/23 at 0900, Until Discontinued, Routine Given 07/13/2023 8:42 EST 250 mcg Given 07/12/2023 20:03 EST 250 mcg Given 07/12/2023 9:03 EST 250 mcg dofetilide (TIKOSYN) capsule 500 mcg 500 mcg, oral, EVERY 12 HOURS, First dose on Yudi 07/10/23 at 2100, Until Discontinued, Routine Given 07/11/2023 20:54 EST 500 mcg Given 07/11/2023 8:49 EST 500 mcg Given 07/10/2023 21:48 EST 500 mcg hydrALAZINE (APRESOLINE) tablet 25 mg 25 mg, oral, EVERY 6 HOURS, First dose on 07/12/23 at 1845, Until Discontinued, Routine Given 07/12/2023 18:53 EST 2 5 mg magnesium sulfate 2 g in water 50 mL 2 g, intravenous, Administer over 60 Minutes, NOW X1, 1 dose, On 07/12/23 at 2030, Routine New Bag 07/12/2023 20:19 EST 2 g melatonin tablet 6 mg 6 mg, oral, AT BEDTIME, First dose on Yudi 07/10/23 at 2100, Until Discontinued, Routine Given 07/12/2023 22:54 EST 6 mg Given 07/11/2023 20:54 EST 6 mg Given 07/10/2023 21:47 EST 6 mg metoprolol TARtrate (LOPRESSOR) tablet 50 mg 50 mg, oral, 2 TIMES DAILY, First dose on 07/12/23 at 2100, Until Discontinued, Routine Given 07/12/2023 20:19 EST 5 0 mg sodium chloride 0.9 % (flush) flush 5 mL 5 mL, intravenous, EVERY 8 HOURS, First dose on Fri07/11/23 at 0000, Until Discontinued, Routine, Release Given 07/13/2023 7:47 EST 5 mL Given 07/13/2023 0:46 EST 5 mL Given 07/11/2023 23:46 EST 5 mL documented in this encounter Discontinued Medications Medication Sig Discontinue Reason Start Date End Da te amLODIPine (NORVASC) 5 mg tablet Take 1 Tablet by mouth at bedtime. Reorder 07/13/2023 ELIQUIS 5 mg tablet Take 1 Tablet by mouth 2 times daily. Reorder 09/29/2022 07/13/2023 amLODIPine (NORVASC) 5 mg tablet Take 1 Tablet by mouth at bedtime for 14 days. Reorder 07/13/2023 07/13/2023 ELIQUIS 5 mg tablet Take 1 Tablet by mouth 2 times daily for 14 days. Reorder 07/13/2023 07/13/2023 dofetilide (TIKOSYN) 250 mcg capsule Take 1 Capsule by mouth every 12 hours for 14 days. Reorder 07/13/2023 07/13/2023 dofetilide (TIKOSYN) 250 mcg capsule Take 1 Capsule by mouth every 12 hours for 30 days. Reorder 07/13/2023 07/13/2023 lisinopril (PRINIVIL, ZESTRIL) 10 mg tablet Take 10 mg by mouth daily. 07/13/2023 meloxicam (MOBIC) 15 mg tablet Take 15 mg by mouth daily. 07/13/2023 ibuprofen (MOTRIN) 800 mg tablet Take 800 mg by mouth daily. 07/13/2023 metoprolol TARtrate (LOPRESSOR) 50 mg tablet Take 1 Tablet by mouth 2 times daily. 07/13/2023 cholecalciferol, Vitamin D3, 25 mcg (1,000 unit) tablet Take 1,000 Units by mouth daily. 07/13/2023 magnesium oxide (MAG-OX) 400 mg (241.3 mg magnesium) tablet Take 1 Tablet by mouth daily. 07/13/2023 bacitracin zinc 500 unit/gram ointment Apply topically 2 times daily. To your incision 07/31/2022 07/13/2023 omega-3/dha/epa/fish oil (OMEGA-3 ORAL) Take 1,280 mg by mouth daily. 07/13/2023 documented as of this encounter Active and Recently Administered Medications Times are shown in EST. Scheduled Medication Order 07/11/2023 07/12/2023 07/13/2023 amLODIPine (NORVASC) tablet 5 mg 5 mg, oral, AT BEDTIME, First dose on Yudi 07/10/23 at 2100, Until Discontinued, Routine 2053 (Given - Provider: Cynthia Kelly, TAYO) 2002 (Given - Provider: Cynthia Kelly, RN) apixaban (ELIQUIS) tablet 5 mg 5 mg, oral, 2 TIMES DAILY, First dose on Yudi 07/10/23 at 2100, Until Discontinued, Routine 08 (Given - Provider: Keo Hurd RN)2053 (Given - Provider: Cynthia Kelly, RN) 0903 (Given - Provider: Keo Hurd, TAYO)2002 (Given - Provider: Cynthia Kelly, TAYO) 0842 (Given - Provider: Mer Saldaña RN) blood thinner patient education booklet 1 Each 1 Each, other, Once (Without Time Specified), 1 dose, Starting on 07/13/23 at 0027, Until 07/13/23 at 1424, Routine dofetilide (TIKOSYN) capsule 250 mcg 250 mcg, oral, EVERY 12 HOURS, First dose (after last modification) on 07/12/23 at 0900, Until Discontinued, Routine 09 (Given - Provider: Keo Hurd RN)2002 (Given - Provider: Cynthia Kelly, TAYO) 841 (Given - Provider: Mer Saldaña, TAYO) dofetilide (TIKOSYN) capsule 500 mcg (CANCELED) 500 mcg, oral, EVERY 12 HOURS, First dose on Yudi 07/10/23 at 2100, Until Discontinued, Routine 848 (Given - Provider: Keo Hurd RN)2053 (Given - Provider: Cynthia Kelly, RN) hydrALAZINE (APRESOLINE) tablet 25 mg 25 mg, oral, EVERY 6 HOURS, First dose on 07/12/23 at 1845, Until Discontinued, Routine 185 (Given - Provider: Keo Hurd RN) 0045 (Not Given - Provider: Cynthia Kelly RN - Reason: Order parameters not met)0624 (Not Given - Provider: Cynthia Kelly RN - Reason: Order parameters not met)1123 (Not Given - Provider: Mer Saldaña, TAYO - Reason: Order parameters not met) magnesium sulfate 2 g in water 50 mL (COMPLETED) 2 g, intravenous, Administer over 60 Minutes, NOW X1, 1 dose, On 07/12/23 at 2030, Routine 2018 (New Bag - Provider: Cynthia Kelly RN) melatonin tablet 6 mg 6 mg, oral, AT BEDTIME, First dose on Yudi 07/10/23 at 2100, Until Discontinued, Routine 2053 (Given - Provider: Cynthia Kelly, TAYO) 2253 (Given - Provider: Cynthia Kelly, TAYO) metoprolol TARtrate (LOPRESSOR) tablet 50 mg (CANCELED) 50 mg, oral, 2 TIMES DAILY, First dose on 07/12/23 at 2100, Until Discontinued, Routine 2018 (Given - Provider: Cynthia Kelly, TAYO) sodium chloride 0.9 % (flush) flush 5 mL 5 mL, intravenous, EVERY 8 HOURS, First dose on 07/11/23 at 0000, Until Discontinued, Routine, Release 0800 (Given - Provider: Keo Hurd, TAYO)1545 (Given - Provider: Rita Ashby RN)2346 (Given - Provider: Cynthia Kelly, TAYO) 0800 (Canceled Entry - Provider: Batch Job User Admin - Comment: Automatically canceled at discontinue of medication order)1600 (Canceled Entry - Provider: Batch Job User Admin - Comment: Automatically canceled at discontinue of medication order) 0046 (Given - Provider: Cynthia Kelly, TAYO)0747 (Given - Provider: Mer Saldaña RN) PRN Medication Order 07/11/2023 07/12/2023 07/13/2023 acetaminophen (TYLENOL) tablet 650 mg 650 mg, oral, EVERY 4 HOURS PRN, Starting on Yudi 07/10/23 at 1931, Until 07/13/23 at 1424, Pain, Routine, Release documented in this encounter Orders Medications Ordered That Attila ht Not Have Been Administered Count Last Ordered Date First Ordered Date blood thinner patient educat ion booklet 1 Each 1 07/13/2023 metoprolol TARtrate (LOPRESS OR) tablet 50 mg 1 07/12/2023 acetaminophen (TYLENOL) tablet 650 mg 1 02/2023 Diet Count Last Ordered Date First Orde red Date DISCHARGE DIET 3 07/11/2023 Nursing Count Last Ordered Date First Orde red Date REVIEWED EKG, ADMINISTER NEXT DOSE OF DOFETILIDE AT SCHEDULED TIME 5 07/12/2023 07/10/2023 ACTIVITY INSTRUCTIONS 1 07/11/2023 BATHING INSTRUCTIONS 1 07/11/2023 PATIENT AT LOW RISK FOR VTE: RISK OF MECHANICAL PROPHYLAXIS OUTWEIGHS 1 07/10/2023 VTE PHARMACOLOGIC PROPHYLAXI S CURRENTLY ORDERED OR ON ALTERNATIVE THER 1 07/10/2023 IV Count Last Ordered Date First Orde red Date IV REQUEST 2 07/10/2023 Admission Count Last Ordered Date First Orde red Date ADMIT TO INPATIENT 1 07/10/2023 Discharge Count Last Ordered Date First Orde red Date DISCHARGE PATIENT 1 07/13/2023 Legal Count Last Ordered Date First Orde red Date MISCELLANEOUS DISCHARGE INSTRUCTIONS 2 03/2023 documented in this encounter Care Teams Remote Ruby On Rails Developer Relationship Specialty Start Date End Date Robyn Glynn MD [address] [place] [address] PCP - General Family Medicine - Primary Care 11/02/21 documented as of this encounter
--- OUTSIDE RECORDS SUMMARY | 2024-07-21 16:39 | XMS_ITS | Encounter Summary ---
Author Organization [facility] Address [address] [place] [address] Care Team Providers Care Capacitor Repairer Name Role Phone Robyn Glynn MD Primary Care Provider [phone] Reason for Visit * Reason Onset Date Comments Appointment Related 06/11/2023 Encounter Details Date Type Department Care Team (Late st Contact Info) Description 06/11/[address] [facility] Cardiology - [address] [place] [address] Helio Lyons MD [address] [place] [address] Appointment Related Social History Tobacco Use Types [...] Miscellaneous Notes * Telephone Encounter - Margarita Warner RN - 06/25/2023 1555 EST Spoke with patient's discussed obtaining the cost of dofetilide prior to admission. expressed understanding. * Telephone Encounter - Andria Llamas - 06/11/2023 0967 EST Patient calling to speak with Dr Lyons/nurse about scheduling for dofetilide admission and pre-op questions if not discuss ablation Please contact pateint documented in this encounter Plan of Treatment Upcoming Encounters Date Type Department Care Team (Late st Contact Info) Description 07/22/2024 19:30 EST [facility] Radiology [place] - [facility] [address] [place] [address] 07/29/2025 15:[address] [facility] Cardiology - [place] [address] Palak Diallo MD [address] [facility] [place], [address] [place] [phone] documented as of this encounter Visit Diagnoses Not on filedocumented in this encounter Care Teams Capacitor Repairer Relationship Specialty Start Date End Date Robyn Glynn MD [address] [place] [phone] PCP - General Family Medicine - Primary Care 11/02/21 documented as of this encounter
--- OUTSIDE RECORDS SUMMARY | 2024-07-21 16:39 | XMS_ITS | Encounter Summary ---
Author Organization [facility] Address [address] [place] [address] Care Team Providers Care Schedule Manager Name Role Phone Robyn Glynn MD Primary Care Provider [phone] Reason for Visit * Reason Comments Follow-up post infection / dis cuss rescheduling surgery Encounter Details Date Type Department Care Team (Late st Contact Info) Description 05/20/2022 10:45 EDT Office Visit [facility] ENT- [address] [address] Shane Richardson MD [address] [facility], [address] [place] [phone] Parotid mass (Primary Dx); Parotitis Social History [...] Recorded In the last 10 days, have lindy kline been in contact with someone who was confirmed or suspected to have Coronavirus/COVID-19? No / Unsure 05/12/2022 11:40 EDT documented as of this encounter Ordered Prescriptions Prescription Sig Dispense Quantity Refills Last Filled Start Date End Date cefpodoxime (VANTIN) 200 mg tablet Take 2 Tablets by mouth 2 times daily at 9am and 9pm for 7 days. 28 Tablet 05/20/2022 2 documented in this encounter Progress Notes * Shane Richardson MD - 05/20/2022 1045 EDT Subjective: Patient ID: Samm Macdonald is an 66 y.o. male. Chief Complaint Patient presents with ??? Follow-up post infection / discuss rescheduling surgery HPI Samm Macdonald is a 66-year-old gentleman with a left tail of parotid cystic mass. Patient states thathe noticed this left sided parotid mass initially [...] hydration, massage the gland and use sialagogues. He continues with significant swelling of the left parotid region with redness and warmth but no drainage from the skin or facial weakness and the pain is improving [...] tumor. Clinical and radiographic correlation is advised. Smoke Control Supervisor slides of this case were reviewed at the intradepartmental consultation conference. ?? Attestation By the signature below, the attending physician certifies that they have personally conducted a gross and/or microscopic examination of the described specimens and rendered or confirmed the above diagnosis. at 1509 Portions of this note copied from his prior encounter with me on 02/06/2022 have been updated and reviewed. Objective: There were no vitals taken for this visit. Physical Exam Department of Otolaryngology PHYSICAL EXAMINATION CONSTITUTIONAL: APPEARANCE: The patient appears alert, cooperative, and comfortable. ABILITY TO COMMUNICATE / VOICE: Normal HEAD AND FACE: SALIVARY GLANDS: Left parotid/neck swollen and tender. No fluctuation. I placed an 18-gauge needle after injecting a small amount of local anesthetic into the region of the left inferior parotid cystwithout aspiration of significant fluid. FACIAL STRENGTH: Intact and symmetrical bilaterally EARS, [...] Encounter Diagnoses Name Primary? Parotid mass Yes ??? Parotitis Plan: 3 cm cystic mass of the [...] facial nerve dissection and preservation was obtained. He was initially scheduled for surgery in April 2022 but developed atrial fibrillation for which she is now onmetoprolol and Eliquis. Surgery was then scheduled for earlier in May 25 but he developed an acute parotitis and this again had to be delayed. He is slowly responding to treatment with less left facial and neck swelling but this is slow to improve. I extended his cefpodoxime another week which will be 14 more days. I will then see him back in 4 weeks for follow-up. In the meantime, he will continue with warm compresses to the area, good hydration and oral hygiene. We will likely schedule his surgery for 4 to 6 weeks after his next follow-up assuming the parotitis is improving. They know to contact my office sooner with problems or concerns. documented in this encounter Plan of Treatment Upcoming Encounters Date Type Department Care Team (Late st Contact Info) Description 07/22/2024 19:30 EST Appointment [facility] Radiology [place] - [facility] [address] [place], [place] [id number] 07/29/2025 15:40 EST Office Visit [facility] Cardiology - [place] [address] [address] [place], [place] [phone] Palak Diallo MD [address] [facility] [address] [place] [address] documented as of this encounter Visit Diagnoses Diagnosis Parotid mass- Primary Swelling, mass, or lump in head and neck Parotitis Sialoadenitis documented in this encounter Discontinued Medications Medication Sig Discontinue Reason Start Date End Da te cefpodoxime (VANTIN) 200 mg tablet Take 2 Tablets by mouth 2 times daily for 14 days. Reorder 05/14/2022 05/20/2022 documented as of this encounter Care Teams Schedule Manager Relationship Specialty Start Date End Date Robyn Glynn MD [address] [place] [phone] PCP - General Family Medicine - Primary Care 11/02/21 documented as of this encounter
--- OUTSIDE RECORDS SUMMARY | 2024-07-21 16:39 | XMS_ITS | Encounter Summary ---
Author Organization [facility] Address [address] [place] [address] Care Team Providers Care Sales Development Manager Name Role Phone Robyn Glynn MD Primary Care Provider [phone] Reason for Visit * Reason Onset Date Comments Pain 05/13/2022 Mass 05/13/2022 Encounter Details Date Type Department Care Team (Late st Contact Info) Description 05/13/2022 Telephone [facility] [address] [place] [address] Shane Richardson MD [address] [place] [address], [address] [place] [phone] Pain; Mass Social History Tobacco Use Types Packs/Day Years [...] Telephone Encounter - Yaritza Pennington RN - 05/13/[address] Richardson Please let him know that Friday's surgery is canceled. ??It will take several weeks for the current infection of his parotid gland/cyst to resolve and the swelling to go down. ??I will see him a week from today in the office. ??We will decide at that point when to reschedule his parotidectomy. In the meantime, he should continue the clindamycin as prescribed in the ED in additionto the recommendations for sialadenitis. Spoke with the patient's explained Dr. Richardson's response and recommendations. She verbalized understanding and agreed. * Telephone Encounter - Yaritza Pennington RN - 05/13/2022 1024 EDT Images from the original note were not included. * Telephone Encounter - Yaritza Pennington RN - 05/13/2022 1020 EDT Spoke with the patient's she reports the patient is taking tylenol and Ibuprofen, pain is 8 out of 10. He is unable to apply heat due to sensitivity. Denies fever. Patient was able to sleep in the recliner with his CPAP. Patient's is asking if the area needs to be drained? How long will it take to resolve? Will forward to Dr. Richardson for recommendations. * Telephone Encounter - Marycarmen Ruelas - 05/13/2022 0952 EDT Patients calling to see what they can do or should do- the mass has grown in size and has pusscoming out out of it. After being seen in the ER yesterday, they are still left with some questions. Patients states the mass is about half the size of a football. Wondering if surgery on Friday will be canceled and if so, how far will it be pushed out. Please call to discuss. documented in this encounter Plan of Treatment Upcoming Encounters Date Type Department Care Team (Late st Contact Info) Description 07/22/2024 19:30 EST Appointment [facility] Radiology CT - [facility] [address] [place], [place] [phone] 07/29/2025 15:40 EST Office Visit [facility] Cardiology - [address] [place], [place] [phone] Palak Diallo MD [address] [facility] [place], [address] [place] [phone] documented as of this encounter Visit Diagnoses Not on filedocumented in this encounter Care Teams Sales Development Manager Relationship Specialty Start Date End Date Robyn Glynn MD [address] [place] [phone] PCP - General Family Medicine - Primary Care 11/02/21 documented as of this encounter
--- OUTSIDE RECORDS SUMMARY | 2024-07-21 16:40 | XMS_ITS | Encounter Summary ---
Author Organization [facility] Address [address] [place] [address] Care Team Providers Care Size Stamper Name Role Phone Meredith Garcia MD Primary Care Provider Encounter Details Date Type Department Care Team (Latest Contact Info) Description 02/02/2019 6:00 EDT - 02/02/2019 10:43 EDT Hospital Encounter [facility] Perioperative Services- Main [place] [address] [place] [address], [place] [id number] Mirna Soni MD [address] [place] [address] [address] [place] [address] Retinal detachment of left eye with multiple breaks Discharge Disposition: Home or Self Care Social History Tobacco Use Types Packs/Day Years Used Date Smoking Tobacco: Never Smokeless Tobacco: Never Alcohol Use Standard Drinks/Week Comments No 0 (1 standard drink = 0.6 oz pur e alcohol) AUDIT-C Answer Date Recorded Frequency of Alcohol Consumption Never 01/25/2019 Average Number of Drinks Not on file 019 Frequency of Binge Drinking Not on file 01/03 Sex and Gender Information Value Date Recorded Sex Assigned at Not on file Legal Sex Male 14:01 EDT Gender Identity Not on file Sexual Orientation Not on file documented as of this encounter Last Filed Vital Signs Vital Sign Reading Time Taken Comments Blood Pressure 164/69 02/02/2019 1030 EDT Pulse - - Temperature 35.5 ??C (95.9 ??F) 02/02/2019 1030 EDT Respiratory Rate 17 02/02/2019 1000 EDT Oxygen Saturation 97% 02/02/2019 1030 EDT Inhaled Oxygen Concentration - - Weight 126.6 kg (279 lb) 02/01/2019 1210 EDT Height 175.3 cm (5' 9) 02/01/2019 1210 EDT Body Mass Index 41.2 02/01/2019 1210 EDT documented in this encounter Discharge Diagnoses Diagnosis H33.002 Unspecified retinal detachment with retinal break, left eye-H33.002[ICD-10-CM] G47.33 Obstructive sleep apnea (adult) (pediatric)-G47.33[ICD-10-CM] E66.9 Obesity, unspecified-E66.9[ICD-10-CM] Z68.41 Body mass index (BMI) 40.0-44.9, adult-Z68.41[ICD-10-CM] Z79.899 Other intermediate (current) drug therapy-Z79.899[ICD-10-CM] I10 Essential (primary) hypertension-I10[ICD-10-CM] documented in this encounter Discharge Instructions * Medications* Chelo aRnd RN - 02/02/2019 9:50 EDT You were given tylenol in post op at 9:42 AM, next dose due 3:42 PM You were given ibuprofen in post op at 9:42 AM, next dose due at 3:42 PM You were given Dilaudid in post op for pain at 9:42 AM. * Discharge Instr - Activity* Mirna Soni MD - 02/02/2019 7:06 EDT Leave your eye patch and shield - if any were placed by your surgeon - in place. For pain, you may use Tylenol (acetominophen) and/or Advil (ibuprofen) or other similar non-prescription, ztar-ovc-sifgmew medications in doses as noted on manufacturers' labels. Do not exceed daily dosing limits for any of the active ingredients. Be careful to check other medications you may be taking by mouth for other conditions that may coincidentally contain one or more of these active ingredients. For example, if you have a chronic pain condition - say, arthritis - and are on pills regularly for that, check to see if those pills contain acetominophen as one of their active ingredients before using additional acetominophen for eye pain after today's surgery. For pain not controlledwith this approach and/or for concerns and/or questions about use of these medications, call [facility] at [phone]. Your [facility] surgeon will have spoken directly with you and/or your family membersand/or other loved ones who are with you today either right after your surgery today or in the office previously about any special post- operative positioning requirements that may be needed. Please maintain strict post-operative face-down (i.e., sleeping on one's stomach) positioning at all times except during three one-hour meal breaks per day and whatever brief breaks you need for dressing, restroom, shower, safe ambulation, etc. For showering, avoid directing your face into the stream of the shower head. Do not worry about a small amount of water and/or soap that gets into your eye patch and/or eye during shampooing, face washing, etc. Do not lift anything heavier than a light bag of groceries and, until notified by your surgeon, do not exercise. Follow-up tomorrow at [facility], [address] [facility] [facility], [place], at 9:20AM. (That location is up the block from [employer] at the corner of [address] and [facility],across the street from [employer], and next door to [facility].) At that appointment, your surgeon and the [facility] staff will review post-operative instructions that will apply moving forward after tomorrow's visit; the instructions you are holding and reading right now apply to today, tonight, and tomorrow morning prior to your appointment. Tomorrow, you will learn about eye drop use after patch removal, further activity and/or exercise restrictions, any ongoing positioning needs, etc. It is very strongly recommended that you have another adult with you at that appointment and in the examination room to help you keep track of all of this and to help you figure out what questions you might have. documented in this encounter Medications at Time of Discharge lisinopril (PRINIVIL, ZESTRIL) 10 mg tablet Take 10 mg by mouth daily. 07/13/2023 meloxicam (MOBIC) 15 mg tablet Take 15 mg by mouth daily. 07/13/2023 documented as of this encounter Discharge Disposition Disposition Code Departure Means Destination Home or Self Care documented in this encounter Progress Notes * Kyle Cadet RN - 02/01/2019 1230 EDT Samm R Renae has been instructed as follows regarding medication administration for the day of thescheduled procedure. Date of Surgery: 02-02-2019 Instructions for Taking Medications Day of Surgery Medication Sig Last Dose Hold DOS Take DOS lisinopril (PRINIVIL, ZESTRIL) 10 mg tablet Take 10 mg by mouth daily. yes meloxicam (MOBIC) 15 mg tablet Take 15 mg by mouth daily. Pt states stopped on 01-29-2019 documented in this encounter H&P Notes * Mirna Soni MD - 02/02/2019 0703 EDT The preoperative history and physical which was performed within 30 days of this procedure has been reviewed and the clinically appropriate elements of the physical examination have been repeated. There are no changes to the documented history and physical or if so such changes are documented below Mirna Soni MD 02/02/2019 7:03 documented in this encounter OR Notes * OR Surgeon - Mirna Soni MD - 02/02/2019 0000 EDT OPERATIVE REPORT SERVICE DATE: 02/02/2019 SURGEON: Mirna Soni MD MICROMATIC HONE OPERATOR: KENN Holcomb PREOPERATIVE DIAGNOSIS: Rhegmatogenous retinal detachment, left eye. POSTOPERATIVE DIAGNOSIS: Rhegmatogenous retinal detachment, left eye. ANESTHESIA: General endotracheal intubation. PROCEDURE: A 25-gauge pars plana vitrectomy, perfluorocarbon liquids, air-fluid exchange, endolaser, C3F8 gas tamponade, left eye. INDICATIONS: The patient presented with a loss of peripheral visual field and was found to have an inferior rhegmatogenous retinal detachment. He wished surgical rehabilitation of vision. NARRATIVE: After fully informed consent was obtained from the patient, including the possible loss of vision, loss of the eye or the need for reoperation, the patient was brought to the operating suite where general endotracheal intubation was induced by the anesthesia team. When adequate anesthesia was obtained, the patient was prepped and draped in the usual sterile fashion. A lid speculum was placed in his left eye. A 25-gauge trocar was then placed 3 mm posterior to the limbus at the 4 o'clock meridian. An infusion line was snapped into place and turned on under direct visualization without complication. Trocars were then placed at the 10 o'clock and 2 o'clock meridian, 3 mm posterior to the limbus. A light pipe and automatic vitrector were introduced into the eye and a core vitrectomy was performed and carried out to the vitreous base. The retina was detached inferonasally extending inferotemporally to the 5 o'clock clock hour. Perfluorocarbon liquids were introduced to stabilizethe posterior retina, and further anterior vitrectomy was performed with scleral depression. Perfluo rocarbon liquids were then introduced to flatten the retina, and endolaser was applied for 360 degrees around the retinal periphery. No large retinal breaks were noted. An air-fluid exchange was performed. The instruments were removed from the eye, and C3F8 gas at a concentration of 14% was injected through the existing infusion line with egress of gas through the superotemporal sclerotomy. When adequate exchange had occurred, the trocars were removed from the eye. The eye pressure was checked and found to be approximately 15. Subconjunctival injections of Ancef and tobramycin were placed, aswell as a sub Tenon's injection of Solu-Medrol. The lid speculum was removed from the eye. The eye was dressed with atropine drops, TobraDex ointment, a patch and Pollack shield. The patient left the operating suite in good stable condition and will be seen in 1 day's time for followup. Unless otherwise noted, there were no complications, no blood loss, no cultures obtained, no specimens removed, and no drains retained. Mirna Soni MD 09 03 AM / Mirna Soni MD mn Confirmation: [id number] Dictation ID: [id number] documented in this encounter Miscellaneous Notes * Anesthesia Post-Eval - Ketan Stoner - 02/02/2019 1024 EDT Anesthesia Post op Note Samm Jossie Macdonald [id number] Anesthesia received: General; Vital Signs: Temp: (!) 35.4 ??C (95.7 ??F), Heart Rate: 50 BPM, BP: 137/66, Resp: 17, SpO2: 99 % Vital signs Stable: Yes Consciousness: Recovered to baseline Patient's participation in evaluation:Able to participate Temperature Status: Normothermic Respiratory Status: Airway patent Supplemental O2: Room air Oxygen Saturation: Within patient's normal range Cardiovascular Status: Within patient's normal range Post-op Hydration: Adequate Nausea / Vomiting: None Pain Control: Adequate Current Pain Score: Numeric Pain Level (Scale 1-10): 4 Post-op Assessment: Tolerated procedure well Disposition: Home Complications: No apparent anesthetic complications Ketan Stoner MD 02/02/2019 10:24 * Brief Op Note - Mirna Soni MD - 02/02/2019 0703 EDT Brief Op Note Pre-op Diagnosis(es): rhegmatogenous retinal detachment, left eye Post-op Diagnosis(es): rhegmatogenous retinal detachment, left eye Procedure(s): 25g pars plana vitrectomy, endolaser, C3F8 gas tamponade, left eye Surgeon: Shira Soni [employer] Clammer: Shelia Macedo Anesthesia: general endotracheal intubation IV Fluid: 500cc Urine output: none Complication(s): none Specimen(s): none documented in this encounter Plan of Treatment Upcoming Encounters Date Type Department Care Team (Late st Contact Info) Description 07/22/2024 19:[address] [facility] Radiology CT - [facility] [address] [place], [place] [id number] 07/29/2025 15:40 EST Office Visit [facility] Cardiology - [place] [address] [place] [address] Palak Diallo MD [address] [facility], [place], [address] [place] [address] documented as of this encounter Visit Diagnoses Diagnosis Retinal detachment of left eye with multiple breaks Recent retinal detachment, partial, with multiple defects Retinal detachment of left eye with multiple breaks Recent retinal detachment, partial, with multiple defects documented in this encounter Administered Medications Inactive Administered Medications - up to 3 most recent administrations Medication Order MAR Action Action Date Dose Rate Site acetaminophen (TYLENOL) tablet 1,000 mg 1,000 mg, oral, PRN, 1 dose, Starting on Fri02/02/19 at 0855, Until Fri02/02/19 at 0942, Pain, Routine, Recovery (only) Given 02/02/2019 9:42 EDT 1,000 mg atropine 0.1 mg/mL syringe 0.5 mg 0.5 mg, intravenous, PRN, Starting on Fri02/02/19 at 0855, Until Fri02/02/19 at 1258, Symptomatic HR < 50, Routine, Recovery (only) atropine 1 % ophthalmic solution 1 Drop 1 Drop, left eye, PRE-OP Q 5 MINUTES, 3 doses, Starting on Fri02/02/19 at 0638, Until Fri02/02/19 at 0659, vitreoretinal surgery, Routine, Pre-Op DOS Rx Approved Given 02/02/2019 6:59 EDT 1 Drop Given 02/02/2019 6:58 EDT 1 Drop Given 02/02/2019 6:57 EDT 1 Drop diphenhydrAMINE (BENADRYL) injection 6.25 mg 6.25 mg, intravenous, PRN, 2 doses, Starting on Fri02/02/19 at 0855, Until Fri02/02/19 at 1258, nausea, Routine, Recovery (only) fentaNYL citrate (PF) injection 25-100 mcg 25-100 mcg, intravenous, EVERY 5 MIN PRN, Starting on Fri02/02/19 at 0855, Until Fri02/02/19 at 1258, Pain, Routine, Recovery (only) HYDROmorphone (DILAUDID) tablet 2 mg 2 mg, oral, PRN, 2 doses, Starting on Fri02/02/19 at 0855, Until Fri02/02/19 at 1258, Pain, Routine, Recovery (only) Given 02/02/2019 9:42 EDT 2 mg HYDROmorphone (PF) (DILAUDID) 0.5 mg/0.5 mL syringe 0.3-0.5 mg 0.3-0.5 mg, intravenous, EVERY 10 MINUTES PRN, Starting on Fri02/02/19 at 0855, Until Fri02/02/19 at 1258, Pain, Routine, Recovery (only) ibuprofen (MOTRIN) tablet 800 mg 800 mg, oral, PRN, 1 dose, Starting on Fri02/02/19 at 0926, Until Fri02/02/19 at 0942, Pain, Routine, Recovery (only) Given 02/02/2019 9:42 EDT 800 mg labetalol (TRANDATE) injection 5 mg 5 mg, intravenous, EVERY 10 MINUTES PRN, Starting on Fri02/02/19 at 0926, Until Fri02/02/19 at 1258, High Blood Pressure, Routine, Recovery (only) lactated ringers (LR) infusion 30 mL/hr, intravenous, CONTINUOUS, Starting on Fri02/02/19 at 0700, Until Fri02/02/19 at 1258, Routine, Pre-Op DOS Rx Approved New Bag 02/02/2019 7:09 EDT 30 mL/hr 30 mL/hr lactated ringers (LR) infusion at 75 mL/hr, intravenous, CONTINUOUS, Starting on Fri02/02/19 at 0915, Until Fri02/02/19 at 1258, Routine, Recovery (only) naloxone (NARCAN) injection 0.2 mg 0.2 mg, intravenous, PRN, Starting on Fri02/02/19 at 0855, Until Fri02/02/19 at 1258, Opioid Reversal, Routine, Recovery (only) ondansetron (PF) (ZOFRAN) injection 2 mg 2 mg, intravenous, PRN, 1 dose, Starting on Fri02/02/19 at 0855, Until Fri02/02/19 at 1024, Nausea, Vomiting, Routine, Recovery (only) Given 02/02/2019 10:24 EDT 2 mg phenylephrine (MYDFRIN) 2.5 % ophthalmic solution 1 Drop 1 Drop, left eye, PRE-OP Q 5 MINUTES, 3 doses, Starting on Fri02/02/19 at 0638, Until Fri02/02/19 at 0702, vitreoretinal surgery, Routine, Pre-Op DOS Rx Approved Given 02/02/2019 7:02 EDT 1 Drop Given 02/02/2019 7:01 EDT 1 Drop Given 02/02/2019 7:00 EDT 1 Drop tropicamide (MYDRIACYL) 1 % ophthalmic solution 1 Drop 1 Drop, left eye, PRE-OP Q 5 MINUTES, 3 doses, Starting on Fri02/02/19 at 0638, Until Fri02/02/19 at 0704, vitreoretinal surgery, Routine, Pre-Op DOS Rx Approved Given 02/02/2019 7:04 EDT 1 Drop Given 02/02/2019 7:03 EDT 1 Drop Given 02/02/2019 7:02 EDT 1 Drop documented in this encounter Active and Recently Administered Medications Times are shown in EDT. Continuous Medication Order 01/31/2019 02/01/2019 02/02/2019 lactated ringers (LR) infusion 30 mL/hr, intravenous, CONTINUOUS, Starting on Fri02/02/19 at 0700, Until Fri02/02/19 at 1258, Routine, Pre-Op DOS Rx Approved 708 (New Bag - Prov ider: Andra Sood RN)920 (Completed - Provider: Chelo Rand RN) lactated ringers (LR) infusion at 75 mL/hr, intravenous, CONTINUOUS, Starting on Fri02/02/19 at 0915, Until Fri02/02/19 at 1258, Routine, Recovery (only) 0921 (Continued Infu cierra - Provider: Chelo Rand, TAYO)1030 (Completed - Provider: Chelo Rand, TAYO) PRN Medication Order 01/31/2019 02/01/2019 02/02/2019 acetaminophen (TYLENOL) tablet 1,000 mg (COMPLETED)(Linked Group 1) 1,000 mg, oral, PRN, 1 dose, Starting on Fri02/02/19 at 0855, Until Fri02/02/19 at 0942, Pain, Routine, Recovery (only) 0942 (Given - Provid er: Chelo Rand RN) atropine 0.1 mg/mL syringe 0.5 mg 0.5 mg, intravenous, PRN, Starting on Fri02/02/19 at 0855, Until Fri02/02/19 at 1258, Symptomatic HR < 50, Routine, Recovery (only) atropine 1 % ophthalmic solution 1 Drop (COMPLETED) 1 Drop, left eye, PRE-OP Q 5 MINUTES, 3 doses, Starting on Fri02/02/19 at 0638, Until Fri02/02/19 at 0659, vitreoretinal surgery, Routine, Pre-Op DOS Rx Approved 0657 (Given - Provid er: Andra Sood RN)0658 (Given - Provider: Andra Sood RN)0659 (Given - Provider: Andra Sood RN) diphenhydrAMINE (BENADRYL) injection 6.25 mg 6.25 mg, intravenous, PRN, 2 doses, Starting on Fri02/02/19 at 0855, Until Fri02/02/19 at 1258, nausea, Routine, Recovery (only) fentaNYL citrate (PF) injection 25-100 mcg 25-100 mcg, intravenous, EVERY 5 MIN PRN, Starting on Fri02/02/19 at 0855, Until Fri02/02/19 at 1258, Pain, Routine, Recovery (only) HYDROmorphone (DILAUDID) tablet 2 mg 2 mg, oral, PRN, 2 doses, Starting on Fri02/02/19 at 0855, Until Fri02/02/19 at 1258, Pain, Routine, Recovery (only) 0942 (Given - Provid er: Chelo Rand RN) HYDROmorphone (PF) (DILAUDID) 0.5 mg/0.5 mL syringe 0.3-0.5 mg 0.3-0.5 mg, intravenous, EVERY 10 MINUTES PRN, Starting on Fri02/02/19 at 0855, Until Fri02/02/19 at 1258, Pain, Routine, Recovery (only) ibuprofen (MOTRIN) tablet 800 mg (COMPLETED) 800 mg, oral, PRN, 1 dose, Starting on Fri02/02/19 at 0926, Until Fri02/02/19 at 0942, Pain, Routine, Recovery (only) 0942 (Given - Provid er: Chelo Rand, TAYO) labetalol (TRANDATE) injection 5 mg 5 mg, intravenous, EVERY 10 MINUTES PRN, Starting on Fri02/02/19 at 0926, Until Fri02/02/19 at 1258, High Blood Pressure, Routine, Recovery (only) naloxone (NARCAN) injection 0.2 mg 0.2 mg, intravenous, PRN, Starting on Fri02/02/19 at 0855, Until Fri02/02/19 at 1258, Opioid Reversal, Routine, Recovery (only) ondansetron (PF) (ZOFRAN) injection 2 mg (COMPLETED) 2 mg, intravenous, PRN, 1 dose, Starting on Fri02/02/19 at 0855, Until Fri02/02/19 at 1024, Nausea, Vomiting, Routine, Recovery (only) 1024 (Given - Provid er: Chelo Rand RN) phenylephrine (MYDFRIN) 2.5 % ophthalmic solution 1 Drop (COMPLETED) 1 Drop, left eye, PRE-OP Q 5 MINUTES, 3 doses, Starting on Fri02/02/19 at 0638, Until Fri02/02/19 at 0702, vitreoretinal surgery, Routine, Pre-Op DOS Rx Approved 0700 (Given - Provid er: Andra Sood RN)07 (Given - Provider: Andra Sood RN)07 (Given - Provider: Andra Sood RN) tropicamide (MYDRIACYL) 1 % ophthalmic solution 1 Drop (COMPLETED) 1 Drop, left eye, PRE-OP Q 5 MINUTES, 3 doses, Starting on Fri02/02/19 at 0638, Until Fri02/02/19 at 0704, vitreoretinal surgery, Routine, Pre-Op DOS Rx Approved 07 (Given - Provid er: Andra Sood RN)07 (Given - Provider: Andra Sood RN)07 (Given - Provider: Andra Sood RN) Linked Groups Order Group 1: acetaminophen (TYLENOL) solution unit dose cup 995 mg (COMPLETED) 995 mg (rounded from 1,000 mg), oral, PRN, 1 dose, Starting on Fri02/02/19 at 0855, Until Fri02/02/19 at 0942, Fever, Routine, Recovery (only) Or acetaminophen (TYLENOL) tablet 1,000 mg (COMPLETED)Jump to med 1,000 mg, oral, PRN, 1 dose, Starting on Fri02/02/19 at 0855, Until Fri02/02/19 at 0942, Pain, Routine, Recovery (only) documented in this encounter Orders Medications Ordered That Attila ht Not Have Been Administered Count Last Ordered Date First Ordered Date acetaminophen (TYLENOL) solu tion unit dose cup 995 mg 1 02/02/2019 atropine 0.1 mg/mL syringe 0.5 mg 1 019 diphenhydrAMINE (BENADRYL) i njection 6.25 mg 1 02/02/2019 fentaNYL citrate (PF) injection 25-100 mcg 02/02/2019 HYDROmorphone (PF) (DILAUDID ) 0.5 mg/0.5 mL syringe 0.3-0.5 mg 1 02/02/2019 labetalol (TRANDATE) injection 5 mg 1 02/02 lactated ringers (LR) infusion 02/02/2019 naloxone (NARCAN) injection 0.2 mg 1 2018 Admission Count Last Ordered Date First Orde red Date STATUS: OUTPATIENT SURGICAL OP BED/SERVICES 02/02/2019 Transfer Count Last Ordered Date First Orde red Date NOTIFY PPS PACU PATIENT DISCHARGE 019 NOTIFY PPS PATIENT ARRIVAL IN PACU 2018 Discharge Count Last Ordered Date First Orde red Date DISCHARGE PATIENT 1 02/02/2019 documented in this encounter Care Teams Size Stamper Relationship Specialty Start Date End Date eMredith Garcia MD PCP - General 01/25/19 11/01/21 documented as of this encounter
--- OUTSIDE RECORDS SUMMARY | 2024-07-21 16:40 | XMS_ITS | Encounter Summary ---
Author Organization [facility] Address [facility] [place] [address] Care Team Providers Care Line Tender Flakeboard Name Role Phone Cheli Elias MD Primary Care Provider [phone] Reason for Visit * Reason Comments Pre-op Exam Total Left Knee repl acement 04/16 Encounter Details Date Type Department Care Team (Late st Contact Info) Description 03/17/2017 9:30 AM EDT Office Visit Internal Medicine at [address] [address] Laura Christianson MD [facility] [place] [address] Pre-op evaluation; Old tear of medial meniscus of left knee, unspecified tear type; Chronic pain of left knee; Preop examination Social History Tobacco Use Types Packs/Day Years Used Date Smoking Tobacco: Never Smokeless Tobacco: Never Alcohol Use Standard Drinks/Week Comments No 0 (1 standard drink = 0.6 oz pur e alcohol) Sex and Gender Information Value Date Recorded Sex Assigned at Not on file Gender Identity Not on file Sexual Orientation Not on file documented as of this encounter Last Filed Vital Signs Vital Sign Reading Time Taken Comments Blood Pressure 140/74 03/17/2017 9:29 AM EDT Pulse 43 03/17/2017 9:29 AM EDT Temperature 36.6 ??C (97.8 ??F) 03/17/2017 9:29 AM ED T Respiratory Rate - - Oxygen Saturation 100% 03/17/2017 9:29 AM EDT Inhaled Oxygen Concentration - - Weight 126 kg (277 lb 12.8 oz) 03/17/2017 9:29 A M EDT Height 179 cm (5' 10.47) 03/17/2017 9:29 AM EDT Body Mass Index 39.33 03/17/2017 9:29 AM EDT documented in this encounter Patient Instructions * Patient Instructions* Laura Christianson - 03/17/2017 9:30 AM EDT Hold meloxicam for one week prior to surgery Hold lisinopril 24-hours prior to surgery documented in this encounter Progress Notes * Jeanette James MA - 03/17/2017 9:30 AM EDT Using at 1/10 solution of hydrogen peroxide and warm water and the Rhino ear wash system, I flusheda large amount of cerumen from the both ears. * Laura Christianson - 03/17/2017 9:30 AM EDT Consult request from: orthopedics Planned surgery: left total knee arthroplasty Reason for Consult: We are seeing at the request of Dr. Jade for the evaluation of pre-op risk management. I have reviewed the available records, interviewed and examined the patient. HPI: He has tried conservative management for 1.5 years, without much benefit. He is frustrated by the limitations that this injury has caused him. His procedure is planned for one month from now; he is anxious about the surgery itself, but looking forward to the potential functionality gain. Anesthesia related questions: No personal history of problems with anesthesia. No family history of problems with anesthesia. No heartburn. Uses reading glasses. No fake dentition. REVIEW OF SYSTEMS: General: no recent fevers, chills or weight change HEENT: no vision or hearing changes, tinnitus, or headaches CVS: no chest pain , palpitations, orthopnea Respiratory: no shortness of breath, cough, wheezing, or hemoptysis GI: no constipation, diarrhea, nausea/vomiting, abdominal pain, or blood in stool : no dysuria, incontinence, or hematuria Musculoskeletal: +arthritis Heme: no easy bruising, no bleeding, no noted LAD Skin: no new rashes or lesions Psych: no hx of depression RISK ASSESSMENT via 2007 ACC/AHA guidelines: Surgery is Emergent: [] Yes [X]No Patient has active cardiac condition: [ ] Yes [X] No -[]recent [place] -[][place] -[]Class IV CHF -[]Decompensated HF -[]High grade heart block -[]SVT with HR >100 -[]Symptomatic bradycardia -[]V tach Surgical risk is: []High (Vascular) [X]Intermediate (peritoneal, thoracic, CEA, H&N, ortho, prostate) []Low (endoscopic, cataracts, breast, ambulatory) Functional capacity is: []<4 Mets [X]4-9 METS []10 METs or greater Clinical Risk factors: [X]None []1-2 [] 3 or more -[] high risk surgery: peritoneal, thoracic, suprainguinal vascular -[] Hx of CAD -[] Hx of diabetes -[] Hx of compensated CHF -[] Hx of cerebrovascular disease -[] Hx of renal failure Past Medical/Surgical History: Patient Active Problem List Diagnosis ??? Body mass index (BMI) of 40.0-44.9 in adult ??? Retinal tear L eye, currently being watched by Dr Soni in [facility] ??? Detached retina R eye in aug 2010, x 2 ??? Healthcare maintenance Preventive Care: CRC screening - 2009, Due 2014 TA Prostate Ca screening - [] Lipids - [] DM screening - (Hgb, A1C or FBS) [] Seat belts - [] Immunizations: dT - 2006 outside hospital [facility] ??? Tubular adenoma ??? Psoriasis ??? HTN (hypertension) ??? CIS - History of mild iritis ??? Sleep apnea a. status post uvulectomy. b. On CPAP at [id number] Significant Family History: Family History Problem Relation Age of Onset ??? Alzheimer Disease Father ??? Psoriasis Father ??? Cancer Father ??? Alzheimer Disease Paternal Aunt Social History: Social History Substance Use Topics ??? Smoking status: Never Smoker ??? Smokeless tobacco: Never Used ??? Alcohol use No Medications: Current Outpatient Prescriptions on File Prior to Visit Medication Sig Dispense Refill ??? meloxicam (MOBIC) 15 mg Tablet Take 15 mg by mouth daily. ??? lidocaine (LIDODERM) 5 % Adhesive Patch, Medicated Place 1 patch onto the skin every 24 hours. Apply 1 patch onto the skin daily. (leave on for 12 hours and remove for 12 hours) ??? lisinopril (PRINIVIL;ZESTRIL) 10 mg Tablet Take 1 tablet by mouth daily. 90 tablet 3 No current facility-administered medications on file prior to visit. Allergies: Allergies Allergen Reactions ??? Benzocaine CIS - Hives, CIS - Hives ??? Benzoin CIS - Hives ??? Cetylpyridinium Chloride CIS - Hives ??? Menthol CIS - Hives ??? Phenol CIS - Hives ??? Sodium Phenolate CIS - Hives PHYSICAL EXAM: BP 140/74 (BP Location (NBP): Left arm, Patient Position: Sitting, BP Cuff Sizes: Large Adult (32-43 cm)) Pulse (!) 43 Temp 36.6 ??C (97.8 ??F) (Oral) Ht 179 cm (5' 10.47) Wt (!) 126 kg (277lb 12.8 oz) SpO2 100% BMI 39.33 kg/m2 General: alert, oriented, in no acute distress HEENNT: atraumatic, normocephalic, sclera non-icteric, conjunctiva pink, PEERLA, EOMI, canals blocked by cerumen but are clear after ear flush, TMs with normal light reflex, no rhinorrhea, neck supple without LAD, oropharynx clear without exudate, moist mucous membranes, thyroid without nodules Cardiovascular: RRR, normal S1/S2, no murmurs/rubs/gallps, pulses 2+ and symmetric Lungs: chest symmetric, normal effort, CTABL Abdomen: +BS, soft, non-tender, non-distended, no organomegaly Extremities: no MERI MSK: no joint swelling Skin: warm, intact, no bruises, no suspicious lesions Neurologic: CN II-XII intact, strength 5/5 in major muscle groups, sensation intact to light touch Psychologic: normal affect and thought content, good judgement and reasoning, no abnormal behavior during the exam Lab/Diagnostics: Recent Results (from the past 24 hour(s)) Basic Metabolic Panel (non-fasting) Result Value Ref Range Glucose Lvl 104 65 - 199 mg/dL BUN 16 10 - 20 mg/dL Creatinine 1.04 0.80 - 1.50 mg/dL Sodium 140 135 - 145 mmol/L Potassium 4.9 3.5 - 5.0 mmol/L Chloride 105 98 - 107 mmol/L CO2 25 22 - 31 mmol/L Anion Gap 10 5 - 15 mmol/L Calcium 9.3 8.5 - 10.5 mg/dL Estimated GFR >60 >=60 Hemoglobin A1c Result Value Ref Range Hemoglobin A1C 5.4 4.3 - 5.6 % Est Avg Gluc 108 mg/dL Hemogram Result Value Ref Range WBC 9.0 4.0 - 9.5 x10(3)/mcL RBC 4.73 4.58 - 5.54 x10(6)/mcL Hemoglobin 14.0 13.7 - 16.5 gm/dL Hematocrit 42.3 40.5 - 48.5 % MCV 89.4 82.9 - 93.1 fL MCH 29.6 27.5 - 32.1 pg MCHC 33.1 32.0 - 35.7 gm/dL Platelets 248 145 - 357 x10(3)/mcL RDWSD 45.5 (H) 36.0 - 45.0 fL RDWCV 14.0 (H) 11.4 - 13.8 % MPV 10.4 7.6 - 12.9 fL nRBC % Auto 0.0 % nRBC Abs Auto 0.000 0.000 - 0.000 x10(3)/mcL Differential, Automated Result Value Ref Range Neutrophils % 72.9 % Neutr Abs (ANC) 6.54 (H) 1.70 - 6.10 x10(3)/mcL Lymphocytes % 18.1 % Lymphocytes Abs 1.6 0.9 - 3.2 x10(3)/mcL Monocytes % 6.0 % Monocyte Abs 0.5 0.3 - 0.9 x10(3)/mcL Eosinophils % 2.3 % Eosinophils Abs 0.2 0.0 - 0.4 x10(3)/mcL Basophils % 0.4 % Basophils Abs 0.0 0.0 - 0.1 x10(3)/mcL Immature Gran % 0.30 % Tanika Gran Abs 0.03 0.00 - 0.04 x10(3)/mcL EKG January 2017: sinus bradycardia (rate 57) ASSESSMENT: Samm Macdonald III is a 61 y.o. male with history of hypertension, obesity, and sleep apnea presenting for pre-operative evaluation prior to total knee arthroplasty. He is at low-risk for an intermediate risk procedure. There are no contraindications to surgery at this time. Pre-op evaluation recommendations: Patient will hold meloxicam for one week prior to surgery and lisinopril 24- hours prior to surgery 1. Risk assessment: Per Revised [place] Cardiac Risk Index, risk of adverse event is -[X] No risk factors: 0.4% risk -[] 1 RF: 1% risk -[] 2 RF: 2.4% risk -[] 3 or more RF: 5.4% risk 2. Pre-operative testing recommendation: -[X]None -[]ECG -[]TTE -[]DSE -[]Nuc stress -[]Cardiac cathterization with potential revascularization 3. Reason to delay elective surgery is: -[] Present (Unstable angina, Stage III HTN >180/>110, severe , BMS last 4-6 weeks, LIZZY last 12 mos.) -[X] Absent 4. Interventions indicated for perioperative risk reduction: -[X] None -[] Beta gamal indicated with target HR of 65 (already on Bb, Vascular surgery, Intermediate riskwith CAD or multiple risk factors) -[] Statin indicated (CAD or equivalent) 5. Postoperative Surveillance: -[X] None -[] Consider intraoperative GERALD -[] post-op ECG and Cardiac biomarkers Old tear of medial meniscus of left knee, unspecified tear type - Patient is pending total knee arthroplasty Chronic pain of left knee - Patient instructed to hold meloxicam for one week prior to surgery given platelet effect and increased risk of bleeding * Cheli Elias MD - 03/17/2017 9:30 AM EDT I have seen the patient and reviewed the resident's above history and I agree with the details as written. The assessment and plan were formulated in discussion with me and I agree with them as documented. Pertinent History: Here for preop physical for total knee replacement. He has no other acute concerns Pertinent Exam: BP 140/74 (BP Location (NBP): Left arm, Patient Position: Sitting, BP Cuff Sizes: Large Adult (32-43 cm)) Pulse (!) 43 Temp 36.6 ??C (97.8 ??F) (Oral) Ht 179 cm (5' 10.47) Wt(!) 126 kg (277 lb 12.8 oz) SpO2 100% BMI 39.33 kg/m2 No acute distress Major issues addressed: No chest pain, shortness of breath, no symptoms of acute illness Plan: No additional tests indicated or interventions prior to the surgery documented in this encounter Plan of Treatment Not on file documented as of this encounter Procedures Procedure Name Priority Date/Time Associated Diagnosis Comments HEMOGRAM Routine 03/17/2017 10:48 AM EDT Preop examination DIFFERENTIAL, AUTOMATED Routine 03/17/2017 10:48 AM EDT Preop examination CBC (WITH DIFF) Routine 03/17/2017 10:48 AM EDT Preop examination HEMOGLOBIN A1C Routine 03/17/2017 10:48 AM EDT Pre-op evaluation BASIC METABOLIC PANEL Routine 03/17/2017 10:48 AM EDT Pre-op evaluation documented in this encounter Results * (ABNORMAL) Differential, Automated (03/17/2017 10:48 AM EDT) Neutrophil % 72.9 % [facility] Neutrophil Absolute 6.54(H) 1.70 - 6.10 x10(3)/mc L [facility] Lymph % 18.1 % [facility] Lymphocytes Abs 1.6 0.9 - 3.2 x10(3)/mc L [facility] Monocyte % 6.0 % [facility] Monocyte Abs 0.5 0.3 - 0.9 x10(3)/mc L [facility] Eos % 2.3 % [facility] Eosinophils Abs 0.2 0.0 - 0.4 x10(3)/mc L [facility] Basophil % 0.4 % [facility] Baso Absolute 0.0 0.0 - 0.1 x10(3)/[facility] Immature Gran % 0.30 % [facility] Comment: Immature granulocytes(IG's)percentage and absolute count will include metamyelocytes, myelocytes, and promyelocytes. Blood smears from CBCs yielding IG's will be scanned manually for concordance. If this scan disagrees with the automated IG or if promyelocytes are noted, a manual differential will be performed. Immature Gran Absolute 0.03 0.00 - 0.04 x10(3)/[facility] Blood specimen (specimen) 03/17/2017 10:48 AM EDT 03/17/2017 1:07 PM EDT Narrative Resulting Agency Comment Spec In Lab Kassandra Gilbert APRN HEMATOLOGY ORDER KRISTY Performing Organization Address City/State/[facility] Co de Phone Number [facility] [place] [address] * (ABNORMAL) Hemogram (03/17/2017 10:48 AM EDT) White Blood Cell 9.0 4.0 - 9.5 x10(3)/[facility] Red Blood Cell 4.73 4.58 - 5.54 x10(6)/[facility] Hemoglobin 14.0 13.7 - 16.5 gm/dL [facility] Hematocrit 42.3 40.5 - 48.5 % [facility] Mean Cell Volume 89.4 82.9 - 93.1 fL [facility] Mean Cell Hemoglobin 29.6 27.5 - 32.1 pg [facility] Mean Cell Hemoglobin Concentration 33.1 32.0 - 35.7 gm/dL [facility] Platelet 248 145 - 357 x10(3)/[facility] RDW Standard Deviation 45.5(H) 36.0 - 45.0 fL [facility] RDW coefficient of variation 14.0(H) 11.4 - 13.8 % [facility] Mean Platelet Volume 10.4 7.6 - 12.9 fL [facility] NRBC% auto 0.0 % [facility] NRBC Absolute 0.000 0.000 - 0.000 x10(3)/mc L [facility] Blood specimen (specimen) 03/17/2017 10:48 AM EDT 03/17/2017 1:07 PM EDT Narrative Resulting Agency Comment Spec In Lab Kassandra Gilbert APRN HEMATOLOGY ORDER KRISTY [facility] [place] [address] * Hemoglobin A1c (03/17/2017 10:48 AM EDT) Hemoglobin A1c 5.4 4.3 - 5.6 % [facility] Comment: Reference Range: 4.3 - 5.6% 5.7 - 6.4% - Increased Risk of Developing Diabetes Mellitus >=6.5% - Consistent with diagnosis of Diabetes Mellitus In the absence of hyperglycemia (i.e. plasma glucose > 200 mg/dL) or classic symptoms of hyperglycemia a repeat measurement of HbA1c should be performed on a separate sample to confirm the diagnosis. Diagnosis and Classification of Diabetes Mellitus, Diabetes Care 2013; 36: Suppl. 1, S67-74 Estimated Average Glucose 108 mg/dL [facility] Comment: eAG equivalents for HbA1c percentages: HbA1c(%) ?eAG(mg/dL) 6.0 ?126 6.5 ?140 7.0 ?154 7.5 ?169 8.0 ?183 8.5 ?197 9.0 ?212 9.5 ?226 10.0 ? 240 Limitations: The eAG calculation has not been validated on women, individuals below 18 years old and above 70 years old, and individuals with hemoglobinopathies. Additional resources are available on the ADA website. [place] MARSH, Bettina J, Brayan R, et al. ??Translating the A1C assay into estimated average glucose values. ??Diabetes Care 2008:31(8):0738-4290. Blood specimen (specimen) 03/17/2017 10:48 AM EDT 03/17/2017 1:07 PM EDT Narrative Resulting Agency Comment Spec In Lab Cheli Elias MD CHEMISTRY ORDERABLES [facility] [place] [address] * Basic Metabolic Panel (non-fasting) (03/17/2017 10:48 AM EDT) Glucose 104 65 - 199 mg/dL [facility] Comment:Diabetes: >=200 mg/d L plus symptoms Blood Urea Nitrogen 16 10 - 20 mg/dL [facility] Creatinine 1.04 0.80 - 1.50 mg/dL [facility] Comment: Please note that the pediatric reference intervals supplied above were not validated at [facility]. Results from pediatric patients should be interpreted in conjunction to the patient's age, height and muscle mass. Sodium 140 135 - 145 mmol/L [facility] Potassium 4.9 3.5 - 5.0 mmol/L [facility] Comment: Please note: ??Patients with WBC >100,000 may have falsely elevated Potassium levels. ??For accurate Potassium quantification in these patients send serum separator tube (gold top) for subsequent determinations. ??Contact the Clinical Chemistry Laboratory if there are any questions. Chloride 105 98 - 107 mmol/L [facility] Carbon Dioxide 25 22 - 31 mmol/L [facility] Anion Gap 10 5 - 15 mmol/L [facility] Calcium 9.3 8.5 - 10.5 mg/dL [facility] Est Glomerular Filtration Rate >60 >=60 [facility] Comment: This estimated GFR (eGFR) value was calculated using the MDRD equation which has been validated on patients between the ages of 18 and 70. The MDRD should not be used to assess kidney function in patients < 18 years of age or in patients with extremes of body mass, or in patients with acute kidney failure. This value should be multiplied by 1.2 for patients. For further information please copy and paste the following links into your internet browser. http://Sighter/DHnkdep [email or web address]://[email or web address]/[email or web address] Blood specimen (specimen) 03/17/2017 10:48 AM EDT 03/17/2017 1:14 PM EDT Narrative Resulting Agency Comment Spec In Lab Cheli Elias MD CHEMISTRY ORDERABLES [facility] [place] [address] documented in this encounter Visit Diagnoses Diagnosis Pre-op evaluation Preoperative examination, unspecified Old tear of medial meniscus of left knee, unspecified tear type Chronic pain of left knee Pain in joint, lower leg Preop examination Preoperative examination, unspecified documented in this encounter Care Teams Line Tender Flakeboard Relationship Specialty Start Date End Date Cheli Elias MD [facility] [address] [place] [address] PCP - General 06/26/10 05/04/18 documented as of this encounter
--- OUTSIDE RECORDS SUMMARY | 2024-07-21 16:40 | XMS_ITS | Encounter Summary ---
Author Organization [facility] Address [facility] [place] [address] Care Team Providers Care Smoking Tobacco Cutter Operator Name Role Phone Cheli Elias MD Primary Care Provider [phone] Encounter Details Date Type Department Care Team (Late st Contact Info) Description 01/22/2017 Telephone Internal Medicine at [address] [address] Skyla Haines RN Social History Tobacco Use Types Packs/Day Years [...] encounter Miscellaneous Notes * Telephone Encounter - Skyla Haines RN - 01/22/2017 12:45 PM EDT Received call from lab regarding clotted CBC. TC to patient; informed of lab order. He agreed to come to [place] tomorrow morning. Order pended. documented in this encounter Plan of Treatment Not on file documented as of this encounter Visit Diagnoses Diagnosis Preop examination Preoperative examination, unspecified documented in this encounter Care Teams Smoking Tobacco Cutter Operator Relationship Specialty Start Date End Date Cheli Elias MD [facility] [address] [place] [address] PCP - General 06/26/10 05/04/18 documented as of this encounter
--- OUTSIDE RECORDS SUMMARY | 2024-07-21 16:40 | XMS_ITS | Encounter Summary ---
Author Organization [facility] Address [address] [place] [address] Care Team Providers Care Gunite Mixer Name Role Phone Robyn Glynn MD Primary Care Provider [phone] Reason for Visit * Reason Comments Facial Swelling Has parotid tumor, s urgery was schedule but delayed, planned for surgery on 05/15 at [facility]. Presents today with increased pain, swelling for 4 days, fever that startd last night. Encounter Details Date Type Department Care Team (Late st Contact Info) Description 05/12/2022 11:41 EDT - 05/12/2022 15:17 EDT Emergency [facility] Emergency Department - Main [address] [address] Paige Weaver MD [address] [place] [address], [address] [place] [address] Parotitis, acute (Primary Dx) Discharge Disposition: Home or Self Care Social [...] Sign Reading Time Taken Comments Blood Pressure 185/84 05/12/2022 1510 EDT Pulse - - Temperature 37 ??C (98.6 ??F) 05/12/2022 1510 EDT Respiratory Rate 18 05/12/2022 1510 EDT Oxygen Saturation 98% 05/12/2022 1510 EDT Inhaled Oxygen Concentration - - Weight - - Height 177.8 cm (5' 10) 05/12/2022 1138 EDT Body Mass Index - - documented in this encounter Discharge Instructions * Discharge Instructions* Paige Weaver MD - 05/12/2022 14:47 EDT Please continue your antibiotic as prescribed. Follow-up with ENT as you have planned. If you have any worsening symptoms or any other questions problems or concerns please return here for reevaluation. * Attachments The following attachments cannot be sent through Care Everywhere. * Salivary Gland Infection (Setswana) documented in this encounter Medications at Time of Discharge acetaminophen 325 mg capsule Take 1,000 mg by mouth if needed. melatonin 10 mg capsule Take by mouth. amLODIPine (NORVASC) 5 mg tablet Take 1 Tablet by mouth at bedtime. 3 bacitracin zinc 500 unit/gram ointment Apply topically 2 times daily. To your incision 28 g 07/31/2022 3 cefpodoxime (VANTIN) 200 mg tablet Take 2 Tablets by mouth 2 times daily for 14 days. 56 Tablet 05/14/2022 2 clindamycin (CLEOCIN) 150 mg capsule Take 2 Capsules by mouth 3 times daily for 7 days. 42 capsule 05/11/2022 2 ELIQUIS 5 mg tablet Take 5 mg by mouth 2 times daily. 04/01/2022 2 ibuprofen (MOTRIN) 800 mg tablet Take 800 mg by mouth daily. 3 lisinopril (PRINIVIL, ZESTRIL) 10 mg tablet Take 10 mg by mouth daily. 3 meloxicam (MOBIC) 15 [...] mouth 2 times daily for 14 days. 56 Tablet 05/14/2022 2 documented in this encounter Discharge Disposition Disposition Code Departure Means Destination Home or Self Halfway documented in this encounter Consult Notes * Self, MD Espinoza - 05/12/2022 1426 EDT [facility] Consult Note Consult requested by Paige Weaver MD for left cheek swelling CC: left cheek swelling HPI: Samm Macdonald is a 66 y.o. Male on Eliquis for A. fib who presents to the emergency departmentcomplaining of left cheek swelling for the last 4 days. He has been followed by Dr. 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 He is scheduled for left superficial parotidectomy on Friday. He called yesterday with concerns for worsening swelling and pain over his left cheek and was started on clindamycin and parotitis management. Overnight he feels that the swelling has progressed and he had a fever to 100 this morning. He presented to the emergency department for further evaluation. He is breathing fine swallowing fine and besides the pain in the left side of his face and neck hasno other complaints right now. He does not have any facial weakness. He took his Eliquis this morning. He has taken 3 doses of clindamycin. Past Medical History: Diagnosis Date ??? A-fib (HCC-CMS) (HCC) ??? Apnea ??? Back pain ??? History of general anesthesia ??? Hypertension ??? Joint replaced ??? Sleep apnea 05/08/2022 cpap ??? Spinal stenosis Past Surgical History: Procedure Laterality Date ??? EYE SURGERY catarcts, cataract redo, rentinal surgery ??? JOINT REPLACEMENT ??? KNEE SURGERY ??? RHINOPLASTY ??? TONSILLECTOMY ??? UVULOPALATOPHARYGOPLASTY reports that he has never smoked. He has never used smokeless tobacco. He reports that he does not drink alcohol and does not use drugs. Social History Tobacco Use Smoking Status Never Smoker Smokeless Tobacco Never Used Family History Reviewed, noncontributory Allergies: Chloraseptic (Benzocaine) Indocin [Indomethacin] Home meds Prior to Admission medications Medication Sig Start Date End Date Taking? Authorizing Provider acetaminophen (TYLENOL) 325 mg capsule Take 1,000 mg by mouth 2 times daily. Ra Nelson MD amLODIPine (NORVASC) 5 mg tablet Take 2.5 mg by mouth at bedtime. Ra Nelson MD clindamycin (CLEOCIN) 150 mg capsule Take 2 Capsules by mouth 3 times daily for 7 days. 05/11/22 05/18/22 Espinoza Delgadillo MD ELIQUIS 5 mg tablet Take 5 mg by mouth 2 times daily. 04/01/22 Ra Nelson MD ibuprofen (MOTRIN) 800 mg tablet Take 800 mg by mouth daily. Patient not taking: Reported on 04/30/2022 Ra Nelson MD lisinopril (PRINIVIL, ZESTRIL) 10 mg tablet Take 10 mg by mouth daily. Patient not taking: Reported on 05/08/2022 Fa, Emergency Nurse, RN melatonin 10 mg capsule Take by mouth. Ra Nelson MD meloxicam (MOBIC) 15 mg tablet Take 15 mg by mouth daily. Patient not taking: Reported on 05/08/2022 Fa, Emergency Nurse, RN metoprolol TARtrate (LOPRESSOR) 50 mg tablet Take 50 mg by mouth 2 times daily. Ra Nelson MD ROS: A 10 point ROS was completed; pertinent positives and negative were mentioned in HPI PHYSICAL EXAMINATION CONSTITUTIONAL: VITAL SIGNS: BP (!) 187/69 Temp 36.6 ??C (97.9 ??F) Resp 20 Ht 177.8 cm (70) SpO2 99% BMI 43.05 kg/m?? APPEARANCE: The patient appears alert, cooperative, and comfortable. ABILITY TO COMMUNICATE / VOICE: Normal HEAD AND FACE: INSPECTION: left cheek swelling without erythema. PALPATION: Not performed. SALIVARY GLANDS: left parotid gland is swollen without overlying skin change, no fluid expressable from parotid duct FACIAL STRENGTH: Intact and symmetrical bilaterally EXTERNAL EAR & NOSE: No external ear or nose deformity noted EYES: EYES: normal EARS, NOSE, MOUTH AND THROAT: OTOSCOPY: Right external auditory canal: not examined Left external auditory canal: not examined Right tympanic membrane: not examined Left tympanic membrane: not examined WHISPER/TUNING FORK: Hearing subjectively normal NOSE: not examined LIPS, TEETH & GUMS: normal for age ORAL CAVITY & OROPHARYNX: normal, pink mucosa HYPOPHARYNX & PHARYNGEAL ZAFAR: Not examined LARYNX: Not examined NASOPHARYNX: Not examined NECK: GENERAL: Supple, no asymmetry or crepitus, trachea midline THYROID: Not examined LYMPHATIC: CERVICAL LYMPH NODES: No pathologic cervical lymphadenopathy noted RESPIRATORY: LUNGS: breathing comfortably on room air CARDIOVASCULAR: CARDIOVASCULAR: Not examined NEUROLOGIC: NEUROLOGIC: Normal mood and affect Labs: CBC: Lab Results Component Value Date WBC 18.71 (H) 05/12/2022 HGB 15.5 05/12/2022 HCT 46.4 05/12/2022 PLT 296 05/12/2022 NEUTROABS 15.37 (H) 05/12/2022 Informed consent was obtained from the patient for needle aspiration of the left parotid cystic mass. I discussed risks including bleeding, worsening pain, infection and nondiagnostic specimen. Bedside ultrasound was performed using a linear array probe. The previously described 3 cm left tail of parotid cystic mass now measured proximately 4 cm in all dimensions. The skin overlying the cystic mass was cleansed with alcohol and marked with a marking pen. 1 cc of lidocaine with epinephrinewas then injected into the skin. Palpation guidance was then used to needle aspirate of the cystic lesion using a 20-gauge needle on a 10 cc syringe with return of approximately 2 cc of purulence. This was sent for culture. There was minimal bleeding and the patient tolerated the procedure well. ?? Assesment/Plan: Samm Macdonald is a 66 y.o. male with a history of A. fib on Eliquis who is scheduled for left superficial parotidectomy with Dr. Richardson on Friday for a cystic tail of parotidmass. He presents to the ED today with left facial swelling most consistent with parotitis with secondary superinfection of the cystic mass. Needle aspiration of the cystic mass was performed with return of purulence which was sent for culture. He was nontoxic- appearing and after discussion with the patient and his we opted for outpatient management. He was given a dose of IV clindamycin in the emergency department. - Appreciate care per ED - Continue CLindamycin 300 TID - Sialogogues, warm compress, hydration - F/u cultures - They will call our clinic in the AM to discuss f/u Discussed with Dr. Timothy Delgadillo MD 05/12/2022 15:02 Otolaryngology Resident PGY-4 #[id number] Cosigned by Daljit Aguirre MD at 05/15/2022 12:36 EDT documented in this encounter ED Notes * Belen Ray RN - 05/12/2022 1517 EDT MD Weaver notified of elevated BP at discharge (185/84). * Paige Weaver MD - 05/12/2022 1303 EDT Emergency Department Visit This documentation is recorded by Zuhair Richardson acting as Scribe under the direction and presence of No att. providers found. No att. providers found: I personally performed the services recorded by the scribe in my presence.I confirm the scribe's documentation has been reviewed by me to accurately and completely record mywork, treatment, procedures, and medical decision making. Assessment and ED Course In summary, the patient is a very pleasant 66-year-old male with history of atrial fibrillation on Eliquis as well as a known left parotid duct mass and parotitis who has been on clindamycin for 1 day but feels that the swelling is increasing and had a temperature of 100.0 this morning. On exam thepatient has an obvious tender swollen left parotid gland he is otherwise nontoxic appearing. He was evaluated by Dr. eDlgadillo one of our senior ENT residents who was able to do a needle aspirationand sent for culture. ED did recommend 1 dose of IV clindamycin here in the ED and then discharged with oral as he had planned. Final diagnoses: Parotitis, acute Disposition: Discharged Chief complaint: Parotitis HPI Samm Macdonald is a 66 y.o. male with a history of A. fib on Eliquis who presents to the ED for left-sided cheek swelling. The patient states that he has had a mass in his parotid duct for quite some time but that the swelling is new and has been increasing. He states he discussed his situation withthe ENT resident yesterday who started him on clindamycin warm compresses and lemon wedges he states he has been doing all these things but the swelling seems to be increasing and his who statesshe is an RN checking his fever and measuring the area of swelling and noticed that his temp went up to 100 and the size of the swollen parotid gland has increased as well. History was provided by: The patient Patient's pertinent PMH, FH, SH were reviewed and edited as necessary. ROS A 10-point review of systems was performed. The patient answered negative to all questions with theexceptions of those explicitly detailed as positives in the HPI. Pertinent negatives are also explicitly stated. Physical Exam BP (!) 185/84 Temp 37 ??C (98.6 ??F) (Oral) Resp 18 Ht 177.8 cm (70) SpO2 98% BMI 43.05 kg/m?? A medical screening exam was performed. Physical Exam Constitutional: General: He is not in acute distress. Appearance: He is well-developed and well-nourished. He is not diaphoretic. HENT: Mouth/Throat: Mouth: Mucous membranes are moist. Pharynx: Oropharynx is clear. Comments: Obvious facial asymmetry with significant swelling and firmness over the left parotid gland there is no obvious drainage from the parotid duct within the left cheek. The skin shows no erythema, there is no induration or active drainage or lesion.Eyes: Pupils: Pupils are equal, round, and reactive to light. Cardiovascular: Rate and Rhythm: Normal rate. Pulmonary: Effort: Pulmonary effort is normal. Breath sounds: Normal breath sounds. Abdominal: Palpations: Abdomen is soft. Musculoskeletal: General: Edema (Chronic left lower extremity lymphedema) present. Normal range of motion. Cervical back: Normal range of motion and neck supple. Skin: General: Skin is warm and dry. Neurological: Mental Status: He is alert and oriented to person, place, and time. Psychiatric: Mood and Affect: Mood and affect normal. Laboratory data was reviewed and independently interpreted. Procedures Procedures * Angel Kohli RN - 05/12/2022 1138 EDT Chief Complaint Patient presents with ??? Facial Swelling Has parotid tumor, surgery was schedule but delayed, planned for surgery on 05/15 at [facility]. Presents today with increased pain, swelling for 4 days, fever that startd last night. documented in this encounter Miscellaneous Notes * Result Encounter Note - Ian Gatica RPH - 05/12/2022 1517 EDT Called and spoke with patient and , informed them of the culture result demonstrating klebsiella and need for additional antibiotic as clindamycin does not treat this organism. Called in cefpodoxime 400 mg PO BID x 14 days per KATHY Cui to their preferred pharmacy. They have close followup with ENT scheduled. I have CC'ed Dr. Richardson for awareness of finalized culture and treatment plan. Patient's states they will reach out to ENT for any further instructions and will continue clindamycin until discussion with their team. No further action required from an ED standpoint. Ian Gatica, Pharm.D. Pharmacist Clinician - Emergency Medicine documented in this encounter Plan of Treatment Upcoming Encounters Date Type Department Care Team (Late st Contact Info) Description 07/22/2024 19:30 [facility] Radiology CT - [facility] [address] [place] [address] 07/29/2025 15:40 EST Office Visit [facility] Cardiology - [address] [place], [place] [id number] Palak Diallo MD [address] [facility], [place], [address] [place] [address] documented as of this encounter Procedures Procedure Name Priority Date/Time Associated Diagnosis Comments BACTERIAL CULTURE/SMEAR Routine 05/12/2022 14:15 EDT COMPLETE BLOOD COUNT AND DIFFERENTIAL STAT 05/12/2022 13:52 EDT COMPREHENSIVE METABOLIC PANEL (CMP) STAT 05/12/2022 13:52 EDT documented in this encounter Results * (ABNORMAL) BACTERIAL CULTURE/SMEAR (05/12/2022 14:15 EDT) Organism ID Moderate Klebsiella pneumoniae(A) VITEK SUSCEPTIBILITY 05/14/2022 9:33 EDT [facility] Smear Many Neutrophils Present(A) 05/14/2022 9:33 EDT [facility] Smear Few Gram Negative Bacilli(A) 05/14/2022 9:33 EDT [facility] Fluid ENTIRE PAROTID GLAND / Unknown 05/12/2022 14:15 EDT 05/12/2022 14:45 EDT Narrative Organism Antibiotic Method Susceptibility Klebsiella pneumoniae Amikacin VITEK SUSCEPTIBILITY <=2 ug/mL: Susceptible Klebsiella pneumoniae Ampicillin VITEK SUSCEPTIBILITY 16 ug/mL: Resistant Klebsiella pneumoniae Ampicillin Sulbactam VITEK SUSCEPTIBILITY 4 ug/mL: Susceptible Klebsiella pneumoniae Cefepime VITEK SUSCEPTIBILITY <=1 ug/mL: Susceptible Klebsiella pneumoniae Ceftazidime VITEK SUSCEPTIBILITY <=1 ug/mL: Susceptible Klebsiella pneumoniae Ceftriaxone VITEK SUSCEPTIBILITY <=1 ug/mL: Susceptible Klebsiella pneumoniae Ciprofloxacin VITEK SUSCEPTIBILITY <=0.25 ug/mL: Susceptible Klebsiella pneumoniae Ertapenem VITEK SUSCEPTIBILITY <=0.5 ug/mL: Susceptible Klebsiella pneumoniae Gentamicin VITEK SUSCEPTIBILITY <=1 ug/mL: Susceptible Klebsiella pneumoniae Meropenem VITEK SUSCEPTIBILITY <=0.25 ug/mL: Susceptible Klebsiella pneumoniae Piperacillin Tazobactam VITEK SUSCEPTIBILITY <=4 ug/mL: Susceptible Klebsiella pneumoniae Tobramycin VITEK SUSCEPTIBILITY <=1 ug/mL: Susceptible Klebsiella pneumoniae Trimethoprim-Sulfameth oxazole VITEK SUSCEPTIBILITY <=20 ug/mL: Susceptible Klebsiella pneumoniae Cefpodoxime VITEK SUSCEPTIBILITY Susceptible Espinoza Delgadillo MD MICROBIOLOGY - GENERAL ORDERABLE S Final Result [facility] [address] [place] [address] * (ABNORMAL) COMPREHENSIVE METABOLIC PANEL (CMP) (05/12/2022 13:52 EDT) Sodium 140 136 - 145 mmol/L 05/12/2022 14:18 [facility] Potassium 4.2 3.5 - 5.0 mmol/L 05/12/2022 14:18 [facility] Chloride 99 96 - 110 mmol/L 05/12/2022 14:18 [facility] CO2 Total 27 22 - 32 mmol/L 05/12/2022 14:18 [facility] Glucose 132(H) 70 - 100 mg/dL 05/12/2022 14:18 [facility] BUN 14 10 - 26 mg/dL 05/12/2022 14:18 [facility] Creatinine 0.74 0.66 - 1.25 mg/dL 05/12/2022 14:18 [facility] eGFR 101 >60 mL/min/1.7 3m2 05/12/2022 14:18 [facility] Total Protein 8.0 6.3 - 8.2 g/dL 05/12/2022 14:18 [facility] Albumin 4.5 3.4 - 4.9 g/dL 05/12/2022 14:18 [facility] Alkaline Phosphatase 99 38 - 126 U/L 05/12/2022 14:18 [facility] AST 33 15 - 46 U/L 05/12/2022 14:18 [facility] ALT 48 <50 U/L 05/12/2022 14:18 [facility] Bilirubin, Total 1.6(H) <1.4 mg/dL 05/12/20 14:18 [facility] Calcium 9.2 8.5 - 10.5 mg/dL 05/12/2022 14:18 [facility] Albumin/Globulin Ratio 1.3 1.0 - 2.5 05/12/2022 14:18 [facility] Anion Gap 14 5 - 14 05/12/2022 14:18 [facility] Blood VENOUS BLOOD / Unknown Venipuncture / Unknown 05/12/2022 13:52 EDT 05/12/2022 13:54 EDT us Paige Weaver MD CHEMISTRY & BLOOD GAS ORDERAB LES Final Result [facility] [address] [place] [address] * (ABNORMAL) COMPLETE BLOOD COUNT AND DIFFERENTIAL (05/12/2022 13:52 EDT) WBC 18.71(H) 4.00 - 10.40 K/cmm 05/12/2022 14:05 [facility] RBC 5.30 4.36 - 5.78 M/cmm 05/12/2022 14:05 [facility] Hemoglobin 15.5 13.8 - 17.3 gm/dL 05/12/2022 14:05 [facility] HCT 46.4 39.5 - 50.2 % 05/12/2022 14:05 [facility] MCV 88 81 - 95 fl 05/12/2022 14:05 [facility] MCH 29.2 27.6 - 33.0 pg 05/12/2022 14:05 [facility] MCHC 33.4 32.8 - 36.4 gm/dL 05/12/2022 14:05 [facility] RDW-CV 13.4 <14.2 % 05/12/2022 14:05 [facility] RDW-SD 42.9 <46.0 fl 05/12/2022 14:05 [facility] PLT 296 141 - 377 K/cmm 05/12/2022 14:05 [facility] MPV 9.7 9.5 - 12.7 fl 05/12/2022 14:05 [facility] % Neutrophils 82.1 % 05/12/2022 14:05 [facility] % Lymphocytes 8.1 % 05/12/2022 14:05 [facility] % Monocytes 9.1 % 05/12/2022 14:05 [facility] % Eosinophils 0.1 % 05/12/2022 14:05 [facility] % Basophils 0.2 % 05/12/2022 14:05 [facility] % Immature Grans 0.4 % 05/12/20 14:05 [facility] Absolute Neutrophils 15.37(H) 2.20 - 8.85 K/cmm 05/12/2022 14:05 [facility] Absolute Lymphocytes 1.51 1.09 - 3.30 K/cmm 05/12/2022 14:05 [facility] Absolute Monocytes 1.70(H) 0.10 - 0.80 K/cmm 05/12/2022 14:05 [facility] Absolute Eosinophils 0.02(L) 0.03 - 0.61 K/cmm 05/12/2022 14:05 [facility] ABS Basophils 0.03 0.01 - 0.11 K/cmm 05/12/2022 14:05 [facility] Absolute Immature Grans 0.08(H) 0.00 - 0.06 K/cmm 05/12/2022 14:05 [facility] Type of Differential: Auto 05/12/2022 14:05 [facility] Blood VENOUS BLOOD / Unknown Venipuncture / Unknown 05/12/2022 13:52 EDT 05/12/2022 13:54 EDT us Paige Weaver MD PACKAGES & DNA PROBE ORDERABL ES Final Result [facility] [address] [place] [address] documented in this encounter Visit Diagnoses Diagnosis Parotitis, acute- Primary Sialoadenitis documented in this encounter Administered Medications Inactive Administered Medications - up to 3 most recent administrations Medication Order MAR Action Action Date Dose Rate Site acetaminophen (TYLENOL) tablet 1,000 mg 1,000 mg, oral, NOW X1, 1 dose, On 05/12/22 at 1445, STAT Given 05/12/2022 14:46 EDT 1,000 mg clindamycin in dextrose 5 % (CLEOCIN) IVPB 900 mg 900 mg, intravenous, Administer over 30 Minutes, NOW X1, 1 dose, On 05/12/22 at 1415, Type of Therapy: Empiric, Suspected Indication (Select all that apply): Oral/odontogenic infection (known anaphylaxis to penicillin), ID Consult: No, STAT Given 05/12/2022 14:21 EDT 900 mg documented in this encounter Active and Recently Administered Medications Times are shown in EDT. Scheduled Medication Order 05/10/2022 05/11/2022 05/12/2022 acetaminophen (TYLENOL) tablet 1,000 mg (COMPLETED) 1,000 mg, oral, NOW X1, 1 dose, On 05/12/22 at 1445, STAT 1446 (Given - Provid er: So Sosa RN) clindamycin in dextrose 5 % (CLEOCIN) IVPB 900 mg (COMPLETED) 900 mg, intravenous, Administer over 30 Minutes, NOW X1, 1 dose, On 05/12/22 at 1415, Type of Therapy: Empiric, Suspected Indication (Select all that apply): Oral/odontogenic infection (known anaphylaxis to penicillin), ID Consult: No, STAT 1421 (Given - Provid er: Jenifer Lowe RN)1512 (Completed - Provider: Belen Ray RN) documented in this encounter Care Teams Gunite Mixer Relationship Specialty Start Date End Date Robyn Glynn MD [address] [place] [id number] PCP - General Family Medicine - Primary Care 11/02/21 documented as of this encounter
--- OUTSIDE RECORDS SUMMARY | 2024-07-21 16:40 | XMS_ITS | Encounter Summary ---
Author Organization [facility] Address [address] [place] [address] Care Team Providers Care Genetic Counselor Name Role Phone Robyn Glynn MD Primary Care Provider [phone] Reason for Visit * Reason Comments Discuss Surgery Encounter Details Date Type Department Care Team (Late st Contact Info) Description 02/06/2022 14:15 EDT Office Visit [facility] E[facility]- [address] [id number] Shane Richardson MD [address] [place] [address], [address] [place] [address] Parotid mass (Primary Dx) Social [...] on file documented as of this encounter Progress Notes * Shane Richardson MD - 02/06/2022 4433 EDT Subjective: Patient ID: Samm Macdonald is an 66 y.o. male. Chief Complaint Patient presents with ??? Discuss Surgery HPI Samm Macdonald is a 66-year-old gentleman who was [facility] tail of parotid tumor. Patient states that he noticed this left sided parotid mass two months ago. His PCP referred him to Dr. Kulkarni for further evaluation and ordered imaging. Patient has undergone 2 FNAs of this lesion performed by Dr. Kulkarni which came back as non-diagnostic. He states that the mass in non-painful. He denies any numbness or tingling. No changes with his facial symmetry. He reports that his left parotid gland was painful and swollen after the last biopsy. The discomfort has since resolved. He has never smoked cigarettes. He owned [...] the results of the needle biopsy. As a result, surgical excision in the form of a left superficial parotidectomy is indicated/recommended. Prior to do so, the oropharynx needs to be examined. Final Diagnosis A. PAROTID, LEFT, TAIL, 3 [...] tumor. Clinical and radiographic correlation is advised. Clearance Diver slides of this case were reviewed at the intradepartmental consultation conference. ?? Attestation By the signature below, the attending physician certifies that they have personally conducted a gross and/or microscopic examination of the described specimens and rendered or confirmed the above diagnosis. at 1509 Portions of this note copied from his prior encounter with me on 12/14/2021 have been updated and reviewed. Objective: There were no vitals taken for this visit. Physical Exam Department of Otolaryngology PHYSICAL EXAMINATION CONSTITUTIONAL: APPEARANCE: The patient appears alert, cooperative, and comfortable. ABILITY TO COMMUNICATE / VOICE: Normal HEAD AND FACE: SALIVARY GLANDS: 2 cm palpable non-tender mass at left tail of parotid; generalized edema of surrounding left parotid gland; right parotid gland and submandibular glands normal to palpation. FACIAL STRENGTH: Intact and symmetrical bilaterally EARS, [...] LYMPH NODES: No pathologic cervical lymphadenopathy noted Endoscopy Procedure Note Pre-procedure Diagnosis: left parotid mass, possible metastatic cervical lymph node from pharynx Post-procedure Diagnosis: same Indications: Excessive gag reflex - preventing mirror examination Anesthesia: Cophenylcaine Endoscopy Type: Laryngoscopy using a flexible laryngoscope Procedure Details: With the patient sitting upright in the examining chair informed consent was obtained. The left nostril was topically anesthetized with cotton pledgets. After waiting an appropriate period of time for anesthesia/ vasoconstriction to become effective (if this was applicable), the scope was passed into the left nostril and the nasopharynx, oropharynx, hypopharynx and larynx were examined. Condition: Patient tolerated procedure well and left the office in a stable condition. Complications: None Findings: Nasopharynx: Normal exam of choanae, eustachian tubes, and adenoids for age Oropharynx: Normal exam of tongue base, tonsils, and posterior pharynx and s/p remote tonsillectomy Hypopharynx: Normal piriform sinuses noted, no pooling of secretions Supraglottis: Normal Posterior Commissure: Normal Right True Vocal Fold: Normal Left True Vocal Fold: Normal Vocal Fold Mobility: Normal bilaterally Subglottis clear Assessment: Encounter Diagnoses Name Primary? Parotid mass [...] a left superficial parotidectomy is indicated/recommended.Flexible laryngoscopy shows no concerning masses or asymmetry in the oropharynx. Consent for left superficial parotidectomy with facial nerve dissection and preservation was obtained. This will be performed under general anesthesia with an overnight hospital stay. On physical exam and ultrasound, this is most consistent with a parotid mass but if intraoperatively, this is more consistent with a pathologic left level 2 cervical lymph node, the lymph node will be excised and sent to pathology fordefinitive diagnosis with subsequent work-up and definitive treatment to follow. documented in this encounter Plan of Treatment Upcoming Encounters Date Type Department Care Team (Late st Contact Info) Description 07/22/2024 19:30 EST Appointment [facility] Radiology [facility] - [facility] [address] [place] [address] 07/29/2025 15:40 EST Office Visit [facility] - [address] [place] [address] Palak Diallo MD [address] [facility] [place], [address] [place] [phone] documented as of this encounter Visit Diagnoses Diagnosis Parotid mass- Primary Swelling, mass, or lump in head and neck documented in this encounter Care Teams Genetic Counselor Relationship Specialty Start Date End Date Robyn Glynn MD [address] [place] [phone] PCP - General Family Medicine - Primary Care 11/02/21 documented as of this encounter
--- OUTSIDE RECORDS SUMMARY | 2024-07-21 16:40 | XMS_ITS | Encounter Summary ---
Author Organization [facility] Address [facility] [place] [address] Care Team Providers Care Jig Hand Name Role Phone Cheli Elias MD Primary Care Provider [phone] Reason for Visit * Reason Onset Date Comments Medication Refill 12/30/2017 Encounter Details Date Type Department Care Team (Late st Contact Info) Description 12/30/2017 Refill Internal Medicine at [address] [address] Jeanette James, MADINAA Social History Tobacco Use Types Packs/Day Years Used Date Smoking Tobacco: Never Smokeless Tobacco: Never Alcohol Use Standard Drinks/Week Comments No 0 (1 standard drink = 0.6 oz pur e alcohol) Sex and Gender Information Value Date Recorded Sex Assigned at Not on file Gender Identity Not on file Sexual Orientation Not on file documented as of this encounter Plan of Treatment Not on file documented as of this encounter Visit Diagnoses Not on filedocumented in this encounter Care Teams Jig Hand Relationship Specialty Start Date End Date Cheli Elias MD [facility] [place] [address] PCP - General 06/26/10 05/04/18 documented as of this encounter
--- OUTSIDE RECORDS SUMMARY | 2024-07-21 16:40 | XMS_ITS | Encounter Summary ---
Author Organization [facility] Address [facility] [place] [address] Care Team Providers Care Hammer Heater Name Role Phone Cheli Elias MD Primary Care Provider [phone] Reason for Referral * Consultation (Routine) - Closed Specialty Diagnoses / Procedures Referred By Acacia neumann Referred To Contact Gastroenterology Diagnoses Family history of colon cancer requiring screening colonoscopy History of colon polyps Special screening for malignant neoplasms, colon Cheli Elias MD [facility] [place] [address] [facility] [address] [place] [address] Referral ID Status Reason Start Date Expiration Date V isits Requested Visits Authorized [id number] Closed Test Only 04/07/2018 04/07/2019 1 1 Reason for Visit * Reason Comments Annual Exam Encounter Details Date Type Department Care Team (Late st Contact Info) Description 04/07/2018 8:00 AM EDT Office Visit Internal Medicine at [address] [address] Cheli Elias MD [facility] [place] [address] Essential hypertension; Healthcare maintenance; Tubular adenoma; Special screening for malignant neoplasms, colon; Family history of colon cancer requiring screening colonoscopy; History of colon polyps Social History Tobacco Use Types Packs/Day Years [...] Sign Reading Time Taken Comments Blood Pressure 136/79 04/07/2018 7:51 AM EDT Pulse 81 04/07/2018 7:51 AM EDT Temperature - - Respiratory Rate - - Oxygen Saturation 97% 04/07/2018 7:51 AM EDT Inhaled Oxygen Concentration - - Weight 125.6 kg (276 lb 12.8 oz) 04/07/2018 7:51 AM EDT Height 176.5 cm (5' 9.5) 04/07/2018 7:51 AM EDT Body Mass Index 40.29 04/07/2018 7:51 AM EDT documented in this encounter Patient Instructions * Patient Instructions* Cheli Elias MD - 04/07/2018 8:00 AM EDT In regard to Shingrix vaccination ( against shingles or herpes zoster): Please Call Your insurance and ask the following questions: 1. Does your insurance pay for Shingrix for you now? 2. If yes, will they pay if you get the vaccine in the pharmacy, or in Doctor's office? Please call us to let us know if you would like to proceed with receiving this vaccination. documented in this encounter Progress Notes * Cheli Elias MD - 04/07/2018 12:51 PM EDT Please call patient: normal lab results. * Cheli Elias MD - 04/07/2018 8:00 AM EDT Chief Complaint Patient presents with ??? Annual Exam HPI S/p L partial knee replacement April 2017 Has developed low back pain- treated with NSAIDs and PT Knee is feeling ok Still has some pain with prolonged standing 2. Status of chronic conditions: Patient Active Problem List Diagnosis Code ??? CIS - History of mild iritis ??? HTN (hypertension) I10 ??? Sleep apnea G47.30 ??? Detached retina H33.20 ??? Healthcare maintenance Z00.00 ??? Tubular adenoma D36.9 ??? Psoriasis L40.9 ??? Retinal tear H33.319 ??? Body mass index (BMI) of 40.0-44.9 in adult Z68.41 Primary care questionnaire: myD-H Primary Care 04/07/2018 PROMIS 10-Health in general Very Good PROMIS 10-Quality of life Very Good PROMIS 10-Physical health Very Good PROMIS 10-Mental health Very Good PROMIS 10-Satisfaction with social activities Very Good PROMIS 10-Ability to carry out social activities Excellent PROMIS 10-Ability to carry out physical activities Mostly PROMIS 10-Bothered by emotional problems Never PROMIS 10-Rate of fatigue Mild PROMIS 10-Rate of pain 2 PROMIS 10- Physical Health Score 50.8 PROMIS 10- Mental Health Score 56 REVIEW OF SYSTEMS 04/07/2018 Constitutional None of the above Ear / nose / throat / mouth Hearing difficulty Eyes Don't know Respiratory None of the above Cardiovascular None of the above Gastrointestinal None of the above Skin, hair Itching Musculoskeletal Muscle stiffness Neurological None of the above Hematologic / Lymphatic None of the above Genitourinary None of the above No flowsheet data found. No flowsheet data found. PHQ-9 QUESTIONNAIRE (AMB) 04/07/2018 PHQ - 9 Score (Clinic) - Little interest or pleasure (Clinic) - Little interest or pleasure (Patient) Not at all Down, depressed, hopeless (Clinic) - Down, depressed, hopeless (Patient) Not at all Past Medical History: Diagnosis Date ??? Hypertension Family History Problem Relation Age of Onset ??? Alzheimer Disease Father ??? Psoriasis Father ??? Cancer Father ??? Alzheimer Disease Paternal Aunt Social History Social History ??? Marital status: Spouse name: N/A ??? Number of children: N/A ??? Years of education: N/A Occupational History ??? Not on file. Social History Main Topics ??? Smoking status: Never Smoker ??? Smokeless tobacco: Never Used ??? Alcohol use No ??? Drug use: No ??? Sexual activity: Yes Partners: Female Other Topics Concern ??? Not on file Social History Narrative father, aunt, gdmother with Alzheimer's disease in their 70s cousin with Alzheimer's disease in his 40s. 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 Physical exam: BP 136/79 Pulse 81 Ht 176.5 cm (5' 9.5) Wt 125.6 kg (276 lb 12.8 oz) SpO2 97% BMI 40.29 kg/m2 Physical Exam Constitutional: He is oriented to person, place, and time. No distress. HENT: Head: Atraumatic. Cardiovascular: Normal rate and regular rhythm. Pulmonary/Chest: Breath sounds normal. Abdominal: Soft. Musculoskeletal: Normal range of motion. He exhibits edema (trace ankle). Lymphadenopathy: He has no cervical adenopathy. Neurological: He is alert and oriented to person, place, and time. Skin: Skin is warm and dry. Assessment and Plan: 1. Healthcare maintenance: discussed and recommended shingrix, colo Health Maintenance Summary Influenza (Flu) vaccine Overdue 04/04/2018 Done 08/18/2013 Imm Admin: Influenza Vaccine w/Preservative, Split Patient has more history with this topic... Colonoscopy Overdue 06/05/2015 Done 06/05/2010 TA Advance Directive Overdue 12/04/2011 Zoster vaccine Overdue 2006 Tetanus vaccine Next Due 10/27/2022 Done 10/27/2012 Imm Admin: Tdap Vaccine Diabetes Screening (HgbA1C or Glucose) Next Due 03/17/2020 Done 03/17/2017 Glucose Lvl Patient has more history with this topic... Lipid Screening Next Due 10/26/2019 Done 10/25/2014 Chol, Total Patient has more history with this topic... Tdap adult Completed Done 10/27/2012 Imm Admin: Tdap Vaccine Hepatitis C Screening Completed Done 10/25/2014 Hepatitis C Ab HIV screen Completed Done 10/25/2014 HIV-1/2 Ab and Ag HTN- controlled, Advised to limit NSAID use as much as possible, replace with acetaminophen Check CMP Review LBP with current physical therapist documented in this encounter Miscellaneous Notes * Addendum Note - Rebecca Ventura LNA - 04/07/2018 8:46 AM EDTAddended by: REBECCA VENTURA on: 04/07/2018 08:46 AM Modules accepted: Orders documented in this encounter Plan of Treatment Scheduled Referrals Name Type Priority Associated Diagnoses Order Schedule Referral to Gastroenterology Outpatient Referral Routine Family history of colon cancer requiring screening colonoscopy History of colon polyps Special screening for malignant neoplasms, colon Ordered: 04/07/2018 documented as of this encounter Procedures Procedure Name Priority Date/Time Associated Diagnosis Comments HDL/CHOL PROFILE Routine 04/07/2018 9:05 AM EDT Essential hypertension HEMOGLOBIN A1C Routine 04/07/2018 9:05 AM EDT Essential hypertension COMPREHENSIVE METABOLIC PANEL Routine 04/07/2018 9:05 AM EDT Essential hypertension documented in this encounter Results * HDL/Cholesterol Profile (04/07/2018 9:05 AM EDT) Cholesterol, Total 142 mg/dL [facility] Comment: Lower Risk: <200 mg/dL Average Risk: 200-239 mg/dL Higher Risk: >um=168 mg/dL HDL Cholesterol 48 mg/dL [facility] Comment: Males: ?? Higher Risk: <40 mg/dL Females: ?? HIgher Risk: <50 mg/dL Cholesterol/HDL Ratio 3.0 ratio [facility] Chol/HDL Interpretation See Note [facility] Comment: Lipid management should be guided by a patient? s ASCVD risk, goals and preferences. ACC/AHA Guidelines recommend high intensity statin if clinical ASCVD or LDL greater than or equal to 190 mg/dL. http://Imagistxurl.com/GHK-ANM-Obawemrxg Measure LDL if Total Cholesterol minus HDL Cholesterol is greater than 220 mg/dL. Adults aged 40-75 with LDL 70-189 mg/dL should have their 10 year ASCVD risk estimated with the ACC/AHA ASCVD risk construction cost estimator http://tools.acc.org/CCOWF-Xbqe-Xmcvpzzhu/ Statin should be discussed if risk greater than or equal to 7.5% in non-diabetics. With diabetes, moderate intensity statin is recommended if risk less than 7.5%, high intensity if risk greater than or equal to 7.5%. Annual lipid monitoring on statins is not necessary. Lifestyle modification is a critical component of ASCVD risk reduction. Blood specimen (specimen) 04/07/2018 9:05 AM EDT 04/07/2018 11:58 AM EDT Narrative Resulting Agency Comment Spec In Lab Cheli Elias MD CHEMISTRY ORDERABLES [facility] [place] [address] * Hemoglobin A1c (04/07/2018 9:05 AM EDT) Hemoglobin A1c 5.5 4.3 - 5.6 % [facility] Comment: Reference Range: 4.3 - 5.6% 5.7 - 6.4% - Increased Risk of Developing Diabetes Mellitus >= 6.5% - Consistent with diagnosis of Diabetes Mellitus In the absence of hyperglycemia (i.e. plasma glucose > 200 mg/dL) or classic symptoms of hyperglycemia a repeat measurement of HbA1c should be performed on a separate sample to confirm the diagnosis. Diagnosis and Classification of Diabetes Mellitus, Diabetes Care 2013; 36: Suppl. 1, R01-15 Estimated Average Glucose 111 mg/dL [facility] Comment: eAG equivalents for HbA1c [...] into estimated average glucose values. ??Diabetes Care 2008:31(8):5089-7127. Blood specimen (specimen) 04/07/2018 9:05 AM EDT 04/07/2018 11:58 AM EDT Narrative Resulting Agency Comment Spec In Lab Cheli Elias MD CHEMISTRY ORDERABLES [facility] [place] [address] * (ABNORMAL) Comprehensive metabolic panel (non-fasting) (04/07/2018 9:05 AM EDT) Glucose 109 65 - 199 mg/dL [facility] Comment:Diabetes: >=200 mg/d L plus symptoms Blood Urea Nitrogen 21(H) 10 - 20 mg/dL [facility] Creatinine 0.96 0.80 - 1.50 mg/dL [facility] Sodium 141 135 - 145 mmol/L [facility] Potassium 4.8 3.5 - 5.0 mmol/L [facility] Comment: Please note: ??Patients with WBC >100,000 may have falsely elevated Potassium levels. ??For accurate Potassium quantification in these patients send serum separator tube (gold top) for subsequent determinations. ??Contact the Clinical Chemistry Laboratory if there are any questions. Chloride 103 98 - 107 mmol/L [facility] Carbon Dioxide 27 22 - 31 mmol/L [facility] Anion Gap 11 5 - 15 mmol/L [facility] Calcium 9.2 8.5 - 10.5 mg/dL [facility] Protein, Total 7.2 6.1 - 8.0 gm/dL [facility] Albumin 4.1 3.2 - 5.2 gm/dL [facility] Aspartate Aminotransferase 18 0 - 39 unit/L [facility] Alanine Aminotransferase 23 0 - 55 unit/L [facility] Alkaline Phosphatase 89 40 - 120 unit/L [facility] Bilirubin, Total 0.3 0.2 - 1.3 mg/dL [facility] Est Glomerular Filtration Rate 85 >=60 mL/min/1. 73 m?? [facility] Comment: The eGFR was calculated using the CKD-EPI equation. As with all creatinine based estimates of kidney function, eGFR values calculated with the CKD-EPI equation are not accurate in patients with acute kidney failure, extremes of body mass or the acutely ill. http://Accion/[facility] OKLA[facility] CITYnkf eGFR 98 >=60 mL/min/1. 73 m?? [facility] Comment: The eGFR was calculated using the CKD-EPI equation. As with all creatinine based estimates of kidney function, eGFR values calculated with the CKD-EPI equation are not accurate in patients with acute kidney failure, extremes of body mass or the acutely ill. http://Accion/DHnkf Blood specimen (specimen) 04/07/2018 9:05 AM EDT 04/07/2018 11:58 AM EDT Narrative Resulting Agency Comment Spec In Lab Cheli Elias MD CHEMISTRY ORDERABLES [facility] [place] [address] documented in this encounter Visit Diagnoses Diagnosis Essential hypertension Unspecified essential hypertension Healthcare maintenance Routine general medical examination at a health care facility Tubular adenoma Benign neoplasm of unspecified site Special screening for malignant neoplasms, colon Family history of colon cancer requiring screening colonoscopy Family history of malignant neoplasm of gastrointestinal tract History of colon polyps Personal history of colonic polyps documented in this encounter Care Teams Hammer Heater Relationship Specialty Start Date End Date Cheli Elias MD [facility] [address] PCP - General 06/26/10 05/04/18 documented as of this encounter
--- OUTSIDE RECORDS SUMMARY | 2024-07-21 16:40 | XMS_ITS | Encounter Summary ---
Author Organization [facility] Address [facility] [place] [address] Care Team Providers Care Baker Bench Name Role Phone Marline Trimble MD Primary Care Provider [phone] Reason for Visit * Auth/Cert Specialty Diagnoses / Procedures Referred By Acacia neumann Referred To Contact Diagnoses 5 yr surv from 06/15/10 Procedures PRO COLONOSCOPY, DIAGNOSTIC COLONOSCOPY, DIAGNOSTIC Referral ID Status Reason Start Date Expiration Date Visits Re quested Visits Authorized [id number] 1 1 Encounter Details Date Type Department Care Team (Latest Contact Info) Description 05/14/2018 9:39 AM EDT - 05/14/2018 12:18 PM EDT Hospital En[place] [phone] Diallo Bolivar MD [facility] [place] [address] Discharge Disposition: Home Social History Tobacco Use Types Packs/Day Years [...] Sign Reading Time Taken Comments Blood Pressure 125/83 05/14/2018 11:50 AM EDT Pulse 55 05/14/2018 11:39 AM EDT Temperature 36.7 ??C (98.1 ??F) 05/14/2018 10:05 AM E DT Respiratory Rate 17 05/14/2018 12:00 PM EDT Oxygen Saturation 96% 05/14/2018 12:00 PM EDT Inhaled Oxygen Concentration - - Weight - - Height - - Body Mass Index - - documented in this encounter Discharge Instructions * Attachments The following attachments cannot be sent through Care Everywhere. * COLON POLYPS (MONTSERRATIAN) documented in this encounter Medications at Time of Discharge Medication Sig Dispensed Refills Start Date End Date meloxicam (MOBIC) 15 mg Tablet Take 15 mg by mouth daily. naproxen sodium (ANAPROX) 220 mg Tablet Take 220 mg by mouth as needed. lisinopril (PRINIVIL;ZESTRIL) 10 mg Tablet Take 1 tablet by mouth daily. 90 tablet 3 12/31/2017 10/16/2018 documented as of this encounter H&P Notes * Jason Guy MD - 05/14/2018 10:43 AM EDT Patient Name: Samm Macdonald III Patient Age: 62 y.o. Birthdate: 1955 Admit date: 05/14/2018 Attending Physician: Diallo Bolivar MD Gastroenterology & Hepatology Pre-Procedure History and Physical Planned Procedure: Colonoscopy: Indication: surveillance Patient Active Problem List Diagnosis Code ??? CIS - History of mild iritis ??? HTN (hypertension) I10 ??? Sleep apnea G47.30 ??? Detached retina H33.20 ??? Healthcare maintenance Z00.00 ??? Tubular adenoma D36.9 ??? Psoriasis L40.9 ??? Retinal tear H33.319 ??? Body mass index (BMI) of 40.0-44.9 in adult Z68.41 Medications: Reviewed in EDH Allergies Allergen Reactions ??? Benzocaine CIS - Hives, CIS - Hives ??? Benzoin CIS - Hives ??? Cetylpyridinium Chloride CIS - Hives ??? Menthol CIS - Hives ??? Phenol CIS - Hives ??? Sodium Phenolate CIS - Hives Social History/Family History: Reviewed in EDH. No changes Exam: Most Recent Vitals: 05/14/18 1015 BP: 127/58 Pulse: 52 Resp: 16 Temp: SpO2: 99% GEN: NAD, AAOX3 HEENT: NC/AT dryMM, anicteric Chest: CTAB Heart: RRR, nl s1, s2 Abdomen: normal bowel sounds, soft, non tender Assessment and Plan: Proceed with Colonoscopy: ASA Grade: ASA 2 - Patient with mild systemic disease with no functional limitations Mallampati: II (soft palate, uvula, fauces visible) Sedation plan: Moderate Conscious sedation Risks and benefits of the procedure were discussed with the patient. Consent has been signed. documented in this encounter Plan of Treatment Not on file documented as of this encounter Procedures Procedure Name Priority Date/Time Associated Diagnosis Comments SPECIMEN TO PATHOLOGY Routine 05/14/2018 11:38 AM EDT SPECIMEN TO PATHOLOGY Routine 05/14/2018 11:38 AM EDT SPECIMEN TO PATHOLOGY Routine 05/14/2018 11:38 AM EDT SPECIMEN TO PATHOLOGY Routine 05/14/2018 11:38 AM EDT SURGICAL PATHOLOGY REPORT Routine 05/14/2018 11:24 AM EDT COLONOSCOPY Routine 05/14/2018 10:59 AM EDT COLONOSCOPY, POLYPECTOMY, REMOVAL LESION BY SNARE (WRVU 4.57) 05/14/2018 10:51 AM EDT 5 yr surv from 06/15/10 COLONOSCOPY FLEXIBLE, WITH BX (WRVU 3.56) 05/14/2018 10:51 AM EDT 5 yr surv from 06/15/10 COLONOSCOPY, SURVEILLANCE (WRVU 3.26) 05/14/2018 10:51 AM EDT 5 yr surv from 06/15/10 documented in this encounter Results * Specimen to Pathology (05/14/2018 11:38 AM EDT) AP Specimen 05/14/2018 11:3 8 AM EDT 05/14/2018 1:45 PM EDT [facility] LABORATORY - 05/14/2018 1:45 PM EDT Specimen requisition ordered. ??Separate Pathology report to follow Resulting Agency Comment Spec In Lab Jason Guy MD PATHOLOGY/CY[place] [address] * Specimen to Pathology (05/14/2018 11:38 AM EDT) AP Specimen 05/14/2018 11:3 8 AM EDT 05/14/2018 1:45 PM EDT Narrative [facility] - 05/14/2018 1:45 PM EDT Specimen requisition ordered. ??Separate Pathology report to follow Resulting Agency Comment Spec In Lab Jason Guy MD PATHOLOGY/CYTOLOG Y ORDERABLES Performing Organization Address [facility]/ZIP [place] [address] * Specimen to Pathology (05/14/2018 11:38 AM EDT) AP Specimen 05/14/2018 11:3 8 AM EDT 05/14/2018 1:45 PM EDT Narrative [facility] - 05/14/2018 1:45 PM EDT Specimen requisition ordered. ??Separate Pathology report to follow Resulting Agency Comment Spec In Lab Jason Guy MD PATHOLOGY/CYTOLOG Y ORDERABLES Performing Organization Address [facility]/ZIP [place] [address] * Specimen to Pathology (05/14/2018 11:38 AM EDT) AP Specimen 05/14/2018 11:3 8 AM EDT 05/14/2018 1:45 PM EDT Narrative [facility] - 05/14/2018 1:45 PM EDT Specimen requisition ordered. ??Separate Pathology report to follow Resulting Agency Comment Spec In Lab Jason Guy MD PATHOLOGY/CYTOLOG Y ORDERABLES Performing Organization Address City/[facility]/[place]IP [place] [address] * Surgical Pathology Report (05/14/2018 11:24 AM EDT) Final Diagnosis [id number] ? Location: 4T; EA12; A The signing pathologist has (i) examined the relevant preparation(s) for the specimen(s) and (ii) rendered or confirmed the diagnosis(es). . ?Surgical Pathology DIAGNOSIS A - Cecum and ascending colon, ?? biopsy: Chronic mildly-moderately active colitis. Negative for dysplasia. See discussion #1. B - Ascending colon, ?? polypectomy: Sessile serrated adenomatous polyp. C - Distal, transverse, descending colon, ?biopsy: Colonic mucosa within normal limits. D - Rectosigmoid colon, ?? biopsy: Colonic mucosa with subtle features of chronic injury and repaur (crypt branching, architectural distortion). CR-PX Electronically signed by: ??Isa SUN PhD, Yovany Duran Verified: ??05/18/2018 ?Pathologist Performed at: ??-[facility] [place], [place], [place] DISCUSSION 1. The differential diagnosis inccludes IBD, diverticulosis and others. ? Clinical correlation is recommended. CLINICAL INFORMATION Specimen Submitted: A - Cecum and ascending colon biopsies; patchy mild colitis; question NSAID use B - Polyp ascending colon C - Distal, transverse, descending colon biopsies D - Recto-sigmoid colon biopsies Clinical History and Diagnosis: Surveillance SPECIMEN PROCESSING A - Labeled/Fixative: Cecum and ascending colon biopsy, formalin. Quantity/Size: Four, 0.3-0.4 cm. Tissue Description: Soft, pink tissues. Sections/Processi ng: Submitted en toto ??in 1 cassette labeled A1. B - Labeled/Fixative: Polyp ascending colon, formalin. Quantity/Size: Four, 0.3-0.5 cm. Tissue Description: Soft, pink tissues. Sections/Processi ng: Submitted en toto ??in 1 cassette labeled B1. C - Labeled/Fixative: Distal, transverse, descending, formalin. Quantity/Size: Five, 0.1-0.3 cm. . SPECIMEN PROCESSING Tissue Description: Soft, pink tissues. Sections/Processi ng: Submitted en toto ??in 1 cassette labeled C1. D - Labeled/Fixative: Rectosigmoid colon biopsies, formalin. Quantity/Size: Six, 0.2-0.4 cm. Tissue Description: Soft, pink tissues. Sections/Processi ng: Submitted en toto ??in 2 cassettes labeled D1-D2. ??ejr 05/18/2018 9:38 AM EDT [facility] GI Biopsy 05/14/2018 11:2 4 AM EDT 05/14/2018 11:24 AM EDT GI Biopsy 05/14/2018 11:2 4 AM EDT 05/14/2018 11:24 AM EDT GI Biopsy 05/14/2018 11:2 4 AM EDT 05/14/2018 11:24 AM EDT GI Biopsy 05/14/2018 11:2 4 AM EDT 05/14/2018 11:24 AM EDT Jason Guy MD PATHOLOGY/CYTOLOG Y ORDERABLES Performing Organization Address [facility]/State/ZIP Co de Phone Number [facility] [place] [address] * COLONOSCOPY (05/14/2018 10:59 AM EDT) COLONOSCOPY [facility] Endoscopy Procedure Date: 05/14/2018 10:59 AM ? Patient Name: Samm Macdonald ? Date of : 1955 ? Age: 62 ? Order #: [id number] ? Instrument Name: [id number] ? Procedure: ? Colonoscopy Indications: ? Surveillance: Personal history of ? adenomatous polyps on last ? colonoscopy > 5 years ago Patient Profile: ? This is a 62 year old male. Refer to ? note in patient chart for ? documentation of history and ? physical. Last Colonoscopy: 2009. Providers: ? Joe Taylor, ? Licensed Audiologist, Jason Guy MD Referring MD: ?Marline Trimble Medicines: ? Midazolam 3 mg IV, Fentanyl 150 ? micrograms IV Complications: ? No immediate complications. Procedure: ? Pre-Anesthesia Assessment: ? - Prior to the procedure, a History ? and Physical was performed, and ? patient medications and allergies ? were reviewed. The patient's ? tolerance of previous anesthesia was ? also reviewed. The risks and benefits ? of the procedure and the sedation ? options and risks were discussed with ? the patient. All questions were ? answered, and informed consent was ? obtained. Prior Anticoagulants: The ? patient has taken ibuprofen, last ? dose was 1 day prior to procedure. ? ASA Grade Assessment: II - A patient ? with mild systemic disease. After ? reviewing the risks and benefits, the ? patient was deemed in satisfactory ? condition to undergo the procedure. ? The procedure, indications, benefits, ? risks and alternatives were explained ? to the patient. Specifically ? discussed were potential ? complications including, but not ? limited to, bleeding, perforation, ? infection, missing a cancer, and ? adverse medication reactions. The ? patient was placed in the left ? lateral decubitus position, and a ? digital rectal exam was performed. ? The Colonoscope was inserted in the ? anus and under direct visualization, ? advanced to 15 cm into the ileum. ? Careful inspection was made as the ? colonoscope was withdrawn. ? Findings: ? The perianal and digital rectal examinations were ? normal. ? The terminal ileum appeared normal. ? A 8 mm polyp was found in the proximal ascending ? colon. The polyp was sessile. The polyp was removed ? with a cold snare. Resection and retrieval were ? complete. ? Patchy mild inflammation characterized by congestion ? (edema), erosions and granularity was found in the ? proximal transverse colon, in the ascending colon and ? in the cecum. Biopsies were taken with a cold forceps ? for histology (1 Jar). Inflammation was concentrated ? in the cecum and proximal ascending then patchy focal ? areas extending to proximal transverse colon. ? The exam was otherwise normal throughout the examined ? colon. Separate biopsies taken in the distal ? transverse and descending colon as well as ? rectosigmoid colon (two jars). ? The retroflexed view of the distal rectum and anal ? verge was normal and showed no anal or rectal ? abnormalities. ? Moderate Sedation: ? Moderate (conscious) sedation was administered by the ? endoscopy nurse and supervised by the endoscopist. ? The patient's oxygen saturation, heart rate, blood ? pressure and response to care were monitored. ? I was present during the intraservice time as ? documented by the sedation RN. Impression: ?- The examined portion of the ileum ? was normal. ? - One 8 mm polyp in the proximal ? ascending colon, removed with a cold ? snare. Resected and retrieved. ? - Patchy mild inflammation was found ? in the proximal transverse colon, in ? the ascending colon and in the cecum ? secondary to colitis. Biopsied. This ? could be secondary to NSAID colitis ? versus patchy mild indeterminate ? colitis. ? - The distal rectum and anal verge ? are normal on retroflexion view. Recommendation: ?- Consider alternatives to NSAIDs, ? suspect this is the cause of chronic ? colitis however cannot exclude ? indeterminate colitis or IBD. ? - Await pathology. ? - If diarrhea symptoms and chronic ? colitis on biopsies could consider ? mesalamine therapy. ? Attending Participation: ? I personally performed the entire procedure. I was ? present during the intraservice time as documented by ? the sedation RN. ? Dr. Brennen Guy ____ Jason Guy MD 05/14/2018 12:12:08 PM Number of Addenda: 0 Note Initiated On: 05/14/2018 10:59 AM PROVATION 05/14/2018 10:5 9 AM EDT Marline Trimble MD GENERAL SURGICAL ORD ERABLES PROVATION documented in this encounter Visit Diagnoses Not on filedocumented in this encounter Administered Medications Inactive Administered Medications - up to 3 most recent administrations Medication Order MAR Action Action Date Dose Rate Site lactated Ringers infusion 100 mL/hr, Intravenous, CONTINUOUS, Starting on Yudi 05/14/18 at 1030, Until Yudi 05/14/18 at 1217, Endoscopy (Day of Procedure) New Bag 05/14/2018 10:13 AM EDT 100 mL/hr 100 mL/hr documented in this encounter Active and Recently Administered Medications Times are shown in EDT. Continuous Medication Order 05/12/2018 05/13/2018 05/14/2018 lactated Ringers infusion (CANCELED) 100 mL/hr, Intravenous, CONTINUOUS, Starting on Yudi 05/14/18 at 1030, Until Yudi 05/14/18 at 1217, Endoscopy (Day of Procedure) 1013 (New Bag - Prov ider: Adrianne Banda, TAYO) PRN Medication Order 05/12/2018 05/13/2018 05/14/2018 fentaNYL 50 mcg/mL multi-dose injection (CANCELED) ONCE PRN, Starting on Yudi 05/14/18 at 1059, Until Yudi 05/14/18 at 1418, Intra-Operative (Intra-Procedure), Routine 1059 (Given - Provid er: Marleni Dowling RN)1102 (Given - Provider: Marleni Dowling RN)1113 (Given - Provider: Marleni Dowling RN) midazolam (PF) (VERSED) 1 mg/mL multi-dose injection (CANCELED) ONCE PRN, Starting on Yudi 05/14/18 at 1059, Until Yudi 05/14/18 at 1418, Intra-Operative (Intra-Procedure), Routine 1059 (Given - Provid er: Marleni Dowling RN)1102 (Given - Provider: Marleni Dowling RN)1113 (Given - Provider: Marleni Dowling RN) documented in this encounter Care Teams Baker Bench Relationship Specialty Start Date End Date Marline Trimble MD [facility] GENERAL [place] [address] PCP - General General Internal Medicine 05/05/1802/01 documented as of this encounter
--- OUTSIDE RECORDS SUMMARY | 2024-07-21 16:40 | XMS_ITS | Encounter Summary ---
Author Organization [facility] Address [address] [place] [address] Care Team Providers Care Outdoor Adventure Leader Name Role Phone Robyn Glynn MD Primary Care Provider [phone] Reason for Visit * Reason Onset Date Comments Appointment Related 12/04/2021 Encounter Details Date Type Department Care Team (Late st Contact Info) Description 12/04/2021 Telephone [facility]- [facility] [address] [place], [place] [id number] Daljit Aguirre MD [address] [facility], [address] [place] [address] Appointment Related Social History Tobacco Use Types [...] encounter Miscellaneous Notes * Telephone Encounter - Suri Garland - 12/04/2021 1011 EDT Patients , Karen, is calling. States that their provider, Dr. Kristopher Kulkarni, spoke with [facility] in consult regarding a Parotid Gland Tumor. States that they were told they would be set up for an appointment. Referral documentation does not appear to have been received, images have. Please review. documented in this encounter Plan of Treatment Upcoming Encounters Date Type Department Care Team (Late st Contact Info) Description 07/22/2024 19:30 EST Appointment [facility] Radiology CT - [facility] [address] [place], [place] [address] 07/29/2025 15:40 EST Office Visit [facility] Cardiology - [address] [place] [address] Palak Diallo MD [address] [facility], [address] [place] [phone] documented as of this encounter Visit Diagnoses Not on filedocumented in this encounter Care Teams Outdoor Adventure Leader Relationship Specialty Start Date End Date Robyn Glynn MD [address] [place] [address] PCP - General Family Medicine - Primary Care 11/02/21 documented as of this encounter
--- OUTSIDE RECORDS SUMMARY | 2024-07-21 16:40 | XMS_ITS | Encounter Summary ---
Author Organization [facility] Address [facility] [place] [address] Care Team Providers Care Education Paraprofessional Name Role Phone Cheli Elias MD Primary Care Provider [phone] Reason for Visit * Reason Onset Date Comments Medication Refill 12/27/2016 Encounter Details Date Type Department Care Team (Late st Contact Info) Description 12/27/2016 Refill Internal Medicine at [address] [address] Jeanette James, MADINAA Social History Tobacco Use [...] on filedocumented in this encounter Care Teams Education Paraprofessional Relationship Specialty Start Date End Date Cheli Elias MD [facility] [place] [address] PCP - General 06/26/10 05/04/18 documented as of this encounter
--- OUTSIDE RECORDS SUMMARY | 2024-07-21 16:40 | XMS_ITS | Encounter Summary ---
Author Organization [facility] Address [address] [place] [address] Care Team Providers Care Frameman Name Role Phone Robyn Glynn MD Primary Care Provider [phone] Reason for Visit * Reason Onset Date Comments Discuss Surgery 03/22/2022 Encounter Details Date Type Department Care Team (Late st Contact Info) Description 03/22/2022 Telephone [facility] ENT- [facility] [address] [place], [place] [phone] Shane Richardson MD [address] [place] [address], [address] [place] [address] Discuss Surgery Social History Tobacco Use Types Packs/Day Years [...] Telephone Encounter - Yaritza Pennington RN - 03/22/2022 1311 EDT Patient's is asking about stopping Ibuprofen prior to surgery. Suggested stopping the Ibuprofen about a week before surgery. She agreed. Dr. Richardson would prefer the Ibuprofen be held 10 days prior to surgery. Recommendations given tothe patient's . She will let the patient know. * Telephone Encounter - Alessandra Jones - 03/22/2022 1246 EDT Patient's is calling to find out how far in advance of surgery he needs to stop taking some medications. documented in this encounter Plan of Treatment Upcoming Encounters Date Type Department Care Team (Late st Contact Info) Description 07/22/2024 19:[address] [facility] Radiology CT - [facility] [address] [place], [place] [address] 07/29/2025 15:40 EST Office Visit [facility] Cardiology - [address] [place] [address] Palak Diallo MD [address] [facility] [place], [address] [place] [phone] documented as of this encounter Visit Diagnoses Not on filedocumented in this encounter Care Teams Frameman Relationship Specialty Start Date End Date Robyn Glynn MD [address] [place] [phone] PCP - General Family Medicine - Primary Care 11/02/21 documented as of this encounter
--- OUTSIDE RECORDS SUMMARY | 2024-07-21 16:40 | XMS_ITS | Encounter Summary ---
Author Organization [facility] Address [facility] [place] [address] Care Team Providers Care Coal Cager Name Role Phone Cheli Elias MD Primary Care Provider [phone] Reason for Visit * Reason Onset Date Comments Labs Only 02/15/2016 Encounter Details Date Type Department Care Team (Late st Contact Info) Description 02/15/2016 Telephone Internal Medicine at [address] [address] Skyla Trinidad CMA Labs Only Social History Tobacco Use Types Packs/Day Years [...] Miscellaneous Notes * Telephone Encounter - Skyla Trinidad CMA - 02/15/2016 4:22 PM EDT Left message for patient to [facility]. Repeat lab for urine sample needs to be completed. I will extend these order 4 more weeks. documented in this encounter Plan of Treatment Not on file documented as of this encounter Visit Diagnoses Not on filedocumented in this encounter Care Teams Coal Cager Relationship Specialty Start Date End Date Cheli Elias MD [facility] [place] [address] PCP - General 06/26/10 05/04/18 documented as of this encounter
--- OUTSIDE RECORDS SUMMARY | 2024-07-21 16:40 | XMS_ITS | Encounter Summary ---
Author Organization [facility] Address [address] [place] [address] Care Team Providers Care Armament Installer Name Role Phone Robyn Glynn MD Primary Care Provider [phone] Reason for Visit * Reason Onset Date Comments Other 05/12/2022 Encounter Details Date Type Department Care Team (Late st Contact Info) Description 05/12/2022 Telephone [facility] ENT [address] [place], [place] [phone] Espinoza Delgadillo MD [address] [place], [place] [address] Other Social History Tobacco Use Types Packs/Day Years [...] encounter Miscellaneous Notes * Telephone Encounter - Espinoza Delgadillo MD - 05/12/2022 0756 EDT Worsened cheek swelling overnight with fever to 100. Swallowing and breathing ok. Will come to [facility] for evaluation today. Espinoza Delgadillo MD 05/12/2022 7:57 Otolaryngology Resident PGY-4 #[id number] documented in this encounter Plan of Treatment Upcoming Encounters Date Type Department Care Team (Late st Contact Info) Description 07/22/2024 19:30 EST Appointment [facility] Radiology CT - [facility] [address] [place], [place] [address] 07/29/2025 15:40 EST Office Visit [facility] Cardiology - [place] [address] Palak Diallo MD [address] [facility] [place], [address] [place] [phone] documented as of this encounter Visit Diagnoses Not on filedocumented in this encounter Care Teams Armament Installer Relationship Specialty Start Date End Date Robyn Glynn MD [address] [place] [phone] PCP - General Family Medicine - Primary Care 11/02/21 documented as of this encounter
--- OUTSIDE RECORDS SUMMARY | 2024-07-21 16:40 | XMS_ITS | Encounter Summary ---
Author Organization [facility] Address [facility] [place] [address] Care Team Providers Care Coin Machine Mechanic Name Role Phone Marline Trimble MD Primary Care Provider [phone] Reason for Visit * Reason Onset Date Comments Medication Refill 10/16/2018 Encounter Details Date Type Department Care Team (Late st Contact Info) Description 10/16/2018 [place] [address] Dalia Quach Social History Tobacco Use Types Packs/Day Years [...] encounter Miscellaneous Notes * Telephone Encounter - Dalia Quach - 10/16/2018 1:52 PM EDT Please note new pharmacy. Pt would also like 90 day supply. documented in this encounter Plan of Treatment Not on file documented as of this encounter Visit Diagnoses Not on filedocumented in this encounter Care Teams Coin Machine Mechanic Relationship Specialty Start Date End Date Marline Trimble MD [facility] [place] [address] PCP - General General Internal Medicine 05/05/1802/01 documented as of this encounter
--- OUTSIDE RECORDS SUMMARY | 2024-07-21 16:40 | XMS_ITS | Encounter Summary ---
Author Organization [facility] Address [address] [place] [address] Care Team Providers Care Asphalt Dauber Name Role Phone Robyn Glynn MD Primary Care Provider [phone] Reason for Visit * Reason Comments Other Paroitd Mass * Referral (Routine) - Receiving Office to Obtain Authorization Specialty Diagnoses / Procedures Referred By Acacia t Referred To Contact Otolaryngology Diagnoses Localized swelling, mass and lump, neck Kristopher Kulkarni MD Phone: tel: fax: Daljit Aguirre MD Phone: tel: fax: Referral ID Status Reason Start Date Expiration Date Visits Requested Visits Authorized [id number] Receiving Office to Obtain Authorization 1 1 Encounter Details Date Type Department Care Team (Late st Contact Info) Description 12/14/2021 11:30 EDT Office Visit [facility] ENT- [facility] [place] [address] [place], [place] [id number] Shane Richardson MD [address] [facility], [address] [place] [address] Parotid mass (Primary Dx) Social [...] as of this encounter Progress Notes * Marni Lo MD - 12/14/2021 1130 EDT Images from the original note were not included. Subjective: Patient ID: Samm Macdonald is an 66 y.o. male. Chief Complaint Patient presents with ??? Other Paroitd Mass HPI Patient Active Problem List Diagnosis ??? 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 Past Medical History: Diagnosis Date ??? Apnea ??? Back pain ??? Hypertension Past Surgical History: Procedure Laterality Date ??? EYE SURGERY catarcts, cataract redo, rentinal surgery ??? KNEE SURGERY ??? RHINOPLASTY ??? TONSILLECTOMY ??? UVULOPALATOPHARYGOPLASTY Family History Problem Relation Age of Onset ??? High Blood Pressure Mother ??? *Other(comment) Mother afib ??? Dementia Mother ??? Dementia Father Social Social History Socioeconomic History ??? Marital status: Spouse name: Not on file ??? Number of children: Not on file ??? Years of education: Not on file ??? Highest education level: Not on file Occupational History ??? Not on file Tobacco Use ??? Smoking status: Never Smoker ??? Smokeless tobacco: Never Used Substance and Sexual Activity ??? Alcohol use: No ??? Drug use: No ??? Sexual activity: Not on file Other Topics Concern ??? Not on file Social History Narrative ??? Not on file Social Determinants of Health Financial Resource Strain: Not on file Food Insecurity: Not on file Transportation Needs: Not on file Physical Activity: Not on file Stress: Not on file Social Connections: Not on file Outpatient Medications Marked as Taking for the 12/14/21 encounter (Office Visit) with Shane Richardson MD Medication Sig Dispense Refill ??? acetaminophen (TYLENOL) 325 mg capsule Take 1,000 mg by mouth 2 times daily. ??? amLODIPine (NORVASC) 5 mg tablet Take 5 mg by mouth at bedtime. ??? ibuprofen (MOTRIN) 800 mg tablet Take 800 mg by mouth daily. ??? melatonin 10 mg capsule Take by mouth. Allergies Allergen Reactions ??? Chloraseptic (Benzocaine) Rash ??? Indocin [Indomethacin] hallucinates Review of Systems Constitutional: Negative for chills, fever, malaise/fatigue and weight loss. HENT: Negative for congestion, ear pain, hearing loss and sore throat. Eyes: Negative for blurred vision, double vision and photophobia. Respiratory: Negative for cough, hemoptysis, shortness of breath and wheezing. Cardiovascular: Negative for chest pain, palpitations, claudication and leg swelling. Gastrointestinal: Negative for heartburn. Musculoskeletal: Negative for joint pain and myalgias. Skin: Negative for rash. Neurological: Negative for sensory change, focal weakness and headaches. Endo/Heme/Allergies: Negative for environmental allergies. Does not bruise/bleed easily. - See HPI Objective: There were no vitals taken for [...] normal for age ORAL CAVITY & OROPHARYNX: normal NECK: GENERAL: Supple, no asymmetry or crepitus, trachea midline THYROID: Normal LYMPHATIC: CERVICAL LYMPH NODES: No pathologic cervical lymphadenopathy noted Procedure Note (Ultrasound): Indications: Left parotid mass. Using the [facility] i22 ultrasound unit, biplanar ultrasound of the left parotid was performed on Samm Macdonald using the 12.5 mHz probe. Findings: Left parotid gland: 3 x 2.5 cm mass present in left tail of parotid. Assessment: Left tail of parotid mass is most consistent with a benign cyst. Assessment: Samm Macdonald is a 66 year old male who presents for evaluation of a left tail of parotid lesion. Lesion biopsied twice by Dr. Kulkarni. Both samples were non- diagnostic. Lesion non-painful. Facial symmetry full on exam today. Has surrounding edema of parotid gland from past biopsies. Ultrasound of mass today shows a primarily cystic lesion with some solid components. It is most likely benign based on appearance on ultrasound and his reassuring exam. Suspect that the previous biopsies were non-diagnostic since the cyst is mostly fluid filled. We will have the patient return in 4-6 weeks once the surrounding inflammation has resolved from the past biopsies. We plan to have path on site so that needle aspiration of the cyst can be performed and we can FNA any remaining solid components. Plan: Samm was seen today for other. Diagnoses and all orders for this visit: Parotid mass Other orders - amLODIPine (NORVASC) 5 mg tablet; Take 5 mg by mouth at bedtime. - ibuprofen (MOTRIN) 800 mg tablet; Take 800 mg by mouth daily. - acetaminophen (TYLENOL) 325 mg capsule; Take 1,000 mg by mouth 2 times daily. - melatonin 10 mg capsule; Take by mouth. - Return in 4-6 weeks for potential aspiration of parotid cyst and biopsy of any solid components Marni Lo MD Otolaryngology PGY-1 12/14/21 12:26 Attending statement: I have personally interviewed, examined and discussed Samm Macdonald with Dr. Marni Lo during today's visit. I have reviewed and edited her notes and concur. I was present for and performed ultrasound exam of the left parotid as above. Encounter Diagnoses Name Primary? Parotid mass Yes 3 cm predominantly cystic mass of the left tail of parotid gland prior FNA attempts (without US guidance) on 2 occasions at the outside hospital showed inadequate cellularity, possibly due to the predominantly cystic nature of the lesion. He is palpably aware of the mass but is otherwise asymptomatic. No concerning cervical adenopathy on physical exam, ultrasound exam in the office today. While this is most likely benign (based on ultrasound appearance, clinical history and lack of malignant cells on 2 prior fine-needle aspirations), it is reasonable to attempt to establish a more definitive d iagnosis. We will arrange for him to return in several weeks after the inflammation from his most recent biopsies subsides, at which point ultrasound- guided FNA with cytopathology present will be performed. If benign, the lesion may be monitored as it is otherwise asymptomatic. The patient and his expressed their understanding and are in agreement with the plan as outlined above. Shane Richardson MD documented in this encounter Plan of Treatment Upcoming Encounters Date Type Department Care Team (Late st Contact Info) Description 07/22/2024 19:30 EST Appointment [facility] Radiology CT - [address] [id number] 07/29/2025 15:40 EST Office Visit [facility] Cardiology [place] [address] Palak Diallo MD [address] [facility] [place], [address] [place] [address] documented as of this encounter Visit Diagnoses Diagnosis Parotid mass- Primary Swelling, mass, or lump in head and neck documented in this encounter Historical Medications * This list may reflect changes made after this encounter. melatonin 10 mg capsule Take by mouth. acetaminophen 325 mg capsule Take 1,000 mg by mouth if needed. ibuprofen (MOTRIN) 800 mg tablet Take 800 mg by mouth daily. 07/13/2023 amLODIPine (NORVASC) 5 mg tablet Take 1 Tablet by mouth at bedtime. 07/13/2023 added in this encounter Care Teams Asphalt Dauber Relationship Specialty Start Date End Date Robyn Glynn MD [address] [place] [phone] PCP - General Family Medicine - Primary Care 11/02/21 documented as of this encounter
--- OUTSIDE RECORDS SUMMARY | 2024-07-21 16:40 | XMS_ITS | Encounter Summary ---
Author Organization [facility] Address [address] [place] [address] Care Team Providers Care Global Product Manager Name Role Phone Meredith Garcia MD Primary Care Provider [phone] Reason for Visit * (Routine/Next Available) - Receiving Office to Obtain Authorization Specialty Diagnoses / Procedures Referred By Contac t Referred To Contact Procedures US OUTSIDE IMAGES NEURO Imaging, External Referral ID Status Reason Start Date Expiration Date Visits Requested Visits Authorized [id number] Receiving Office to Obtain Authorization 2021 1 1 Encounter Details Date Type Department Care Team (Latest Contact Info) Description 10/16/2021 - 10/16/2021 23:59 EDT Hospital Encounter [facility] [place] Discharge Disposition: Home or Self Care Social [...] on file documented as of this encounter Medications at Time of Discharge [...] Contact Info) Description 07/22/2024 19:30 EST Appointment [facility] Radiology CT - [facility] [address] [place] [address] 07/29/2025 15:40 EST Office Visit [facility] Cardiology - [place] [address] [address] [place], [place] [phone] Palak Diallo MD [address] [place] [address], [address] [place] [phone] documented as of this encounter Procedures Procedure Name Priority Date/Time Associated Diagnosis Comments US OUTSIDE IMAGES NEURO Routine 2021 18:49 EDT documented in this encounter Results * US OUTSIDE IMAGES NEURO (2021 18:49 EDT) Narrative 2021 18:49 EDT This is a non-reportable exam. us External Imaging IMG OTHER IMAGING ORDERABLES Fi nal Result documented in this encounter Visit Diagnoses Not on filedocumented in this encounter Care Teams Global Product Manager Relationship Specialty Start Date End Date Meredith Garcia MD PCP - General 01/25/19 11/01/21 documented as of this encounter
--- OUTSIDE RECORDS SUMMARY | 2024-07-21 16:40 | XMS_ITS | Encounter Summary ---
Author Organization [facility] Address [address] [place] [address] Care Team Providers Care Public Events Facilities Rental Manager Name Role Phone Robyn Glynn MD Primary Care Provider [phone] Encounter Details Date Type Department Care Team (Latest Contact Info) Description 05/08/2022 8:30 EDT - 05/08/2022 23:59 EDT Hospital Encounter [facility] Main [place] Pre-Surgical Testing [address] [place] [address] Discharge Disposition: Home or Self Care Social [...] - Inhaled Oxygen Concentration - - Weight 136.1 kg (300 lb) 05/08/2022 0852 EDT Height 175.3 cm (5' 9) 05/08/2022 0852 EDT Body Mass Index 44.3 05/08/2022 0852 EDT documented in this encounter Medications at Time of Discharge acetaminophen 325 mg capsule Take 1,000 mg by mouth if needed. melatonin 10 mg capsule Take by mouth. amLODIPine (NORVASC) 5 mg tablet Take 1 Tablet by mouth at bedtime. 3 bacitracin zinc 500 unit/gram ointment Apply topically 2 times daily. To your incision 28 g 07/31/2022 3 ELIQUIS 5 mg tablet Take 5 [...] documented in this encounter Progress Notes * Mecca Corral, RN - 05/08/2022 0830 EDT COVID 19 Screening Perioperative at time of PAT Please document by exception (only check those that apply). Have you had any of the following symptoms recently?denies Yes Chronic ? Cough Shortness of breath or difficulty breathing Fever Chills Fatigue Muscle or body aches Severe Headache New loss of taste or smell Sore throat Congestion or runny nose Rash Nausea, vomiting, or diarrhea (rare in adults. More common in children) Please elaborate if yes: If a chronic symptom is reported use your judgement if an anesthesia review is needed. Have you been in close contact with someone who has been diagnosed with Covid 19 (within past 2 weeks)?denies If yes, and is a member of your household, what was the date of their onset of symptoms/positive test? If above date is within 15 days of dos, place for anesthesia review. Have you tested positive in the last 90 days for COVID by PCR and or home test?denies If yes: Home Test Date: PCR Date: PCR Test Location: Vaccination Status: _x__ Pt states fully vaccinated, ___ Verified in chart ___ Pt states unvaccinated -Do not instruct patient regarding COVID testing, let [facility] coordinate this -Communicate status on yellow form for DOS REMIND PATIENT/parents of pediatric patients: Patients with a pending COVID-19 test are expected toremain masked and socially distanced at all times while at work or school, and refrain from going inside restaurants, bars, or other public areas where people are likely to be unmasked, or crowded public places. If patient develops any of these symptoms between now and their surgery date instruct them to call us back at [phone] to report symptoms Visitor Policy: Surgical & Procedural -Adult: 2 support people -Pediatrics: 2 support people - Inpatients are now permitted 2 support people at a time. One person is permitted to remain overnight (must be masked). - Pediatric Inpatients may 2 support people at a time. - Inpatient Psychiatry patients may have 2 (vaccinated) support people at a time - Outpatient visits: 2 support people for adults and pedi. (Exception: Cancer Center and [facility] 4 Infusion- 1 support person) As a reminder, all support people are will be required to wear a mask that covers their nose and mouth for the entire time they are in the building. Anyone who cannot or will not wear a mask will be asked to leave. documented in this encounter OR Notes * Preprocedure Instructions - Mecca Corral RN - 05/08/2022 0830 EDT Samm Macdonald has been instructed as follows regarding medication administration for the day of thescheduled procedure. Date of Surgery: 05/15/22 Instructions for Taking Medications Day of Surgery Medication Sig Last Dose Hold DOS Take DOS acetaminophen (TYLENOL) 325 mg capsule Take 1,000 mg by mouth 2 times daily. prn amLODIPine (NORVASC) 5 mg tablet Take 2.5 mg by mouth at bedtime. hs ELIQUIS 5 mg tablet Take 5 mg by mouth 2 times daily. 05/13/22 ibuprofen (MOTRIN) 800 mg tablet Take 800 mg by mouth daily. Patient not taking: Reported on 04/30/2022 Not Taking at Unknown time lisinopril (PRINIVIL, ZESTRIL) 10 mg tablet Take 10 mg by mouth daily. Patient not taking: Reported on 05/08/2022 Not Taking at Unknown time melatonin 10 mg capsule Take by mouth. Prn hs meloxicam (MOBIC) 15 mg tablet Take 15 mg by mouth daily. Patient not taking: Reported on 05/08/2022 Not Taking at Unknown time metoprolol TARtrate (LOPRESSOR) 50 mg tablet Take 50 mg by mouth 2 times daily. Yes Does not take nsaids. documented in this encounter Plan of Treatment Upcoming Encounters Date Type Department Care Team (Late st Contact Info) Description 07/22/2024 19:30 EST Appointment [facility] Radiology CT - [address] [address] 07/29/2025 15:40 EST Office Visit [facility] Cardiology - [address] [address] Palak Diallo MD [address] [place] [address], [address] [place] [address] documented as of this encounter Visit Diagnoses Not on filedocumented in this encounter Historical Medications * This list may reflect changes made after this encounter. metoprolol TARtrate (LOPRESSOR) 50 mg tablet Take 1 Tablet by mouth 2 times daily. 07/13/2023 added in this encounter Care Teams Public Events Facilities Rental Manager Relationship Specialty Start Date End Date Robyn Glynn MD [address] [place] [phone] PCP - General Family Medicine - Primary Care 11/02/21 documented as of this encounter
--- OUTSIDE RECORDS SUMMARY | 2024-07-21 16:40 | XMS_ITS | Encounter Summary ---
Author Organization [facility] Address [address] [place] [address] Care Team Providers Care Cardio Clinician Name Role Phone Meredith Garcia MD Primary Care Provider [phone] Reason for Visit * Reason Comments Pre-op Exam DOS 02/02/19, left eye retinal detachment surgery with Dr. Zachariah Young Left ear cerumen imp action, has been using OTC without significant relief Encounter Details Date Type Department Care Team (Latest Contact Info) Description 01/25/2019 14:01 EDT - 01/25/2019 15:07 EDT Hospital Encounter [facility] - [address] [address] Nicolette Aguayo MD [address] [place] [phone] Unknown, Provider, Left retinal detachment (Primary Dx); Pre-op examination Discharge Disposition: Home or Self Care Social [...] Sign Reading Time Taken Comments Blood Pressure 134/74 01/25/2019 1428 EDT Pulse 64 01/25/2019 1428 EDT Temperature 36.6 ??C (97.8 ??F) 01/25/2019 1428 EDT Respiratory Rate 16 01/25/2019 1428 EDT Oxygen Saturation - - Inhaled Oxygen Concentration - - Weight 126.8 kg (279 lb 8 oz) 01/25/2019 1428 ED T Height 177.8 cm (5' 10) 01/25/2019 1428 EDT Body Mass Index 40.1 01/25/2019 1428 EDT documented in this encounter Discharge Instructions * Discharge Instructions* Nicolette Aguayo MD, MD - 01/25/2019 15:07 EDT As we discussed, you are suitable for your eye surgery as planned without any further testing at this time. Follow up with Dr. Soni as scheduled for your procedure. Do not start new medications or supplements in the meantime. Should you have change in your health, develop fevers or chills, rashes, chest pain or shortness ofbreath, you should be seen. You must notify your surgeon if you develop symptoms as well. Otherwise, follow up with your PCP or [facility] as needed. documented in this encounter Medications at Time of Discharge lisinopril (PRINIVIL, ZESTRIL) 10 mg tablet Take 10 mg by mouth daily. 07/13/2023 meloxicam (MOBIC) 15 mg tablet Take 15 mg by mouth daily. 07/13/2023 documented as of this encounter Discharge Disposition Disposition Code Departure Means Destination Home or Self Care documented in this encounter ED Notes * Nicolette Aguayo MD, MD - 01/25/2019 1452 EDT Preoperative H&P Patient ID: Samm Macdonald is an 63 y.o. male. :1955 Date of Service: 01/25/2019 Chief Complaint: Chief Complaint Patient presents with ??? Pre-op Exam DOS 02/02/19, left eye retinal detachment surgery with Dr. Soni ??? Otalgia Left ear cerumen impaction, has been using OTC without significant relief Planned Procedure: retinal surgery Surgeon: Dr. Soni Planned Procedure Date: 02/02/19 Problem List Available or Initiated: yes Subjective: HISTORY OF PRESENT ILLNESS: Left eye developed a curtain over it last night. He has a retinal detachment. This is going for surgery. Cardiovascular or pulmonary risk factors: hypertension Prior h/o of anesthetic complications: no Prior h/o bleeding problems: no Prior h/o DVT/PE: no Prior h/o infections (VRE, MRSA): no Reaction to tape or latex: no Family history of anesthetic complications, bleeding problems or DVT/PE: yes. Sister had dvt 30 years ago in . He has sleep apnea, uses cpap. There is no problem list on file for this patient. Past Medical History: Diagnosis Date ??? Apnea ??? Back pain ??? Hypertension Past Surgical History: Procedure Laterality Date ??? EYE SURGERY catarcts, cataract redo, rentinal surgery ??? KNEE SURGERY ??? RHINOPLASTY ??? TONSILLECTOMY ??? UVULOPALATOPHARYGOPLASTY Social History Tobacco Use ??? Smoking status: Never Smoker ??? Smokeless tobacco: Never Used Substance Use Topics ??? Alcohol use: No Frequency: Never ??? Drug use: No Family History Problem Relation Age of Onset ??? High Blood Pressure Mother ??? *Other(comment) Mother afib ??? Dementia Mother ??? Dementia Father Allergies Allergen Reactions ??? Indocin [Indomethacin] hallucinates No current facility-administered medications for this encounter. Current Outpatient Medications Medication Sig Dispense Refill ??? lisinopril (PRINIVIL, ZESTRIL) 10 mg tablet Take 10 mg by mouth daily. ??? meloxicam (MOBIC) 15 mg tablet Take 15 mg by mouth daily. Review of Systems Constitutional: Negative. HENT: Positive for hearing loss (ear is plugged left side). Negative for congestion, ear discharge,ear pain, nosebleeds, sinus pain, sore throat and tinnitus. Eyes: Positive for blurred vision. Negative for double vision, photophobia, pain, discharge and redness. Respiratory: Negative. Negative for stridor. Gastrointestinal: Negative. Genitourinary: Negative. Musculoskeletal: Negative. Skin: Negative. Neurological: Negative. Endo/Heme/Allergies: Negative. Psychiatric/Behavioral: Negative. Objective: BP 134/74 Pulse 64 Temp 97.8 ??F (36.6 ??C) (Tympanic) Resp 16 Ht 177.8 cm (70) Wt (!) 126.8 kg (279 lb 8 oz) BMI 40.10 kg/m?? Body mass index is 40.1 kg/m??. Physical Exam Constitutional: He is oriented to person, place, and time. He appears well- developed and well-nourished. No distress. HENT: Head: Normocephalic and atraumatic. Right Ear: Tympanic membrane, external ear and ear canal normal. No pain on movement. Left Ear: Tympanic membrane, external ear and ear canal normal. No pain on movement. Nose: Nose normal. Mouth/Throat: Oropharynx is clear and moist. Mucous membranes are moist. No oropharyngeal exudate. Oropharynx is clear. Slight decreased hearing left ear Eyes: Conjunctivae and EOM are normal. Right eye exhibits no discharge. Left eye exhibits no discharge. No scleral icterus. Pupils dilated bilaterally Neck: Normal range of motion. Neck supple. No thyromegaly present. Cardiovascular: Normal rate, regular rhythm and normal heart sounds. Pulmonary/Chest: Effort normal and breath sounds normal. No respiratory distress. Abdominal: Soft. He exhibits no distension. There is no tenderness. Musculoskeletal: He exhibits edema (minimal lower ext edema bilaterally). Lymphadenopathy: He has no cervical adenopathy. Neurological: He is alert and oriented to person, place, and time. He exhibits normal muscle tone. Skin: Skin is warm and dry. He is not diaphoretic. Psychiatric: He has a normal mood and affect. His behavior is normal. Thought content normal. Vitals reviewed. EKG: not indicated for eye surgery. Can do 4 mets without issues. Assessment: 1. Left retinal detachment 2. Pre-op examination No contraindications to planned surgery Plan: Patient requires endocarditis prophylaxis (see guideline summary below): no Perioperative beta-gamal recommendation (see guideline summary below): no - betablocker not indicated. GENERAL PREOP INSTRUCTIONS: Proceed with surgery as planned. No food or liquids the morning of surgery. Call surgeon if develops respiratory illness, fever, or other illness. Letter sent to requesting surgeon listed above Written preoperative instructions given. Nicolette Aguayo MD 01/25/2019 15:11 SUMMARY OF GUIDELINES: Endocarditis prophylaxis indications: Antibiotics are indicated for prosthetic heart materials (notroutine MVP), uncorrected congenital heart anomalies, history of endocarditis; and only for surgeries of mouth, respiratory tract, or infected tissue. Options for a one-time oral dose of antibiotic taken 30 - 60 minutes prior to the procedure include amoxicillin 2 grams, clindamycin 600 mg, or azithromycin 500 mg. Guideline Title: Prevention of Infective Endocarditis Guidelines From the [employer] Association: A Guideline From the [employer] Association Rheumatic Fever, Endocarditis, and Kawasaki Disease Committee, [place] on Cardiovascular Disease in the [place], and the [place] on Clinical Cardiology, [place] on Cardiovascular Surgery and Anesthesia, and the Quality of Care and Outcomes Research Interdisciplinary Working Group. Please see Circulation. 2007;116:8523-7781 for the detailed indications. Ashley-operative betablocker (BB) indications: For patients already on BB for angina, arrhythmia, or HTN continue the BB (Class I). For patients not on BB, consider adding 1 week prior to surgery for vascular surgery in patients with CAD or multiple risk factors; or CHD or multiple risk factors undergoing intermediate - to high-risk procedures (Class IIa). Consider continuing the BB 2-4 weeks post-operatively. Otherwise, starting a perioperative betablocker may be harmful. Guideline Title: 2009 ACCF/AHA focused update on perioperative beta blockade incorporated into the ACC/AHA 2007 guidelines on perioperative cardiovascular evaluation and care for noncardiac surgery. A report of the [employer] Foundation/[employer] Association Task Force on Practice Guidelines. Please see J Am Jacob Cardiol. 2009; Jun 27;54(22):w43-y446 for the detailed indications. * Stanley Talbot MA - 01/25/2019 4247 EDT 02/02/19, left eye retinal detachment surgery with Dr. Soni at [facility] Left ear cerumen impaction, has been using OTC without significant relief documented in this encounter Plan of Treatment Upcoming Encounters Date Type Department Care Team (Late st Contact Info) Description 07/22/2024 19:30 EST Appointment [facility] Radiology CT - [facility] [address] [place] [address] 07/29/2025 15:40 EST Office Visit [facility] - [address] [place] [address] Palak Diallo MD [address] [facility] [place], [address] [place] [phone] documented as of this encounter Visit Diagnoses Diagnosis Left retinal detachment- Primary Unspecified retinal detachment Pre-op examination Preoperative examination, unspecified documented in this encounter Historical Medications * This list may reflect changes made after this encounter. meloxicam (MOBIC) 15 mg tablet Take 15 mg by mouth daily. 07/13/2023 lisinopril (PRINIVIL, ZESTRIL) 10 mg tablet Take 10 mg by mouth daily. 07/13/2023 added in this encounter Care Teams Cardio Clinician Relationship Specialty Start Date End Date Meredith Garcai MD PCP - General 01/25/19 11/01/21 documented as of this encounter
--- OUTSIDE RECORDS SUMMARY | 2024-07-21 16:40 | XMS_ITS | Encounter Summary ---
Author Organization [facility] Address [address] [place] [address] Care Team Providers Care Library Clerk Talking Books Name Role Phone Robyn Glynn MD Primary Care Provider [phone] Reason for Visit * Reason Onset Date Comments Other 05/11/2022 Encounter Details Date Type Department Care Team (Late st Contact Info) Description 05/11/2022 Telephone [facility] ENT [address] [place], [place] [address] Espinoza Delgadillo MD [address] [place], [place] [address] Other Social History Tobacco Use Types Packs/Day [...] Refills Last Filled Start Date End Date clindamycin (CLEOCIN) 150 mg capsule Take 2 Capsules by mouth 3 times daily for 7 days. 42 capsule 05/11/2022 2 documented in this encounter Miscellaneous Notes * Telephone Encounter - Espinoza Delgadillo MD - 05/11/2022 1236 EDT Samm Macdonald is a 66 y.o. male who is scheduled for left parotidectomy with Dr. Richardson on Friday. 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 His calls reporting that over the last several days his left cheek has become significantly more swollen and painful. Prior to this he had had minimal if any discomfort in this area. He has not had fevers or chills he does feel some tightness in his neck. They have been applying ice and taking Tylenol without significant improvement. 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 I will treat empirically with clindamycin and discussed using lemon wedges as sialagogues, performing massage every 30 minutes and using warm compresses on the cheek. If symptoms do not improve in the next 24 hours they will call back and we will reassess. If his symptoms significantly worsen or he develops fevers chills, difficulty swallowing or breathing they will go to their local emergency department for further evaluation. If things improve over the weekend they will call clinic on Friday morning. Espinoza Delgadillo MD 05/11/2022 12:39 Otolaryngology Resident PGY-4 #[id number] documented in this encounter Plan of Treatment Upcoming Encounters Date Type Department Care Team (Late st Contact Info) Description 07/22/2024 19:30 EST Appointment [facility] Radiology CT - [facility] [address] [place] [address] 07/29/2025 15:40 EST Office Visit [facility]iology - [address] [place] [address] Palak Diallo MD [address] [facility] [place], [address] [place] [phone] documented as of this encounter Visit Diagnoses Not on filedocumented in this encounter Care Teams Library Clerk Talking Books Relationship Specialty Start Date End Date Robyn Glynn MD [address] [place] [phone] PCP - General Family Medicine - Primary Care 11/02/21 documented as of this encounter
--- OUTSIDE RECORDS SUMMARY | 2024-07-21 16:40 | XMS_ITS | Encounter Summary ---
Author Organization [facility] Address [facility] [place] [address] Care Team Providers Care Asphalt Roller Operator Name Role Phone Marline Trimble MD Primary Care Provider [phone] Reason for Visit * Auth/Cert Specialty Diagnoses / Procedures Referred By Acacia neumann Referred To Contact Diagnoses 5 yr surv from 06/15/10 Procedures PRO COLONOSCOPY, DIAGNOSTIC COLONOSCOPY, DIAGNOSTIC Referral ID Status Reason Start Date Expiration Date Visits Re quested Visits Authorized [id number] 1 1 Encounter Details Date Type Department Care Team (Late st Contact Info) Description 05/14/2018 10:15 AM EDT - 05/14/2018 11:00 AM EDT Surgery [place] [phone] Jason Guy MD [facility] [place] [address] COLONOSCOPY, SURVEILLANCE (WRVU 3.26) Social History Tobacco Use Types Packs/Day Years [...] sent through Care Everywhere. * COLON POLYPS (MACEDONIAN) documented in this encounter Medications at Time [...] 8 AM EDT 05/14/2018 1:45 PM EDT [facility] LABORATORY - 05/14/2018 1:45 PM EDT Specimen requisition ordered. ??Separate Pathology report to follow Resulting Agency Comment Spec In Lab Jason Guy MD PATHOLOGY/CYTOLOG Y ORDERABLES Performing Organization Address City/[facility]/[place] [address] * Specimen to Pathology (05/14/2018 11:38 AM EDT) AP Specimen 05/14/2018 11:3 8 AM EDT 05/14/2018 1:45 PM EDT Narrative [facility] - 05/14/2018 1:45 PM EDT Specimen requisition ordered. ??Separate Pathology report to follow Resulting Agency Comment Spec In Lab Jason Guy MD PATHOLOGY/CYTOLOG Y ORDERABLES Performing Organization Address [facility] [[email or web address]] [place] [address] * Specimen to Pathology (05/14/2018 11:38 AM EDT) AP Specimen 05/14/2018 11:3 8 AM EDT 05/14/2018 1:45 PM EDT Narrative [facility] - 05/14/2018 1:45 PM EDT Specimen requisition ordered. ??Separate Pathology report to follow Resulting Agency Comment Spec In Lab Jason Guy MD PATHOLOGY/CYTOLOG Y ORDERABLES Performing Organization Address [facility]/[place] [address] * Specimen to Pathology (05/14/2018 11:38 AM EDT) AP Specimen 05/14/2018 11:3 8 AM EDT 05/14/2018 1:45 PM EDT Narrative [facility] - 05/14/2018 1:45 PM EDT Specimen requisition ordered. ??Separate Pathology report to follow Resulting Agency Comment Spec In Lab Jason Guy MD PATHOLOGY/CYTOLOG Y ORDERABLES Performing Organization Address City/[facility]/[place] [address] * Surgical Pathology Report (05/14/2018 11:24 AM EDT) Final Diagnosis [id number] ? Location: 4T; EA12; A The signing [...] Yovany Duran Verified: ??05/18/2018 ?Pathologist Performed at: ??-[facility] Dept. of Pathology, [place], [place] DISCUSSION 1. The differential diagnosis inccludes [...] labeled D1-D2. ??ejr 05/18/2018 9:38 AM EDT [facility] GI Biopsy 05/14/2018 11:2 4 AM EDT 05/14/2018 11:24 AM EDT GI Biopsy 05/14/2018 11:2 4 AM EDT 05/14/2018 11:24 AM EDT GI Biopsy 05/14/2018 11:2 4 AM EDT 05/14/2018 11:24 AM EDT GI Biopsy 05/14/2018 11:2 4 AM EDT 05/14/2018 11:24 AM EDT Jason Guy MD PATHOLOGY/CYTOLOG Y ORDERABLES [facility] [place] [address] * COLONOSCOPY (05/14/2018 10:59 AM EDT) COLONOSCOPY [facility] Endoscopy Procedure Date: 05/14/2018 10:59 AM ? Patient Name: Samm Macdonald ? Date of : 1955 ? Age: 62 ? Order #: [id number] ? Instrument Name: [id number] ? Procedure: ? Colonoscopy Indications: ? Surveillance: Personal history of ? adenomatous polyps on last ? colonoscopy > 5 years ago Patient Profile: ? This is a 62 year old male. Refer to ? note in patient chart for ? documentation of history and ? physical. Last Colonoscopy: 2009. Providers: ? Joe Taylor, ? White Sugar Supervisor, Jason Guy MD Referring MD: ?Marline Sanya Trimble Medicines: ? Midazolam 3 mg IV, [...] MAR Action Action Date Dose Rate Site fentaNYL 50 mcg/mL multi-dose injection ONCE PRN, Starting on Yudi 05/14/18 at 1059, Until Yudi 05/14/18 at 1418, Intra-Operative (Intra-Procedure), Routine Given 05/14/2018 11:13 AM EDT 50 mcg Right Arm Given 05/14/2018 11:02 AM EDT 50 mcg R ight Arm Given 05/14/2018 10:59 AM EDT 50 mcg R ight Arm lactated Ringers infusion 100 mL/hr, Intravenous, CONTINUOUS, Starting on Yudi 05/14/18 at 1030, Until Yudi 10/11/18 at 1217, Endoscopy (Day of Procedure) New Bag 05/14/2018 10:13 AM EDT 100 mL/hr 100 mL/hr midazolam (PF) (VERSED) 1 mg/mL multi-dose injection ONCE PRN, Starting on Yudi 05/14/18 at 1059, Until Yudi 05/14/18 at 1418, Intra-Operative (Intra-Procedure), Routine Given 05/14/2018 11:13 AM EDT 1 mg Right Arm Given 05/14/2018 11:02 AM EDT 1 mg R ight Arm Given 05/14/2018 10:59 AM EDT 1 mg R ight Arm documented in this encounter Active and Recently Administered Medications Times are shown in EDT. Continuous Medication Order 05/12/2018 05/13/2018 05/14/2018 lactated Ringers infusion (CANCELED) 100 mL/hr, Intravenous, CONTINUOUS, Starting on Yudi 05/14/18 at 1030, Until Yudi 05/14/18 at 1217, Endoscopy (Day of Procedure) 1013 (New Bag - Prov ider: Adrianne Banda RN) PRN Medication Order 05/12/2018 05/13/2018 05/14/2018 fentaNYL [...] RN) documented in this encounter Care Teams Asphalt Roller Operator Relationship Specialty Start Date End Date Marline Trimble MD [facility] [place] [address] PCP - General General Internal Medicine 05/05/1802/01 documented as of this encounter
--- OUTSIDE RECORDS SUMMARY | 2024-07-21 16:40 | XMS_ITS | Encounter Summary ---
[place] [address] Care Team Providers Care Production Coordinator Name Role Phone Cheli Elias MD Primary Care Provider + [phone] Reason for Visit * Reason Comments Pre-op Exam hoping to have left knee replacement in next 30 days Annual Exam Encounter Details Date Type Department Care Team (Late st Contact Info) Description 01/22/2017 8:40 AM EDT Office Visit Internal Medicine at [facility] [address] [place] [address] Paige Lozada PA [address] [facility] INTERNAL MEDICINE [place] [id number] Preop examination Social History Tobacco Use Types [...] Sign Reading Time Taken Comments Blood Pressure 133/65 01/22/2017 8:53 AM EDT Pulse 57 01/22/2017 8:53 AM EDT Temperature - - Respiratory Rate - - Oxygen Saturation 98% 01/22/2017 8:53 AM EDT Inhaled Oxygen Concentration - - Weight 132.5 kg (292 lb) 01/22/2017 8:53 AM EDT Height 176.8 cm (5' 9.6) 01/22/2017 8:53 AM EDT Body Mass Index 42.38 01/22/2017 8:53 AM EDT documented in this encounter Progress Notes * Paige Lozada PA - 01/22/2017 8:40 AM EDT Reason for surgery - TKR (left) Concerns about surgery - none Date of surgery - 01/23/2017 Surgical procedure - TKR Surgeon - Nisha Ding cc: presents at request of Dr. Baird for pre-operative evaluation for TKR. HPI: Patient Active Problem List Diagnosis Code ??? CIS - History of mild iritis ??? HTN (hypertension) I10 ??? Sleep apnea G47.30 ??? Detached retina H33.20 ??? Healthcare maintenance Z00.00 ??? Tubular adenoma D36.9 ??? Psoriasis L40.9 ??? Retinal tear H33.309 ??? Body mass index (BMI) of 40.0-44.9 in adult Z68.41 Past Surgical History: Procedure Laterality Date ??? EYE SURGERY ??? TONSILLECTOMY Family History Problem Relation Age of Onset ??? Alzheimer Disease Father ??? Psoriasis Father ??? Cancer Father ??? Alzheimer Disease Paternal Aunt Social History Narrative father, aunt, gdmother with Alzheimer's disease in their 70s cousin with Alzheimer's disease in his 40s. 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 Sedation, anesthesia history: Has had both anesthesia and sedation without ill effect. GEN: no chills, fevers, fatigue, weight loss EYES: no visual changes; ENT: no pain, congestion, difficulty swallowing, hearing issues Dentition: NECK: no masses CV: no chest pain, extremity edema, palpitations, MCNULTY; METS >4 PULM: no cough, wheeze, SOB GI: no N/V/D, abd pain, constipation, change in appetite : no frequency, urgency, dysuria MSK: no pain, stiffness, change in activity/strength NEURO: no TEJADA, dizziness, numbness, weakness SKIN: no rashes PSYCH: no anxiety, depression Current Outpatient Prescriptions Medication Sig Dispense Refill ??? lisinopril (PRINIVIL;ZESTRIL) 10 mg Tablet Take 1 tablet by mouth daily. 90 tablet 3 No current facility-administered medications for this visit. Allergies Allergen Reactions ??? Benzocaine CIS - Hives, CIS - Hives ??? Benzoin CIS - Hives ??? Cetylpyridinium Chloride CIS - Hives ??? Menthol CIS - Hives ??? Phenol CIS - Hives ??? Sodium Phenolate CIS - Hives Physical Exam: There were no vitals filed for this visit. GEN: AAOx3, NAD EYES: PERRL, EOMI, sclera anicteric ENT: TMs nl, canals clear, pharynx clear without lesions/exudate, dentition NECK: supple, no masses, no thyromegaly LYMPHATIC: nl cervical HEART: RRR, no murmurs, no pretibial edema LUNGS: CTA bilat ABD: BS nl, soft, nontender, no masses, organomegaly MSK: ROM/strength equal and nl x 4 extremities NEURO: CN II-XII nl, ext, gait normal SKIN: warm, dry, no masses, lesions PSYCH: affect and interaction appropriate Assessment: 61 y.o. pre-operative physical exam. Sher Revised Cardiac Risk Index Risk Factors Predicted CV Risk ( ) High Risk surgery ( ) Ischemic Heart Disease ( ) History of CHF ( ) History of CVD ( ) Insulin use (X) Creat > 2.0 (X) 0 risk factors (0.5%) ( ) 1 risk factor (1.3%) ( ) 2 risk factors (3.6%) ( ) 3 risk factors (10+%) Major Clinical Predictors Clinical Risk Factors ( ) Unstable ASCVD ( ) Decomp CHF ( ) Significant arrythmia ( ) Severe Valvular Disease (X) None ( ) ASCVD ( ) Compensated CHF ( ) Diabetes ( ) Renal Insufficiency ( ) Cerebrovascular disease (X) None Functional Capacity Surgical Risk (X) Good Do light housework Climb a flight of stairs Walk on level ground at 4 mph Run a short distance Scrub floors / move heavy furniture Moderate recreational activities ( ) Poor Perform ADL's Walk indoors Walk a block at 2-3 mph ( ) Unknown ( ) High / Vascular major emergency surgery aortic and other major vascular surgery peripheral vascular surgery (X) Intermediate intraperitoneal and intrathoracic carotid endarterectomy head and neck surgery orthopedic surgery prostate surgery ( ) Low Exercise Tolerance Clinical Risk Factors Surgical Risk Further Testing X Good -- ANY -- -- ANY -- NO Poor / Unknown 3 or more High / Vascular YES Poor / Unknown Intermediate HR Control, consider non-invasive testing Poor / Unknown 1 or 2 -- ANY -- HR Control, consider non-invasive testing Poor / Unknown None -- ANY -- NO Previous PCI Action (X) No previous PCI Proceed ( ) Balloon Angioplasty Delay if < 2 weeks ( ) Bare Metal Stent Delay if < 1 month ( ) Drug eluting stent Delat if < 1 year ( ) Dyspnea of unknown origin ( ) CHF with worsening dyspnea or clinical status ( ) Preopertative Echo ( ) High risk / Vascular procedure ( ) Intermediate procedure with 1+ clinical risk factors ( ) Preoperative EKG ( ) High / Intermediate risk procedure with 1+ clinical risk factor ( ) Add perioperative beta blockers ( ) Continue current beta gamal regimen ( ) Beta blockers contrindiacted ( ) Add perioperative Alpha-2 Agonist therapy ( ) High / Intermediate risk procedure with 1+ clinical risk factor ( ) Add statin therapy ( ) Continue current statin therapy ( ) Statin therapy not recommended ( ) Diabetes ( ) Target glucose <180 (General surgery) ( ) Target glucose <150 (Cardiac) ( ) Target glucose <110 (ICU, Neuro) ( ) Insulin drip recommended (X) None of the above Plan: Hold ASA, NSAIDS, herbals, supplements 7 days prior to procedure. Meds to hold, adjust dose: None Labs: cbc, cmp Tests: none EKG: today Beta gamal: N/A Advanced directives: None on file. Samm Macdonald III is deemed to be a low risk candidate for an intermediate risk procedure. KATHY Lopez documented in this encounter Plan of Treatment Not on file documented as of this encounter Procedures Procedure Name Priority Date/Time Associated Diagnosis Comments COMPREHENSIVE METABOLIC PANEL STAT 01/22/2017 10:13 AM EDT Preop examination EKG 12-LEAD Routine 01/22/2017 9:36 AM EDT Preop examination documented in this encounter Results * (ABNORMAL) Comprehensive metabolic panel (non-fasting) (01/22/2017 10:13 AM EDT) Glucose 104 65 - 199 mg/dL [facility] Comment:Diabetes: >=200 mg/d L plus symptoms Blood Urea Nitrogen 24(H) 10 - 20 mg/dL [facility] Creatinine 1.03 0.80 - 1.50 mg/dL [facility] Comment: Please note that the pediatric reference intervals supplied above were not validated at [facility]. Results from pediatric patients should be interpreted in conjunction to the patient's age, height and muscle mass. Sodium 137 135 - 145 mmol/L [facility] Potassium 4.8 3.5 - 5.0 mmol/L [facility] Comment: Please note: ??Patients with WBC >100,000 may have falsely elevated Potassium levels. ??For accurate Potassium quantification in these patients send serum separator tube (gold top) for subsequent determinations. ??Contact the Clinical Chemistry Laboratory if there are any questions. Chloride 102 98 - 107 mmol/L [facility] Carbon Dioxide 22 22 - 31 mmol/L [facility] Anion Gap 13 5 - 15 mmol/L [facility] Calcium 9.2 8.5 - 10.5 mg/dL [facility] Protein, Total 7.2 6.1 - 8.0 gm/dL [facility] Albumin 3.5 3.2 - 5.2 gm/dL [facility] Aspartate Aminotransferase Not Perf 0 - 39 unit/L [facility] Comment:Unable to quantitate due to sample hemolysis. Sample redraw suggested. Alanine Aminotransferase 64(H) 0 - 55 unit/L [facility] Alkaline Phosphatase 88 40 - 120 unit/L [facility] Bilirubin, Total 0.5 0.2 - 1.3 mg/dL [facility] Bilirubin, Direct 0.1 0.0 - 0.3 mg/dL [facility] Est Glomerular Filtration Rate >60 >=60 [facility] Comment: This estimated GFR (eGFR) value [...] the following links into your internet browser. [email or web address] Blood specimen (specimen) 01/22/2017 10:13 AM EDT 01/22/2017 12:13 PM EDT Narrative Resulting Agency Comment Spec In Lab Cheli Elias MD CHEMISTRY ORDERABLES Performing Organization Address [facility] Co de Phone Number [facility] [place] [address] * EKG 12 Lead (01/22/2017 9:36 AM EDT) Ventricular rate 57 BPM MUSE SYSTEM Atrial Rate 57 BPM MUSE SYSTEM P-R Interval 196 ms MUSE SYSTEM QRS Duration 94 ms MUSE SYSTEM Q-T Interval 406 ms MUSE SYSTEM QTC Calculated (Bezet) 395 ms MUSE SYSTEM Calculated P [place] 33 degrees MUSE SYSTEM Calculated R [place] 46 degrees MUSE SYSTEM Calculated T [place] 46 degrees MUSE SYSTEM INTERPRETATION Sinus bradycardia Otherwise normal ECG When compared with ECG of 01-MAY-2010 09:45, Aberrant conduction is no longer Present Confirmed by MD ERWIN, SANGEETA ([id number]) on 01/22/2017 10:55:43 AM MUSE SYSTEM 01/22/2017 9:36 AM EDT 01/22/2017 10:55 AM EDT Cheli Elias MD ECG ORDERABLES Performing Organization Address City/[facility] Co de Phone Number MUSE SYSTEM documented in this encounter Visit Diagnoses Diagnosis Preop examination Preoperative examination, unspecified documented in this encounter Care Teams Production Coordinator Relationship Specialty Start Date End Date Cheli Elias MD [facility] [address] [place] [address] PCP - General 06/26/10 05/04/18 documented as of this encounter
--- OUTSIDE RECORDS SUMMARY | 2024-07-21 16:40 | XMS_ITS | Encounter Summary ---
Author Organization [facility] Address [facility] [address] [place] [address] Care Team Providers Care In Class Special Education Teacher Name Role Phone Cheli Elias MD Primary Care Provider + [phone] Reason for Visit * Reason Comments Insect Bite tick bite on left si de, noticed a week ago tick was Encounter Details Date Type Department Care Team (Late st Contact Info) Description 06/23/2017 2:00 PM EST Office Visit Internal Medicine at [address] [address] Kassandra Gilbert APRN [facility] [place] [address] Lyme disease Social History Tobacco Use Types Packs/Day Years [...] Sign Reading Time Taken Comments Blood Pressure 148/78 06/23/2017 2:03 PM EST Pulse 53 06/23/2017 1:25 PM EST Temperature 36.6 ??C (97.9 ??F) 06/23/2017 1:25 PM ES T Respiratory Rate - - Oxygen Saturation 99% 06/23/2017 1:25 PM EST Inhaled Oxygen Concentration - - Weight 127 kg (280 lb) 06/23/2017 1:25 PM EST Height 176.5 cm (5' 9.5) 06/23/2017 1:25 PM EST Body Mass Index 40.76 06/23/2017 1:25 PM EST documented in this encounter Patient Instructions * Patient Instructions* Kassandra Gilbert W, TERRAZZO POLISHER HELPER - 06/23/2017 2:05 PM EST Images from the original note were not included. Lyme Disease: Care Instructions Your Care Instructions Lyme disease is a bacterial infection spread by ticks. Antibiotics can treat Lyme disease. If you do not treat Lyme disease, it can lead to problems with your skin, joints, heart, and nervous system. These problems can develop weeks, months, or even years after you get the infection. Your doctor may prescribe antibiotics even if it is not yet certain that you have Lyme disease. Follow-up care is a bueno part of your treatment and safety. Be sure to make and go to all appointments, and call your doctor if you are having problems. It's also a good idea to know your test resultsand keep a list of the medicines you take. How can you care for yourself at home? ?? Take your antibiotics as directed. Do not stop taking them just because you feel better. You need to take the full course of antibiotics. ?? Take an xars-xjp-lgngjgl pain medicine if needed, such as acetaminophen (Tylenol), ibuprofen (Advil, Motrin), or naproxen (Aleve). Read and follow all instructions on the label. To prevent Lyme disease in the future ?? Avoid ticks: ?? Learn where ticks are found in your community, and stay away from those areas if possible. ?? Cover as much of your body as possible when you work or play in grassy or wooded areas. ?? Use insect repellents, such as products containing DEET. You can spray them on your skin. ?? Take steps to control ticks on your property if you live in an area where Lyme disease occurs. Clear leaves, brush, tall grasses, woodpiles, and stone fences from around your house and the edges of your yard or garden. This may help get rid of ticks. ?? When you come in from outdoors, check your body for ticks, including your groin, head, and underarms. The ticks may be about the size of a poppy seed. If no one else can help you check for ticks on your scalp, comb your hair with a fine-tooth comb. ?? If you find a tick, remove it quickly. If you can't remove it with your fingers, use tweezers tograsp the tick as close to its mouth (the part in your skin) as possible. Slowly pull the tick straight out-do not twist or yank-until its mouth releases from your skin. ?? Ticks can come into your house on clothing, outdoor gear, and pets. These ticks can fall off andattach to you. ?? Check your clothing and outdoor gear. Remove any ticks you find. Then put your clothing in a clothes dryer on high heat for 1 hour to kill any ticks that might remain. ?? Check your pets for ticks after they have been outdoors. ?? When hiking in the [place], carry a small dry jar or ziplock bag. If you find a tick on your body,remove the tick and put it in the jar or bag. Store the container in the freezer so you can give itto your doctor if symptoms develop. The tick can be tested to learn whether it is carrying the bacteria that cause Lyme disease. When should you call for help? Call your doctor now or seek immediate medical care if: ?? You are confused or cannot think clearly. ?? You have a headache or stiff neck. ?? You have a new or worse rash. ?? You have symptoms of infection, such as: ?? Increased pain, swelling, warmth, or redness. ?? Red streaks leading from the area. ?? Pus draining from the area. ?? A fever. Watch closely for changes in your health, and be sure to contact your doctor if: ?? You have new or worse weakness or muscle pain. ?? You have new joint pain. ?? You do not get better as expected. Where can you learn more? Visit our health information library at http://PVPower/Inline.meinfo. You can also view health information on [employer] your personal patient account. Log in or sign uptoday. Enter Y599 in the search box to learn more about Lyme Disease: Care Instructions. Current as of: October 04, 2016 Content Version: 11.4 ?? [id number] Image [employer]ight. Care instructions adapted under license by [facility]. If you have questions about a medical condition or this instruction, always ask your healthcare professional. [employer] disclaims any warranty or liability for your use of this information. documented in this encounter Progress Notes * Kassandra Gilbert APRN - 06/23/2017 2:00 PM EST Images from the original note were not included. PCP: Cheli Elias MD Chief Complaint Patient presents with ??? Insect Bite tick bite on left side, noticed a week ago tick was SUBJECTIVE: Samm Macdonald III is a 61 y.o. male who presents for tick bite. He reports that he found tick. He reports that the red spot around it got bigger. - He reports that in mid-April he had a knee replacement of his left knee. Review of Systems Constitutional: Negative for chills and fever. Skin: Positive for rash. Allergies Allergen Reactions ??? Benzocaine CIS - Hives, CIS - Hives ??? Benzoin CIS - Hives ??? Cetylpyridinium Chloride CIS - Hives ??? Menthol CIS - Hives ??? Phenol CIS - Hives ??? Sodium Phenolate CIS - Hives Current Outpatient Prescriptions Medication Sig Dispense Refill ??? acetaminophen (TYLENOL) 500 mg Tablet Take 500 mg by mouth. ??? meloxicam (MOBIC) 15 mg Tablet Take [...] No current facility-administered medications for this visit. Patient Active Problem List Diagnosis Code ??? CIS - History of mild iritis ??? HTN (hypertension) I10 ??? Sleep apnea G47.30 ??? Detached retina H33.20 ??? Healthcare maintenance Z00.00 ??? Tubular adenoma D36.9 ??? Psoriasis L40.9 ??? Retinal tear H33.319 ??? Body mass index (BMI) of 40.0-44.9 in adult Z68.41 OBJECTIVE: Vitals: 06/23/17 1325 BP: 179/78 Pulse: 53 Temp: 36.6 ??C (97.9 ??F) TempSrc: Oral SpO2: 99% Weight: (!) 127 kg (280 lb) Height: 176.5 cm (5' 9.5) PHYSICAL EXAM: Physical Exam Constitutional: He is oriented to person, place, and time. He appears well- developed and well-nourished. HENT: Head: Normocephalic and atraumatic. Eyes: Conjunctivae are normal. No scleral icterus. Neurological: He is alert and oriented to person, place, and time. Skin: Skin is warm and dry. Psychiatric: He has a normal mood and affect. His behavior is normal. Judgment and thought content normal. Vitals reviewed. ASSESSMENT & PLAN: Samm was seen today for insect bite. Diagnoses and all orders for this visit: Lyme disease - doxycycline monohydrate (MONODOX) 100 mg Capsule; Take 1 capsule by mouth 2 times daily for 21 days. Take with full glass of water and avoid the sun while taking medication. - knee is doing well. Reassured patient that knee should be ok. He should let us know If he has increased redness or the knee becomes hot to touch. documented in this encounter Plan of Treatment Not on file documented as of this encounter Visit Diagnoses Diagnosis Lyme disease documented in this encounter Care Teams In Class Special Education Teacher Relationship Specialty Start Date End Date Cheli Elias MD [facility] [address] [place] [address] PCP - General 06/26/10 05/04/18 documented as of this encounter
--- OUTSIDE RECORDS SUMMARY | 2024-07-21 16:40 | XMS_ITS | Encounter Summary ---
Author Organization [facility] Address [address] [place] [address] Care Team Providers Care Exhibitor Sales Name Role Phone Meredith Garcia MD Primary Care Provider [phone] Encounter Details Date Type Department Care Team (Late st Contact Info) Description 02/01/2019 Pre-Procedure Orders Encounter [facility] O[facility] [address], [place] [id number] Mirna Soni MD [address] [place] [phone] Retinal detachment of left eye with multiple breaks (Primary Dx) Social History Tobacco Use Types [...] (Late st Contact Info) Description 07/22/2024 19:30 [facility] Radiology CT - Main [place] [address] [place] [address] 07/29/2025 15:40 EST Office Visit [facility] Cardiology [place] [address] Palak Diallo MD [address] [facility], [address] [place] [phone] documented as of this encounter Visit Diagnoses Diagnosis Retinal detachment of left eye with multiple breaks- Primary Recent retinal detachment, partial, with multiple defects documented in this encounter Care Teams Exhibitor Sales Relationship Specialty Start Date End Date Meredith Garcia MD PCP - General 01/25/19 11/01/21 documented as of this encounter
--- OUTSIDE RECORDS SUMMARY | 2024-07-21 16:40 | XMS_ITS | Encounter Summary ---
Author Organization [facility] Address [facility] [place] [address] Care Team Providers Care Freight Car Cleaner Name Role Phone Cheli Elias MD Primary Care Provider [phone] Encounter Details Date Type Department Care Team (Latest Contact Info) Description 01/22/2016 4:55 PM EDT - 01/22/2016 5:46 PM EDT Hospital Encounter XRay at [address] [place] [phone] Stanley Kelly MD [address] [place] [id number] Acute meniscal injury of left knee, initial encounter Discharge Disposition: Home Social History Tobacco Use [...] Sig Dispensed Refills Start Date End Date lisinopril (PRINIVIL;ZESTRIL) 10 mg Tablet Take 1 tablet by mouth daily. 90 tablet 3 12/27/2015 12/27/2016 documented as of this encounter Plan of Treatment Not on file documented as of this encounter Procedures Procedure Name Priority Date/Time Associated Diagnosis Comments XR KNEE 4 OR MORE VIEWS LEFT Routine 01/22/2016 5:26 PM EDT Acute meniscal injury of left knee, initial encounter documented in this encounter Results * XR Knees 4 or More views - Left (01/22/2016 5:26 PM EDT) Anatomical Region Laterality Modality Knee Left Digital Radiogra phy Impressions 01/23/2016 7:34 AM EDT Mild osteoarthritis bilaterally. Narrative 01/23/2016 7:34 AM EDT EXAMINATION: XR KNEE 4 OR MORE VIEWS LEFT CLINICAL HISTORY: Acute minscal injury of left knee, initial encounter, 4 views - BILAT AP STANDING, LAT IN FULL EXTENSION,MERCHANT, BILAT FLEXED WEIGHT BEARING PA TECHNIQUE: AP standing, PA Cruz, axial both knees and lateral left knee COMPARISON: None FINDINGS: There is mild narrowing of the medial joint compartment of each knee. Minimal osteophytes are present in the patellofemoral compartments. Procedure Note Myles Shoemaker MD - 01/23/2016 EXAMINATION: XR KNEE 4 OR MORE VIEWS LEFT CLINICAL HISTORY: Acute minscal injury of left knee, initial encounter, 4views - BILAT AP STANDING, LAT IN FULL EXTENSION,MERCHANT, BILAT FLEXED WEIGHTBEARING PA TECHNIQUE: AP standing, PA Cruz, axial both knees and lateral leftknee COMPARISON: None FINDINGS: There is mild narrowing of the medial joint compartment of each knee.Minimal osteophytes are present in the patellofemoral compartments. IMPRESSION Mild osteoarthritis bilaterally. Stanley Kelly MD IMG DX ORDERABLES documented in this encounter Visit Diagnoses Diagnosis Acute meniscal injury of left knee, initial encounter documented in this encounter Care Teams Freight Car Cleaner Relationship Specialty Start Date End Date Cheli Elias MD [facility] [address] [place] [address] PCP - General 06/26/10 05/04/18 documented as of this encounter
--- OUTSIDE RECORDS SUMMARY | 2024-07-21 16:40 | XMS_ITS | Encounter Summary ---
Author Organization [facility] Address [address] [place] [address] Care Team Providers Care Food And Beverage Server Name Role Phone Robyn Glynn MD Primary Care Provider [phone] Reason for Visit * Reason Onset Date Comments Surgery Scheduling 03/12/2022 Encounter Details Date Type Department Care Team (Late st Contact Info) Description 03/12/2022 Telephone [facility] ENT- [address] [phone] Shane Richardson MD [address] [place] [address], [address] 4 [place] [address] Surgery Scheduling Social History Tobacco [...] In the last 10 days, have lindy u been in contact with someone who was confirmed or suspected to have Coronavirus/COVID-19? No / Unsure 05/12/2022 11:40 EDT documented as of this encounter Miscellaneous Notes * Telephone Encounter - DadaSuri dupree - 03/12/2022 1223 EDT Patient and is his , Glenda calling, interested in scheduling surgery, please call. documented in this encounter Plan of Treatment Upcoming Encounters Date Type Department Care Team (Late st Contact Info) Description 07/22/2024 19:30 EST Appointment [facility] Radiology CT - [facility] [address] [place], [place] [id number] 07/29/2025 15:40 EST Office Visit [facility] Cardiology - [place] [address] Palak Diallo MD [address] [facility] [place], [address] [place] [phone] documented as of this encounter Visit Diagnoses Not on filedocumented in this encounter Care Teams Food And Beverage Server Relationship Specialty Start Date End Date Robyn Glynn MD [address] [place] [address] PCP - General Family Medicine - Primary Care 11/02/21 documented as of this encounter
--- OUTSIDE RECORDS SUMMARY | 2024-07-21 16:40 | XMS_ITS | Encounter Summary ---
Author Organization [facility] Address [address] [place] [address] Care Team Providers Care Corporate Development Intern Name Role Phone Robyn Glynn MD Primary Care Provider [phone] Encounter Details Date Type Department Care Team (Late st Contact Info) Description 05/06/[address] [phone] Shane Richardson MD [address] [place] [address], [address] 4 [place] [address] Social History Tobacco Use Types [...] Contact Info) Description 07/22/2024 19:30 EST Appointment [facility] Radiology CT - [facility] [address] [place], [place] [address] 07/29/2025 15:40 EST Office Visit [facility] Cardiology - [address] [place] [address] Palak Diallo MD [address] [facility], [place], [address] [place] [phone] documented as of this encounter Visit Diagnoses Not on filedocumented in this encounter Care Teams Corporate Development Intern Relationship Specialty Start Date End Date Robyn Glynn MD [address] [place] [address] PCP - General Family Medicine - Primary Care 11/02/21 documented as of this encounter
--- OUTSIDE RECORDS SUMMARY | 2024-07-21 16:40 | XMS_ITS | Encounter Summary ---
Author Organization [facility] Address [address] [place] [address] Care Team Providers Care Plant Cytologist Name Role Phone Robyn Glynn MD Primary Care Provider [phone] Reason for Visit * Reason Onset Date Comments Biopsy Results 01/28/2022 Encounter Details Date Type Department Care Team (Late st Contact Info) Description 01/28/2022 Telephone [facility]- [address] [phone] Shane Richardson MD [address] [place] [address], [address] [place] [address] Biopsy Results Social History Tobacco Use Types Packs/Day Years [...] encounter Miscellaneous Notes * Telephone Encounter - Shane Richardson MD - 01/29/2022 1243 EDT Biopsy from the left tail of parotid mass showed atypical cells as noted below. While this may represent a infarcted Warthin's tumor (benign), possibility of a metastatic lymph node with metastatic squamous cell carcinoma cannot be excluded based on the results of the needle biopsy. As a result, surgical excision in the form of a left superficial parotidectomy is indicated/recommended. I would like to see him in the office next week to examine his oropharynx and discuss/plan surgery. Of note, he has had a prior tonsillectomy and uvulectomy. Patient and his are updated of these results and recommendations by phone ([phone]) and agree with the plan. Final Diagnosis A. PAROTID, LEFT, TAIL, 3 [...] tumor. Clinical and radiographic correlation is advised. Macroeconomics Professor slides of this case were reviewed at the intradepartmental consultation conference. ?? Attestation By the signature below, the attending physician certifies that they have personally conducted a gross and/or microscopic examination of the described specimens and rendered or confirmed the above diagnosis. at 1509 Shane Richardson MD * Telephone Encounter - Suri Garland - 01/28/2022 0933 EDT Patient and his spouse is calling for the biopsy results. documented in this encounter Plan of Treatment Upcoming Encounters Date Type Department Care Team (Late st Contact Info) Description 07/22/2024 19:30 EST Appointment [facility] Radiology CT - [facility] [address] [place], [place] [address] 07/29/2025 15:40 EST Office Visit [facility] Cardiology - [address] [place] [address] Palak Diallo MD 111 [facility] [place], [address] [place] [phone] documented as of this encounter Visit Diagnoses Not on filedocumented in this encounter Care Teams Plant Cytologist Relationship Specialty Start Date End Date Robyn Glynn MD [address] [place] [address] PCP - General Family Medicine - Primary Care 11/02/21 documented as of this encounter
--- OUTSIDE RECORDS SUMMARY | 2024-07-21 16:40 | XMS_ITS | Encounter Summary ---
Author Organization [facility] Address [address] [place] [address] Care Team Providers Care Actuarial Director Name Role Phone Robyn Glynn MD Primary Care Provider [phone] Reason for Visit * Reason Onset Date Comments Update 05/06/2022 Eliquis Pre-visit Planning 04/02/2022 Initial Pre-O p Clearance - Denied / Pending Update from PCP Update 04/05/2022 Pre-visit Planning 04/30/2022 Eliquis Encounter Details Date Type Department Care Team (Late st Contact Info) Description 04/02/[address] [phone] Shane Richardson MD [address] [place] [address], [address] [place] [address] Update (Eliquis); Pre-visit Planning (Initial Pre-Op Clearance - Denied / Pending Update from PCP); Update; Pre-visit Planning (Eliquis) Social History Tobacco Use Types Packs/Day Years [...] encounter Miscellaneous Notes * Telephone Encounter - Karley Mccray - 05/06/2022 1114 EDT Patient spouse calling, indicates pcp recommends the patient stop Eliquis the day before surgery and start taking again the day after. * Telephone Encounter - Yaritza Pennington RN - 04/30/2022 1433 EDT Spoke with the patient's explained we would like the PCP to give recommendations to stop the Eliquis prior to surgery. She verbalized understanding and will reach out to the PCP. * Telephone Encounter - Nito Francois - 04/30/2022 1105 EDT Patient's called on patient's behalf, looking to discuss suspending Eliquis prior to surgery. She reports she called patient's PCP, who directed her back to ENT * Telephone Encounter - Alessandra Jones - 04/05/2022 1103 EDT Patient's is calling to advise they are going to see his original PCP on 04/24 and could potentially do a new H&P then, so please try to get him scheduled for surgery as soon after that as possible. * Telephone Encounter - Nito Francois - 04/04/2022 1205 EDT Patient's called re: cancelled surgery. She reports PCP has / will update Pre-Op H&P giving clearance. She reports EKG completed 04/03 Parent Trainer contacted PCP asking: - Will Provider Update Pre-Op Clearance notes to indicated patient is cleared for surgery? - Will provider require return visit / H&P? Contact at PCP's office will relay info to provider. Parent Trainer advised time-sensitivity as OR time was released; Will need update today 04/04 in order to request OR time back FYI only for now * Telephone Encounter - Alessandra Jones - 04/02/2022 0929 EDT Patient's PCP is calling to say they did his pre-op and discovered he has afib and have started treatment. The 04/11 surgery will have to be postponed. They are sending over their office note. documented in this encounter Plan of Treatment Upcoming Encounters Date Type Department Care Team (Late st Contact Info) Description 07/22/2024 19:30 EST Appointment [facility] Radiology CT - [facility] [address] [place], [place] [address] 07/29/2025 15:40 EST Office Visit [facility] Cardiology - [address] [place] [address] Palak Diallo MD 111 [facility], [address] [place] [phone] documented as of this encounter Visit Diagnoses Not on filedocumented in this encounter Historical Medications * This list may reflect changes made after this encounter. ELIQUIS 5 mg tablet Take 5 mg by mouth 2 times daily. 04/01/2022 07/31/2022 added in this encounter Care Teams Actuarial Director Relationship Specialty Start Date End Date Robyn Glynn MD [address] [place] [phone] PCP - General Family Medicine - Primary Care 11/02/21 documented as of this encounter
--- OUTSIDE RECORDS SUMMARY | 2024-07-21 16:40 | XMS_ITS | Clinical Summary ---
Author Organization [facility] Address [facility] [place] [address] Care Team Providers Care Roadway Engineer Name Role Phone Unavailable Primary Care Provider Unavailabl e Allergies Active Allergy Reactions Criticality Noted Date Comments Benzocaine High CIS - Hives, CIS - Hives Benzoin High CIS - Hives Cetylpyridinium Chloride High CIS - Hives Menthol High CIS - Hives Phenol High CIS - Hives Sodium Phenolate High CIS - Hives Medications Medication Sig Dispensed Refills Start Date End Date Status naproxen sodium (ANAPROX) 220 mg Tablet Take 220 mg by mouth as needed. Active meloxicam (MOBIC) 15 mg Tablet Take 15 mg by mouth daily. Active lisinopril (PRINIVIL;ZESTRIL) 10 mg Tablet Take 1 tablet by mouth daily. 90 tablet 3 10/16/2018 Active Active Problems Problem Noted Date Diagnosed Date Body mass index (BMI) of 40.0-44.9 in adult 10/03 Retinal tear 10/27/2012 Overview (10/27/2012): L eye, currently being watched by Dr Soni in [facility] in [place] Detached retina 05/15/2011 Overview (05/03/2012): R eye in aug 2010, x 2 Healthcare maintenance 05/15/2011 Overview (10/27/2012): Preventive Care: CRC screening - 2009, Due 2014 TA Prostate Ca screening - [] Lipids - [] DM screening - (Hgb, A1C or FBS) [] Seat belts - [] Immunizations: dT - [address] [facility] Assessment & Plan (10/27/2012 9:20 AM EDT): Preventive Care: CRC screening - 2009, due 2014, TA Prostate Ca screening - [] Lipids - Results for SAMM PRINCE III ( ) as of 10/27/2012 08:57 Ref. Range 05/16/2011 08:28 Chol, Total Latest Range: <=199 mg/dL 136 HDL Latest Range: >=40 mg/dL 51 Chol/HDL Ratio No range found 2.7 Triglycerides Latest Range: <=149 mg/dL 69 LDL Cholesterol Latest Range: <=99 mg/dL 71 DM screening - (Hgb, A1C or FBS) [] Seat belts - [] Immunization History Administered Date(s) Administered ? ? Influenza Whole 07/05/2008, 05/21/2009, 06/06/2010 Assessment & Plan (05/15/2011 10:00 AM EDT): Preventive Care: CRC screening - 2009, Due 2014 TA Prostate Ca screening - due Lipids - LAB RESULTS: [id number] SAMM PRINCE III 03/19/2010 Cholesterol 127 * High Density Lipoprotein Cholesterol 32 L * Cholesterol/HDL Ratio 4.0 * ! indicates latest result within the time frame. * indicates a lab note is available. C,H,L indicates critical, high, or low result. DM screening - (Hgb, A1C or FBS) : due LAB RESULTS: [id number] SAMM PRINCE III 06/25/2010 Glucose Level 111 * ! indicates latest result within the time frame. * indicates a lab note is available. C,H,L indicates critical, high, or low result. Immunizations: dT - 2007 outside hospital [facility] Tubular adenoma 05/15/2011 Psoriasis 05/15/2011 Assessment & Plan (10/27/2012 9:07 AM EDT): Mild, controlled HTN (hypertension) 03/24/2010 Assessment & Plan (12/27/2015 9:39 AM EDT): Checks at home, systolic 126-136. Controlled on lisinopril. Assessment & Plan (12/29/2013 4:26 PM EDT): Brought in his BP monitor, good correlation; always high in the office, 110- 120/80 at home. Hypertension (High Blood Pressure) Plan of Care Blood pressure today was: BP: 160/90 mmHg. This is at goal. Goal blood pressure: 130/90. White coat HTN. [x] Continue current medications [] Self management plan: [] Patient goal(s) for lifestyle changes: [] Labs: [] Clinician follow up: This plan of care was made in collaboration with the patient/family. Assessment & Plan (10/27/2012 9:36 AM EDT): Hypertension (High Blood Pressure) Plan of Care Blood pressure today was BP: 158/88 mmHg. This is not at goal. Goal blood pressure: <140/90 Patient reports that at home most BP in the teens or max 120s. Had salty meal last night , which he does rarely. Plan for improving blood pressure control: [] Change medication as follows: [x] Self management plan: Patient goal to address this: attempt to lose weight: has previously been able to lose 50 lbs; has gained them back with grief from father's .Planning to start 17-day diet low carb this week . His spouse is very supportive. What, when, how, where, how often, barriers to goal: Confidence for achieving goal (0-10): 10 [x] Clinician follow up: prn [x] Nurse follow up: please call patient this week and ask for his home BPs, please document; Nurse directions: If blood pressure not at goal: increase lisinopril to 20 mg po qd, BMP in one week, f/u in clinic in one month [] Referrals/Labs/testing: This plan of care was made in collaboration with the patient/family. Hypertension brochure given to patient. CIS - History of mild iritis 03/12/2010 Sleep apnea 03/12/2010 Overview (10/09/2010): a. status post uvulectomy. b. On CPAP at [id number] Assessment & Plan (12/27/2015 9:40 AM EDT): CPAP use ok. Sleeps well. Assessment & Plan (12/29/2013 4:23 PM EDT): Some problems with CPAP machine., getting new parts. Since the CPAP sleep has been better quality, more rested in am , energy level is good. Immunizations Name Administration Dates Next Due Influenza Trivalent w/Preservative 08/18/2013 Influenza Vaccine, Whole 06/06/2010,05/21/2009,1 09/05/2007 Tdap (Adacel, Boostrix) 10/27/2012 Family History Medical History Relation Comments Alzheimer Disease Father Cancer Father Psoriasis Father Alzheimer Disease Paternal Aunt Relation Status Comments Father Paternal Aunt Social History Tobacco Use Types Packs/Day Years [...] EDT Temperature 36.7 ??C (98.1 ??F) 05/14/2018 1 0:05 AM EDT Respiratory Rate 17 05/14/2018 12:0 0 PM EDT Oxygen Saturation 96% 05/14/2018 12: 00 PM EDT Inhaled Oxygen Concentration - - Weight 125.6 kg (276 lb 12.8 oz) 04/07/2018 7:51 AM EDT Height 176.5 cm (5' 9.5) 04/07/2018 7:51 AM EDT Body Mass Index 40.29 04/07/2018 7:51 AM EDT Plan of Treatment Health Maintenance Due Date Last Done Comments CT Colonography 1955 FIT DNA 1955 FIT 1955 Sigmoidoscopy 1955 Zoster vaccine (1 of 2) 2006 Advance Directive 12/04/2011 Pneumoccocal Vaccine: 65+ (1 of 1 - PCV) 2021 Tetanus/Diphtheria/Pertussis Vaccines (2 - Td or Tdap) 10/27/2022 10/27/2012 Lipid Screening 04/07/2023 04/07/2018, 10/03, 10/27/2012, Additional history exists Colonoscopy 05/14/2023 05/14/2018, 05/04, 05/14/2018, Additional history exists Colorectal Cancer Screening 05/14/2023 Covid-19 Vaccine ( - 2023-2 5 season) 2024 Influenza (Flu) vaccine (1 o f 1 - Influenza standard series) 04/04/2024 08/18/2013, 06/06/2010, 05/21/2009, Additional history exists Sigmoidoscopy (10 year) with FIT yearly 05/14/2028 05/14/2018, 05/14/2018, 05/14/2018, Additional history exists Hepatitis C Screening Completed 10/25/2014 Diabetes Screening (HgbA1C o r Glucose) Discontinued 04/07/2018, 04/07/2018, 03/17/2017, Additional history exists Procedures Procedure Name Priority Date/Time Associated Diagnosis Comments COLONOSCOPY Routine 05/14/2018 10:59 AM EDT HDL/CHOL PROFILE Routine 04/07/2018 9:05 AM EDT Essential hypertension COMPREHENSIVE METABOLIC PANEL Routine 04/07/2018 9:05 AM EDT Essential hypertension HEPATITIS C ANTIBODY Routine 10/25/2014 12:44 PM EDT Need for hepatitis C screening test from Last 3 Months or Most Recently Relevant to Health Maintenance Results * COLONOSCOPY (05/14/2018 10:59 AM EDT) COLONOSCOPY [facility] Procedure Date: 05/14/2018 10:59 AM ? Patient Name: Samm Prince ? Date of : 1955 ? Age: 62 ? Order #: [id number] ? Instrument Name: [id number] ? Procedure: ? Colonoscopy Indications: ? Surveillance: Personal history of ? adenomatous polyps on last ? colonoscopy > 5 years ago Patient Profile: ? This is a 62 year old male. Refer to ? note in patient chart for ? documentation of history and ? physical. Last Colonoscopy: 2009. Providers: ? Joe Taylor, ? Forestry Support Specialist, Jason Guy MD Referring MD: ?Marline Trimble [...] Trimble MD GENERAL SURGICAL ORD ERABLES [employer]OVATION * HDL/Cholesterol Profile (04/07/2018 9:05 AM EDT) Cholesterol, Total 142 mg/dL [facility] Comment: Lower Risk: <200 mg/dL Average Risk: 200-239 mg/dL Higher Risk: >kd=166 mg/dL HDL Cholesterol 48 mg/dL [facility] Comment: Males: ?? Higher Risk: <40 mg/dL Females: ?? HIgher Risk: <50 mg/dL Cholesterol/HDL Ratio 3.0 ratio [facility] Chol/HDL Interpretation See Note [facility] Comment: Lipid management should be guided by a patient? s ASCVD risk, goals and preferences. ACC/AHA Guidelines recommend high intensity statin if clinical ASCVD or LDL greater than or equal to 190 mg/dL. http://[employer].com/ORU-BVV-Ygwpjsaaa Measure LDL if Total Cholesterol minus HDL Cholesterol is greater than 220 mg/dL. Adults aged 40-75 with LDL 70-189 mg/dL should have their 10 year ASCVD risk estimated with the ACC/AHA ASCVD risk store clerk cashier http://tools.acc.org/ORYPO-Xelk-Nxrwejkua/ Statin should be discussed if risk greater [...] In Lab Cheli Elias MD CHEMISTRY ORDERABLES [facility] [place] [address] * (ABNORMAL) Comprehensive metabolic panel (non-fasting) (04/07/2018 9:05 AM EDT) Glucose 109 65 - 199 mg/dL [facility] Comment:Diabetes: >=200 mg/d L plus symptoms Blood Urea Nitrogen 21(H) 10 - 20 mg/dL [facility] Creatinine 0.96 0.80 - 1.50 mg/dL [facility] Sodium 141 135 - 145 mmol/L [facility] Potassium 4.8 3.5 - 5.0 mmol/L [facility] Comment: Please note: ??Patients with WBC >100,000 may have falsely elevated Potassium levels. ??For accurate Potassium quantification in these patients send serum separator tube (gold top) for subsequent determinations. ??Contact the Clinical Chemistry Laboratory if there are any questions. Chloride 103 98 - 107 mmol/L [facility] Carbon Dioxide 27 22 - 31 mmol/L [facility] Anion Gap 11 5 - 15 mmol/L [facility] Calcium 9.2 8.5 - 10.5 mg/dL [facility] Protein, Total 7.2 6.1 - 8.0 gm/dL [facility] Albumin 4.1 3.2 - 5.2 gm/dL [facility] Aspartate Aminotransferase 18 0 - 39 unit/L [facility] Alanine Aminotransferase 23 0 - 55 unit/L [facility] Alkaline Phosphatase 89 40 - 120 unit/L [facility] Bilirubin, Total 0.3 0.2 - 1.3 mg/dL [facility] Est Glomerular Filtration Rate 85 >=60 mL/min/1. 73 m?? [facility] Comment: The eGFR was calculated using the CKD-EPI equation. As with all creatinine based estimates of kidney function, eGFR values calculated with the CKD-EPI equation are not accurate in patients with acute kidney failure, extremes of body mass or the acutely ill. http://[employer]/DHnkf eGFR 98 >=60 mL/min/1. 73 m?? [facility] Comment: The eGFR was calculated using the CKD-EPI equation. As with all creatinine based estimates of kidney function, eGFR values calculated with the CKD-EPI equation are not accurate in patients with acute kidney failure, extremes of body mass or the acutely ill. http://[employer]/DHMCnkf Blood specimen (specimen) 04/07/2018 9:05 AM EDT 04/07/2018 11:58 AM EDT Narrative Resulting Agency Comment Spec In Lab Cheli Elias MD CHEMISTRY ORDERABLES [facility] [place] [address] * Hepatitis C Antibody (10/25/2014 12:44 PM EDT) Hepatitis C Antibody Negative Negative [facility] Blood specimen (specimen) 10/25/2014 12:44 PM EDT 10/25/2014 6:02 PM EDT Narrative Resulting Agency Comment Spec In Lab Cheli Elias MD CHEMISTRY ORDERABLES [facility] from Last 3 Months or Most Recently Relevant to Health Maintenance
--- OUTSIDE RECORDS SUMMARY | 2024-07-21 16:40 | XMS_ITS | Encounter Summary ---
Author Organization [facility] Address [address] [place] [address] Care Team Providers Care Geodetic Advisor Name Role Phone Meredith Garcia MD Primary Care Provider [phone] Reason for Visit * (Routine/Next Available) - Receiving Office to Obtain Authorization Specialty Diagnoses / Procedures Referred By Contac t Referred To Contact Procedures CT OUTSIDE IMAGES NEURO Imaging, External Referral ID Status Reason Start Date Expiration Date Visits Requested Visits Authorized [id number] Receiving Office to Obtain Authorization 2021 1 1 Encounter Details Date Type Department Care Team (Latest Contact Info) Description 10/26/2021 - 10/26/2021 23:59 EDT Hospital Encounter [facility] Secondary Reads [place] Discharge Disposition: Home or [...] – [facility] Radiology CT - [facility] [address] [place] [address] 07/29/2025 15:40 EST Office Visit [facility] Cardiology - [place] [address] [address] [place], [place] [phone] Palak Diallo MD [address] [place] [address], [address] [place] [phone] documented as of this encounter Procedures Procedure Name Priority Date/Time Associated Diagnosis Comments CT OUTSIDE IMAGES NEURO Routine 2021 18:48 EDT documented in this encounter Results * CT OUTSIDE IMAGES NEURO (2021 18:48 EDT) Narrative 2021 18:48 EDT This is a non-reportable exam. us External Imaging IMG OTHER IMAGING ORDERABLES Fi nal Result documented in this encounter Visit Diagnoses Not on filedocumented in this encounter Care Teams Geodetic Advisor Relationship Specialty Start Date End Date Meredith Garcia MD PCP - General 01/25/19 11/01/21 documented as of this encounter
--- OUTSIDE RECORDS SUMMARY | 2024-07-21 16:40 | XMS_ITS | Encounter Summary ---
Author Organization [facility] Address [address] [place] [address] Care Team Providers Care Talent Engineer Name Role Phone Robyn Glynn MD Primary Care Provider [phone] Encounter Details Date Type Department Care Team (Late st Contact Info) Description 11/20/2021 Lab Requisition [facility] Pathology & Laboratory Medicine - [facility] [address] [place] [address] Kristopher Kulkarni MD [address] [place] [address] [phone] Encounter for other general examination Social History Tobacco Use Types Packs/Day [...] Contact Info) Description 07/22/2024 19:30 EST [facility]ointment [facility] Radiology [facility] - [facility] [address] [place], [place] [address] 07/29/2025 15:40 EST Office Visit [facility] Cardiology - [place] [address] Palak Diallo MD [address] [facility], [place], [address] [place] [address] documented as of this encounter Procedures Procedure Name Priority Date/Time Associated Diagnosis Comments NON VIRTUALIZATION ENGINEER/FNA CYTOLOGY Today 11/19/2021 14:30 EDT Encounter for other general examination documented in this encounter Results * NON VIRTUALIZATION ENGINEER/FNA CYTOLOGY (11/19/2021 14:30 EDT) Note to Patient The following pathology results have been interpreted by your pathologist and may be available to you before your health provider has had the opportunity to review them. Please allow time for your provider to receive these results and explore management options, if applicable. 11/21/2021 11:09 [facility] Final Diagnosis A. PAROTID GLAND, TAIL, LEFT, MASS, FINE-NEEDLE ASPIRATION: - Morphologic description only. See comment. 11/21/2021 11:09 [facility] Diagnosis Comment Cytologic evaluation of the single Thinprep slide demonstrates a scantly cellular specimen composed predominantly of macrophages with scattered bland acini, rare squamous cells, and lymphocytes. These findings are consistent with cyst contents, but because of the presence of keratinized squamous cells, a neoplastic lesion cannot be absolutely excluded and clinical and radiologic correlation is recommended. 11/21/2021 11:09 [facility] Attestation There was significant resident/fellow involvement in the diagnostic evaluation of this case. By the signature below, the attending physician certifies that they have personally conducted a gross and/or microscopic examination of the described specimens and rendered or confirmed the above diagnosis. 11/21/2021 11:09 [facility] at 1109 Clinical History Left parotid tail mass 11/21/2021 11:09 EDT [facility] Gross Description A. One vial of CytoLyt was received and processed by selective cellular enhancement technique. 11/21/2021 11:09 EDT [facility] Resident/Rell w: Mari Greene MD 11/21/2021 11:09 EDT [facility] Performing Lab [facility] 11/21/2021 11:09 EDT [facility] Scanned Images 11/21/2021 11:09 EDT [facility] Fine Needle Aspirate ENTIRE SALIVARY GLAND / Unknown 11/19/2021 14:30 EDT 11/20/2021 6:29 EDT us Kristopher Kulkarni MD PATHOLOGY ORDERABLES Final Resul t [facility] [address] [place] [address] documented in this encounter Visit Diagnoses Diagnosis Encounter for other general examination documented in this encounter Care Teams Talent Engineer Relationship Specialty Start Date End Date Robyn Glynn MD [address] [place] [id number] PCP - General Family Medicine - Primary Care 11/02/21 documented as of this encounter
--- OUTSIDE RECORDS SUMMARY | 2024-07-21 16:40 | XMS_ITS | Encounter Summary ---
Author Organization [facility] Address [address] [place] [address] Care Team Providers Care Development Assistant Name Role Phone Robyn Glynn MD Primary Care Provider [phone] Encounter Details Date Type Department Care Team (Late st Contact Info) Description 11/30/2021 Lab Requisition [facility] Pathology & Laboratory Medicine - [facility] [address] [place] [address] Kristopher Kulkarni MD [address] [place] [address] [phone] Encounter for other general examination Social History [...] EST Appointment [facility] Radiology CT - Main [place] [address] [place], [place] [address] 07/29/2025 15:40 EST Office Visit [facility] Cardiology - Laura [address] [place], [place] [phone] Palak Diallo MD [address] [facility] [address], [address] [place] [address] documented as of this encounter Procedures Procedure Name Priority Date/Time Associated Diagnosis Comments NON LAND SURVEYOR MANAGER/FNA CYTOLOGY Today 11/28/2021 17:00 EDT Encounter for other general examination documented in this encounter Results * NON LAND SURVEYOR MANAGER/FNA CYTOLOGY (11/28/2021 17:00 EDT) Note to Patient The following pathology results have been interpreted by your pathologist and may be available to you before your health provider has had the opportunity to review them. Please allow time for your provider to receive these results and explore management options, if applicable. 11/30/2021 13:10 [facility] Final Diagnosis A. PAROTID, TAIL, LEFT, FINE NEEDLE ASPIRATION: - Nondiagnostic specimen, cyst contents only (See comment) 11/30/2021 13:10 [facility] Diagnosis Comment Cytologic evaluation of the single Thinprep slide demonstrates a scantly cellular with macrophages, scatted inflammatory cells and rare squamous cells. These findings are consistent with cyst contents, but because of the presence of keratinized squamous cells, a neoplastic lesion cannot be absolutely excluded and clinical and radiologic correlation is recommended 11/30/2021 13:10 [facility] Attestation By the signature below, the attending physician certifies that they have personally conducted a gross and/or microscopic examination of the described specimens and rendered or confirmed the above diagnosis. 11/30/2021 13:10 [facility] at 1310 Clinical History Left parotid mass 11/30/2021 13:10 [facility] Gross Description A. One vial of CytoLyt was received and processed by selective cellular enhancement technique. 11/30/2021 13:10 EDT [facility] Performing Lab [facility] 11/30/2021 13:10 EDT [facility] Scanned Images 11/30/2021 13:10 EDT [facility] Fine Needle Aspirate PAROTID GLAND STRUCTURE / Unknown 11/28/2021 17:00 EDT 11/30/2021 6:31 EDT us Kristopher Kulkarni MD PATHOLOGY ORDERABLES Final Resul t [facility] [address] [place] [address] documented in this encounter Visit Diagnoses Diagnosis Encounter for other general examination documented in this encounter Care Teams Development Assistant Relationship Specialty Start Date End Date Robyn Glynn MD [address] [place] [phone] PCP - General Family Medicine - Primary Care 11/02/21 documented as of this encounter
--- OUTSIDE RECORDS SUMMARY | 2024-07-21 16:40 | XMS_ITS | Encounter Summary ---
Author Organization [facility] Address [address] [place] [address] Care Team Providers Care Desk Editor Name Role Phone Robyn Glynn MD Primary Care Provider [phone] Reason for Visit * Cardiology (STAT) - Authorized Specialty Diagnoses / Procedures Referred By Acacia t Referred To Contact Cardiology Diagnoses Atrial fibrillation, unspecified type (HCC-CMS) Procedures TRANSTHORACIC ECHO (TTE) COMPLETE DC ECHO HEART XTHORACIC,COMPLETE W DOPPLER Lefty Abel MD [address] [place] [address] Phone: tel: fax: [facility] - [place] [address] [place] [address] Phone: tel: fax: Referral ID Status Reason Start Date Expiration Date V isits Requested Visits Authorized [id number] Authorized 04/02/2022 1 1 Encounter Details Date Type Department Care Team (Latest Contact Info) Description 04/03/2022 15:00 EDT Ancillary Procedure [facility] Cardiology - [facility] [place] [address] Atrial fibrillation, unspecified type (HCC-CMS) (HCC) Social History Tobacco Use Types Packs/Day Years [...] Sign Reading Time Taken Comments Blood Pressure 174/83 04/03/2022 1515 EDT Pulse - - Temperature - - Respiratory Rate - - Oxygen Saturation - - Inhaled Oxygen Concentration - - Weight 126.6 kg (279 lb) 04/03/2022 1515 EDT Height 175.3 cm (5' 9) 04/03/2022 1515 EDT Body Mass Index 41.2 04/03/2022 1515 EDT documented in this encounter Plan of Treatment Upcoming Encounters Date Type Department Care Team (Late st Contact Info) Description 07/22/2024 19:30 EST Appointment [facility] Radiology CT - [facility] [address] [place], [place] [address] 07/29/2025 15:40 EST Office Visit [facility]iology - [place] [address] [place] [address] Palak Diallo MD [address] [place] [address], [address] [place] [phone] documented as of this encounter Procedures Procedure Name Priority Date/Time Associated Diagnosis Comments TRANSTHORACIC ECHO (TTE) COMPLETE STAT 04/03/2022 15:09 EDT Atrial fibrillation, unspecified type (HCC-CMS) (HCC) documented in this encounter Results * TRANSTHORACIC ECHO (TTE) COMPLETE W/DOPPLER W/CF NO CONTRAST (04/03/2022 15:09 EDT) LA Atrial Length A2C 6.3 cm MERGE CARDI O LA Atrial Area A4C 25.3 cm2 [facility] LA ID/bsa, A-P 1.8 cm/m2 [facility] LV ID, ED, PLAX 5.6 3.5 - 6.0 cm [facility] LVIDD BY MMODE 5.6 cm MER[facility] LV ID, ES, PLAX 3.8 2.1 - 4.0 cm [facility]IO LA ID, A-P, ES 4.2 cm [facility] LV PW thickness, ED, PLAX 1.2 0.6 - 1.1 cm [facility]IO Aortic root ID 3.0 cm [facility] LV ejection fraction, 1-p A4C 56 % [facility] LVOT mean gradient, S 3 mmHg [facility] AV LVOT peak gradient 8 mmHg [facility] LV e', lateral 0.09 m/s [facility]IO Mitral deceleration time 222 ms [facility] LV IVRT, DP 60 msec [facility] LVOT area 2.8 cm2 [facility] LVOT peak velocity, S 1.4 m/s [facility] LVOT VTI, S 29.2 cm [facility]IO Aortic valve peak velocity, S 1.8 m/s [facility]IO Stroke volume (SV), LVOT DP 83 ml [facility]IO Mitral peak gradient, D 4 mmHg [facility] LVOT mean velocity, S 0.8 m/s [facility]IO Mitral E-wave peak velocity 1.0 m/s MER[facility]IO Mitral A-wave peak velocity 0.9 m/s [facility]IO LV Systolic Volume Index 28.0 mL/m2 [facility] LV Diastolic Volume Index 61.0 mL/m2 [facility] AV DOI 0.8 [facility]IO LA Atrial Length A4C 7.1 cm MERGE CARDI O AVAI Pk Mohsen 1 cm2/m2 [facility]IO LVOT ID, S 1.9 cm [facility]IO EF 55 % [facility] LA volume, ES, BP 94.0 ml [facility] LA volume/bsa, ES, A4C 30.0 ml/m2 [facility] LA volumes, ES, A4C 72.0 ml [facility]IO LA volume/bsa, ES, BP 39.0 ml/m2 [facility]IO LV Systolic Volume 66 mL [facility] LV Diastolic Volume 146 mL [facility]IO Stroke index (SV/bsa) LVOT DP 35.0 ml/m2 [facility] Interventricular Septum to Posterior Wall Thickness Ratio 1 [facility] IVS thickness, ED, PLAX 1.2 cm [facility] LV e', medial 0.07 m/s [facility] LV e', average 0.08 m/s [facility]IO Pulmonic valve mean velocity, S 1 cm/s MERGE C[facility]IO LA Atrial Area A2C 25.3 cm2 [facility] LA/aortic root ratio 1.4 MERGE CARDI O LV end diastolic volume 1-p A2C 132 ml MERGE C[facility]IO LV ejection fraction, 1-p A2C 56 % MER[facility]IO LV E/e', lateral 12.0 MER[facility]IO LV E/e', medial 0.1 MER[facility]IO LV E/e', average 6 [facility]IO LV end-diastolic volume, 1-p A4C 156 ml MERGE C[facility]IO Anatomical Region Laterality Modality Ultrasound Narrative 04/03/2022 15:58 EDT ?Left??Ventricle: The left ventricular cavity was normal in [...] excluded on the basis of this study. ?Right??Ventricle: The right ventricular cavity was normal in size. Right ventricular systolic function was normal. Left Ventricle The left ventricular cavity was normal in [...] on the basis of this study. Right Ventricle The right ventricular cavity was normal in size. Right ventricular systolic function was normal. Right ventricular wall thickness was normal. Left Atrium Left atrial cavity was mildly dilated. Left atrial volume index was mildly increased. Right Atrium The right atrium was normal in size. IVC/SVC The inferior vena cava was normal in size. The inferior vena cava demonstrated a diameter of <=21 mm and collapses >50%; therefore, the right atrial pressure is estimated at 0-5 mmHg. Mitral Valve Mitral valve structure was normal. There was no significant mitral valve stenosis or regurgitation. Tricuspid Valve Tricuspid valve structure was normal. There was no tricuspid valve regurgitation. There was no tricuspid valve stenosis. Aortic Valve The aortic valve structure was trileaflet. The aortic leaflets were mildly thickened. There was no aortic valve stenosis. There was no aortic valve regurgitation. Pulmonic Valve There was no pulmonic valve regurgitation. There was no pulmonic valve stenosis. Ascending Aorta The aortic root was normal in size. Pericardium There was no pericardial effusion. Pulmonic Artery Unable to assess PA pressure. Study Details Study status: Routine. Transthoracic echocardiography. M-Mode, complete 2D, complete spectral Doppler, and color Doppler.The study was interpreted by [facility]. Pertinent images and digital data are archived for permanent storage and are available for subsequent review. Scanning was performed from the apical, parasternal, subcostal and suprasternal acoustic windows. Overall the study quality was adequate. Images were obtained using cardiac ultrasound machine EPIQ #15. us Lefty Abel MD CARDIAC ECHO ORDERABLES Final Re sult documented in this encounter Visit Diagnoses Diagnosis Atrial fibrillation, unspecified type ([facility]-CMS) documented in this encounter Care Teams Desk Editor Relationship Specialty Start Date End Date Robyn Glynn MD [address] [place] [address] PCP - General Family Medicine - Primary Care 11/02/21 documented as of this encounter
--- OUTSIDE RECORDS SUMMARY | 2024-07-21 16:40 | XMS_ITS | Encounter Summary ---
Author Organization [facility] Address [address] [place] [address] Care Team Providers Care Finishing Range Operator Name Role Phone Robyn Glynn MD Primary Care Provider [phone] Reason for Visit * Reason Comments Follow-up Encounter Details Date Type Department Care Team (Late st Contact Info) Description 01/24/2022 15:15 EDT Office Visit [address] [phone] Shane Richardson MD [address] [place] [address], [address] [place] [address] Parotid mass (Primary Dx) Social [...] Progress Notes * Shane Richardson MD - 01/24/2022 1515 EDT Images from the original note were not included. Samm Macdonald is seen today with a 3 cm predominantly cystic mass of the left tail of parotid glandwhich has been biopsied twice (without ultrasound guidance) at the outside hospital without a clearcytologic diagnosis. He presents today for ultrasound-guided FNA with cytopathology present in attempt to establish a definitive diagnosis. Fine Needle Aspiration Title of Procedure: Ultrasound-Guided Fine Needle Aspiration Date Performed: 01/24/2022 Performed By: Shane Richardson MD Indications and/or Provisional Diagnosis: left parotid mass(es) Consent: Verbal consent obtained Local anesthesia: Lidocaine 2% with epinephrine Unless otherwise noted, there were no complications, no blood loss, cultures obtained, or drains retained. Time Out: A time-out was completed prior to the procedure verifying correct patient, procedure, site, positioning, and special equipment if applicable. Procedure Technique/Description of Procedure: Samm Macdonald was seen and examined. A 3 centimeter nontender mass is noted on left parotid gland. The skin was thoroughly cleansed with alcohol. The Fine Needle Aspiration was performed using 22 gauge needles with 6 passes performed with the needle guided into the mass using ultrasound localization using the 12.5 MHz probe. Post Procedure Diagnosis and Preliminary Findings: Adequate sample verified by cytopathology on site. Specimens: Specimens were sent to the lab air dried, alcohol fixed and in cytolyte. No complications Encounter Diagnoses Name Primary? Parotid mass Yes Successful ultrasound-guided FNA of a cystic left tail of parotid mass. This was predominantly thick fluid with keratin debris and few cells but we will wait for the finalcytology with plans for the patient to call my office Friday morning for the results. If benign, this may be monitored with follow-up ultrasound in 4 to 6 months (will schedule). If, however, the findings are concerning for possible to have for malignancy, timely and appropriate intervention will be arranged. documented in this encounter Plan of Treatment Upcoming Encounters Date Type Department Care Team (Late st Contact Info) Description 07/22/2024 19:30 [facility] Radiology CT - Main [place] [address] [place] [address] 07/29/2025 15:40 EST Office Visit [facility] Cardiology - [address] [place] [address] Palak Diallo MD [address] [facility], [place], [address] [place] [address] documented as of this encounter Procedures Procedure Name Priority Date/Time Associated Diagnosis Comments NON LIME SLAKER/FNA CYTOLOGY Routine 01/24/2022 15:42 EDT Parotid mass documented in this encounter Results * NON LIME SLAKER/FNA CYTOLOGY (01/24/2022 15:42 EDT) Note to Patient The following pathology results have been interpreted by your pathologist and may be available to you before your health provider has had the opportunity to review them. Please allow time for your provider to receive these results and explore management options, if applicable. 01/28/2022 15:09 [facility] Final Diagnosis A. PAROTID, LEFT, TAIL, 3 CM PREDOMINANTLY CYSTIC MASS, ULTRASOUND-GUIDED FINE-NEEDLE ASPIRATION: - Atypical cells present. See comment. 01/28/2022 15:09 [facility] Diagnosis Comment Cytologic evaluation reveals a specimen composed predominantly of abundant cystic debris with scattered intact cells some of which appear to be nucleated mature squamous cells while other rare groups appear oncocytic. Additionally, there is a background of numerous lymphocytes. A cell block is prepared and examined in an effort to increase diagnostic yield and contains material similar to that of the prepared slides. These findings could represent a lymph node with a metastatic squamous cell carcinoma or an infarcted Warthin's tumor. Clinical and radiographic correlation is advised. Sales Service Professional slides of this case were reviewed at the intradepartmental consultation conference. 01/28/2022 15:09 [facility] Attestation By the signature below, the attending physician certifies that they have personally conducted a gross and/or microscopic examination of the described specimens and rendered or confirmed the above diagnosis. 01/28/2022 15:09 [facility] at 1509 Rapid Diagnosis PAROTID, LEFT, TAIL, 3 CM PREDOMINANTLY CYSTIC MASS, ULTRASOUND GUIDED FINE NEEDLE ASPIRATION: Evaluation episode #1: Passes 1-3: Predominantly cystic debris with abundant macrophages, lymphocytes and rare groups of epithelial cells ,favor oncocytic (Pass 3). Evaluation episode #2: Pass 4: Rare group of epithelial cells, favor oncocytic with cystic debris and macrophages. Dr. Dayana Guzman 01/24/2022 4:21 PM 01/28/2022 15:09 [facility] Clinical History 3 cm predominantly cystic mass of the left tail of parotid gland 01/28/2022 15:09 T [facility] Gross Description A. 7 fixed prepared slides, 5 air dried prepared slides, 1 tube of CytoLyt were received and processed by selective cellular enhancement technique, and 1 tube of RPMI for cell block processing were received. 01/28/2022 15:09 T [facility] Performing Lab [facility] 01/28/2022 15:09 [facility] Scanned Images 01/28/2022 15:09 [facility] Fine Needle Aspirate PAROTID GLAND STRUCTURE / Unknown 01/24/2022 15:42 EDT 01/24/2022 16:33 EDT us Shane Richardson MD PATHOLOGY ORDERABLES F inal Result [facility] [address] [place] [address] documented in this encounter Visit Diagnoses Diagnosis Parotid mass- Primary Swelling, mass, or lump in head and neck documented in this encounter Care Teams Finishing Range Operator Relationship Specialty Start Date End Date Robyn Glynn MD [address] [place] [address] PCP - General Family Medicine - Primary Care 11/02/21 documented as of this encounter
--- OUTSIDE RECORDS SUMMARY | 2024-07-21 16:41 | XMS_ITS | Encounter Summary ---
Author Organization [facility] [place] [address] Care Team Providers Care Senior It Project Manager Name Role Phone Cheli Elias MD Primary Care Provider [phone] Encounter Details Date Type Department Care Team (Late st Contact Info) Description 10/26/2014 Orders Only Internal Medicine at [address] [address] Skyla Haines RN Type II or unspecified type diabetes mellitus without mention of complication, not stated as uncontrolled Social History Tobacco Use Types Packs/Day Years [...] as of this encounter Visit Diagnoses Diagnosis Type II or unspecified type diabetes mellitus without mention of complication, not stated as uncontrolled documented in this encounter Care Teams Senior It Project Manager Relationship Specialty Start Date End Date Cheli Elias MD [facility] [place] [address] PCP - General 06/26/10 05/04/18 documented as of this encounter
--- OUTSIDE RECORDS SUMMARY | 2024-07-21 16:41 | XMS_ITS | Encounter Summary ---
Author Organization [facility] [place] [address] Care Team Providers Care Psychometrist Name Role Phone Cheli Elias MD Primary Care Provider [phone] Reason for Visit * Reason Comments Annual Exam Encounter Details Date Type Department Care Team (Late st Contact Info) Description 12/29/2013 4:05 PM EDT Office Visit Internal Medicine at [address] [address] Cheli Elias MD [facility] [place] [address] Sleep apnea; HTN (hypertension); Healthcare maintenance Discharge Disposition: Home Social History Tobacco Use [...] Sign Reading Time Taken Comments Blood Pressure 160/90 12/29/2013 4:04 PM EDT Pulse 64 12/29/2013 4:04 PM EDT Temperature 36.9 ??C (98.5 ??F) 12/29/2013 4:04 PM ED T Respiratory Rate - - Oxygen Saturation 97% 12/29/2013 4:04 PM EDT Inhaled Oxygen Concentration - - Weight 133.2 kg (293 lb 9.6 oz) 12/29/2013 4:04 PM EDT Height 176.5 cm (5' 9.5) 12/29/2013 4:04 PM EDT Body Mass Index 42.74 12/29/2013 4:04 PM EDT documented in this encounter Patient Instructions * Patient Instructions* Rebecca Yates LNA - 12/29/2013 4:06 PM EDT I would like you to sign up for myD-H, which will give you secure online access to your electronic medical record at [facility] and the ability to communicate with your health care team whenand where it???s most convenient for you. With myD-H you will be able to: - look at parts of your medical record including test results and office notes - send and receive messages to/from me and your other providers - renew prescriptions - schedule appointments. To sign up, go to [email or web address] and click I have an activation code and follow the instructions. Here is your activation code: [email or web address] Expires: 02/12/2014 4:07 PM Remember, myD-H is NOT for urgent needs! Always dial 911 for medical emergencies. documented in this encounter Progress Notes * Cheli Elias MD - 12/29/2013 5:04 PM EDT ANNUAL PATIENT VISIT Chief Complaint Patient presents with ??? Annual Exam Pt is a 58 y.o. who presents for annual visit with me. Issues today are: none ROS: Constitutional - no fevers, chills, weight loss or gain, fatigue HEENT - No difficulty swallowing, hearing, No nasal congestion or postnasal drip Respiratory - No new SOB, MCNULTY, wheeze, cough, sputum production Cardiovascular - No new CP, palpitations, angina, edema, claudication Gastrointestinal - No new abdominal pain, nausea, GERD, constipation, diarrhea, blood in stool - no new difficulty urinating, incontinence or dysuria. Musculoskeletal - No new weakness, pain at rest or with movement Skin - no new rashes All other systems negative Patient Active Problem List Diagnosis ??? Retinal tear L eye, currently being watched by Dr Soni in [facility] ??? Detached retina R eye in aug 2010, x 2 ??? Healthcare maintenance Preventive Care: CRC screening - 2009, Due 2014 TA Prostate Ca screening - [] Lipids - [] DM screening - (Hgb, A1C or FBS) [] Seat belts - [] Immunizations: dT - [address] [facility] ??? Tubular adenoma ??? Psoriasis ??? HTN (hypertension) ??? CIS - History of mild iritis ??? Sleep apnea a. status post uvulectomy. b. On CPAP at [id number] Current Outpatient Prescriptions on File Prior to Visit Medication Sig Dispense Refill ??? lisinopril (PRINIVIL;ZESTRIL) 10 mg tablet Take 1 tablet by mouth daily. 90 tablet 3 Allergies Allergen Reactions ??? Benzocaine CIS - Hives, CIS - Hives ??? Benzoin CIS - Hives ??? Cetylpyridinium Chloride CIS - Hives ??? Menthol CIS - Hives ??? Phenol CIS - Hives ??? Sodium Phenolate CIS - Hives History Social History ??? Marital Status: Spouse Name: N/A Number of Children: N/A ??? Years of Education: N/A Occupational History ??? Not on file. Social History Main Topics ??? Smoking status: Never Smoker ??? Smokeless tobacco: Never Used ??? Alcohol Use: No ??? Drug Use: No ??? Sexually Active: Yes -- Female partner(s) Other Topics Concern ??? 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 Alzheimer Disease Father ??? Psoriasis Father ??? Cancer Father Physical Exam: BP 160/90 Pulse 64 Temp 36.9 ??C (98.5 ??F) (Oral) Ht 176.5 cm (5' 9.5) Wt 133.176 kg (293lb 9.6 oz) BMI 42.75 kg/m2 SpO2 97% General - No acute distress. ENT - Mouth without lesions. Eyes- EOMI. Not jaundiced. Noninjected Neck - No lymphadenopathy. No thyromegaly Lungs - Clear to auscultation. Heart - RRR, S1,S2, no audible murmur, gallop or rub. Abdomen/GI - Soft, nontender, normal active bowel sounds, neg hsm or masses. Extremities - No clubbing, cyanosis or edema. Pulses intact. Neurological- CN II- XII all intact, DTR's 2 + upper and lower extremities Sensation- Intact to light touch upper and lower extremities Assessment and Plan: Samm was seen today for annual exam. Diagnoses and associated orders for this visit: Sleep apnea - BMP w/fasting Glucose; Future - Lipid panel (fasting); Future - LDL Cholesterol, Direct; Future - LDL Cholesterol, Direct Htn (hypertension) - BMP w/fasting Glucose; Future - Lipid panel (fasting); Future - LDL Cholesterol, Direct; Future - LDL Cholesterol, Direct Healthcare maintenance - BMP w/fasting Glucose; Future - Lipid panel (fasting); Future - LDL Cholesterol, Direct; Future - LDL Cholesterol, Direct Other Orders - scopolamine (TRANSDERM-SCOP) 1.5 mg; Place 1 patch onto the skin every 3 days. Health Maintenance Summary HEPATITIS C SCREENING (B. [id number]) Overdue 1996 HIV ONE TIME SCREEN Overdue 1974 TETANUS VACCINE Next Due 10/27/2022 Done 10/27/2012 Imm Admin: Tdap Vaccine COLONOSCOPY EVERY 5 YEARS Next Due 06/05/2015 Done 06/05/2010 TA INFLUENZA (FLU) VACCINE Next Due 04/04/2014 Done 08/18/2013 Imm Admin: Influenza Vaccine w/Preservative, Split Patient has more history with this topic... TDAP ADULT This plan is no longer active. Done 10/27/2012 TDAP VACCINE =>7YO IM documented in this encounter Miscellaneous Notes * Assessment & Plan Note - Cheli Elias MD - 12/29/2013 4:26 PM EDT Associated Problem(s): HTN (hypertension) Brought in his BP monitor, good correlation; [...] was made in collaboration with the patient/family. * Assessment & Plan Note - Cheli Elias MD - 12/29/2013 4:23 PM EDT Associated Problem(s): Sleep apnea Some problems with CPAP machine., getting new parts. Since the CPAP sleep has been better quality, more rested in am , energy level is good. documented in this encounter Plan of Treatment Not on file documented as of this encounter Procedures Procedure Name Priority Date/Time Associated Diagnosis Comments LDL CHOLESTEROL, DIRECT Routine 12/29/2013 4:51 PM EDT Sleep apnea HTN (hypertension) Healthcare maintenance documented in this encounter Results * LDL Cholesterol, Direct (12/29/2013 4:51 PM EDT) LDL Cholesterol, Direct 83 <=99 mg/dL [facility] Comment: The National Cholesterol Education Program (NCEP) has set the following guidelines for LDL Cholesterol: Reference range: ?? Optimal: ?<100 mg/dL ?? Near Optimal/Above Optimal: ?? 100-129 mg/dL ?? Borderline high: ?130-159 mg/dL ?? High: ? 160-189 mg/dL ?? Very high: ?>fh=156 mg/dL ADAM 2001: 285(19):4092-8934 Blood specimen (specimen) 12/29/2013 4:51 PM EDT 12/29/2013 6:24 PM EDT Narrative Resulting Agency Comment Spec In Lab Cheli Elias MD CHEMISTRY ORDERABLES [facility] documented in this encounter Visit Diagnoses Diagnosis Sleep apnea Unspecified sleep apnea HTN (hypertension) Unspecified essential hypertension Healthcare maintenance Routine general medical examination at a health care facility documented in this encounter Care Teams Psychometrist Relationship Specialty Start Date End Date Cheli Elias MD [facility] [address] [place] [address] PCP - General 06/26/10 05/04/18 documented as of this encounter
--- OUTSIDE RECORDS SUMMARY | 2024-07-21 16:41 | XMS_ITS | Encounter Summary ---
Author Organization [facility] Address [facility] [place] [address] Care Team Providers Care Laminating Machine Operator Name Role Phone Unavailable Primary Care Provider Unavailabl e Encounter Details Date Type Department Care Team (Late st Contact Info) Description 06/25/2010 10:00 AM EST Follow-Up Internal Medicine at [address] [address] Cheli Elias MD [facility] [place] [address] Social History Tobacco Use Types Packs/Day Years Used Date Smoking Tobacco: Never Assessed Sex and Gender Information Value Date Recorded Sex Assigned at Not on file Gender Identity Not on file Sexual Orientation Not on file documented as of this encounter Plan of Treatment Not on file documented as of this encounter Visit Diagnoses Not on filedocumented in this encounter
--- OUTSIDE RECORDS SUMMARY | 2024-07-21 16:41 | XMS_ITS | Encounter Summary ---
[place] [address] Care Team Providers Care Motor Driver Name Role Phone Cheli Elias MD Primary Care Provider [phone] Reason for Visit * Reason Onset Date Comments Results 01/08/2016 Encounter Details Date Type Department Care Team (Late st Contact Info) Description 01/08/2016 Telephone Internal Medicine at [address] [address] Malou Green RN Results Social History Tobacco Use Types Packs/Day [...] encounter Miscellaneous Notes * Telephone Encounter - Malou Green RN - 01/08/2016 4:14 PM EDT TC from the patient: results given and instructed in need to repeat labs. Will call back tomorrow to sched. Appointment. * Telephone Encounter - Malou Green RN - 01/08/2016 3:48 PM EDT ----- Message from Cheli Elias MD sent at 01/08/2016 2:36 PM EDT ----- Please call patient with these results: Normal labs except for protein in the urine ( which explains his ankle swelling). We need to repeatit and if persistent we'll make a referral to nephrology. His kindey function looks normal. Catrina galvan documented in this encounter Plan of Treatment Not on file documented as of this encounter Visit Diagnoses Not on filedocumented in this encounter Care Teams Motor Driver Relationship Specialty Start Date End Date Cheli Elias MD [facility] [place] [address] PCP - General 06/26/10 05/04/18 documented as of this encounter
--- OUTSIDE RECORDS SUMMARY | 2024-07-21 16:41 | XMS_ITS | Encounter Summary ---
Author Organization [facility] [place] [address] Care Team Providers Care Slat Pickler Name Role Phone Cheli Mathews MD Primary Care Provider [phone] Reason for Visit * Reason Comments Annual Exam Encounter Details Date Type Department Care Team (Late st Contact Info) Description 05/15/2011 9:00 AM EDT Office Visit Internal Medicine at [address] [address] Cheli Mathews MD [facility] [place] [address] Detached retina (Primary Dx); Healthcare maintenance; HTN (hypertension) Discharge Disposition: Home Social History Tobacco Use [...] Sign Reading Time Taken Comments Blood Pressure 150/86 05/15/2011 8:47 AM EDT Pulse 54 05/15/2011 8:47 AM EDT Temperature - - Respiratory Rate - - Oxygen Saturation - - Inhaled Oxygen Concentration - - Weight 125.6 kg (277 lb) 05/15/2011 8:47 AM EDT Height 179.1 cm (5' 10.5) 05/15/2011 8:47 AM ED T Body Mass Index 39.18 05/15/2011 8:47 AM EDT documented in this encounter Progress Notes * Cheli Mathews MD - 05/15/2011 9:32 AM EDT Subjective: Patient ID: Samm Prince III is a 55 y.o. male. HPI Gluten-free diet with improvement in gas/cramps, weight Review of Systems Constitutional: Negative. Has lost weight with a gluten-free diet HENT: Negative. Eyes: Negative for pain and visual disturbance. Respiratory: Negative. Cardiovascular: Negative. Genitourinary: Negative for urgency, frequency and difficulty urinating. Musculoskeletal: Negative for arthralgias. Skin: Positive for color change. Facial erythema due to wearing cpap Neurological: Negative. Objective: Physical Exam Constitutional: He is oriented to person, place, and time. No distress. HENT: Head: Atraumatic. Neck: No thyromegaly present. Cardiovascular: Regular rhythm and normal heart sounds. Pulmonary/Chest: Breath sounds normal. He has no wheezes. He has no rales. Abdominal: Soft. He exhibits no distension. No tenderness. Genitourinary: Rectum normal and prostate normal. Musculoskeletal: Normal range of motion. Lymphadenopathy: He has no cervical adenopathy. Neurological: He is alert and oriented to person, place, and time. He has normal reflexes. Skin: Skin is warm and dry. There is erythema. Facial erythema Elbows and knees psoriasis Assessment and Plan: [facility] maintenance - CHELI MATHEWS MD 05/15/11 10:00 AM Signed Preventive Care: CRC screening - 2009, Due 2014 TA Prostate Ca screening - due Lipids - LAB RESULTS: [id number] SAMM PRINCE III 03/19/2010 Cholesterol 127 * High Density Lipoprotein Cholesterol 32 L * Cholesterol/HDL Ratio 4.0 * ! indicates latest result within the time frame. * indicates a lab note is available. C,H,L indicates critical, high, or low result. DM screening - (Hgb, A1C or FBS) : due LAB RESULTS: [id number] SAMM PRINCE III 06/25/2010 Glucose Level 111 * ! indicates latest result within the time frame. * indicates a lab note is available. C,H,L indicates critical, high, or low result. Immunizations: dT - 2006 outside hospital Roger Quijano was seen today for annual exam. Diagnoses and associated orders for this visit: Detached retina Healthcare maintenance - Glucose, fasting; Future - Lipid panel (fasting); Future - PSA Screen; Future Htn (hypertension) - Glucose, fasting; Future - Lipid panel (fasting); Future - Comprehensive metabolic panel (non-fasting); Future documented in this encounter Miscellaneous Notes * Assessment & Plan Note - Cheli Mathews MD - 05/15/2011 10:00 AM EDT Associated Problem(s): Healthcare maintenance Preventive Care: CRC screening - 2009, Due 2014 TA Prostate Ca screening - due Lipids - LAB RESULTS: [id number] SAMM PRINCE III 03/19/2010 Cholesterol 127 * High Density Lipoprotein Cholesterol 32 L * Cholesterol/HDL Ratio 4.0 * ! indicates latest result within the time frame. * indicates a lab note is available. C,H,L indicates critical, high, or low result. DM screening - (Hgb, A1C or FBS) : due LAB RESULTS: [id number] SAMM PRINCE III 06/25/2010 Glucose Level 111 * ! indicates latest result within the time frame. * indicates a lab note is available. C,H,L indicates critical, high, or low result. Immunizations: dT - 2007 outside [facility] documented in this encounter Plan of Treatment Not on file documented as of this encounter Results * PSA Screen (05/16/2011 8:28 AM EDT) PSA Screen 1.56 0.00 - 4.00 ng/mL [facility] Blood specimen (specimen) 05/16/2011 8:28 AM EDT 05/16/2011 12:41 PM EDT Cheli Mathews MD CHEMISTRY ORDERABLES [facility] * Lipid panel (fasting) (05/16/2011 8:28 AM EDT) Cholesterol, Total 136 <=199 mg/dL [facility] Comment: Recommendations of the NCEP Adult Treatment Panel for the following risk cutoff thresholds for the [place] population: Desirable: <200 mg/dL Borderline High: 200-239 mg/dL High: > or = 240 mg/dL Triglyceride 69 <=149 mg/dL [facility] Comment: Reference Range: Normal triglycerides: ??<150 mg/dL Borderline high: ??150-199 mg/dL High: ??200-499 mg/dL Very high: ??>wb=252 mg/dL ADAM 2001; 285(19):3086-8408 HDL Cholesterol 51 >=40 mg/dL [facility] Comment: Reference range: ??Low HDL: ?? < 40 mg/dL ??Normal: ?40-60 mg/dL ??Desirable: > 60 mg/dL ADAM 2001; 285(19):5770-6377 LDL Cholesterol 71 <=99 mg/dL [facility] Comment: Reference range: ?? Optimal: ?<100 mg/dL ?? Near Optimal/Above Optimal: ?? 100-129 mg/dL ?? Borderline high: ?130-159 mg/dL ?? High: ? 160-189 mg/dL ?? Very high: ?>sm=319 mg/dL ADAM 2001: 285(19):7288-5074 Cholesterol/HDL Ratio 2.7 ratio [facility] Comment: A Cholesterol to HDL ratio below 4:1 is desirable. ??Studies suggest that increased CAD risk occurs at ratios above 5 for females and above 6 for men. ? [place] Heart Association ??(http://www.americanheart.org) ? Antoinette Int Med, 1994; 121:641 ? AM J Med, 1998; 105(1A):48S Blood specimen (specimen) 05/16/2011 8:28 AM EDT 05/16/2011 12:41 PM EDT Cheli Mathews MD CHEMISTRY ORDERABLES Performing Organization Address City/State/ZIP Co id Phone Number [facility] documented in this encounter Visit Diagnoses Diagnosis Detached retina- Primary Unspecified retinal detachment Healthcare maintenance Routine general medical examination at a health care facility HTN (hypertension) Unspecified essential hypertension documented in this encounter Care Teams Slat Pickler Relationship Specialty Start Date End Date Cheli Mathews MD [facility] [place] [address] PCP - General 06/26/10 05/04/18 documented as of this encounter
--- OUTSIDE RECORDS SUMMARY | 2024-07-21 16:41 | XMS_ITS | Encounter Summary ---
Author Organization [facility] Address [facility] [place] [address] Care Team Providers Care Manager Statistical Programming Name Role Phone Cheli Elias MD Primary Care Provider [phone] Encounter Details Date Type Department Care Team (Latest Contact Info) Description 05/16/2011 7:50 AM EDT Laboratory Appointment Internal Medicine at [address] [id number] CLINIC, Cheli Holm MD [facility] [place] [address] Healthcare maintenance; HTN (hypertension) Discharge Disposition: Home [...] Procedure Name Priority Date/Time Associated Diagnosis Comments CMP W/FASTING GLUCOSE Routine 05/16/2011 8:28 AM EDT PSA SCREEN Routine 05/16/2011 8:28 AM EDT Healthcare maintenance LIPID PANEL (REFLEX DIRECT LDL) Routine 05/16/2011 8:28 AM EDT Healthcare maintenance HTN (hypertension) documented in this encounter Results * (ABNORMAL) CMP W/FASTING GLUCOSE (05/16/2011 8:28 AM EDT) [facility] Glucose Fasting 107(H) 65 - 99 mg/dL [facility] Comment: ?Fasting* Glucose Interpretive Criteria Normal ?65-99 mg/dL Impaired Fasting glucose ?100-125 mg/dL Consistent with Diabetes Mellitus ? >or= 126 mg/dL *Fasting is defined as no caloric intake for at least 8 hours In the absence of unequivocal hyperglycemia a plasma glucose value of >or= 126 mg/dL should be repeated on a subsequent day. Diagnosis and Classification of Diabetes Mellitus, Position Statement from the [place] Diabetes Association. ??Diabetes Care, Volume 33, Supplement 1, Aug 2009 Blood Urea Nitrogen 24(H) 10 - 20 mg/dL [facility] Creatinine 0.92 0.80 - 1.50 mg/dL [facility] Sodium 137 135 - 145 mmol/L [facility] Potassium 4.3 3.5 - 5.0 mmol/L [facility] Comment: Please note: ??Patients with WBC >100,000 may have falsely elevated Potassium levels. ??For accurate Potassium quantification in these patients send serum separator tube (gold top) for subsequent determinations. ??Contact the Clinical Chemistry Laboratory if there are any questions. Chloride 105 98 - 107 mmol/L [facility] Carbon Dioxide 27 22 - 31 mmol/L [facility] Anion Gap 5 5 - 15 mmol/L [facility] Calcium 9.3 8.5 - 10.5 mg/dL [facility] Protein, Total 7.1 6.4 - 8.3 gm/dL [facility] Albumin 4.1 3.2 - 5.2 gm/dL [facility] Aspartate Aminotransferase 26 0 - 39 unit/L [facility] Alanine Aminotransferase 36 0 - 55 unit/L [facility] Alkaline Phosphatase 75 40 - 120 unit/L [facility] Bilirubin, Total 0.4 0.2 - 1.3 mg/dL [facility] Bilirubin, Direct 0.1 0.0 - 0.3 mg/dL [facility] Est Glomerular Filtration Rate >60 >=60 [facility] Comment: The National Kidney Disease Education Program (NKDEP) has recommended all laboratories report estimated GFR (eGFR) along with plasma creatinine measurements to assist you with recognition of early kidney disease. Caveats: ??Plasma creatinine should be at steady-state (unchanged within the past week). For patients multiply eGFR by 1.2.MDRD equation has not been validated for pediatric patients and is only valid for patients with age >= 18 years. At present, NKDEP does NOT recommend using the MDRD equation for drug dosing purposes and pharmacists should continue to use their current dosing methods. In addition, numerical eGFR values greater than 60 ml/min/1.73 square meters should be treated as > 60, and not an exact number due to greater inaccuracies at these higher values. Per NKDEP, they classify normal renal function as any GFR >60ml/min/1.73 square meters; chronic kidney disease when GFR <60, and renal failure when GFR <15. ??This calculation may not be valid for patients with atypical muscle mass (very lean or obese), acute renal failure, and in patients with diabetic kidney disease. References: http://nkdep.nih.gov/resources/NKDEP_Suggestn4Labs_0606_508.pdf http://www.kidney.org/professionals/kls/pdf/faq_gfr.pdf Blood specimen (specimen) 05/16/2011 8:28 AM EDT 05/16/2011 12:41 PM EDT Cheli Elias MD CHEMISTRY ORDERABLES [facility] * PSA Screen (05/16/2011 8:28 AM EDT) PSA Screen 1.56 0.00 - 4.00 ng/mL [facility] Blood specimen (specimen) 05/16/2011 8:28 AM EDT 05/16/2011 12:41 PM EDT Cheli Elias MD CHEMISTRY ORDERABLES [facility] * Lipid panel (fasting) (05/16/2011 8:28 AM EDT) [facility] Signature Cholesterol, Total 136 <=199 mg/dL [facility] Comment: Recommendations of the NCEP Adult Treatment Panel for the following risk cutoff thresholds for the [place] population: Desirable: <200 mg/dL Borderline High: 200-239 mg/dL High: > or = 240 mg/dL Triglyceride 69 <=149 mg/dL [facility] Comment: Reference Range: Normal triglycerides: ??<150 mg/dL Borderline high: ??150-199 mg/dL High: ??200-499 mg/dL Very high: ??>wa=765 mg/dL ADMA 2001; 285(19):7281-2791 HDL Cholesterol 51 >=40 mg/dL [facility] Comment: Reference range: ??Low HDL: ?? < 40 mg/dL ??Normal: ?40-60 mg/dL ??Desirable: > 60 mg/dL ADAM 2001; 285(19):8131-3474 LDL Cholesterol 71 <=99 mg/dL [facility] Comment: Reference range: ?? Optimal: ?<100 mg/dL ?? Near Optimal/Above Optimal: ?? 100-129 mg/dL ?? Borderline high: ?130-159 mg/dL ?? High: ? 160-189 mg/dL ?? Very high: ?>eg=592 mg/dL ADAM 2001: 285(19):0404-3164 Cholesterol/HDL Ratio 2.7 ratio [facility] Comment: A Cholesterol to HDL ratio below 4:1 is desirable. ??Studies suggest that increased CAD risk occurs at ratios above 5 for females and above 6 for men. ? [place] Heart Association ??(http://www.americanheart.org) ? Antoinette Int Med, 1994; 121:641 ? AM J Med, 1998; 105(1A):48S Blood specimen (specimen) 05/16/2011 8:28 AM EDT 05/16/2011 12:41 PM EDT Cheli Elias MD CHEMISTRY ORDERABLES Performing Organization Address City/State/[facility] Phone Number [facility] documented in this encounter Visit Diagnoses Diagnosis Healthcare maintenance Routine general medical examination at a health care facility HTN (hypertension) Unspecified essential hypertension documented in this encounter Care Teams Manager Statistical Programming Relationship Specialty Start Date End Date Cheli Elias MD [facility] [address] [place] [address] PCP - General 06/26/10 05/04/18 documented as of this encounter
--- OUTSIDE RECORDS SUMMARY | 2024-07-21 16:41 | XMS_ITS | Encounter Summary ---
Author Organization Formerly [facility] [place] [address] Care Team Providers Care Occupational Health And Safety Officer Name Role Phone Cheli Elias MD Primary Care Provider + [phone] Reason for Visit * Reason Onset Date Comments Medication Refill 10/13/2012 Encounter Details Date Type Department Care Team (Late st Contact Info) Description 10/13/2012 Refill Internal Medicine at [address] [address] Cheli Elias MD [facility] [place] [address] Social History Tobacco Use Types Packs/Day Years [...] on filedocumented in this encounter Care Teams Occupational Health And Safety Officer Relationship Specialty Start Date End Date Cheli Elias MD [facility] [address] [place] [address] PCP - General 06/26/10 05/04/18 documented as of this encounter
--- OUTSIDE RECORDS SUMMARY | 2024-07-21 16:41 | XMS_ITS | Encounter Summary ---
Author Organization [facility] Address [facility] [place] [address] Care Team Providers Care Airborne Mission Systems Superintendent Name Role Phone Cheli Elias MD Primary Care Provider + [phone] Encounter Details Date Type Department Care Team (Late st Contact Info) Description 09/27/2014 Telephone Internal Medicine at [address] [address] Gia New RN Social History Tobacco Use Types Packs/Day [...] encounter Miscellaneous Notes * Telephone Encounter - Gia New RN - 09/27/2014 10:26 AM EST Care Coordination Note - [facility] [place] Call to patient to f/u HTN. He has a BP cuff at home that needs to be validated with equipment here. He will bring his cuff to next appointment on 10/25 and it will be checked at that time. documented in this encounter Plan of Treatment Not on file documented as of this encounter Visit Diagnoses Not on filedocumented in this encounter Care Teams Airborne Mission Systems Superintendent Relationship Specialty Start Date End Date Cheli Elias MD [facility] [place] [address] PCP - General 06/26/10 05/04/18 documented as of this encounter
--- OUTSIDE RECORDS SUMMARY | 2024-07-21 16:41 | XMS_ITS | Encounter Summary ---
Author Organization Formerly [facility] [place] [address] Care Team Providers Care Abattoir Supervisor Name Role Phone Cheli Elias MD Primary Care Provider [phone] Reason for Visit * Reason Comments Obstructive Sleep Apnea Encounter Details Date Type Department Care Team (Late st Contact Info) Description 01/14/2011 9:10 AM EDT [place] [address] Alexandrea Nevarez, BRASS INSTRUMENT REPAIR TECHNICIAN ANNELISE (obstructive sleep apnea) (Primary Dx) Social History Tobacco Use Types Packs/Day Years Used Date Smoking Tobacco: Never Assessed Sex and Gender Information Value Date Recorded Sex Assigned at Not on file Gender Identity Not on file Sexual Orientation Not on file documented as of this encounter Progress Notes * Alexandrea Nevarez APRN - 01/14/2011 10:26 AM EDT Report of Outpatient Follow up: History of Present Illness: Mr. Samm Macdonald III is a 55-year-old gentleman with a history of obesity, hypertension, loud snoring and witnessed apneas. He also is s/p a UPPP in the . He was referred for an overnight sleep study to evaluate for possible obstructive sleep apnea. The diagnostic portion of his split-nightstudy (conducted 05/06/10) confirmed severe obstructive sleep apnea (orig. AHI= 128.1) with recurrent obstructive events and desaturations. CPAP titration was initiated at 5 cm H2O and titrated as high as 11 cm H2O. He was last seen in , after he had tried using a nasal mask but had mouth-breathing. As a result, at last appt in , he was refit for a FFM. Pt presents today for a routine f/up. He is appreciating the fit of the FFM, doesn't detect air leakage. no longer hearing any shoring, though he has some dermatitis on his cheeks from the mask.Cites good daytime energy and again expresses satisfaction since initiating CPap treatment. Pt has lost 42 lbs since starting CPap treatment, and denies any air intolerance issues of any sort. Notes no air leakage from his mask, no nasal congestion, no excess dry mouth. 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 Current Compliance Download (covers 07/07/10- 01/13/11) indicates: AHI= 0.4, avg daily use=5'54, avgvibratory snore index= 3.5, avg leak varies bet. 52-70. Today's [place] Score is 4/24, indicating minimal daytime sleepiness. Current Sleep Habitus: Mr. Cotter admits to significant variability in his sleep regimen- to bed bet. 10p- 1a., will apply the Fullface mask and gets into bed in side-lying position. he is asleep promptly and will generally haveone MCA to urinate during the night. He will then re-apply the mask and is able to return to sleep easily; awakening bet. 6-8a feeling refreshed. Physical Examination: Pt is a 55 y.o. male , avg ht, current weight is 280 lbs, indicating a 42 lb wt loss since his lastappt in 2009. He is pleasant, coop. ; Area under mask on his face is brightly inflamed. ACTIVE PROBLEM LIST ANNELISE Assessment: Pt continues to express great benefit from use of his CPap mask and machine- his FFM fits more comfortably though he has dermatitis under where it sits on his face. Otherwise no snoring, no RLS, gooddaytime energy- has lost 42 lbs since Jul. Will therefore, maintain current pressure at a fixed pressure of 11cm H2o, and will have him RTC in 1 yr/PRN. ICSD diagnosis (code): 327.23 Provisional: Final: Obstructive sleep apnea Recommendations: 1. CPap at _11_ cm H2O with/without ramp, and heated humidifier 2. Reviewed driving safety; pt is encouraged to well puller and nap if feeling unsafe behind the wheel at any time. 3. RTC 1 yr/PRN. documented in this encounter Plan of Treatment Not on file documented as of this encounter Visit Diagnoses Diagnosis ANNELISE (obstructive sleep apnea)- Primary Obstructive sleep apnea (adult) (pediatric) documented in this encounter Care Teams Abattoir Supervisor Relationship Specialty Start Date End Date Cheli Elias MD [facility] [address] [facility] [place] [place] [address] PCP - General 06/26/10 05/04/18 documented as of this encounter
--- OUTSIDE RECORDS SUMMARY | 2024-07-21 16:41 | XMS_ITS | Encounter Summary ---
Author Organization On License Of [facility] Address [facility] [place] [address] Care Team Providers Care Car Washer Name Role Phone Cheli Elias MD Primary Care Provider [phone] Encounter Details Date Type Department Care Team (Latest Contact Info) Description 10/26/2014 2:00 PM EDT Laboratory Appointment Internal Medicine at [address] [id number] CLINIC, Cheli Holm MD [facility] [place] [address] Benign neoplasm of unspecified site; Type II or unspecified type diabetes mellitus without mention of complication, not stated as uncontrolled Discharge Disposition: Home Social History Tobacco Use [...] Priority Date/Time Associated Diagnosis Comments HEMOGRAM Routine 10/26/2014 4:24 PM EDT Benign neoplasm of unspecified site DIFFERENTIAL, AUTOMATED Routine 10/26/2014 4:24 PM EDT Benign neoplasm of unspecified site CBC (WITH DIFF) Routine 10/26/2014 4:24 PM EDT Benign neoplasm of unspecified site documented in this encounter Results * (ABNORMAL) Differential, Automated (10/26/2014 4:24 PM EDT) Neutrophil % 75.1 % CERNER MILLENNIUM Neutrophil Absolute 6.38(H) 1.50 - 6.30 x10(3)/mc L CERNER MILLENNIUM Lymph % 13.9 % CERNER MILLENNIUM Lymphocytes Abs 1.2 1.0 - 3.6 x10(3)/mc L CERNER MILLENNIUM Monocyte % 8.6 % CERNER MILLENNIUM Monocyte Abs 0.7 0.2 - 1.0 x10(3)/mc L CERNER MILLENNIUM Eos % 2.1 % CERNER MILLENNIUM Eosinophils Abs 0.2 0.0 - 0.5 x10(3)/mc L CERNER MILLENNIUM Basophil % 0.2 % CERNER MILLENNIUM Baso Absolute 0.0 0.0 - 0.2 x10(3)/mc L CERNER MILLENNIUM Immature Gran % 0.10 % CERN ER MILLENNIUM Comment: Immature granulocytes(IG's)percentage and absolute count will include metamyelocytes, myelocytes, and promyelocytes. Blood smears from CBCs yielding IG's will be scanned manually for concordance. If this scan disagrees with the automated IG or if promyelocytes are noted, a manual differential will be performed. Immature Gran Absolute 0.01 0.00 - 0.05 x10(3)/mc L CERNER MILLENNIUM Blood specimen (specimen) 10/26/2014 4:24 PM EDT 10/26/2014 6:02 PM EDT Narrative Resulting Agency Comment Spec In Lab Cheli Elias MD HEMATOLOGY ORDERABLE S CERNER LUDIVINAENNIUM * Hemogram (10/26/2014 4:24 PM EDT) White Blood Cell 8.5 4.0 - 10.0 x10(3)/mcL CERNER MILLENNIUM Red Blood Cell 4.89 4.63 - 6.08 x10(6)/mcL CERNER MILLENNIUM Hemoglobin 14.8 13.7 - 17.5 gm/dL CERNER MILLENNIUM Hematocrit 43.4 40.0 - 51.0 % CERNER MILLENNIUM Mean Cell Volume 88.8 79.0 - 92.0 fL CERNER MILLENNIUM Mean Cell Hemoglobin 30.3 25.6 - 32.2 pg CERNER MILLENNIUM Mean Cell Hemoglobin Concentration 34.1 32.0 - 36.5 gm/dL CERNER MILLENNIUM Platelet 201 145 - 370 x10(3)/mcL CERNER MILLENNIUM RDW Standard Deviation 42.7 35.0 - 46.0 fL CERNER MILLENNIUM RDW coefficient of variation 13.3 10.9 - 14.4 % CERNER MILLENNIUM Mean Platelet Volume 10.3 9.0 - 12.0 fL CERNER MILLENNIUM Blood specimen (specimen) 10/26/2014 4:24 PM EDT 10/26/2014 6:02 PM EDT Narrative Resulting Agency Comment Spec In Lab Cheli Elias MD [facility] documented in this encounter Visit Diagnoses Diagnosis Benign neoplasm of unspecified site Type II or unspecified type diabetes mellitus without mention of complication, not stated as uncontrolled documented in this encounter Care Teams Car Washer Relationship Specialty Start Date End Date Cheli Elias MD [facility] [address] [address] PCP - General 06/26/10 05/04/18 documented as of this encounter
--- OUTSIDE RECORDS SUMMARY | 2024-07-21 16:41 | XMS_ITS | Encounter Summary ---
Author Organization [facility] Address [facility] [place] [address] Care Team Providers Care Cnc Manufacturing Engineer Name Role Phone Cheli Elias MD Primary Care Provider + [phone] Encounter Details Date Type Department Care Team (Late st Contact Info) Description 06/07/2015 Telephone Internal Medicine at [address] [address] Skyla Haines RN Social History Tobacco Use [...] Telephone Encounter - Skyla Haines RN - 06/07/2015 10:02 AM EST Patient states he was told to call back today if he felt worse. He reports shakes and chills last night, temp of 100.8 last night. Green nasal discharge today and face feels like someone is standingon my face. Dr Elias approved antibiotic, order sent to patient's pharmacy. Patient informed. documented in this encounter Plan of Treatment Not on file documented as of this encounter Visit Diagnoses Not on filedocumented in this encounter Care Teams Cnc Manufacturing Engineer Relationship Specialty Start Date End Date Cheli Elias MD [facility] [place] [address] PCP - General 06/26/10 05/04/18 documented as of this encounter
--- OUTSIDE RECORDS SUMMARY | 2024-07-21 16:41 | XMS_ITS | Encounter Summary ---
Author Organization [facility] Address [place] [address] Care Team Providers Care Digital Artist Name Role Phone Cheli Elias MD Primary Care Provider [phone] Reason for Visit * Reason Comments Annual Exam Encounter Details Date Type Department Care Team (Late st Contact Info) Description 10/27/2012 8:40 AM EDT Office Visit Internal Medicine at [address] [address] Cheli Elias MD [facility] [place] [address] Healthcare maintenance (Primary Dx); Psoriasis; Retinal tear; HTN (hypertension); Need for prophylactic vaccination with combined rdnrixaksv-brflprz-bs rtussis (DTP) vaccine Discharge Disposition: Home Social History Tobacco Use [...] Sign Reading Time Taken Comments Blood Pressure 158/88 10/27/2012 8:44 AM EDT Pulse 73 10/27/2012 8:44 AM EDT Temperature 36.8 ??C (98.2 ??F) 10/27/2012 8:44 AM ED T Respiratory Rate - - Oxygen Saturation 97% 10/27/2012 8:44 AM EDT Inhaled Oxygen Concentration - - Weight 139.3 kg (307 lb) 10/27/2012 8:44 AM EDT Height 176.5 cm (5' 9.5) 10/27/2012 8:44 AM EDT Body Mass Index 44.69 10/27/2012 8:44 AM EDT documented in this encounter Patient Instructions * Patient Instructions* Cheli Elias MD - 10/27/2012 9:42 AM EDT Blood pressure today was BP: 158/88 mmHg. This is not at goal. Goal blood pressure: <140/90 You mentioned that at home most BP in the teens or max 120s. You had salty meal last night , which you do rarely. Plan for improving blood pressure control: [] Change medication as follows: [x] Self management plan: Patient goal to address this: attempt to lose weight: has previously been able to lose 50 lbs; Planning to start 17-day diet low carb this week . What, when, how, where, how often, barriers [...] was made in collaboration with the patient/family. documented in this encounter Progress Notes * Cheli Elias MD - 10/27/2012 9:33 AM EDT Subjective: Patient ID: Samm Prince III is a 56 y.o. male. HPI Chief Complaint Patient presents with ??? Annual Exam Doing well, despite grief from his father's . His father had been in detention with end-stage Alzheimer's disease for years. Has noticed cold sensitivity in his hands for about 2 years, since being on ACEI; hands do not get white/ no classic Raynaud's, but feel cold and has to use warm packs in his gloves when skiing. Patient Active Problem List Diagnoses Code ??? 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 HTN (hypertension) 401.9 ??? Sleep apnea 780.57 ??? Detached retina 361.9 ??? Healthcare maintenance V70.0 ??? Tubular adenoma 229.9 ??? Psoriasis 696.1 ??? Retinal tear 361.00 Family History Problem Relation Age of Onset ??? Alzheimer Disease Father ??? Psoriasis Father ??? Cancer Father reports that he has never smoked. He has never used smokeless tobacco. He reports that he does not drink alcohol. Review of Systems Constitutional: Positive for unexpected weight change. HENT: Negative. Eyes: Positive for visual disturbance (flash of light, diagnosed as retinal tear- being watched closely by ophtalmology). Respiratory: Negative for cough, choking, chest tightness and shortness of breath. Cardiovascular: Negative. Gastrointestinal: Negative. Genitourinary: Negative. Musculoskeletal: Negative. Skin: Negative. Psychiatric/Behavioral: Negative. Objective:BP 158/88 Pulse 73 Temp(Src) 36.8 ??C (98.2 ??F) (Oral) Ht 176.5 cm (5' 9.5) Wt 139.254 kg (307 lb) BMI 44.69 kg/m2 SpO2 97% Physical Exam Vitals reviewed. Constitutional: He is oriented to person, place, and time. No distress. HENT: Head: Atraumatic. Right Ear: External ear normal. Left Ear: External ear normal. Mouth/Throat: Oropharynx is clear and moist. No uvula ( s/p uvulectomy) R ear with non-impacting cerumen Eyes: EOM are normal. Neck: Neck supple. No thyromegaly present. Cardiovascular: Normal rate and regular rhythm. No murmur heard. Pulmonary/Chest: Breath sounds normal. He has no wheezes. He has no rales. Abdominal: Soft. Genitourinary: Rectum normal and prostate normal. Musculoskeletal: Normal range of motion. Lymphadenopathy: He has no cervical adenopathy. Neurological: He is alert and oriented to person, place, and time. He has normal reflexes. Skin: Skin is warm and dry. Psychiatric: He has a normal mood and affect. His behavior is normal. Judgment and thought content normal. BP 158/88 Pulse 73 Temp(Src) 36.8 ??C (98.2 ??F) (Oral) Ht 176.5 cm (5' 9.5) Wt 139.254 kg(307 lb) BMI 44.69 kg/m2 SpO2 97% Assessment and Plan: Healthcare maintenance Preventive Care: CRC screening - 2009, due [...] - [] Immunization History Administered Date(s) Administered ??? Influenza Whole 07/05/2008, 05/21/2009, 06/06/2010 Diagnoses and associated orders for this visit: Healthcare maintenance - Lipid panel (fasting); Future - Glucose, fasting; Future - PSA Screen; Future - CMP w/fasting Glucose; Future - Tdap vaccine greater than or equal to 7yo IM - Request for Patient Education Materials Psoriasis Mild, controlled HTN (hypertension) Hypertension (High Blood Pressure) Plan of Care Blood pressure today was BP: 158/88 mmHg. This is not at goal. Goal blood pressure: <140/90 Patient reports that at home most BP in the teens or max 120s. Had salty meal last night , which hedoes rarely. Plan for improving blood pressure control: [...] the patient/family. Hypertension brochure given to patient. Htn (hypertension) - Lipid panel (fasting); Future - Glucose, fasting; Future - CMP w/fasting Glucose; Future documented in this encounter Miscellaneous Notes * Assessment & Plan Note - Cheli Elias MD - 10/27/2012 9:36 AM EDT Associated Problem(s): HTN (hypertension) Hypertension (High Blood Pressure) Plan of Care Blood pressure today was BP: 158/88 mmHg. This is not at goal. Goal blood pressure: <140/90 Patient reports that at home most BP in the teens or max 120s. Had salty meal last night , which hedoes rarely. Plan for improving blood pressure control: [...] the patient/family. Hypertension brochure given to patient. * Assessment & Plan Note - Cheli Elias MD - 10/27/2012 9:07 AM EDT Associated Problem(s): Psoriasis Mild, controlled * Assessment & Plan Note - Cheli Elias MD - 10/27/2012 8:57 AM EDT Associated Problem(s): Healthcare maintenance Preventive Care: CRC screening - 2009, due [...] - [] Immunization History Administered Date(s) Administered ??? Influenza Whole 07/05/2008, 05/21/2009, 06/06/2010 documented in this encounter Plan of Treatment Not on file documented as of this encounter Procedures Procedure Name Priority Date/Time Associated Diagnosis Comments CMP W/FASTING GLUCOSE Routine 10/27/2012 10:54 AM EDT Healthcare maintenance HTN (hypertension) PSA SCREEN Routine 10/27/2012 10:54 AM EDT Healthcare maintenance LIPID PANEL (REFLEX DIRECT LDL) Routine 10/27/2012 10:54 AM EDT Healthcare maintenance HTN (hypertension) documented in this encounter Results * CMP w/fasting Glucose (10/27/2012 10:54 AM EDT) [facility] Signature Glucose Fasting 98 65 - 99 mg/dL [facility] Comment: ?Fasting* Glucose Interpretive Criteria Normal ?65-99 [...] of Diabetes Mellitus, Position Statement from the [place] Diabetes Association. ??Diabetes Care, Volume 33, Supplement 1, Aug 2009 Blood Urea Nitrogen 20 10 - 20 mg/dL CERNER MILLENNIUM Creatinine 1.15 0.80 - 1.50 mg/dL CERNER MILLENNIUM Comment: Please note that the pediatric reference intervals supplied above were not validated at [facility]. Results from pediatric patients should be interpreted in conjunction to the patient's age, height and muscle mass. Sodium 136 135 - 145 mmol/L CERNER MILLENNIUM Potassium 4.6 3.5 - 5.0 mmol/L CERNER MILLENNIUM Comment: Please note: ??Patients with WBC >100,000 may have falsely elevated Potassium levels. ??For accurate Potassium quantification in these patients send serum separator tube (gold top) for subsequent determinations. ??Contact the Clinical Chemistry Laboratory if there are any questions. Chloride 105 98 - 107 mmol/L CERNER MILLENNIUM Carbon Dioxide 26 22 - 31 mmol/L CERNER MILLENNIUM Anion Gap 5 5 - 15 mmol/L CERNER MILLENNIUM Calcium 9.1 8.5 - 10.5 mg/dL CERNER MILLENNIUM Protein, Total 7.5 6.4 - 8.3 gm/dL CERNER MILLENNIUM Albumin 4.1 3.2 - 5.2 gm/dL CERNER MILLENNIUM Aspartate Aminotransferase 20 0 - 39 unit/L CERNER MILLENNIUM Alanine Aminotransferase 31 0 - 55 unit/L CERNER MILLENNIUM Alkaline Phosphatase 83 40 - 120 unit/L CERNER MILLENNIUM Bilirubin, Total 0.3 0.2 - 1.3 mg/dL CERNER MILLENNIUM Bilirubin, Direct <0.1 0.0 - 0.3 mg/dL CERNER MILLENNIUM Est Glomerular Filtration Rate >60 >=60 CERNER MILLENNIUM Comment: The National Kidney Disease Education Program (NKDEP) has recommended all laboratories report estimated GFR (eGFR) along with plasma creatinine measurements to assist you with recognition of early kidney disease. Caveats: ??Plasma creatinine should be at steady-state (unchanged within the past week). For patients multiply eGFR by 1.2. The MDRD equation was developed using patients between the ages of 18 and 70 years. ?? The MDRD equation has not been validated for patients < 18 years of age and should not be used to assess renal function in the pediatric population. ??The MDRD eGFR equation will also overestimate the true GFR of patients above the age of 70. ??This overestimation is variable but increases with age. At present, NKDEP does NOT recommend using [...] with diabetic kidney disease. References: http://nkdep.nih.gov/resources/NKDEP_Suggestn4Labs_0606_508.pdf http://www.kidney.org/professionals/kls/pdf/faq_gfr.pdf Moris K, Butch NA, Laura AK, Tom TS, Arsh AD, Sam TAMMIE. Relative performance of the MDRD and CKD-EPI equations for estimating glomerular filtration rate among patients with varied clinical presentations. Clin J Am Soc Nephrol;6:1963-72. Blood specimen (specimen) 10/27/2012 10:54 AM EDT 10/27/2012 12:36 PM EDT Narrative Resulting Agency Comment Spec In Lab Cheli Elias MD CHEMISTRY ORDERABLES REGINALDO WHITE * PSA Screen (10/27/2012 10:54 AM EDT) PSA Screen 1.65 0.00 - 4.00 ng/mL REGINALDO LUDIVINANICOLLE Blood specimen (specimen) 10/27/2012 10:54 AM EDT 10/27/2012 12:36 PM EDT Narrative Resulting Agency Comment Spec In Lab Cheli Elias MD CHEMISTRY ORDERABLES REGINALDO WHITE * Lipid panel (fasting) (10/27/2012 10:54 AM EDT) [facility] Signature Cholesterol, Total 162 <=199 mg/dL CERNER LUDIVINAENNIUM Comment: Recommendations of the NCEP Adult Treatment Panel for the following risk cutoff thresholds for the [place] population: Desirable: <200 mg/dL Borderline High: 200-239 mg/dL High: > or = 240 mg/dL Triglyceride 143 <=149 mg/dL CERNER MILLENNIUM Comment: Reference Range: Normal triglycerides: ??<150 mg/dL Borderline high: ??150-199 mg/dL High: ??200-499 mg/dL Very high: ??>mr=853 mg/dL ADAM 2001; 285(19):4451-5149 HDL Cholesterol 43 >=40 mg/dL CER NEL FLORENCEENNIUM Comment: Reference range: ??Low HDL: ?? < 40 mg/dL ??Normal: ?40-60 mg/dL ??Desirable: > 60 mg/dL ADAM 2001; 285(19):2918-3383 LDL Cholesterol 90 <=99 mg/dL CER NER MILLENNIUM Comment: Reference range: ?? Optimal: ?<100 mg/dL ?? Near Optimal/Above Optimal: ?? 100-129 mg/dL ?? Borderline high: ?130-159 mg/dL ?? High: ? 160-189 mg/dL ?? Very high: ?>bn=973 mg/dL ADAM 2001: 285(19):3207-8590 Cholesterol/HDL Ratio 3.8 ratio CERNER MILLENNIUM Comment: A Cholesterol to HDL ratio below 4:1 is desirable. ??Studies suggest that increased CAD risk occurs at ratios above 5 for females and above 6 for men. ? [place] Heart Association ??(http://www.americanheart.org) ? Antoinette Int Med, 1994; 121:641 ? AM J Med, 1998; 105(1A):48S Blood specimen (specimen) 10/27/2012 10:54 AM EDT 10/27/2012 12:36 PM EDT Narrative Resulting Agency Comment Spec In Lab Cheli Elias MD CHEMISTRY ORDERABLES Performing Organization Address City/State/[facility] Co de Phone Number [facility] documented in this encounter Visit Diagnoses Diagnosis Healthcare maintenance- Primary Routine general medical examination at a health care facility Psoriasis Other psoriasis Retinal tear Retinal detachment with retinal defect, unspecified HTN (hypertension) Unspecified essential hypertension Need for prophylactic vaccination with combined jrimduebtv-owuamjn-pducwljqj (DTP) vaccine documented in this encounter Care Teams Digital Artist Relationship Specialty Start Date End Date Cheli Elias MD [facility] [address] [place] [address] PCP - General 06/26/10 05/04/18 documented as of this encounter
--- OUTSIDE RECORDS SUMMARY | 2024-07-21 16:41 | XMS_ITS | Encounter Summary ---
Author Organization [facility] [place] [address] Care Team Providers Care Supervising Nurse Name Role Phone Marline Trimble MD Primary Care Provider [phone] Encounter Details Date Type Department Care Team (Late st Contact Info) Description 06/05/2010 [place] [id number] Ayden Carrillo MD GASTROENTEROLOGY Social History Tobacco Use Types Packs/Day Years Used Date Smoking Tobacco: Never Assessed Sex and Gender Information Value Date Recorded Sex Assigned at Not on file Gender Identity Not on file Sexual Orientation Not on file documented as of this encounter Plan of Treatment Not on file documented as of this encounter Procedures Procedure Name Priority Date/Time Associated Diagnosis Comments SURGICAL PATHOLOGY REPORT Routine 06/05/2010 10:39 AM EDT documented in this encounter Results * Surgical Pathology Report (06/05/2010 10:39 AM EDT) Surgical Pathology Report [id number] ? Location: 4T The signing pathologist has (i) examined the relevant preparation(s) for the specimen(s) and (ii) rendered or confirmed the diagnosis(es). . ?Pathology Surgical Pathology Final Report Clinical Information Specimen Submitted: A - R abdom Bx right colon, cecum, ascending, TR B - 1 mm sessile polyp, transverse colon C - Random Bx left colon, descending, sigmoid Clinical History: 54 yom with distant HX of ? colitis (1988) here for surveillance colonoscopy Clinical Diagnosis: Screening Gross Description A - Labeled/Fixative : Random BX right colon, cecum, ascending; formalin. Qty/Size/Weight: ?Five, ranging from 0.3 cm to 0.4 cm in greatest ?dimension. Tissue Description: ?? Soft, clemons tissues. Sections/Process ing: ??(T1) B - Labeled/Fixative : 1-mm sessile polyp transverse colon, formalin. Qty/Size/Weight: ?Single, 0.3 x 0.3 x 0.1 cm. Tissue Description: ?? Soft, clemons tissue. Sections/Process ing: ??(T1) C - Labeled/Fixative : Random BX left colon descending sigmoid, formalin. Qty/Size/Weight: ?Five, ranging from 0.4 cm to 0.6 cm in greatest ?dimension. Tissue Description: ?? Polypoid, pink-clemons tissues. Sections/Process ing: ??(T2) ??aje/EJR Microscopic Description Slides reviewed, microscopic description not recorded. Diagnosis Endoscopic biopsies - A. ??Colonic mucosa within normal limits. B. Tubular adenoma. C. Colonic mucosa within normal limits. CR-PX 06/06/10 AAS 06/06/10 Verified by: ? Jose Marin MD ?Pathologist ?(Electronic Signature) The attending pathologist whose signature appears on this report has reviewed all diagnostic slides and has edited the gross and/or microscopic portion of the report in rendering the final pathologic diagnosis. [facility] 06/05/2010 10:3 9 AM EDT Ayden Carrillo MD PATHOLOGY/CYTOLOGY O RDERABLES [facility] documented in this encounter Visit Diagnoses Not on filedocumented in this encounter Care Teams Supervising Nurse Relationship Specialty Start Date End Date Marline Trimble MD [facility] [place] [place] [address] PCP - General General Internal Medicine 05/05/1802/01 documented as of this encounter
--- OUTSIDE RECORDS SUMMARY | 2024-07-21 16:41 | XMS_ITS | Encounter Summary ---
[place] [address] Care Team Providers Care Wire Twisting Machine Operator Name Role Phone Cheli Elias MD Primary Care Provider [phone] Reason for Referral * Diagnostic Test (Routine) - Closed Specialty Diagnoses / Procedures Referred By Contac t Referred To Contact Radiology Diagnoses Acute meniscal injury of knee, left, initial encounter Procedures MRI Knee Left WO Contrast (GENERIC) Stanley Kelly MD [address] [address] [place] [address] Referral ID Status Reason Start Date Expiration Date V isits Requested Visits Authorized [id number] Closed Specialty Service Requested 01/10/2016 03/09/2016 1 1 Reason for Visit * Diagnostic Test (Routine) - Closed Specialty Diagnoses / Procedures Referred By Contac t Referred To Contact Radiology Diagnoses Acute meniscal injury of knee, left, initial encounter Procedures MRI Knee Left WO Contrast (GENERIC) Stanley Kelly MD [address] [address] [place] [address] Referral ID Status Reason Start Date Expiration Date V isits Requested Visits Authorized [id number] Closed Specialty Service Requested 01/10/2016 03/09/2016 1 1 Encounter Details Date Type Department Care Team (Latest Contact Info) Description 01/22/2016 5:47 PM EDT - 01/22/2016 11:59 PM EDT Hospital [place] [address] Stanley Kelly MD [address] [facility] [address] [place] [address] Acute meniscal injury of knee, left, initial encounter Discharge Disposition: Home Social History [...] Procedure Name Priority Date/Time Associated Diagnosis Comments MRI KNEE LEFT WO CONTRAST Routine 01/22/2016 6:31 PM EDT Acute meniscal injury of knee, left, initial encounter documented in this encounter Results * MRI Knee Left WO Contrast (GENERIC) (01/22/2016 6:31 PM EDT) Anatomical Region Laterality Modality Knee Left Magnetic Resonan ce Impressions 01/23/2016 9:56 AM EDT 1. ?? Radial tear posterior horn of the medial meniscus with associated tendinopathy at the posterior root ligament attachment. 2. ??Peritendinous inflammation of the pes anserine insertion. Narrative 01/23/2016 9:56 AM EDT EXAMINATION: MRI KNEE LEFT WO CONTRAST CLINICAL HISTORY: MED JOINTLINE TENDERNESS, + JAMES COMPARISON: X-rays 01/22/2016 TECHNIQUE: Routine noncontrast MRI of the Left knee was performed. The patient's knee was too large to fit into a dedicated knee coil. There is a decrease in signal intensity and contrast resolution as a result. FINDINGS: Edema is present within the subcutaneous fat. A joint effusion is present but it does not distend the joint. No popliteal cyst. No muscle injury. There is diffuse fat infiltration within the semimembranosus muscle consistent with atrophy. I do not see an obvious explanation for this focal atrophy. CRUCIATE LIGAMENTS: No cruciate tear. COLLATERAL LIGAMENTS: Edema outlines the medial collateral ligament but no ligament disruption is identified. The lateral collateral structures are normal in appearance.. TENDONS: Quadriceps insertion is normal. No injury seen at the patellar tendon. No popliteus muscle or tendon injury is seen. There is fluid signal intensity adjacent to the insertion of the pes anserine tendons consistent with peritendinous inflammation. Hamstring and adductor tendons are otherwise normal in appearance. MEDIAL COMPARTMENT: There is a radially oriented tear at the posterior horn the medial meniscus adjacent to the posterior root ligament. The tear involves approximately two thirds of the width of the meniscus. Additional tendinopathy and reactive bone marrow edema are seen at the posterior ligament insertion. Increased signal intensity within the posterior horn of the medial meniscus is consistent with intrameniscal degeneration. No additional tear is seen. No chondral injury is identified. No reactive edema.. LATERAL COMPARTMENT: No meniscal tear. No chondral injury. No reactive marrow edema. . PATELLOFEMORAL COMPARTMENT: No chondral injury. No reactive edema.. Procedure Note Delmer Feliciano MD - 01/23/2016 EXAMINATION: MRI KNEE LEFT WO CONTRAST CLINICAL HISTORY: MED JOINTLINE TENDERNESS, + JAMES COMPARISON: X-rays 01/22/2016 TECHNIQUE: Routine noncontrast MRI of the Left knee was performed. The patient's knee was too large to fit into a dedicated knee coil. Thereis a decrease in signal intensity and contrast resolution as a result. FINDINGS: Edema is present within the subcutaneous fat. A joint effusion is present but it does not distend the joint. No popliteal cyst. No muscle injury. There is diffuse fat infiltration within thesemimembranosus muscle consistent with atrophy. I do not see an obvious explanation forthis focal atrophy. CRUCIATE LIGAMENTS: No cruciate tear. COLLATERAL LIGAMENTS: Edema outlines the medial collateral ligament but no ligament disruptionis identified. The lateral collateral structures are normal in appearance.. TENDONS: Quadriceps insertion is normal. No injury seen at the patellar tendon. No popliteus muscle or tendon injury is seen. There is fluid signal intensity adjacent to the insertion of the pesanserine tendons consistent with peritendinous inflammation. Hamstring andadductor tendons are otherwise normal in appearance. MEDIAL COMPARTMENT: There is a radially oriented tear at the posterior horn the medialmeniscus adjacent to the posterior root ligament. The tear involves approximatelytwo thirds of the width of the meniscus. Additional tendinopathy and reactivebone marrow edema are seen at the posterior ligament insertion. Increased signal intensity within the posterior horn of the medialmeniscus is consistent with intrameniscal degeneration. No additional tear is seen. No chondral injury is identified. No reactive edema.. LATERAL COMPARTMENT: No meniscal tear. No chondral injury. No reactive marrow edema. . PATELLOFEMORAL COMPARTMENT: No chondral injury. No reactive edema.. IMPRESSION 1. Radial tear posterior horn of the medial meniscus with associated tendinopathy at the posterior root ligament attachment. 2. Peritendinous inflammation of the pes anserine insertion. Stanley Kelly MD IMG MRI ORDERABLES documented in this encounter Visit Diagnoses Diagnosis Acute meniscal injury of knee, left, initial encounter documented in this encounter Care Teams Wire Twisting Machine Operator Relationship Specialty Start Date End Date Cheli Elias MD [facility] [address] [facility] [address] PCP - General 06/26/10 05/04/18 documented as of this encounter
--- OUTSIDE RECORDS SUMMARY | 2024-07-21 16:41 | XMS_ITS | Encounter Summary ---
Author Organization [facility] Address [facility] [address] Care Team Providers Care Process Control Engineer Name Role Phone Cheli Elias MD Primary Care Provider [phone] Reason for Referral * Consultation (Routine) - Closed, reminder in system Specialty Diagnoses / Procedures Referred By Contmarissa t Referred To Contact Gastroenterology Diagnoses Healthcare maintenance Tubular adenoma Cheli Elias MD [facility] [place] [address] [facility] [address] [place] [address] Referral ID Status Reason Start Date Expiration Date Visits Requested Visits Authorized [id number] Closed, reminder in system Test Only 10/25/2014 10/25/2015 1 1 Reason for Visit * Reason Comments Pre-op Exam right eye on 11/03 and left 11/16 Hypertension Encounter Details Date Type Department Care Team (Latest Contact Info) Description 10/25/2014 9:45 AM EDT Office [place] [address] Cheli Elias MD [facility] [place] [address] Essential hypertension; Healthcare maintenance; Tubular adenoma; Need for hepatitis C screening test; Screening for HIV (human immunodeficiency virus); Body mass index (BMI) of 40.0-44.9 in adult Discharge Disposition: Home Social History Tobacco Use [...] Sign Reading Time Taken Comments Blood Pressure 134/73 10/25/2014 10:06 AM EDT Pulse 70 10/25/2014 10:06 AM EDT Temperature - - Respiratory Rate - - Oxygen Saturation 97% 10/25/2014 10:00 AM EDT Inhaled Oxygen Concentration - - Weight 138.3 kg (305 lb) 10/25/2014 10:06 AM EDT Height - - Body Mass Index 44.39 12/29/2013 4:04 PM EDT documented in this encounter Patient Instructions * Patient Instructions* Cheli Elias MD - 10/25/2014 10:29 AM EDT Body mass index is 44.41 kg/(m^2). Please continue Weight Watchers- weight loss is advisable at a rate of about 1 lb per week, not more! These are recommended guidelines: BMI is used as a screening tool to identify possible weight problems for adults. The standard weight status categories associated with BMI ranges for adults are shown in the following table. BMI Weight Status Below 18.5 Underweight 18.5 - 24.9 Normal 25.0 - 29.9 Overweight 30.0 and Above Obese According to the Dietary Guidelines for Americans 2010, a healthy eating plan: Emphasizes fruits, vegetables, whole grains, and fat-free or low-fat milk and milk products Includes lean meats, poultry, fish, beans, eggs, and nuts Is low in saturated fats, trans fats, cholesterol, salt (sodium), and added sugars Stays within your daily calorie needs Regular physical activity is one of the most important things you can do for your health. It can prevent many of the health problems that seem to come with age. It also helps your muscles grow stronger so you can keep doing your day-to-day activities without becoming dependent on others. Not doing any physical activity can be bad for you, no matter your age or health condition. Keep inmind, some physical activity is better than none at all. Your health benefits will also increase with the more physical activity that you do. For Important Health Benefits Adults need at least: 2 hours and 30 minutes (150 minutes) of moderate-intensity aerobic activity (i.e., brisk walking) every week and muscle-strengthening activities on 2 or more days a week that work all major muscle groups (legs, hips, back, abdomen, chest, shoulders, and arms). documented in this encounter Progress Notes * Cheli Elias MD - 10/25/2014 10:28 AM EDT Chief Complaint Patient presents with ??? Pre-op Exam right eye on 11/03 and left 11/16 ??? Hypertension HPI: 58 y.o. patient with above concerns (lens removal). Patient Active Problem List Diagnosis ??? Retinal tear L eye, currently being watched by Dr Soni in [facility] in [facility] ??? Detached retina R eye in aug 2010, x 2 ??? Healthcare maintenance Preventive Care: CRC screening - 2009, Due 2014 TA Prostate Ca screening - [] Lipids - [] DM screening - (Hgb, A1C or FBS) [] Seat belts - [] Immunizations: dT - 2006 outside [facility] ??? Tubular adenoma ??? Psoriasis ??? HTN (hypertension) ??? CIS - History of mild iritis ??? Sleep apnea a. status post uvulectomy. b. On CPAP at [id number] Reviewed and updated past medical history, past surgical history, [facility] Allergies Allergen Reactions ??? Benzocaine CIS - Hives, CIS - Hives ??? Benzoin CIS - Hives ??? Cetylpyridinium Chloride CIS - Hives ??? Menthol CIS - Hives ??? Phenol CIS - Hives ??? Sodium Phenolate CIS - Hives Current Outpatient Prescriptions on File Prior to Visit Medication Sig Dispense Refill ??? lisinopril (PRINIVIL;ZESTRIL) 10 mg Tablet Take 1 tablet by mouth daily. 90 tablet 3 ??? [DISCONTINUED] scopolamine (TRANSDERM-SCOP) 1.[address] 1 patch onto the skin every 3 days. 5 patch 0 No current facility-administered medications on file prior to visit. Review of Systems - General ROS: negative for - chills, fever or malaise Respiratory ROS: no cough, shortness of breath, or wheezing Cardiovascular ROS: no chest pain or dyspnea on exertion Gastrointestinal ROS: no abdominal pain, change in bowel habits, or black or bloody stools Genito-Urinary ROS: no dysuria, trouble voiding, or hematuria Musculoskeletal ROS: negative Neurological ROS: no TIA or stroke symptoms Physical Exam: BP 134/73 Pulse 70 Wt 138.347 kg (305 lb) SpO2 97% The patient appeared well nourished and normally developed. Vital signs as documented. Head exam is unremarkable. Conjunctivae normal. Neck is without thyromegally, or lymphadenopathy. Lungs are clear to auscultation without wheezes or rales Cardiac exam:Regular rate and rhythm. No murmurs, rubs or gallops. Abdominal exam reveals normal bowel sounds, soft to palpation, no hepatomegaly Extremities are non-edematous Lab Results Component Value Date CHLPL 162 10/27/2012 CHLPL 136 05/16/2011 Lab Results Component Value Date HDL 43 10/27/2012 HDL 51 05/16/2011 Lab Results Component Value Date LDLCHOL 90 10/27/2012 LDLCHOL 71 05/16/2011 Lab Results Component Value Date TRIG 143 10/27/2012 TRIG 69 05/16/2011 Lab Results Component Value Date CHOLHDL 3.8 10/27/2012 CHOLHDL 2.7 05/16/2011 Lab Results Component Value Date GLUCFASTING 98 10/27/2012 Assesment and Plan: Blood work today, no acute conditions identified and chronic conditions are controlled; no additional testing required pre-op. Surgical risk is minimal and patient risk is low as well. No need identified to delay surgery. Patient Active Problem List Diagnosis Code ??? 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 HTN (hypertension): controlled; check BMP, cholesterol, A1c today 401.9 ??? Sleep apnea 780.57 ??? Detached retina 361.9 ??? Healthcare maintenance V70.0 ??? Tubular adenoma: colo due this year 229.9 ??? Psoriasis 696.1 ??? Retinal tear 361.00 ??? Body mass index (BMI) of 40.0-44.9 in adult V85.41 Health Maintenance Summary Influenza (Flu) vaccine Overdue 04/04/2014 Done 08/18/2013 Imm Admin: Influenza Vaccine w/Preservative, Split Patient has more history with this topic... Hepatitis C screening (B. [id number]) Overdue 1996 HIV one time screen Overdue 1974 Tetanus vaccine Next Due 10/27/2022 Done 10/27/2012 Imm Admin: Tdap Vaccine Colonoscopy every 5 yrs Next Due 06/05/2015 Done 06/05/2010 TA Tdap adult This plan is no longer active. Done 10/27/2012 Imm Admin: Tdap Vaccine Samm was seen today for pre-op exam and hypertension. Diagnoses and associated orders for this visit: Essential hypertension - Basic Metabolic Panel (non-fasting); Future - Hemoglobin A1c; Future - HDL/Cholesterol Profile; Future - LDL Cholesterol, Direct; Future - Basic Metabolic Panel (non-fasting) - Hemoglobin A1c - HDL/Cholesterol Profile - LDL Cholesterol, Direct Healthcare maintenance - Referral to Gastroenterology Tubular adenoma - CBC (with Diff); Future - CBC (with Diff) - Hemogram - Differential, Automated - Referral to Gastroenterology Need for hepatitis C screening test - Hepatitis C Antibody; Future - Hepatitis C Antibody Screening for HIV (human immunodeficiency virus) - HIV Screen, 4th Generation; Future - HIV Screen, 4th Generation Body mass index (BMI) of 40.0-44.9 in adult Patient Instructions Body mass index is 44.41 kg/(m^2). Please continue Weight Watchers- weight loss is advisable at a rate of about 1 lb per week, not more! These are recommended guidelines: BMI is used as a screening tool to identify possible weight problems for adults. The standard weight status categories associated with BMI ranges for adults are shown in the following table. BMI Weight Status Below 18.5 Underweight 18.5 - 24.9 Normal 25.0 - 29.9 Overweight 30.0 and Above Obese According to the Dietary Guidelines for Americans 2010, a healthy eating plan: Emphasizes fruits, vegetables, whole grains, and fat-free or low-fat milk and milk products Includes lean meats, poultry, fish, beans, eggs, and nuts Is low in saturated fats, trans fats, cholesterol, salt (sodium), and added sugars Stays within your daily calorie needs Regular physical activity is one of the most important things you can do for your health. It can prevent many of the health problems that seem to come with age. It also helps your muscles grow stronger so you can keep doing your day-to-day activities without becoming dependent on others. Not doing any physical activity can be bad for you, no matter your age or health condition. Keep inmind, some physical activity is better than none at all. Your health benefits will also increase with the more physical activity that you do. For Important Health Benefits Adults need at least: 2 hours and 30 minutes (150 minutes) of moderate-intensity aerobic activity (i.e., brisk walking) every week and muscle-strengthening activities on 2 or more days a week that work all major muscle groups (legs, hips, back, abdomen, chest, shoulders, and arms). documented in this encounter Plan of Treatment Scheduled Referrals Name Type Priority Associated Diagnoses Order Schedule Referral to Gastroenterology Outpatient Referral Routine Healthcare maintenance Tubular adenoma Ordered: 10/25/2014 documented as of this encounter Procedures Procedure Name Priority Date/Time Associated Diagnosis Comments HEPATITIS C ANTIBODY Routine 10/25/2014 12:44 PM EDT Need for hepatitis C screening test HIV SCREEN, 4TH GENERATION ([facility]/CGP/APD/[facility]H) Routine 10/25/2014 12:44 PM EDT Screening for HIV (human immunodeficiency virus) LDL CHOLESTEROL, DIRECT Routine 10/25/2014 12:44 PM EDT Essential hypertension HDL/CHOL PROFILE Routine 10/25/2014 12:4 4 PM EDT Essential hypertension HEMOGLOBIN A1C Routine 10/25/2014 12:44 PM EDT Essential hypertension BASIC METABOLIC PANEL Routine 10/25/2014 12:44 PM EDT Essential hypertension documented in this encounter Results * LDL Cholesterol, Direct (10/25/2014 12:44 PM EDT) LDL Cholesterol, Direct 91 <=99 mg/dL [facility] Comment: The National Cholesterol Education Program (NCEP) has set the following guidelines for LDL Cholesterol: Reference range: ?? Optimal: ?<100 mg/dL ?? Near Optimal/Above Optimal: ?? 100-129 mg/dL ?? Borderline high: ?130-159 mg/dL ?? High: ? 160-189 mg/dL ?? Very high: ?>qd=798 mg/dL ADAM 2001: 285(19):2532-0885 Blood specimen (specimen) 10/25/2014 12:44 PM EDT 10/25/2014 6:02 PM EDT Narrative Resulting Agency Comment Spec In Lab Cheli Elias MD CHEMISTRY ORDERABLES [facility] * HDL/Cholesterol Profile (10/25/2014 12:44 PM EDT) Cholesterol, Total 144 <=199 mg/dL [facility] Comment: Recommendations of the NCEP Adult Treatment Panel for the following risk cutoff thresholds for the [place] population: Desirable: <200 mg/dL Borderline High: 200-239 mg/dL High: > or = 240 mg/dL HDL Cholesterol 41 >=40 mg/dL DOMINGUEZ NEUMANN [facility] Comment: Reference range: ??Low HDL: ?? < 40 mg/dL ??Normal: ?40-60 mg/dL ??Desirable: > 60 mg/dL ADAM 2001; 285(19):1055-9458 Cholesterol/HDL Ratio 3.5 ratio [facility]DO [facility] Comment: A Cholesterol to HDL ratio below 4:1 is desirable. ??Studies suggest that increased CAD risk occurs at ratios above 5 for females and above 6 for men. ? [place] Heart Association ??(http://www.americanheart.org) ? Antoinette Int Med, 1994; 121:641 ? AM J Med, 1998; 105(1A):48S Blood specimen (specimen) 10/25/2014 12:44 PM EDT 10/25/2014 6:02 PM EDT Narrative Resulting Agency Comment Spec In Lab Cheli Elias MD CHEMISTRY ORDERABLES [facility] * (ABNORMAL) Hemoglobin A1c (10/25/2014 12:44 PM EDT) Hemoglobin A1c 5.9(H) 4.3 - 5.6 % [facility] Comment: Reference Range: 4.3 - 5.6% 5.7 - 6.4% - Increased Risk of Developing Diabetes Mellitus 6.5% - Consistent with diagnosis of Diabetes Mellitus In the absence of hyperglycemia (i.e. plasma glucose > 200 mg/dL) or classic symptoms of hyperglycemia a repeat measurement of HbA1c should be performed on a separate sample to confirm the diagnosis. Diagnosis and Classification of Diabetes Mellitus, Diabetes Care 2013; 36: Suppl. 1, S67-74 Estimated Average Glucose 123 mg/dL [facility] Comment: eAG equivalents for HbA1c percentages: HbA1c(%) ?eAG(mg/dL) 6.0 ?126 6.5 ?140 7.0 ?154 7.5 ?169 8.0 ?183 8.5 ?197 9.0 ?212 9.5 ?226 10.0 ? 240 Limitations: The eAG calculation has not been validated on women, individuals below 18 years old and above 70 years old, and individuals with hemoglobinopathies. Additional resources are available on the ADA website: [email or web address]/[email or web address] [place] MARSH, Bettina J, Brayan R, et al. ??Translating the A1C assay into estimated average glucose values. ??Diabetes Care 2008:31(8):6176-4285. Blood specimen (specimen) 10/25/2014 12:44 PM EDT 10/25/2014 6:02 PM EDT Narrative Resulting Agency Comment Spec In Lab Cheli Elias MD CHEMISTRY ORDERABLES [facility] * (ABNORMAL) Basic Metabolic Panel (non-fasting) (10/25/2014 12:44 PM EDT) Glucose 88 60 - 199 mg/dL [facility] Comment:Diabetes: >=200 mg/d L plus symptoms Blood Urea Nitrogen 23(H) 10 - 20 mg/dL [facility] Creatinine 0.96 0.80 - 1.50 mg/dL [facility] Comment: Please note that the pediatric reference intervals supplied above were not validated at [facility]. Results from pediatric patients should be interpreted in conjunction to the patient's age, height and muscle mass. Sodium 141 135 - 145 mmol/L [facility] Potassium 5.0 3.5 - 5.0 mmol/L [facility] Comment: Please note: ??Patients with WBC >100,000 may have falsely elevated Potassium levels. ??For accurate Potassium quantification in these patients send serum separator tube (gold top) for subsequent determinations. ??Contact the Clinical Chemistry Laboratory if there are any questions. Chloride 102 98 - 107 mmol/L [facility] Carbon Dioxide 24 22 - 31 mmol/L [facility] Anion Gap 15 5 - 15 mmol/L [facility] Calcium 9.3 8.5 - 10.5 mg/dL [facility] Est Glomerular Filtration Rate >60 >=60 [facility] Comment: This estimated GFR (eGFR) value was [...] the following links into your internet browser. [email or web address] [email or web address] Blood specimen (specimen) 10/25/2014 12:44 PM EDT 10/25/2014 6:02 PM EDT Narrative Resulting Agency Comment Spec In Lab Cheli Elias MD CHEMISTRY ORDERABLES Performing Organization Address [facility] de Phone Number [facility] * HIV Screen, 4th Generation (10/25/2014 12:44 PM EDT) HIV Ab/Ag Screen Negative Negative [facility] Comment: This 4th Generation HIV test screens for the presence of the HIV-1 p24 antigen as well as antibodies reactive against HIV-1 and HIV-2. A negative screen does not rule out an acute HIV infection. If acute HIV infection is suspected, testing should be repeated in 2 - 3 weeks or HIV nucleic acid testing performed. Blood specimen (specimen) 10/25/2014 12:44 PM EDT 10/25/2014 6:02 PM EDT Narrative Resulting Agency Comment Spec In Lab Cheli Elias MD CHEMISTRY ORDERABLES Performing Organization Address [facility] Phone Number [facility] * Hepatitis C Antibody (10/25/2014 12:44 PM EDT) Hepatitis C Antibody Negative Negative [facility] Blood specimen (specimen) 10/25/2014 12:44 PM EDT 10/25/2014 6:02 PM EDT Narrative Resulting Agency Comment Spec In Lab Cheli Elias MD CHEMISTRY ORDERABLES Performing Organization Address [facility] Phone Number [facility] documented in this encounter Visit Diagnoses Diagnosis Essential hypertension Unspecified essential hypertension Healthcare maintenance Routine general medical examination at a health care facility Tubular adenoma Benign neoplasm of unspecified site Need for hepatitis C screening test Special screening examination for other specified viral diseases Screening for HIV (human immunodeficiency virus) Special screening examination for other specified viral diseases Body mass index (BMI) of 40.0-44.9 in adult Body Mass Index 40.0-44.9, adult documented in this encounter Care Teams Process Control Engineer Relationship Specialty Start Date End Date Cheli Elias MD [facility] [address] [place] [address] PCP - General 06/26/10 05/04/18 documented as of this encounter
--- OUTSIDE RECORDS SUMMARY | 2024-07-21 16:41 | XMS_ITS | Encounter Summary ---
[place] [address] Care Team Providers Care Under Trimmer Name Role Phone Unavailable Primary Care Provider Unavailabl e Encounter Details Date Type Department Care Team (Late st Contact Info) Description 06/05/2010 7:00 AM EDT Procedure [place] [address] Ayden Carrillo MD Social History Tobacco Use Types Packs/Day Years [...]
--- OUTSIDE RECORDS SUMMARY | 2024-07-21 16:41 | XMS_ITS | Encounter Summary ---
Author Organization [facility] [place] [address] Care Team Providers Care Centerless Grinder Name Role Phone Cheli Elias MD Primary Care Provider [phone] Reason for Visit * Reason Onset Date Comments Medication Refill 08/07/2011 Encounter Details Date Type Department Care Team (Late st Contact Info) Description 08/07/2011 Refill Internal Medicine at [address] [facility] [place] [address] Social History Tobacco Use Types Packs/Day Years [...] on filedocumented in this encounter Care Teams Centerless Grinder Relationship Specialty Start Date End Date Cheli Elias MD [facility] [address] [place] [address] PCP - General 06/26/10 05/04/18 documented as of this encounter
--- OUTSIDE RECORDS SUMMARY | 2024-07-21 16:41 | XMS_ITS | Encounter Summary ---
Author Organization [facility] [place] [address] Care Team Providers Care Production Artist Name Role Phone Cheli Elias MD Primary Care Provider [phone] Reason for Visit * Reason Comments Obstructive Sleep Apnea Encounter Details Date Type Department Care Team (Late st Contact Info) Description 01/13/2012 2:40 PM EDT Office [place] [address] Alexandrea Nevarez, DEBRA ANNELISE on CPAP (Primary Dx) Social History Tobacco Use Types [...] Sign Reading Time Taken Comments Blood Pressure 170/90 01/13/2012 2:51 PM EDT Pulse 75 01/13/2012 2:51 PM EDT Temperature - - Respiratory Rate - - Oxygen Saturation - - Inhaled Oxygen Concentration - - Weight 131.9 kg (290 lb 12.8 oz) 01/13/2012 2:51 PM EDT Height 175.3 cm (5' 9) 01/13/2012 2:51 PM EDT Body Mass Index 42.94 01/13/2012 2:51 PM EDT documented in this encounter Progress Notes * Alexandrea Nevarez APRN - 01/13/2012 3:29 PM EDT Report of Outpatient Follow up: History of Present Illness: Mr. Samm Macdonald III is a 56-year-old gentleman with a history of obesity, hypertension, [...] since initiating CPap treatment. Pt has lost 32 lbs since starting CPap treatment, and denies any air intolerance issues of any sort. Notes no air leakage from his mask, no nasal congestion, no excess dry mouth. Current Compliance Download (covers 07/17/11- 01/12/12) indicates: AHI= 0.2 , avg daily use= 6'17, avg vibratory snore index= 1.5, avg leak= 43. Today's Atkins Score is 3/24, indicating no daytime sleepiness. Pt asserts that he remains safe behind the wheel- no close calls. Current Sleep Habitus: Mr. Cotter continues with some variability in his sleep regimen- can go to bed anywhere bet. 10p-1a; he applies his FFM and is asleep promptly in side-lying position. He will generally have 1 MCA to urinate, but is able to reapply mask and return to sleep easily thereafter. He starts his day bet. 6-8a, feeling refreshed. Physical Examination: Pt is a 56 y.o. male , avg ht, current weight is 290, indicating a 32 lb wt loss (10 lb gain since last appt 01/12) since his appt in 2009. Pt is pleasant, coop with interview; face is very reddened with dermatitis in mask contact areas. ACTIVE PROBLEM LIST ANNELISE Assessment: Pt is a 56 y.o. Male with previously dg'd severe ANNELISE; he has been using his CPap machine very consistently (boasts that he is even bringing the equipment along on trips nowadays!) Though is still having very significant dermatologic reaction from the silicone liner of his mask. Although he feels that the FFM is fitting comfortably and without leakage, I have suggested that he be refit for a nasalpillows mask and chinstrap to reduce the contact to his skin. Otherwise no further changes warranted; pt to RTC in 1 yr /PRN. ICSD diagnosis (code): 327.23 Provisional: Final: Obstructive sleep apnea Recommendations: 1. Maintain CPap at _11_ cm H2O with/without ramp, and heated humidifier 2. Reviewed driving safety; pt is encouraged to ear pull machine operator and nap if feeling unsafe behind the wheel at any time. 3. RTC 1 yr/PRN documented in this encounter Plan of Treatment Not on file documented as of this encounter Visit Diagnoses Diagnosis ANNELISE on CPAP- Primary Obstructive sleep apnea (adult) (pediatric) documented in this encounter Care Teams Production Artist Relationship Specialty Start Date End Date Cheli Elias MD [facility] [address] [facility] [place] [address] PCP - General 06/26/10 05/04/18 documented as of this encounter
--- OUTSIDE RECORDS SUMMARY | 2024-07-21 16:41 | XMS_ITS | Encounter Summary ---
Author Organization [facility] Address [facility] [place] [address] Care Team Providers Care Buzzle Buffer Name Role Phone Cheli Elias MD Primary Care Provider [phone] Encounter Details Date Type Department Care Team (Late st Contact Info) Description 06/25/2010 [place] [id number] Cheli Elias MD [facility] [address] [place] [address] Social History Tobacco Use Types Packs/Day Years Used Date Smoking Tobacco: Never Assessed Sex and Gender Information Value Date Recorded Sex Assigned at Not on file Gender Identity Not on file Sexual Orientation Not on file documented as of this encounter Plan of Treatment Not on file documented as of this encounter Procedures Procedure Name Priority Date/Time Associated Diagnosis Comments BASIC METABOLIC PANEL Routine 06/25/2010 10:29 AM EST documented in this encounter Results * BASIC METABOLIC PANEL (NON-FASTING) (06/25/2010 10:29 AM EST) Glucose 111 <=199 mg/dL CERNER MILLENNIUM Comment:Diabetes: >=200 mg/d L plus symptoms Blood Urea Nitrogen 19 10 - 20 mg/dL CERNER MILLENNIUM Creatinine 0.99 0.80 - 1.50 mg/dL CERNER MILLENNIUM Sodium 139 135 - 145 mmol/L CERNER MILLENNIUM Potassium 4.1 3.5 - 5.0 mmol/L CERNER MILLENNIUM Comment: Please note: ??Patients with WBC >100,000 may have falsely elevated Potassium levels. ??For accurate Potassium quantification in these patients send serum separator tube (gold top) for subsequent determinations. ??Contact the Clinical Chemistry Laboratory if there are any questions. Chloride 107 98 - 107 mmol/L CERNER MILLENNIUM Carbon Dioxide 23 22 - 31 mmol/L CERNER MILLENNIUM Anion Gap 9 5 - 15 mmol/L CERNER MILLENNIUM Calcium 9.5 8.5 - 10.5 mg/dL CERNER MILLENNIUM Est Glomerular Filtration Rate >60 >=60 CERNER MILLENNIUM Comment: The National Kidney Disease Education Program (NKDEP) has recommended all laboratories report estimated GFR (eGFR) along with plasma creatinine measurements to assist you with recognition of early kidney disease. Caveats: ??Plasma creatinine should be at steady-state (unchanged within the past week). ??Patient age > = 18 years, and for Americans multiply eGFR by 1.2. At present, NKDEP does NOT recommend using [...] disease. References: http://nkdep.nih.gov/resources/NKDEP_Suggestn4Labs_0606_508.pdf http://www.kidney.org/professionals/kls/pdf/faq_gfr.pdf Blood specimen (specimen) 06/25/2010 10:29 AM EST 06/25/2010 12:34 PM EST Cheli Elias MD CHEMISTRY ORDERABLES REGINALDO WHITE documented in this encounter Visit Diagnoses Not on filedocumented in this encounter Care Teams Buzzle Buffer Relationship Specialty Start Date End Date Cheli Elias MD [facility] [address] [place] [address] PCP - General 06/26/10 05/04/18 documented as of this encounter
--- OUTSIDE RECORDS SUMMARY | 2024-07-21 16:41 | XMS_ITS | Encounter Summary ---
Author Organization [facility] [place] [address] Care Team Providers Care Rn Relief Charge Name Role Phone Cheli Elias MD Primary Care Provider + [phone] Reason for Visit * Reason Onset Date Comments Medication Refill 04/15/2011 Encounter Details Date Type Department Care Team (Late st Contact Info) Description 04/15/2011 Refill Internal Medicine at [address] [address] Cheli Elias MD [facility] [place] [address] Social History Tobacco Use Types Packs/Day Years Used Date Smoking Tobacco: Never Assessed Sex and Gender Information Value Date Recorded Sex Assigned at Not on file Gender Identity Not on file Sexual Orientation Not on file documented as of this encounter Plan of Treatment Not on file documented as of this encounter Visit Diagnoses Not on filedocumented in this encounter Care Teams Rn Relief Charge Relationship Specialty Start Date End Date Cheli Elias MD [facility] [place] [address] PCP - General 06/26/10 05/04/18 documented as of this encounter
--- OUTSIDE RECORDS SUMMARY | 2024-07-21 16:41 | XMS_ITS | Encounter Summary ---
[place] [address] Care Team Providers Care Clerical Specialist Name Role Phone Cheli Elias MD Primary Care Provider [phone] Reason for Visit * Reason Onset Date Comments Other 10/26/2014 Encounter Details Date Type Department Care Team (Late st Contact Info) Description 10/26/2014 Telephone Internal Medicine at [address] [address] Luz Johnson Other Social History Tobacco Use Types Packs/Day [...] Telephone Encounter - Skyla Haines RN - 10/26/2014 10:04 AM EDT TC to patient; informed of clotted blood tube. He will call back tomorrow to schedule repeat CBC. Order reentered. * Telephone Encounter - Luz Green - 10/26/2014 8:21 AM EDT [facility] [place] called stating they couldn't run patient's CBC when they received it last night because itwas clotted documented in this encounter Plan of Treatment Not on file documented as of this encounter Visit Diagnoses Diagnosis Benign neoplasm of unspecified site documented in this encounter Care Teams Clerical Specialist Relationship Specialty Start Date End Date Cheli Elias MD [facility] [address] [place] [address] PCP - General 06/26/10 05/04/18 documented as of this encounter
--- OUTSIDE RECORDS SUMMARY | 2024-07-21 16:41 | XMS_ITS | Encounter Summary ---
Author Organization [facility] [place] [address] Care Team Providers Care Transit Planning Manager Name Role Phone Cheli Elias MD Primary Care Provider + [phone] Encounter Details Date Type Department Care Team (Late st Contact Info) Description 06/05/2010 Orders Only Lab [facility] [place] [id number] Ayden Carrillo MD Social History Tobacco Use [...] EDT documented in this encounter Results * PATHOLOGY SURGICAL PATHOLOGY FINAL REPORT (06/05/2010 10:39 AM EDT) Surgical Pathology Report ? [facility] ? Provider: ?? AYDEN CARRILLO ?Pt. Name: ?? SAMM PRINCE III ? Acc #: ?[id number] ?Pt. ? Col Date: ?? 06/05/2010 ? /Sex: ?1955,(54 years),Male ? Rec Date: ?? 06/05/2010 ? LOC: ?4T ? SURGICAL PATHOLOGY ? ---Pathologic Diagnosis--- ? Endoscopic biopsies - ? A. Colonic mucosa within normal limits. ? B. Tubular adenoma. ? C. Colonic mucosa within normal limits. ? CR-PX ? 06/06/10 ? AAS ? 06/06/10 Verified by: ? Jose Marin MD ? Pathologist ? (Electronic Signature) ? The attending pathologist whose signature appears on this report has ? reviewed all diagnostic slides and has edited the gross and/or ? microscopic portion of the report in rendering the final pathologic ? diagnosis. ? ---Microscopic Description--- ? Slides reviewed, microscopic description not recorded. ? ---Gross Description--- ? A - Labeled/Fixative : Random BX right colon, cecum, ascending; formalin. ? Qty/Size/Weight: ?Five, ranging from 0.3 cm to 0.4 cm in greatest ? dimension. ? Tissue Description: ?? Soft, clemons tissues. ? Sections/Process ing: ??(T1) ? B - Labeled/Fixative : 1-mm sessile polyp transverse colon, formalin. ? Qty/Size/Weight: ?Single, 0.3 x 0.3 x 0.1 cm. ? Tissue Description: ?? Soft, clemons tissue. ? Sections/Process ing: ??(T1) ? C - Labeled/Fixative : Random BX left colon descending sigmoid, formalin. ? Qty/Size/Weight: ?Five, ranging from 0.4 cm to 0.6 cm in greatest ? dimension. ? Tissue Description: ?? Polypoid, pink-clemons tissues. ? Sections/Process ing: ??(T2) ??aje/EJR ? [facility] ? Provider: ?? AYDEN CARRILLO ?Pt. Name: ?? SURESH III, SAMM R ? Acc #: ?[id number] ?Pt. ? Col Date: ?? 06/05/2010 ? /Sex: ?1955,(54 years),Male ? Rec Date: ?? 06/05/2010 ? LOC: ?4T ? SURGICAL PATHOLOGY ? ---Clinical Information--- ? Specimen Submitted: ? A - R abdom Bx right colon, cecum, ascending, TR ? B - 1 mm sessile polyp, transverse colon ? C - Random Bx left colon, descending, sigmoid ? Clinical History: ? 54 yom with distant HX of ? colitis (1988) here for surveillance ? colonoscopy ? Clinical Diagnosis: ? Screening CERNER MILLENNIUM 06/05/2010 10:3 9 AM EDT Ayden Carrillo MD PATHOLOGY/CYTOLOGY O RDERABLES REGINALDO HUTSONIUM documented in this encounter Visit Diagnoses Not on filedocumented in this encounter Care Teams Transit Planning Manager Relationship Specialty Start Date End Date Cheli Elias MD [facility] GENER[facility] [place] [address] PCP - General 06/26/10 05/04/18 documented as of this encounter
--- OUTSIDE RECORDS SUMMARY | 2024-07-21 16:41 | XMS_ITS | Encounter Summary ---
Author Organization [facility] [place] [address] Care Team Providers Care Print Shop Assistant Name Role Phone Cheli Elias MD Primary Care Provider [phone] Encounter Details Date Type Department Care Team (Late st Contact Info) Description 07/10/2010 9:10 AM EST Follow-[place] [address] Alexandrea Nevarez, DEBRA Social History Tobacco Use Types Packs/Day Years Used Date Smoking Tobacco: Never Assessed Sex and Gender Information Value Date Recorded Sex Assigned at Not on file Gender Identity Not on file Sexual Orientation Not on file documented as of this encounter Plan of Treatment Not on file documented as of this encounter Visit Diagnoses Not on filedocumented in this encounter Care Teams Print Shop Assistant Relationship Specialty Start Date End Date Cheli Elias MD [facility] [address] [address] PCP - General 06/26/10 05/04/18 documented as of this encounter
--- OUTSIDE RECORDS SUMMARY | 2024-07-21 16:41 | XMS_ITS | Encounter Summary ---
Author Organization [facility] Address [facility] [place] [address] Care Team Providers Care Solar Manufacturer'S Representative Name Role Phone Cheli Elias MD Primary Care Provider + [phone] Reason for Visit * Reason Onset Date Comments Medication Refill 10/05/2014 Encounter Details Date Type Department Care Team (Late st Contact Info) Description 10/05/2014 Refill Internal Medicine at [address] [address] Naomy Baer Social History Tobacco Use Types Packs/Day Years [...] on filedocumented in this encounter Care Teams Solar Manufacturer'S Representative Relationship Specialty Start Date End Date Cheli Elias MD [facility] [address] [place] [address] PCP - General 06/26/10 05/04/18 documented as of this encounter
--- OUTSIDE RECORDS SUMMARY | 2024-07-21 16:41 | XMS_ITS | Encounter Summary ---
Author Organization [facility] Address [facility] [place] [address] Care Team Providers Care Detail Assembler Name Role Phone Cheli Elias MD Primary Care Provider [phone] Reason for Visit * Reason Comments URI facial pain Facial Pain runny nose Encounter Details Date Type Department Care Team (Late st Contact Info) Description 06/06/2015 3:00 PM EST Office Visit Internal Medicine at [address] [address] Meredith Garcia MD [facility] [place] [address] Viral sinusitis Social History Tobacco Use Types Packs/Day Years [...] Sign Reading Time Taken Comments Blood Pressure 161/83 06/06/2015 3:23 PM EST Pulse 72 06/06/2015 3:23 PM EST Temperature 36.9 ??C (98.5 ??F) 06/06/2015 3:23 PM ES T Respiratory Rate - - Oxygen Saturation 97% 06/06/2015 3:23 PM EST Inhaled Oxygen Concentration - - Weight 141.5 kg (312 lb) 06/06/2015 3:23 PM EST Height 176.5 cm (5' 9.5) 06/06/2015 3:23 PM EST Body Mass Index 45.41 06/06/2015 3:23 PM EST documented in this encounter Patient Instructions * Patient Instructions* Meredith Garcia - 06/06/2015 4:42 PM EST Images from the original note were not included. [facility] Sinusitis: After Your Visit Your Care Instructions Sinusitis is an infection of the lining of the sinus cavities in your head. Sinusitis often followsa cold. It causes pain and pressure in your head and face. In most cases, sinusitis gets better on its own in 1 to 2 weeks. But some mild symptoms may last for several weeks. Sometimes antibiotics are needed. Follow-up care is a bueno part of your treatment and safety. Be sure to make and go to all appointments, and call your doctor if you are having problems. It's also a good idea to know your test resultsand keep a list of the medicines you take. How can you care for yourself at home? ?? Take an uksl-mkm-tpavmvx pain medicine, such as acetaminophen (Tylenol), ibuprofen (Advil, Motrin), or naproxen (Aleve). Read and follow all instructions on the label. ?? If the doctor prescribed antibiotics, take them as directed. Do not stop taking them just because you feel better. You need to take the full course of antibiotics. ?? Be careful when taking sizr-mbv-vsnxnpd cold or flu medicines and Tylenol at the same time. Manyof these medicines have acetaminophen, which is Tylenol. Read the labels to make sure that you are not taking more than the recommended dose. Too much acetaminophen (Tylenol) can be harmful. ?? Breathe warm, moist air from a steamy shower, a hot bath, or a sink filled with hot water. Avoidcold, dry air. Using a humidifier in your home may help. Follow the directions for cleaning the machine. ?? Use saline (saltwater) nasal washes to help keep your nasal passages open and wash out mucus andbacteria. You can buy saline nose drops at a grocery store or drugstore. Or you can make your own at home by adding 1 teaspoon of salt and 1 teaspoon of baking soda to 2 cups of distilled water. If you make your own, fill a bulb syringe with the solution, insert the tip into your nostril, and squeeze gently. Blow your nose. ?? Put a hot, wet towel or a warm gel pack on your face 3 or 4 times a day for 5 to 10 minutes eachtime. ?? Try a decongestant nasal spray like oxymetazoline (Afrin). Do not use it for more than [address]. Using it for more than 3 days can make your congestion worse. When should you call for help? Call your doctor now or seek immediate medical care if: ?? You have new or worse swelling or redness in your face or around your eyes. ?? You have a new or higher fever. Watch closely for changes in your health, and be sure to contact your doctor if: ?? You have new or worse facial pain. ?? The mucus from your nose becomes thicker (like pus) or has new blood in it. ?? You are not getting better as expected. Where can you learn more? Visit our health information library at [email or web address] You can also view health information on Twit[employer]ump, your personal patient account. Log in or sign up today. Enter I933 in the search box to learn more about Sinusitis: After Your Visit. ?? [id number] [employer]ple[employer]. Care instructions adapted under license by [facility]. This care instruction is for use with your licensed healthcare professional. If you have questions about a medical condition or this instruction, always ask your healthcare professional. [employer] disclaims any warranty or liability for your use of this information. Content Version: 10.4.353720; Current as of: June 17, 2014 documented in this encounter Progress Notes * Skyla Pratt MD - 06/06/2015 5:00 PM EST The case was discussed at the time of the visit or immediately after the visit. The assessment and plan were formulated in discussion with me and I agree with them as documented. I have reviewed the history, physical exam, assessment and plan with the resident. Major issues discussed today: Pt here for 4-5 days of sinus left pressure, no cough, no fevers, chills or uril Better with steam , ibuprofen and tylenol. Plan: 1. Viral sinus symptoms- if he develops secondary symptoms and concern for bacterial problem will consider treatment other becerra symptomatically treat. * Meredith Garcia - 06/06/2015 3:08 PM EST ESTABLISHED PATIENT - ACUTE VISIT Chief Complaint Patient presents with ??? URI facial pain ??? Facial Pain runny nose Samm Macdonald is a 59 y.o. male with a history of HTN, ANNELISE and obesity who presents for evaluation ofan upper respiratory infection. He reports that he has developed L-sided nasal pain and tenderness over the last 4-5 days with associated low-grade frontal headache and intermittent sneezing. He reports that his nasal discharge is clear, not purulent. No associated fevers, chills, pain with eye movement, vision changes, sore throat, cough, wheezing, or shortness of breath. 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 No history of sinus infections. Has found some relief with ibuprofen and Tylenol in the last day. Has also noted improvement in symptoms with exposure to steam. Finds that use of his CPAP machine exacerbates the discomfort. ROS: Constitutional - no fevers, chills, weight loss or gain, fatigue HEENT - no difficulty swallowing, hearing, no nasal congestion or postnasal drip, +intermittent sneezing, + L maxillary pain/tenderness Respiratory - no new SOB, MCNULTY, wheeze, cough, sputum production Patient Active Problem List Diagnosis ??? Body mass index (BMI) of 40.0-44.9 in adult ??? Retinal tear L eye, currently being watched by Dr Soni in [facility] in [facility] ??? Detached retina R eye in aug [...] status post uvulectomy. b. On CPAP at [id number] Current Outpatient Prescriptions on File Prior to Visit Medication Sig Dispense Refill ??? lisinopril (PRINIVIL;ZESTRIL) 10 mg Tablet Take 1 tablet by mouth daily. 90 tablet 3 No current facility-administered medications on file prior to visit. Allergies Allergen Reactions ??? Benzocaine CIS [...] Use: No ??? Drug Use: No ??? Sexual Activity: Partners: Female Other Topics Concern ??? Not on file Social History Narrative father, aunt, gdmother with Alzheimer's disease in their 70s cousin with Alzheimer's disease in his 40s. 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 HEENT - NC/AT, normal tympanic membranes bilaterally, difficult to visualize tympanic membranes dueto wax buildup bilaterally, mouth without lesions, no tonsils or uvula, mucous membranes moist. Mildly TTP over L maxillary sinus. Eyes- EOMI. Not jaundiced. Noninjected Neck - No lymphadenopathy. No thyromegaly Lungs - Clear to auscultation. Assessment and Plan: Samm Macdonald is a 59 y.o. male with a history of HTN, ANNELISE and obesity who presents for evaluation ofL-sided nasal pain and tenderness for the last 4-5 days, with associated low-grade frontal headacheand intermittent sneezing with clear nasal discharge. Presentation appears most consistent with viral sinusitis, with conservative management indicated. 1. Viral sinusitis - conservative management - educational handout (Tylenol, NSAIDs, saline rinses, nasal decongestants PRN) - return to clinic for symptoms > 10 days or worsening of symptoms (fevers, chills, purulent discharge) documented in this encounter Plan of Treatment Not on file documented as of this encounter Visit Diagnoses Diagnosis Viral sinusitis Unspecified sinusitis (chronic) documented in this encounter Care Teams Detail Assembler Relationship Specialty Start Date End Date Cheli Elias MD [facility] [address] [facility] [place] [address] PCP - General 06/26/10 05/04/18 documented as of this encounter
--- OUTSIDE RECORDS SUMMARY | 2024-07-21 16:41 | XMS_ITS | Encounter Summary ---
Author Organization [facility] [place] [address] Care Team Providers Care Financial Sales Manager Name Role Phone Cheli Elias MD Primary Care Provider + [phone] Reason for Visit * Reason Onset Date Comments Medication Refill 04/19/2011 Encounter Details Date Type Department Care Team (Late st Contact Info) Description 04/19/2011 Refill Internal Medicine at [address] [address] Cheli Elias MD [facility] [place] [address] Social History Tobacco Use Types Packs/Day Years Used Date Smoking Tobacco: Never Assessed Sex and Gender Information Value Date Recorded Sex Assigned at Not on file Gender Identity Not on file Sexual Orientation Not on file documented as of this encounter Plan of Treatment Not on file documented as of this encounter Visit Diagnoses Not on filedocumented in this encounter Care Teams Financial Sales Manager Relationship Specialty Start Date End Date Cheli Elias MD [facility] [place] [address] PCP - General 06/26/10 05/04/18 documented as of this encounter
--- OUTSIDE RECORDS SUMMARY | 2024-07-21 16:41 | XMS_ITS | Encounter Summary ---
Author Organization [facility] Address [facility] [place] [address] Care Team Providers Care Paring Machine Operator Name Role Phone Cheli Elias MD Primary Care Provider + [phone] Encounter Details Date Type Department Care Team (Late st Contact Info) Description 01/08/2016 Orders Only Internal Medicine at [address] [address] Cheli Elias MD [facility] [place] [address] Proteinuria Social History Tobacco Use Types Packs/Day Years [...] as of this encounter Visit Diagnoses Diagnosis Proteinuria documented in this encounter Care Teams Paring Machine Operator Relationship Specialty Start Date End Date Cheli Elias MD [facility] [place] [address] PCP - General 06/26/10 05/04/18 documented as of this encounter
--- OUTSIDE RECORDS SUMMARY | 2024-07-21 16:41 | XMS_ITS | Encounter Summary ---
Author Organization [place] [address] Care Team Providers Care Public Transit Specialist Name Role Phone Cheli Elias MD Primary Care Provider + [phone] Reason for Referral * Surgical (Routine) - Closed Specialty Diagnoses / Procedures Referred By Acacia neumann Referred To Contact Orthopaedic Surgery Diagnoses Left knee pain, unspecified chronicity Cheli Elias MD [facility] GENERAL INTERNAL [facility] [address] Stanley Kelly MD [address] [place] [id number] Referral ID Status Reason Start Date Expiration Date V isits Requested Visits Authorized [id number] Closed Consult, Test & Treat 01/03/2016 07/01/2016 1 1 Reason for Visit * Reason Onset Date Comments Referral 01/03/2016 Encounter Details Date Type Department Care Team (Late st Contact Info) Description 01/03/2016 Telephone Internal Medicine at [address] [address] Yenni German Referral Social History Tobacco Use Types Packs/Day Years [...] Telephone Encounter - Skyla Haines RN - 01/03/2016 12:08 PM EDT Patient wants to see Dr Leticia SUN at [facility] in [facility] for left knee, which he had discussed with Dr Elias at last appt. He has an appt 01/15. * Telephone Encounter - Yenni German - 01/03/2016 10:50 AM EDT Patient is requesting a referral: Reason for this referral request: Knee pain Specific office or provider: [facility] [place] [facility] Has the patient been seen for this symptoms: annual physical Who: Dr. Elias When: 12/27/15 Caller and Relationship (if other than patient): Best time to call back: any Ok to leave a message: y Ok to send my- message: n documented in this encounter Plan of Treatment Scheduled Referrals Name Type Priority Associated Diagnoses Orde r Schedule Referral to Orthopaedics Outpatient Referral Routine Left knee pain, unspecified chronicity Ordered: 01/03/2016 documented as of this encounter Visit Diagnoses Diagnosis Left knee pain, unspecified chronicity documented in this encounter Care Teams Public Transit Specialist Relationship Specialty Start Date End Date Cheli Elias MD [facility] [address] [facility] [address] PCP - General 06/26/10 05/04/18 documented as of this encounter
--- OUTSIDE RECORDS SUMMARY | 2024-07-21 16:41 | XMS_ITS | Encounter Summary ---
Author Organization [facility] [place] [address] Care Team Providers Care Tool Carrier Name Role Phone Cheli Mathews MD Primary Care Provider [phone] Reason for Visit * Reason Comments Annual Exam Encounter Details Date Type Department Care Team (Late st Contact Info) Description 12/27/2015 9:20 AM EDT Office Visit Internal Medicine at [address] [address] Cheli Mathews MD [facility] [place] [place] [address] Essential hypertension, hypertension with unspecified goal; Sleep apnea, unspecified type; Edema, unspecified type; Healthcare maintenance Social History Tobacco Use Types Packs/Day Years [...] Sign Reading Time Taken Comments Blood Pressure 133/78 12/27/2015 9:28 AM EDT Pulse 69 12/27/2015 9:28 AM EDT Temperature 36.7 ??C (98.1 ??F) 12/27/2015 9:22 AM ED T Respiratory Rate - - Oxygen Saturation 99% 12/27/2015 9:22 AM EDT Inhaled Oxygen Concentration - - Weight 140.1 kg (308 lb 12.8 oz) 12/27/2015 9:22 AM EDT Height 177 cm (5' 9.69) 12/27/2015 9:22 AM EDT Body Mass Index 44.71 12/27/2015 9:22 AM EDT documented in this encounter Progress Notes * Cheli Mathews MD - 12/27/2015 9:39 AM EDT Chief Complaint Patient presents with ??? Annual Exam HPI: 60 y.o. patient with above concerns. L knee pain, improving. He is not aware of any particular injury. Overall he has been feeling well. He is reluctant to have the colonoscopy this year due to financial considerations. he has regular eye doctor monitoring due to history of retinal detachment that wasminimally symptomatic. HPI is reflected in the problem list, which is reviewed and updated as follows: Patient Active Problem List Diagnosis ??? Body mass index (BMI) of 40.0-44.9 in adult ??? Retinal tear L eye, currently being watched by Dr Soni in [facility] in [facility] ??? Detached retina R eye in aug 2010, x 2 ??? Healthcare maintenance Preventive Care: CRC screening - 2009, Due 2014 TA Prostate Ca screening - [] Lipids - [] DM screening - (Hgb, A1C or FBS) [] Seat belts - [] Immunizations: dT - 2006 outside [facility] ??? Tubular adenoma ??? Psoriasis ??? HTN (hypertension) ??? CIS - History of mild iritis ??? Sleep apnea a. status post uvulectomy. b. On CPAP at [id number] Reviewed and updated past medical history, past surgical history, family history and social historyin e-. Allergies Allergen Reactions ??? Benzocaine CIS - Hives, CIS - Hives ??? Benzoin CIS - Hives ??? Cetylpyridinium Chloride CIS - Hives ??? Menthol CIS - Hives ??? Phenol (As Preservative) CIS - Hives ??? Sodium Phenolate CIS - Hives Current Outpatient Prescriptions on File Prior to Visit Medication Sig Dispense Refill ??? lisinopril (PRINIVIL;ZESTRIL) 10 mg Tablet Take 1 tablet by mouth daily. 90 tablet 0 No current facility-administered medications on file prior to visit. myD-H Primary Care 12/27/2015 PROMIS 10-Health in general Excellent PROMIS 10-Quality of life Excellent PROMIS 10-Physical health Excellent PROMIS 10-Mental health Excellent PROMIS 10-Satisfaction with social activities Excellent PROMIS 10-Ability to carry out social activities Excellent PROMIS 10-Ability to carry out physical activities Completely PROMIS 10-Bothered by emotional problems Never PROMIS 10-Rate of fatigue None PROMIS 10-Rate of pain 3 PROMIS 10- Physical Health Score 61.9 PROMIS 10- Mental Health Score 67.6 REVIEW OF SYSTEMS 12/27/2015 Constitutional Weight gain Eyes None of the above Respiratory None of the above Cardiovascular None of the above Skin, hair Dry skin, Itching Musculoskeletal Joint pain Neurological None of the above Hematologic / Lymphatic None of the above Genitourinary None of the above No flowsheet data found. No flowsheet data found. PHQ-9 QUESTIONNAIRE (AMB) 12/27/2015 PHQ - 9 Score (Clinic) - Little interest or pleasure (Clinic) - Little interest or pleasure (Patient) Not at all Down, depressed, hopeless (Clinic) - Down, depressed, hopeless (Patient) Not at all Review of Systems - General ROS: negative for - chills, fever or malaise Respiratory ROS: no cough, shortness of breath, or wheezing Cardiovascular ROS: no chest pain or dyspnea on exertion Gastrointestinal ROS: no abdominal pain, change in bowel habits, or black or bloody stools Genito-Urinary ROS: no dysuria Musculoskeletal ROS: Left knee pain Neurological ROS: no TIA or stroke symptoms All other systems are negative, except as outlined in the HPI. Physical Exam: BP 133/78 (BP Location (NBP): Left arm, Patient Position: Sitting, BP Cuff Sizes: Large Adult (32-43 cm)) Pulse 69 Temp 36.7 ??C (98.1 ??F) (Oral) Ht 177 cm (5' 9.69) Wt (!) 140.1 kg (308 lb 12.8 oz) SpO2 99% BMI 44.71 kg/m2 The patient appears in NAD. Vital signs as documented. Eyes: Conjunctivae normal. OP: Slightly erythematous, status post uvulectomy Neck is without lymphadenopathy. Lungs are clear to auscultation without wheezes or rales Cardiac exam:Regular rate and rhythm. No murmurs, rubs or gallops. Abdominal exam reveals normal bowel sounds, soft to palpation, no hepatomegaly Extremities with 2+ pitting edema to midshin Dorsalis pedis pulses are normal bilaterally Skin with bilateral patches of psoriasis at the level of the knee, no sign of infection Lab Results Component Value Date CHLPL 144 10/25/2014 CHLPL 162 10/27/2012 CHLPL 136 05/16/2011 Lab Results Component Value Date HDL 41 10/25/2014 HDL 43 10/27/2012 HDL 51 05/16/2011 Lab Results Component Value Date LDLCHOL 90 10/27/2012 LDLCHOL 71 05/16/2011 Lab Results Component Value Date TRIG 143 10/27/2012 TRIG 69 05/16/2011 Lab Results Component Value Date CHOLHDL 3.5 10/25/2014 CHOLHDL 3.8 10/27/2012 CHOLHDL 2.7 05/16/2011 Lab Results Component Value Date GLUCFASTING 98 10/27/2012 Assesment and Plan: Health Maintenance Topic Date Due ??? Influenza (Flu) vaccine (1 of 1 - Influenza Standard Series) 04/04/2015 ??? Colonoscopy every 5 yrs 06/05/2015 ??? Diabetes Screening (HgbA1C or Glucose) 10/25/2017 ??? Lipid Screening 10/26/2019 ??? Tetanus vaccine 10/27/2022 ??? Hepatitis C screening (B. [id number]) Completed ??? Tdap adult Completed ??? HIV one time screen Completed Samm was seen today for annual exam. Diagnoses and all orders for this visit: Essential hypertension, hypertension with unspecified goal: Controlled, continue lisinopril, check basic metabolic Sleep apnea, unspecified type- continue CPAP Edema: Check for proteinuria, liver function tests. Suspect chronic venous insufficiency, advised patient to keep his legs elevated especially after long days on his feet documented in this encounter Miscellaneous Notes * Addendum Note - Jordana Hernandez LNA - 12/27/2015 3:48 PM EDTAddended by: JORDANA HERNANDEZ on: 12/27/2015 03:48 PM Modules accepted: Orders * Addendum Note - Cheli Mathews MD - 12/27/2015 3:27 PM EDTAddended by: CHELI MATHEWS on: 12/27/2015 03:27 PM Modules accepted: Orders * Addendum Note - Jordana Hernandez LNA - 12/27/2015 11:31 AM EDTAddended by: JORDANA HERNANDEZ on: 12/27/2015 11:31 AM Modules accepted: Orders * Addendum Note - Jordana Hernandez LNA - 12/27/2015 10:01 AM EDTAddended by: JORDANA HERNANDEZ on: 12/27/2015 10:01 AM Modules accepted: Orders * Assessment & Plan Note - Cheli Mathews MD - 12/27/2015 9:40 AM EDT Associated Problem(s): Sleep apnea CPAP use ok. Sleeps well. * Assessment & Plan Note - Cheli Mathews MD - 12/27/2015 9:39 AM EDT Associated Problem(s): HTN (hypertension) Checks at home, systolic 126-136. Controlled on lisinopril. documented in this encounter Plan of Treatment Not on file documented as of this encounter Procedures Procedure Name Priority Date/Time Associated Diagnosis Comments URINALYSIS WITH REFLEX CULTURE Routine 12/27/2015 4:23 PM EDT Essential hypertension, hypertension with unspecified goal LYME IGG & IGM ANTIBODY Routine 12/27/2015 10:36 AM EDT Edema, unspecified type HEMOGLOBIN A1C Routine 12/27/2015 10:36 AM EDT Essential hypertension, hypertension with unspecified goal COMPREHENSIVE METABOLIC PANEL Routine 12/27/2015 10:36 AM EDT Edema, unspecified type POCT URINE DIPSTICK Routine 12/27/2015 1 0:30 AM EDT Edema, unspecified type documented in this encounter Results * (ABNORMAL) Urinalysis with reflex Culture (12/27/2015 4:23 PM EDT) Glucose, Urine Dipstick Negative Negative mg/dL [facility] Protein, Urine Dipstick 30(A) Negative mg/dL [facility] Bilirubin, Urine Dipstick Negative Negative mg/dL [facility] Comment: Clinical correlation required for positive Urine Bilirubin results as false positive may occur with some drugs and drug related products. If a false positive is suspected a serum total bilirubin should be considered if clinically indicated. Urobilinogen, Urine Dipstick Normal Normal mg/dL [facility] pH, Urn (dipstick) 7.0 5.0 - 8.0 [facility] Blood, Urine Dipstick Negative Negative mg/dL [facility] Ketone, Urine Dipstick Negative Negative mg/dL [facility] Nitrite, Urine Dipstick Negative Negative [facility] Leukocytes, Urine Dipstick Negative Negative [facility] Appearance, Urine Dipstick Clear Clear [facility] Specific [place] Urine Automated 1.020 1.002 - 1.030 [facility] Color, Urine Dipstick Yellow Yellow [facility] RBC, Urine 1 0 - 3 /HPF [facility] WBC, Urine 1 0 - 3 /HPF [facility] Squamous Epithelial Cells, Urine <1 <=4 /HPF [facility] Reflex to Culture No [facility] Urine specimen obtained by clean catch procedure (specimen) 12/27/2015 4:23 PM EDT 12/27/2015 6:40 PM EDT Narrative Resulting Agency Comment Spec In Lab Cheli Mathews MD URINE ORDERABLES [facility] [place] [address] * Comprehensive metabolic panel (non-fasting) (12/27/2015 10:36 AM EDT) Glucose 98 65 - 199 mg/dL [facility] Comment:Diabetes: >=200 mg/d L plus symptoms Blood Urea Nitrogen 18 10 - 20 mg/dL [facility] Creatinine 1.04 0.80 - 1.50 mg/dL [facility] Comment: Please note that the pediatric reference intervals supplied above were not validated at [facility]. Results from pediatric patients should be interpreted in conjunction to the patient's age, height and muscle mass. Sodium 139 135 - 145 mmol/L [facility] Potassium 4.1 3.5 - 5.0 mmol/L [facility] Comment: Please note: ??Patients with WBC >100,000 may have falsely elevated Potassium levels. ??For accurate Potassium quantification in these patients send serum separator tube (gold top) for subsequent determinations. ??Contact the Clinical Chemistry Laboratory if there are any questions. Chloride 100 98 - 107 mmol/L [facility] Carbon Dioxide 25 22 - 31 mmol/L [facility] Anion Gap 14 5 - 15 mmol/L [facility] Calcium 9.2 8.5 - 10.5 mg/dL [facility] Protein, Total 7.6 6.1 - 8.0 gm/dL [facility] Albumin 4.1 3.2 - 5.2 gm/dL [facility] Aspartate Aminotransferase 23 0 - 39 unit/L [facility] Alanine Aminotransferase 30 0 - 55 unit/L [facility] Alkaline Phosphatase 93 40 - 120 unit/L [facility] Bilirubin, Total 0.5 0.2 - 1.3 mg/dL [facility] Bilirubin, Direct 0.1 0.0 - 0.3 mg/dL [facility] Est Glomerular Filtration Rate >60 >=60 [facility] Comment: This estimated GFR (eGFR) [...] the following links into your internet browser. [email or web address] Blood specimen (specimen) 12/27/2015 10:36 AM EDT 12/27/2015 12:14 PM EDT Narrative Resulting Agency Comment Spec In Lab Cheli Mathews MD CHEMISTRY ORDERABLES [facility] [place] [address] * (ABNORMAL) Hemoglobin A1c (12/27/2015 10:36 AM EDT) Hemoglobin A1c 5.7(H) 4.3 - 5.6 % [facility] Comment: Reference Range: 4.3 - [...] Mellitus, Diabetes Care 2013; 36: Suppl. 1, F31-41 Estimated Average Glucose 117 mg/dL [facility] Comment: eAG equivalents for HbA1c percentages: HbA1c(%) ?eAG(mg/dL) 6.0 ?126 6.5 ?140 7.0 ?154 7.5 ?169 8.0 ?183 8.5 ?197 9.0 ?212 9.5 ?226 10.0 ? 240 Limitations: The eAG calculation has not been validated on women, individuals below 18 years old and above 70 years old, and individuals with hemoglobinopathies. Additional resources are available on the ADA website: http://Akvolution.Lumaqco/[facility] [place] MARSH, Bettina J, Brayan R, et al. ??Translating the A1C assay into estimated average glucose values. ??Diabetes Care 2008:31(8):8558-2077. Blood specimen (specimen) 12/27/2015 10:36 AM EDT 12/27/2015 12:14 PM EDT Narrative Resulting Agency Comment Spec In Lab Cheli Mathews MD CHEMISTRY ORDERABLES Performing Organization Address [facility] de Phone Number [facility] [place] [address] * Lyme IgG & IgM Antibody (12/27/2015 10:36 AM EDT) Lyme Antibody Neg Neg [facility] Blood specimen (specimen) 12/27/2015 10:36 AM EDT 12/28/2015 7:02 AM EDT Narrative Resulting Agency Comment Spec In Lab Cheli Mathews MD IMMUNOLOGY ORDERABLE S Performing Organization Address [facility] de Phone Number [facility] [place] [address] * POCT urine dipstick (12/27/2015 10:30 AM EDT) POC Sp [place] 1.015 1.002 - 1.030 POC pH, UA 7 5.0 - 8.5 POC Leuk, UA neg Negative - Negative POC Nitrite, UA neg Negative - Negative POC Protein, UA trace Negative - Negative mg/dL POC Glucose, UA norm Normal - Normal mg/dL POC Ketone, UA neg Negative - Negative POC Urobil, UA norm 0.2 - 1.0 mg/dL POC Bili, UA neg Negative - Negative POC Blood, UA trace Negative - Negative rosa/uL 12/27/2015 10:3 0 AM EDT Cheli Mathews MD POINT OF CARE TEST O DIPAK documented in this encounter Visit Diagnoses Diagnosis Essential hypertension, hypertension with unspecified goal Sleep apnea, unspecified type Edema, unspecified type Healthcare maintenance Routine general medical examination at a health care facility documented in this encounter Care Teams Tool Carrier Relationship Specialty Start Date End Date Cheli Mathews MD [facility] [place] [address] PCP - General 06/26/10 05/04/18 documented as of this encounter
--- OUTSIDE RECORDS SUMMARY | 2024-07-21 16:41 | XMS_ITS | Encounter Summary ---
Author Organization [facility] [place] [address] Care Team Providers Care Engraver Automatic Name Role Phone Cheli Elias MD Primary Care Provider [phone] Reason for Visit * Reason Onset Date Comments Other 11/30/20132013 Annual phys ical reminder notice Encounter Details Date Type Department Care Team (Late st Contact Info) Description 11/30/2013 Telephone Internal Medicine at [address] [address] Cheli Elias MD [facility] [place] [address] Other (2013 Annual physical reminder notice) Social History Tobacco Use Types Packs/Day Years [...] encounter Miscellaneous Notes * Telephone Encounter - Jimmie Goyalarnie Singh - 11/30/2013 10:32 AM EDT Three reminder notices to patient regarding October 2013 annual physical - no response - removed fromreminder list. 06/28/2013 11:23AM SHEAD2 - Mailed out reminder card. 10/11/2013 11:27AM SHEAD2 - Spoke with patient, not sure of his schedule, will speak with his and call back. 11/02/2013 12:08PM SHEAD2 - Mailed out reminder card. documented in this encounter Plan of Treatment Not on file documented as of this encounter Visit Diagnoses Not on filedocumented in this encounter Care Teams Engraver Automatic Relationship Specialty Start Date End Date Cheli Elias MD [facility] [address] [place] [address] PCP - General 06/26/10 05/04/18 documented as of this encounter
--- OUTSIDE RECORDS SUMMARY | 2024-07-21 16:41 | XMS_ITS | Encounter Summary ---
Author Organization [facility] [place] [address] Care Team Providers Care Dust Control Engineer Name Role Phone Cheli Elias MD Primary Care Provider + [phone] Reason for Visit * Reason Onset Date Comments Medication Refill 10/08/2013 Encounter Details Date Type Department Care Team (Late st Contact Info) Description 10/08/2013 Refill Internal Medicine at [address] [address] Cheli Elias MD [facility] [place] [address] Social History Tobacco Use Types Packs/Day Years [...] on filedocumented in this encounter Care Teams Dust Control Engineer Relationship Specialty Start Date End Date Cheli Elias MD [facility] [place] [address] PCP - General 06/26/10 05/04/18 documented as of this encounter
--- OUTSIDE RECORDS SUMMARY | 2024-07-21 16:41 | XMS_ITS | Encounter Summary ---
Author Organization [facility] [place] [address] Care Team Providers Care Media Senior Recruiter Name Role Phone Cheli Elias MD Primary Care Provider + [phone] Reason for Visit * Reason Onset Date Comments Medication Refill 09/25/2015 Encounter Details Date Type Department Care Team (Late st Contact Info) Description 09/25/2015 Refill Internal Medicine at [address] [address] [place] Social History Tobacco Use Types Packs/Day Years [...] on filedocumented in this encounter Care Teams Media Senior Recruiter Relationship Specialty Start Date End Date Cheli Elias MD [facility] [place] [address] PCP - General 06/26/10 05/04/18 documented as of this encounter
== END 2024-07-21 16:34 | disposition home or self-care (01) ==
LOC: LBO 16:36
PROVIDERS: PCP Family Medicine; Visit Provider Family Medicine
DX: R19.09 Other intra-abdominal and pelvic swelling, mass and lump (principal)
CPT/HCPCS: 36415; 84520; 82565

== ENCOUNTER 2024-12-20 04:27 | Outpatient (CLI) | payer MEDICARE, SELFPAY ==
--- NOTE | 2024-12-22 15:51 | W.NUTRFU ---
Date of service: 12/20/24 Time of Service: 13:00 Nutrition Note NOTE: Catrachito came in for referred nutrition visit accompanied by his Glenda. Referred for wt mgt. Catrachiot states desirable body weight of 220-230 as a first goal - states he was 265lbs this morning with clothes on. Sandra feels he eats too late and has excessive portions. We spent some time reviewing diet. they eat a good amount of produce and healthy choices. In order to get a feel for recommended food choices to create a balance in his diet condusive to weight loss, I showed them a menu planning resource and asked them to plug in the following criteria for menu planning: ~2100kcals, 210g total carbs (no more than 21g coming from added sugar and at least 30g coming from fiber out of this total), 157g protein, 70 g total fat (no more than 21g from SFA's. Showed them how to refine menus based on preference, cooking ability, etc.... 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 He and Sandra took my card to contact if continuing to struggle of if they have the need for follow up appts or more resources Time Spent in Nutritional Counseling and Treatment: 25 min
== END 2024-12-20 04:28 | disposition home or self-care (01) ==
LOC: DS 04:27
PROVIDERS: PCP Family Medicine; Visit Provider Dietitian, Registered
DX: E66.9 Obesity, unspecified (principal)
CPT/HCPCS: 00123; 97802

== ENCOUNTER → 2025-06-09 10:24 | Outpatient (BNVA) | payer MEDICARE, SELFPAY | PROVIDERS: PCP Family Medicine; Referring Provider Family Medicine; Visit Provider Physical Therapy Assistant | DX: Z12.11 Encounter for screening for malignant neoplasm of colon (principal); Z86.0101 Personal history of adenomatous and serrated colon polyps | CPT/HCPCS: S0285 ==

== ENCOUNTER 2025-06-23 08:20 | Day surgery (SDC) | payer MEDICARE, SELFPAY ==
[2025-06-23 08:43] VITALS: BP 149/80; PULSE 60; RESP 16; TEMP 36.4; O2SAT 96
[2025-06-23] MEDS: Lactated Ringers 1,000 ML 80 ML IV (08:57)
--- NOTE | 2025-06-23 09:05 | W.ANESPRE ---
General Info Date of Service Date Performed: 06/23/25 Height: 5 ft 9.5 in Weight: 127.1 kg Body Mass Index (BMI): 40.8 Surgical Procedure: Operation Date: 06/23/25 09:50 Proposed Procedure Side Surgeon p Fabien Calderon MD Meds Allergies and Home Medications Allergies Allergy/AdvReac Type Severity Reaction Status Date / Time phenol Allergy Hives Verified 06/23/25 08:40 benzocaine (From AdvReac Intermediate Hives Verified 06/23/25 08:40 Chloraseptic (benzocaine)) menthol (From Chloraseptic AdvReac Intermediate Hives Verified 06/23/25 08:40 (benzocaine)) benzoin (From Kank-A (with AdvReac Hives Verified 06/23/25 08:40 benzoin)) cetylpyridinium chloride AdvReac Hives Verified 06/23/25 08:40 (From Kank-A (with benzoin)) indomethacin AdvReac mental Verified 06/23/25 08:40 status changes Home Medication Medication Instructions Recorded acetaminophen 500 mg capsule 1,000 mg PO BID PRN 10/22/21 amlodipine 5 mg tablet 5 mg PO DAILY 10/22/21 acetylcysteine 600 mg capsule 1,200 mg PO BID 06/03/25 apixaban 5 mg tablet (Eliquis) 5 mg PO BID 06/03/25 cholecalciferol (vitamin D3) 25 25 mcg PO DAILY 06/03/25 mcg (1,000 unit) capsule famotidine 40 mg tablet 40 mg PO DAILY 06/03/25 ketoconazole 2 % shampoo 1 applic topical ONCE 06/03/25 ketoconazole 2 % topical cream 1 applic topical BID 06/03/25 magnesium oxide 400 mg (241.3 mg 400 mg PO QHS 06/03/25 magnesium) tablet melatonin 5 mg capsule 10 mg PO HS PRN 06/03/25 tacrolimus 0.1 % topical ointment 1 applic topical BID 06/03/25 (Protopic) bisacodyl 5 mg tablet,delayed 5 mg PO ONCE Colonoscopy Bowel 06/09/25 release Prep #4 tabs guanfacine 1 mg tablet,extended 2 mg PO QPM 06/09/25 release 24 hr polyethylene glycol 3350 17 238 g PO ONCE #238 grams 06/09/25 gram/dose oral powder Current Visit Medications: Current Medications Generic Name Dose Route Start Last Admin Trade Name Garfieldq PRN Reason Stop Dose Admin Ringer's Solution 1,000 mls @ 80 mls/hr 06/23/25 06:00 06/23/25 08:57 IV 07/22/25 23:59 80 mls/hr INFUSION JIMENA Administration IV Miscellaneous Supplies 1 each 06/23/25 06:00 Iv Access IV 07/22/25 23:59 DIRECTED JIMENA Sodium Biphosphate/Sodium Phosphate 133 ml 06/23/25 06:00 Na Phosphate Enema-Adult 133 Ml Btl MA 07/22/25 23:59 DIRECTED PRN Sodium Chloride 0 ml 06/23/25 06:00 Normal Saline Flush 10 Ml Syr IV 07/22/25 23:59 PRN PRN Sodium Chloride 0 ml 06/23/25 06:00 Normal Saline 10 Ml Vial IJ 07/22/25 23:59 DIRECTED PRN Sterile Water 0 ml 06/23/25 06:00 Water,Injection,Sterile 10 Ml Vial IJ 07/22/25 23:59 DIRECTED PRN PFSH Medical History Medical History Essential hypertension Serous retinal detachment Depressive disorder Vitamin D deficiency Paroxysmal A-fib 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 Seborrheic dermatitis of scalp Disorder of salivary gland Pain, joint, knee, right Chronic seborrheic dermatitis GERD (gastroesophageal reflux disease) Bilateral tinnitus Psychophysiologic insomnia Psoriasis Detached retina Sleep apnea HTN (hypertension) H/O iritis Adenoma Horseshoe tear of retina Low back pain Obesity Impacted cerumen, bilateral Mallet finger of left hand Localized swelling, mass and lump, neck Mass of parotid gland Surgical History Surgical History H/O laminectomy History of vasectomy History of uvulectomy History of tonsillectomy History of cataract surgery History of partial knee replacement Tobacco Smoking/Tobacco Use Status: Former Tobacco Use Alcohol Alcohol Intake: current Alcohol intake frequency: holidays/special occasions only Substance Use Substance use: Never Substance use type: does not use Vital Signs and Lab Results Vital Signs Most Recent Vital Signs in EMR: Most Recent Vital Signs Temp Pulse Resp BP Pulse Ox 36.4 C L 60 16 149/80 H 96 06/23/25 08:43 06/23/25 08:43 06/23/25 08:43 06/23/25 08:43 06/23/25 08:43 Anesthesia Assessment and Plan Anesthesia History Personal History: Delayed Emergence Family History: No Family History of Anesthesia Complications Exercise Tolerance Exercise Tolerance: Metabolic Equivalents>4 Pertinent Negatives Pertinent Negatives: No Symptoms of GERD, No Major Cardiovascular Symptoms or Complaints, No Major Pulmonary Symptoms or Complaints and No History of CVA/TIA Cardiac & Pulmonary Exam Cardiac Exam: Normal S1/S2 Heart Sounds Pulmonary Exam: Clear Bilateral Breath Sounds Implantable Cardiac Device Does patient have a Pacemaker or an ICD?: No Airway Exam Known Difficult Airway: No Mallampati Class: 2 Mouth Opening: Normal (> 3cm) Thyromental Distance: Greater than 3 cm Facial Hair: Full [place] Neck Range of Motion: Full ROM Neck Circumference: Normal Teeth Condition: Normal Dentition ASA Classification ASA Score: ASA 3 Emergency Case?: No NPO Status NPO Status: NPO Clears >2 hours, Solids >8 hours Anesthesia Plan Resuscitation Status: Full Code Anesthesia Technique: General Anesthesia Airway Planned: Natural Airway Monitors Used: Standard Monitors
[2025-06-23 09:08] VITALS: BMI 40.8
--- NOTE | 2025-06-23 09:48 | W.PM.DSUDISC ---
Date of service: 06/23/25 Discharge Plan Disposition Patient Disposition: Home Condition: Stable Discharge Details Reason For Visit: Colonoscopy Attending Provider: Terra Calderon Primary Care Provider: Robyn Glynn Home Meds and New Rx's Prescriptions: Continued acetaminophen 500 mg capsule 1,000 mg PO BID PRN amlodipine 5 mg tablet 5 mg PO DAILY ketoconazole 2 % shampoo 1 applic topical ONCE famotidine 40 mg tablet 40 mg PO DAILY magnesium oxide 400 mg (241.3 mg magnesium) tablet 400 mg PO QHS tacrolimus [Protopic] 0.1 % ointment 1 applic topical BID ketoconazole 2 % cream 1 applic topical BID cholecalciferol (vitamin D3) 25 mcg (1,000 unit) capsule 25 mcg PO DAILY acetylcysteine 600 mg capsule 1,200 mg PO BID melatonin 5 mg capsule 10 mg PO HS PRN Eliquis 5 mg tablet 5 mg PO BID guanfacine 1 mg tablet extended release 24 hr 2 mg PO QPM Discontinued bisacodyl 5 mg tablet,delayed release (DR/EC) 5 mg PO ONCE Qty: 4 0RF Rx Instructions: Per Colonoscopy bowel prep instructions polyethylene glycol 3350 17 gram/dose powder 238 g PO ONCE Qty: 238 0RF Rx Instructions: For Colonoscopy bowel prep, as directed by office Discharge Instructions Additional Instructions: RESUME ELQIUIS BLOOD THINNER on 06/25/25. Six polyps removed today so holding Eliquis for 2 more days helps prevent bleeding from these areas as they start to heal. History of colon polyps Ascending colon polyp transverse colon polyp multiple descending colon polyps (3) Next colonoscopy due in 3-5 years depending on the kinds of polyps these end up being on biopsy. They are not cancerous polyps, but they may be precancerous like the ones you had in the past. Will notify you by mail when polyp results are complete and confirm timing of next colonoscopy. Stand Alone Forms: Portal Information Activity:: Activity as Tolerated Diet:: As Tolerated Discharge Orders Discharge Orders: Discharge Order (Routine); Ordered 06/23/25 Ordered By: Terra Calderon DS: Diagnosis Discharge Diagnosis (1) Encounter for colonoscopy due to history of colonic polyp: Status: Acute (2) Anticoagulant long-term use: Status: Acute (3) Polyp of ascending colon: Status: Acute (4) Polyp of transverse colon: Status: Acute (5) Polyp of descending colon: Status: Acute
--- NOTE | 2025-06-23 09:51 | W.COLOREPORT ---
Date of service: 05/26/25 Time of Service: 09:52 Colonoscopy Report Pre-op diagnosis general: History of colon polyps Post-op diagnosis procedure note: same (1. ascending colon polyp. 2. transverse colon polyp. 3. multiple descending colon polyps) Procedure: Colonoscopy with cold forceps polypectomy Surgeon: Terra Calderon Anesthesia Type: General:No Airway Estimated blood loss (mL): 3 Pathology: other (1. ascending colon polyp. 2. transverse colon polyp. 3. multiple descending colon polyps) Complications: None Prep: Miralax/Dulcolax (Excellent) Procedure Description: Informed consent was obtained and the patient was taken to the procedure area. The patient was placed in left lateral decubitus position on the procedure table. Timeout was performed. Anesthesia was induced. A lubricated colonoscope was inserted through the anus and passed to the cecum. The cecum was identified by the ileocecal valve and the appendiceal orifice. The scope was then slowly withdrawn and the colonic and rectal mucosa examined. Ascending colon 5mm sessile polyp excised with cold forceps Transverse colon polyp 5mm sessile excised with cold forceps descending colon with 4 polyp, sessile, ranging in size from 3mm to 5mm. All excised with cold forceps and sent as one specimen. No diverticulosis was seen. The scope was retroflexed in the anorectal junction examined. Uncomplicated internal hemorrhoids present. Assessment and plan: History of colon polyps Ascending colon polyp transverse colon polyp multiple descending colon polyps Next colonoscopy due in 3-5 years [address] path of excised polyps. Will notify patient by mail when polyp results are complete and confirm timing of next colonoscopy.
--- NOTE | 2025-06-23 10:09 | BOWEL_PTH ---
PATIENT: Samm Macdonald IV LOC: [facility] U#:[id number] AGE/SX: 69/M ROOM: RE06/23/[address]: Terra Calderon MD : [id number] BED: DIS: 06/23/2025 SPEC #: [id number] RECD: 06/23/25 11:11 STATUS: IRINA REQ #: [id number] ADRIAN: 06/23/25 10:[address]: Terra Calderon DEPT: Surgical Specimen RECD BY: Linda Corbin ENTERED: 06/23/25 11:12 SP TYPE: Bowel OTHR DR: Robyn Glynn Tissues: 1 - BIOPSY BOWEL 2 - BIOPSY BOWEL 3 - BIOPSY BOWEL Procedures: GROSS AND MICRO LEVEL 4 Comments: [id number]
[2025-06-23 10:26] VITALS: BP 123/73; PULSE 54; RESP 14; TEMP 36; O2SAT 96
[2025-06-23 10:56] VITALS: BP 139/83; PULSE 51; RESP 18; TEMP 36.4; O2SAT 96
--- NOTE | 2025-06-23 11:44 | W.ANESPOSTOP ---
Postoperative Evaluation Date, Time and Location Date Performed: 06/23/25 Time Performed: 10:56 Patient Location: Day [facility] Unit Vital Signs Most Recent Imported Vital Signs: Most Recent Vital Signs Temp Pulse Resp BP Pulse Ox 36.4 C L 51 L 18 139/83 96 06/23/25 10:56 06/23/25 10:56 06/23/25 10:56 06/23/25 10:56 06/23/25 10:56 Pain Score Most Recent Pain Score: Most Recent Pain Score Pain Level 0 06/23/25 10:56 Assessment Mental Status: Awake (Alert & Oriented to Patient Baseline) Airway and Respiratory Function: Patent airway with normal (patient baseline) respiratory exam Cardiovascular Function: Hemodynamically Stable Hydration Status: Adequately Hydrated Nausea & Vomiting: No Nausea or Vomiting Pain: Pt. Denies Any Pain Peripheral Nerve Block: Patient did not receive a nerve block
== END 2025-06-23 11:10 | disposition home or self-care (01) ==
PROVIDERS: PCP Family Medicine; Visit Provider Surgery
PROC: 0DJD8ZZ Inspection of Lower Intestinal Tract, Via Natural or Artificial Opening Endoscopic (ICD-10-PCS; CPT 45378; principal; 2025-06-23 09:45)
DX: Z12.11 Encounter for screening for malignant neoplasm of colon (principal); Z79.01 Long term (current) use of anticoagulants; D12.2 Benign neoplasm of ascending colon; D12.3 Benign neoplasm of transverse colon
CPT/HCPCS: 45380; 88305; J2003; J2704